=== PATIENT | female | born 1950 | race Caucasian/White ===

== ENCOUNTER 2016-09-13 17:41 | Inpatient (IN) | payer MEDICARE, OTHER ==
--- NOTE | 2016-09-13 17:47 | ED PDOC ---
Arrival/HPI - General Time Seen by Provider: 09/13/16 17:42 Historian: Patient - History of Present Illness Narrative History of Present Illness (Text): 09/13/16 17:46 65 year old female whose past medical history includes dementia, hypertension and diabetes,presents to the emergency department with left sided facial droop and left sided weakness. EMS reports onset of 16:00 today, however on arrival patient's family member states he noticed the patient was also weak yesterday. Patient currently reports pain in the left arm. Denies fevers. Time/Duration: 24 hours Symptom Course: Unchanged Modifying Factors (Text): None Associated Symptoms (Text): None Past Medical History - Provider Review Nursing Documentation Reviewed: Yes - Infectious Disease Hx of Infectious Diseases: None - Tetanus Immunization Tetanus Immunization: Unknown - Cardiac Hx Hypertension: Yes - Neurological Hx Dementia: Yes - Endocrine/Metabolic Hx Diabetes Mellitus Type 1: Yes - Musculoskeletal/Rheumatological Hx Falls: No - Psychiatric Hx Substance Use: No - Past Surgical History Past Surgical History: No Previous - Anesthesia Hx Anesthesia: No - Suicidal Assessment Feels Threatened In Home Enviroment: No Family/Social History - Physician Review Nursing Documentation Reviewed: Yes Family/Social History: Unknown Family HX Smoking Status: Never Smoked Hx Alcohol Use: No Hx Substance Use: No Hx Substance Use Treatment: No Allergies/Home Meds Allergies/Adverse Reactions: Allergies Bar of Soap Adverse Reaction (Uncoded 09/14/16 21:56) RASH Home Medications: Home Meds Medication Instructions Recorded Confirmed MetFORMIN [glucoPHAGE] 1,000 mg PO BID 07/06/13 09/13/16 Atenolol/Chlorthalidone 1 tab PO DAILY 09/13/16 09/13/16 [Atenolol-Chlorthalidone 50-25] Clopidogrel [Plavix] 75 mg PO DAILY 09/13/16 09/13/16 Losartan [Cozaar] 50 mg PO DAILY 09/13/16 09/13/16 Review of Systems - Physician Review All systems were reviewed & negative as marked: Yes - Review of Systems Constitutional: absent: Fevers Neurological: Focal Weakness, Facial Droop Physical Exam Vital Signs Reviewed: Yes Vital Signs Temp Pulse Resp BP Pulse Ox 09/13/16 22:10 99.9 F H 75 20 178/85 H 97 09/13/16 20:50 84 18 156/88 H 99 09/13/16 19:41 88 18 152/84 H 100 09/13/16 17:43 98.5 F 85 19 161/85 H 97 Temperature: Afebrile Blood Pressure: Normal Pulse: Regular Respiratory Rate: Normal Appearance: Positive for: Well-Appearing, Non-Toxic, Comfortable Pain Distress: None Mental Status: Positive for: other (Alert, following commands) - Systems Exam Head: Present: Atraumatic, Normocephalic Pupils: Present: PERRL Extroacular Muscles: Present: EOMI Conjunctiva: Present: Normal Mouth: Present: Moist Mucous Membranes Neck: Present: Normal Range of Motion Respiratory/Chest: Present: Clear to Auscultation, Good Air Exchange. No: Respiratory Distress, Accessory Muscle Use Cardiovascular: Present: Regular Rate and Rhythm, Normal S1, S2. No: Murmurs Abdomen: Present: Normal Bowel Sounds. No: Tenderness, Distention, Peritoneal Signs Back: Present: Normal Inspection Upper Extremity: Present: Normal Inspection. No: Cyanosis, Edema Lower Extremity: Present: Normal Inspection. No: Edema Neurological: Present: GCS=15, CN II-XII Intact, Speech Normal, Normal Sensory Function, Normal Cerebellar Funct, Other ((-)pronator drift +4/5 left sided upper extremity +5/5 lower extremity) Skin: Present: Warm, Dry, Normal Color. No: Rashes Psychiatric: Present: Alert, Oriented x 3, Normal Concentration Medical Decision Making ED Course and Treatment: Impression: 65 year old female whose past medical history includes dementia, hypertension and diabetes,presents to the emergency department with left sided facial droop and left sided weakness. Differential Diagnosis included but are not limited to: CVA vs TIA Plan: -- CT Head, EKG, CXR -- Labs -- Reassess and disposition Prior Visits: Notes and results from previous visits were reviewed. Patient last seen in the ED on 04/30/16 for altered mental status and admitted for altered mental status. Progress Notes: 09/13/16 22:[address] gloria. states not tpa candate as uncertain onset, improving symptoms. dr mas accepts. asa dosed. pt reports symtpoms improving in emergency room. - Lab Interpretations Microbiology Results: Microbiology Results 09/13/16 19:30 Blood Blood Culture - Preliminary NO GROWTH AFTER 24 HOURS Lab Results: 09/13/16 18:20 09/13/16 18:20 Lab Results 09/13/16 19:30: Blood Type Confirm B POSITIVE 09/13/16 18:27: Urine Color Yellow, Urine Appearance Sl cloudy, Urine pH 6.5, Ur Specific [place] 1.015, Urine Protein Negative, Urine Glucose (UA) 250 H, Urine Ketones Trace H, Urine Blood Trace-lysed H, Urine Nitrate Negative, Urine Bilirubin Negative, Urine Urobilinogen 0.2, Ur Leukocyte Esterase Small H, Urine RBC 1 - 3, Urine WBC 5 - 10, Ur Epithelial Cells 10 - 12, Urine Bacteria Mod 09/13/16 18:20: Blood Type B POSITIVE, Antibody Screen Negative, BBK History Checked No verified bt 09/13/16 18:20: Hemoglobin A1c 8.1 H 09/13/16 18:20: Sodium 135, Potassium 3.8, Chloride 98, Carbon Dioxide 24, Anion Gap 17, BUN 23 H, Creatinine 0.8, Est GFR ( Amer) > 60, Est GFR ( Non-Af Amer) > 60, Random Glucose 220 H, Calcium 10.4, Total Bilirubin 0.7, AST 22, ALT 25, Alkaline Phosphatase 62, Troponin I < 0.01, Total Protein 8.2, Albumin 4.5, Globulin 3.7, Albumin/Globulin Ratio 1.2, Triglycerides 121, Cholesterol 252 H, LDL Cholesterol Direct 160 H, HDL Cholesterol 64 H 09/13/16 18:20: PT 11.1, INR 1.03, APTT 31.7 H 09/13/16 18:20: WBC 14.9 H D, RBC 4.66, Hgb 12.6, Hct 37.1, MCV 79.6 L, MCH 27.0 , MCHC 34.0, RDW 14.2, Plt Count 236, MPV 10.7, Gran % 84.9 H, Lymph % (Auto) 10.1 L, Perkins % (Auto) 3.4, Eos % (Auto) 1.5, Baso % (Auto) 0.1, Gran # 12.63 H, Lymph # 1.5, Perkins # 0.5, Eos # 0.2, Baso # 0.02 - RAD Interpretation Radiology Orders: 09/13/16 17:42 HEAD W/O (CODE STROKE) [CT] Stat CHEST ONE VIEW [RAD] Stat - EKG Interpretation EKG Interpretation (Text): EKG shows NSR at 74 BPM with poor tracing in lateral leads. Interpreted by me. Interpreted by ED Physician: Yes Type: 12 lead EKG - Medication Orders Current Medication Orders: Acetaminophen (Tylenol 325mg Tab) 650 mg PO Q6H PRN PRN Reason: Fever >100.4 F Last Admin: 09/14/16 19:15 Dose: 650 mg Re-Assess: MAR Pain/Vitals Document 09/14/16 20:15 DS (Rec: 09/14/16 20:18 DS [id number]) Vitals Temperature (97.6 F-99.6 F) 98.4 F Temperature Source Oral Aspirin (Ecotrin) 81 mg PO DAILY [facility] Last Admin: 09/15/16 10:38 Dose: 81 mg Atenolol (Tenormin) 50 mg PO DAILY [facility] Last Admin: 09/15/16 10:38 Dose: 50 mg Atorvastatin Calcium (Lipitor) 40 mg PO HS [facility] Last Admin: 09/14/16 21:41 Dose: 40 mg Chlorthalidone (Hygroton) 25 mg PO DAILY [facility] Last Admin: 09/15/16 10:38 Dose: 25 mg Clopidogrel Bisulfate (Plavix) 75 mg PO DAILY [facility] Last Admin: 09/15/16 10:38 Dose: 75 mg Enoxaparin Sodium (Lovenox) 30 mg SC DAILY [facility] PRN Reason: Protocol Last Admin: 09/15/16 10:38 Dose: 30 mg Ceftriaxone Sodium (Rocephin 1 Gram Ivpb) 1 gm in 100 mls @ 100 mls/hr IVPB DAILY [facility] PRN Reason: Protocol Last Admin: 09/15/16 10:39 Dose: 100 mls/hr Sodium Chloride (Sodium Chloride 0.9%) 1,000 mls @ 100 mls/hr IV .Q10H [facility] Last Admin: 09/15/16 05:44 Dose: 100 mls/hr Insulin Detemir (Levemir) 10 unit SC HS [facility] Last Admin: 09/14/16 21:41 Dose: 10 unit Insulin Human Lispro (Humalog Low) 0 units SC ACHS [facility] PRN Reason: Protocol Last Admin: 09/15/16 08:37 Dose: 1 units Losartan Potassium (Cozaar) 50 mg PO DAILY [facility] Last Admin: 09/15/16 10:38 Dose: 50 mg Pantoprazole Sodium (Protonix Ec Tab) 40 mg PO ACB [facility] Last Admin: 09/15/16 08:37 Dose: 40 mg Polysaccharide Iron Complex (Ferrex-150) 150 mg PO DAILY [facility] Last Admin: 09/15/16 10:38 Dose: 150 mg Discontinued Medications Aspirin (Aspirin) 325 mg PO STAT STA Stop: 09/13/16 19:22 Last Admin: 09/13/16 19:57 Dose: 325 mg Diphenhydramine HCl (Benadryl) 25 mg IVP STAT STA Stop: 09/14/16 09:52 Last Admin: 09/14/16 10:01 Dose: 25 mg Hydralazine HCl (Apresoline) 10 mg IVP ONCE ONE Stop: 09/13/16 22:44 Last Admin: 09/13/16 22:59 Dose: 10 mg Ceftriaxone Sodium (Rocephin 1 Gram Ivpb) 1 gm in 100 mls @ 200 mls/hr IVPB STAT STA PRN Reason: Protocol Stop: 09/13/16 19:46 Last Admin: 09/13/16 19:55 Dose: 200 mls/hr Potassium Chloride (Potassium Chloride 20 Meq/100 Ml) 20 meq in 100 mls @ 50 mls/hr IVPB ONCE ONE Stop: 09/14/16 10:33 Last Admin: 09/14/16 15:18 Dose: 50 mls/hr Potassium Chloride (Potassium Chloride 20 Meq/100 Ml) 20 meq in 100 mls @ 50 mls/hr IVPB ONCE ONE Stop: 09/14/16 12:34 Last Admin: 09/14/16 17:18 Dose: 50 mls/hr Magnesium Sulfate 2 gm/ Sodium (Chloride) 104 mls @ 102 mls/hr IVPB ONCE ONE Stop: 09/14/16 13:39 Last Admin: 09/14/16 13:54 Dose: 102 mls/hr NIHSS Scale ([place]) Time Performed: 17:42 - How Severe is the Stoke Baseline Level of Consciousness: 0=Alert LOC to Questions: 0=Both comments correct LOC to commands: 0=Obeys both correctly Best Gaze: 0=Normal Visual: 0=No visual loss Facial: 2=Partial (lower face paralysis) Motor Arm - Left: 1=Drift noted before 10 sec Motor Arm - Right: 0=No drift Motor Leg - Left: 1=Drift before 5 sec Motor Leg - Right: 0=No drift Limb Ataxia: 0=Absent Sensory: 0=Normal Best Language: 0=No aphasia Dysarthia: 0=Normal articulation Extinction & Inattention (Neglect): 0=Normal, no object Score: 4 Risk Level: Minor Stroke Risk rTPA Inclusion/Exclusion - Refusal of Treatment Patient Refused Treatment: No - Inclusion Criteria for Altepase Patient is 18 years or Older: Yes The Clinical Diagnosis of Ischemic Stroke That is Causing a Potentially Disabling Neurological Deficit: Yes Time of Onset is Well Established to be Less Than 270 Minute Before Treatment Would Begin: No Risk/Benefit Discussed With Patient/Family Member Present: Yes - Scribe Statement The provider has reviewed the documentation as recorded by the Clementina Negrete Provider Scribe Attestation: All medical record entries made by the Clementina were at my direction and personally dictated by me. I have reviewed the chart and agree that the record accurately reflects my personal performance of the history, physical exam, medical decision making, and the department course for this patient. I have also personally directed, reviewed, and agree with the discharge instructions and disposition. Disposition/Present on Arrival - Present on Arrival Any Indicators Present on Arrival: No History of DVT/PE: No History of Uncontrolled Diabetes: No Urinary Catheter: No History Surgical Site Infection Following: None - Disposition Have Diagnosis and Disposition been Completed?: Yes Diagnosis: Weakness, UTI (urinary tract infection) Disposition: HOSPITALIZED Disposition Time: 07:00 Condition: FAIR
[2016-09-13 17:59] VITALS: BMI 23.6
[2016-09-13 18:27] LABS: ADD MANUAL DIFF? NO
[2016-09-13 18:31] LABS: BASO # 0.02 K/mm3 (0.0-2.0); BASO % 0.1 % (0.0-3.0); EOS # 0.2 (0.0-0.7); EOS % 1.5 % (1.5-5.0); GRAN # 12.63 (1.4-6.5); GRAN % 84.9 % (50.0-68.0); HEMATOCRIT 37.1 % (36.0-48.0); LYMPH # 1.5 (1.2-3.4); LYMPH % 10.1 % (22.0-35.0); MEAN CELL VOLUME 79.6 fL (80.0-105.0); MEAN PLATELET VOLUME 10.7 fl (7.0-11.0); MONO # 0.5 (0.1-0.6); MONO % 3.4 % (1.0-6.0); PLATELET COUNT 236 10^3/uL (120.0-450.0); RED CELL DISTRIBUTION WIDTH 14.2 % (11.5-14.5); WHITE BLOOD COUNT 14.9 10^3/ul (4.5-11.0)
[2016-09-13 18:45] LABS: ALB/GLOB RATIO 1.2 (1.1-1.8); ALKALINE PHOSPHATASE 62 U/L (38-133); ALT/SGPT 25 U/L (7-56); AST/SGOT 22 U/L (15-39); BILIRUBIN,TOTAL 0.7 mg/dL (0.2-1.3); BLOOD UREA NITROGEN 23 mg/dL (7-21); CALCIUM 10.4 mg/dL (8.4-10.5); CARBON DIOXIDE 24 mmol/L (21-33); CHLORIDE 98 mmol/L (98-107); CHOLESTEROL 252 mg/dL (130-200); GFR AFRICAN-AMERICAN > 60; GLUCOSE,RANDOM 220 mg/dL (70-110); POTASSIUM 3.8 mmol/L (3.6-5.0); SODIUM 135 mmol/L (132-148); TOTAL PROTEIN 8.2 g/dL (5.8-8.3)
[2016-09-13 18:53] LABS: INR 1.03 (0.93-1.08); PARTIAL THROMBOPLASTIN TIME 31.7 Seconds (23.7-30.8)
[2016-09-13 18:59] LABS: PH,URINE 6.5 (4.7-8.0); URINE BILIRUBIN NEGATIVE (NEGATIVE); URINE BLOOD TRACE-LYSED (NEGATIVE); URINE GLUCOSE (UA) 250 mg/dL (NEGATIVE); URINE KETONE TRACE mg/dL (NEGATIVE); URINE LEUKOCYTE ESTERASE SMALL Leu/uL (NEGATIVE); URINE PROTEIN NEGATIVE mg/dL (<30 mg/dL); URINE UROBILINOGEN 0.2 E.U./dL (<1 E.U./dL)
[2016-09-13 19:06] LABS: URINE APPEARANCE SL CLOUDY (CLEAR); URINE COLOR YELLOW (YELLOW)
[2016-09-13 19:16] LABS: URINE BACTERIA MOD (NEG)
[2016-09-13] MEDS ORDERED: cefTRIAXone 1 gm 1 GM/100 ML BAG IVPB STA (19:17)
[2016-09-13 19:22] LABS: TROPONIN I < 0.01 ng/mL
--- NOTE | 2016-09-13 22:28 | CP.PCM.HP ---
<Parisa Hennessy - Last Filed: 09/14/16 01:19> History of Present Illness - History of Present Illness History of Present Illness: PGY-1 h&p 65 yo female with PMH of HTN, DM and dementia presented to ED with left sided facial droop and left sided weakness. Per son, patient complained of weakness of her left arm and leg yesterday. Initially they assumed it was due to the patient sleeping on her left side. However this morning patient continued to reports weakness. In the morning patient was able to complete activities of daily living without much difficulty. However about an hour and half before going to ED patient began to have trouble walking and as tripping. Son said her noticed left sided facial drooping. Patient had a previous CVA in April, there were no neurological deficiencies from that event. Per son patient did not have fever, chill, abd pain, chest pain, sob, n/v. Patient has urinary incontinence and wears adult diapers, denies any dysuria. PMH: HTN, DM and dementia PSH: denies social hx: denies smoking, alcohol use, illicit drug use family hx: denies allergy: NKDA PMD: Dr. Cm Present on Admission - Present on Admission Any Indicators Present on Admission: No Review of Systems - Review of Systems Systems not reviewed;Unavailable: Dementia - Constitutional Constitutional: absent: Chills, Fever, Headache, Weight Loss - EENT Eyes: absent: Change in Vision Nose/Mouth/Throat: absent: Nasal Congestion, Nasal Discharge, Sore Throat - Cardiovascular Cardiovascular: absent: Chest Pain, Dyspnea - Respiratory Respiratory: absent: Cough, Dyspnea - Gastrointestinal Gastrointestinal: Diarrhea. absent: Abdominal Pain, Constipation, Nausea, Vomiting - Genitourinary Genitourinary: absent: Dysuria - Musculoskeletal Musculoskeletal: Muscle Weakness, Myalgias - Neurological Neurological: Focal Weakness. absent: Numbness, Headaches, Syncope - Hematologic/Lymphatic Hematologic: absent: Easy Bleeding, Easy Bruising Past Patient History - Infectious Disease Hx of Infectious Diseases: None - Tetanus Immunizations Tetanus Immunization: Unknown - Past Medical History & Family History Past Medical History?: Yes - Past Social History Smoking Status: Never Smoked Alcohol: None Drugs: Denies - CARDIAC Hx Hypertension: Yes - NEUROLOGICAL Hx Dementia: Yes - ENDOCRINE/METABOLIC Hx Diabetes Mellitus Type 1: Yes - MUSCULOSKELETAL/RHEUMATOLOGICAL Hx Falls: No - PSYCHIATRIC Hx Substance Use: No - SURGICAL HISTORY Hx Thyroidectomy: Yes - ANESTHESIA Hx Anesthesia: No Meds Allergies/Adverse Reactions: Allergies Allergy/AdvReac Type Severity Reaction Status Date / Time No Known Allergies Allergy Verified 09/13/16 17:44 Physical Exam - Constitutional Appears: Well, No Acute Distress - Head Exam Head Exam: ATRAUMATIC, NORMOCEPHALIC - Eye Exam Eye Exam: EOMI, Normal appearance, PERRL - ENT Exam ENT Exam: Mucous Membranes Moist - Respiratory Exam Respiratory Exam: Clear to Auscultation Bilateral, NORMAL BREATHING PATTERN. absent: Rales, Rhonchi, Wheezes, Respiratory Distress - Cardiovascular Exam Cardiovascular Exam: REGULAR RHYTHM, +S1, +S2. absent: Tachycardia, Diastolic murmur, Systolic Murmur - GI/Abdominal Exam GI & Abdominal Exam: Normal Bowel Sounds, Soft. absent: Distended, Firm, Guarding, Tenderness - Extremities Exam Extremities exam: Positive for: tenderness (left arm and leg ). Negative for: pedal edema - Neurological Exam Neurological exam: Alert - Expanded Neurological Exam Expanded Patient oriented to: person, place Speech: Fluid Speech Neuro motor strength exam: Left Upper Extremity: 4, Right Upper Extremity: 5, Left Lower Extremity: 4, Right Lower Extremity: 5 Coma Scale Eye Opening: SPONTANEOUS Coma Scale Motor Response: OBEYS COMMANDS Coma Scale Verbal: Oriented Coma Scale Total: 15 - Skin Skin Exam: Dry, Intact, Normal Color, Warm Results - Vital Signs Recent Vital Signs: Last Vital Signs Temp 98.5 F 09/13/16 17:43 Pulse 84 09/13/16 20:50 Resp 18 09/13/16 20:50 BP 156/88 H 09/13/16 20:50 Pulse Ox 99 09/13/16 20:50 - Labs Result Diagrams: 09/13/16 18:20 09/13/16 18:20 Labs: Laboratory Results - last 24 hr 09/13/16 22:04 POC Glucose (mg/dL) 161 H Assessment & Plan - Assessment and Plan (Free Text) Assessment: 65 yo female with PMH of HTN, DM and dementia presented to ED with left sided facial droop and left sided weakness. CT head showed no acute intracranial abnormalities. Plan: 1. left sided facial droop and left sided weakness - possible CVA - Neurologist consulted - not tpa candidate - asa - lipitor 40mg - neuro checks q4h - NPO pending swallow eval - IVF NS @100 2. UTI - UA positive, with leukocytosis - started rocephen - urine and blood cultures 3. HTN - cont home meds, atenolol, cozaar - cont to monitor 4. DM - cont levemir 10 units HS - hold metformin and glipizide - insulin ISS-low - fingersticks ACHS ppx GI- protonix DVT- lovenox <Kvng Calix - Last Filed: 09/14/16 01:44> Results - Vital Signs Recent Vital Signs: Last Vital Signs Temp 98.2 F 09/13/16 23:37 Pulse 73 09/14/16 01:10 Resp 20 09/13/16 23:37 BP 122/57 L 09/14/16 01:10 Pulse Ox 97 09/13/16 23:37 - Labs Result Diagrams: 09/13/16 18:20 09/13/16 18:20 Labs: Laboratory Results - last 24 hr 09/13/16 22:04 POC Glucose (mg/dL) 161 H Attending/Attestation - Attestation I have personally seen and examined this patient.: Yes I have fully participated in the care of the patient.: Yes I have reviewed all pertinent clinical information: Yes Notes (Text): 09/14/16 01:42 Patient was seen when she was in the ER in bed # 4. Agree with history, physical examination ,assessment and plan.
[2016-09-13] MEDS: Insulin Detemir 100 units/ml Vial (Levemir) SC SCH (22:42)
[2016-09-13] MEDS: Sodium Chloride 0.9% 1,000 ML IV SCH (22:45)
[2016-09-14 07:57] LABS: ADD MANUAL DIFF? NO
[2016-09-14 08:04] LABS: BASO # 0.01 K/mm3 (0.0-2.0); BASO % 0.1 % (0.0-3.0); EOS % 0.1 % (1.5-5.0); GRAN # 9.68 (1.4-6.5); GRAN % 77.8 % (50.0-68.0); HEMATOCRIT 34.9 % (36.0-48.0); LYMPH % 15.8 % (22.0-35.0); MEAN CELL VOLUME 78.6 fL (80.0-105.0); MEAN CORPUSCULAR HEMOGLOBIN 26.6 pg (25.0-35.0); MEAN CORPUSCULAR HGB CONC 33.8 g/dl (31.0-37.0); MEAN PLATELET VOLUME 10.6 fl (7.0-11.0); MONO # 0.8 (0.1-0.6); MONO % 6.2 % (1.0-6.0); PLATELET COUNT 222 10^3/uL (120.0-450.0); RED CELL DISTRIBUTION WIDTH 14.1 % (11.5-14.5); WHITE BLOOD COUNT 12.4 10^3/ul (4.5-11.0)
--- NOTE | 2016-09-14 08:18 | RAD ---
PROCEDURE: CHEST RADIOGRAPH, 1 VIEW HISTORY: code stroke COMPARISON: None available. FINDINGS: LUNGS: Clear. PLEURA: No pneumothorax or pleural fluid seen. CARDIOVASCULAR: Normal. OSSEOUS STRUCTURES: No significant abnormalities. VISUALIZED UPPER ABDOMEN: Normal. OTHER FINDINGS: None. IMPRESSION: No active disease.
[2016-09-14 08:23] LABS: ALB/GLOB RATIO 1.1 (1.1-1.8); ALKALINE PHOSPHATASE 51 U/L (38-133); ALT/SGPT 26 U/L (7-56); AST/SGOT 16 U/L (15-39); BILIRUBIN,TOTAL 1.2 mg/dL (0.2-1.3); BLOOD UREA NITROGEN 16 mg/dL (7-21); CALCIUM 9.6 mg/dL (8.4-10.5); CARBON DIOXIDE 26 mmol/L (21-33); CHLORIDE 100 mmol/L (98-107); GFR AFRICAN-AMERICAN > 60; GLUCOSE,RANDOM 172 mg/dL (70-110); POTASSIUM 3.2 mmol/L (3.6-5.0); SODIUM 135 mmol/L (132-148); TOTAL PROTEIN 7.3 g/dL (5.8-8.3)
[2016-09-14] MEDS: Sodium Chloride 0.9% 1,000 ML IV SCH ×2 (08:30→20:28)
[2016-09-14] MEDS: Insulin Lispro (humaLOG) LOW Coverage SC SCH ×4 (08:31→21:22)
--- NOTE | 2016-09-14 08:32 | CT ---
PROCEDURE: CT HEAD WITHOUT CONTRAST. HISTORY: Code Stroke COMPARISON: None available. TECHNIQUE: Axial computed tomography images were obtained through the head/brain without intravenous contrast. Radiation dose: Total exam DLP = 733 mGy-cm. This CT exam was performed using one or more of the following dose reduction techniques: Automated exposure control, adjustment of the mA and/or kV according to patient size, and/or use of iterative reconstruction technique. FINDINGS: HEMORRHAGE: No intracranial hemorrhage. BRAIN: No mass effect or edema. Chronic periventricular white matter ischemic disease. VENTRICLES: Unremarkable. No hydrocephalus. CALVARIUM: Unremarkable. PARANASAL SINUSES: Extensive sinus disease. MASTOID AIR CELLS: Unremarkable as visualized. No inflammatory changes. OTHER FINDINGS: None. IMPRESSION: No acute hemorrhage.
[2016-09-14] MEDS ORDERED: DiphenhydrAMINE 50 mg/ml Inj IVP STA (09:51)
[2016-09-14] MEDS ORDERED: CHLORTHALIDONE PO SCH (10:00)
[2016-09-14] MEDS ORDERED: [UNRECOGNIZED DRUG - OTHER] PO SCH (10:00)
[2016-09-14] MEDS ORDERED: ATENOLOL PO SCH (10:00)
[2016-09-14] MEDS ORDERED: Enoxaparin 40 mg Syringe SC SCH (10:00)
[2016-09-14 10:33] LABS: MAGNESIUM 1.2 mg/dL (1.7-2.2)
--- NOTE | 2016-09-14 11:53 | MRI ---
PROCEDURE: MRI BRAIN WITHOUT CONTRAST HISTORY: CVA COMPARISON: None. TECHNIQUE: Multiplanar, multisequence MR images of the brain were obtained without intravenous contrast enhancement. FINDINGS: HEMORRHAGE: None DWI: No evidence of an acute or early subacute infarction. BRAIN PARENCHYMA: No mass effect or edema. Extensive periventricular white matter signal abnormality, statistically most likely secondary to chronic microvascular ischemic disease. VENTRICLES: Unremarkable. No hydrocephalus. CRANIUM: Unremarkable. ORBITS: Grossly unremarkable. PARANASAL SINUSES/MASTOIDS: Extensive sinus disease. VASCULAR SYSTEM: Skull base flow voids intact. OTHER FINDINGS: None. IMPRESSION: Extensive periventricular white matter signal abnormality, statistically most likely secondary to chronic microvascular ischemic disease.
[2016-09-14] MEDS ORDERED: Magnesium Sulfate 2 GM in Sodium Chloride 0.9% 100 ML IVPB ONE (12:38)
--- NOTE | 2016-09-14 13:05 | CP.PCM.PN ---
Subjective - Date & Time of Evaluation Date of Evaluation: 09/14/16 Time of Evaluation: 13:04 - Subjective Subjective: pt needs angiocath insertion. Objective - Vital Signs/Intake and Output Vital Signs (last 24 hours): Temp Pulse Resp BP Pulse Ox 98.9 F 73 20 160/73 H 95 09/14/16 05:30 09/14/16 05:35 09/14/16 05:30 09/14/16 05:30 09/14/16 05:30 Intake and Output: 09/14/16 09/14/16 06:59 18:59 Intake Total 825 Balance 825 - Medications Medications: Current Medications Aspirin (Ecotrin) 81 mg PO DAILY [facility] Atenolol (Tenormin) 50 mg PO DAILY [facility] Atorvastatin Calcium (Lipitor) 40 mg PO HS COUNT [facility]CLUDES [facility] Chlorthalidone (Hygroton) 25 mg PO DAILY [facility] Clopidogrel Bisulfate (Plavix) 75 mg PO DAILY COUNT [facility]CLUDES THE [facility] Ceftriaxone Sodium (Rocephin 1 Gram Ivpb) 1 gm in 100 mls @ 100 mls/hr IVPB DAILY COUNT [facility]CLUD[facility] PRN Reason: Protocol Sodium Chloride (Sodium Chloride 0.9%) 1,000 mls @ 100 mls/hr IV .Q10H COUNT INCLUDES THE [facility] Last Admin: 09/14/16 08:30 Dose: 100 mls/hr Magnesium Sulfate 2 gm/ Sodium (Chloride) 104 mls @ 102 mls/hr IVPB ONCE ONE Stop: 09/14/16 13:39 Insulin Detemir (Levemir) 10 unit SC HS COUNT [facility]CLUD[facility] Last Admin: 09/13/16 22:42 Dose: 10 unit Insulin Human Lispro (Humalog Low) 0 units SC ACHS COUNT INCLUDES [facility] PRN Reason: Protocol Last Admin: 09/14/16 08:31 Dose: Not Given Losartan Potassium (Cozaar) 50 mg PO DAILY COUNT [facility]CLUD[facility] Pantoprazole Sodium (Protonix Ec Tab) 40 mg PO ACB [facility] Polysaccharide Iron Complex (Ferrex-150) 150 mg PO DAILY COUNT INCLUDES THE [facility] - Labs Labs: 09/14/16 07:54 09/14/16 07:54 PT 11.1 Seconds (9.9-11.8) 09/13/16 18:20 INR 1.03 (0.93-1.08) 09/13/16 18:20 APTT 31.7 Seconds (23.7-30.8) H 06/03/17 18:20 Assessment and Plan - Assessment and Plan (Free Text) Assessment: 22 guage angiocath inserted in rt ankle area.
[2016-09-14] MEDS: Pantoprazole 40 mg EC Tab PO SCH (13:18)
[2016-09-14] MEDS: Iron Complex Polysacch 150mg Cap PO SCH (13:19)
[2016-09-14] MEDS: cefTRIAXone 1 gm 1 GM/100 ML BAG IVPB SCH (13:20)
--- NOTE | 2016-09-14 16:16 | CON ---
DATE: 09/14/2016 CHIEF COMPLAINT: Generalized weakness in the left arm and left leg. 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 Initially, the patient woke up on her left side an d was reported to have continued weakness of the left side, so therefore came in the hospital for fur ther evaluation. She had a previous stroke in 04/2016 in the left anterior temporal lobe with no resi dual deficits. Currently, she is moving all extremities. She does have urinary incontinence and wea rs adult diapers. She has a mild urinary tract infection and some mild electrolyte derangements with a slightly increased white count. Her magnesium is also low. She has an elevated LDL of 116 and el evated cholesterol of 252. Her MRI of the brain was done, which showed no acute intracranial abnorma lities, just chronic ischemic changes. PAST MEDICAL HISTORY: Hypertension, diabetes, dementia, history of an old left anterior temporal lob e small cortical infarct in the past with no residual deficits. SOCIAL HISTORY: No illicit drug use, smoking, or ETOH abuse. FAMILY HISTORY: Noncontributory. ALLERGIES: No known drug allergies. REVIEW OF SYSTEMS: A 14-point review of systems is negative except for the HPI. PHYSICAL EXAMINATION: VITAL SIGNS: Temperature 98.4, pulse rate is 69, blood pressure 164/77, respiratory rate 20, oxygen saturation 95% on room air. GENERAL: The patient is sitting up in bed in no acute distress. HEENT: Atraumatic, normocephalic. PERRLA. Extraocular muscles intact. NECK: Supple, no JVD, no adenopathy noted. LUNGS: Clear to auscultation. No adventitious sounds. HEART: S1, S2, normal rate and rhythm. No murmurs, rubs, or gallops. ABDOMEN: Soft, nontender, nondistended. Bowel sounds are present. EXTREMITIES: No clubbing, no cyanosis. Peripheral pulses 2+ felt bilaterally. NEUROLOGIC: The patient is alert, oriented to person, place, month and year. Speech is fluent, with out any errors. Cranial nerves II-XII are intact. MOTOR: Moves all extremities equally. No pronator seen. SENSORY: Decreased light touch and pinprick up to the calves bilaterally. Decreased vibration of th e toes and knees. Toes are downgoing bilaterally. COORDINATION: [id number] intact. DTRs are 2+ throughout, 1 at the knees and 1 at the ankles. GAIT: Deferred for now. LABORATORY DATA: Sodium is 135, potassium 3.2, chloride 100, carbon dioxide of 26, BUN of 16, creati nine 0.7, random glucose 172, magnesium 1.2. ASSESSMENT AND PLAN: This is a 65-year-old woman with a history of hypertension, diabetes, mild cogn itive impairment with an old left anterior temporal lobe cortical infarct on 05/01/2016 with no residu al deficits, with a history of an old carotid Doppler in 04/2016 with 20% to 39% internal carotid bhavin ry stenosis who presented with some transient left facial droop and left-sided weakness. Currently, MRI of the brain showed no acute intracranial abnormalities, just chronic ischemic changes. There is a possibility it could have been a transient ischemic event superimposed on underlying urinary tract infection causing her to be generally weak and electrolyte derangements along with a slight bump in her blood pressures. At this time, recommend: 1. Aspirin 81 mg, Lipitor 40 mg p.o. daily for stroke prevention as well as Plavix 75 mg p.o. daily. 2. Keep her blood sugars between 140-180 and diabetic diet is recommended. 3. Keep her blood pressure between 130-140 mmHg. 4. PT evaluation. No further neurological workup is needed at this time. We will sign off. She is clinically stable f rom our standpoint. Continue treating her for underlying leukocytosis and urinary tract infection. Alfonso Riley MD cc: [phone] TT: 09/14/2016 16:15:01 Confirmation # [id number] Dictation # [id number]
--- NOTE | 2016-09-14 18:53 | CARD ---
APPROVED REPORT EKG Measurement Heart [id number] <Conclusion> Normal sinus rhythm Left ventricular hypertrophy with repolarization abnormality Inferior infarct, age undetermined Abnormal ECG
[2016-09-14] MEDS: Enoxaparin 30 mg Syringe SC SCH (20:28)
[2016-09-14] MEDS: Insulin Detemir 100 units/ml Vial (Levemir) SC SCH (21:41)
[2016-09-15] MEDS: Sodium Chloride 0.9% 1,000 ML IV SCH ×2 (05:44→19:02)
[2016-09-15 06:50] LABS: ADD MANUAL DIFF? NO
[2016-09-15 07:03] LABS: BASO # 0.03 K/mm3 (0.0-2.0); BASO % 0.3 % (0.0-3.0); EOS # 0.3 (0.0-0.7); EOS % 3.1 % (1.5-5.0); GRAN # 6.36 (1.4-6.5); GRAN % 68.6 % (50.0-68.0); HEMATOCRIT 34.8 % (36.0-48.0); LYMPH % 21.3 % (22.0-35.0); MEAN CELL VOLUME 79.6 fL (80.0-105.0); MEAN CORPUSCULAR HGB CONC 33.9 g/dl (31.0-37.0); MEAN PLATELET VOLUME 10.7 fl (7.0-11.0); MONO # 0.6 (0.1-0.6); MONO % 6.7 % (1.0-6.0); PLATELET COUNT 242 10^3/uL (120.0-450.0); RED CELL DISTRIBUTION WIDTH 14.4 % (11.5-14.5); WHITE BLOOD COUNT 9.3 10^3/ul (4.5-11.0)
[2016-09-15 07:07] LABS: ALKALINE PHOSPHATASE 51 U/L (38-133); ALT/SGPT 18 U/L (7-56); AST/SGOT 16 U/L (15-39); BILIRUBIN,TOTAL 1.3 mg/dL (0.2-1.3); BLOOD UREA NITROGEN 12 mg/dL (7-21); CALCIUM 9.3 mg/dL (8.4-10.5); CARBON DIOXIDE 22 mmol/L (21-33); CHLORIDE 105 mmol/L (98-107); GFR AFRICAN-AMERICAN > 60; GLUCOSE,RANDOM 153 mg/dL (70-110); MAGNESIUM 1.7 mg/dL (1.7-2.2); PHOSPHOROUS 2.7 mg/dL (2.5-4.5); POTASSIUM 3.9 mmol/L (3.6-5.0); SODIUM 135 mmol/L (132-148); TOTAL PROTEIN 7.4 g/dL (5.8-8.3); URIC ACID 5.9 mg/dL (2.5-6.2)
[2016-09-15] MEDS: Pantoprazole 40 mg EC Tab PO SCH (08:37)
[2016-09-15] MEDS: Insulin Lispro (humaLOG) LOW Coverage SC SCH ×4 (08:37→21:44)
--- NOTE | 2016-09-15 09:27 | MRI ---
PROCEDURE: Magnetic Resonance Angiography Brain HISTORY: CVA COMPARISON: Noncontrast head CT from 09/13/2016 TECHNIQUE: 3D time of flight MR angiography of the intracranial arteries was performed. Rotating maximum intensity projection images were generated. FINDINGS: INTERNAL CEREBRAL ARTERIES: Normal in caliber. The skull base, petrous, cavernous and supraclinoid segments are bilaterally widely patient. ANTERIOR CEREBRAL ARTERIES: Normal in caliber. A1 and A2 segments are widely patent. Smaller distal branches unremarkable, as visualized. MIDDLE CEREBRAL ARTERIES: Normal in caliber. M1 and M2 segments are widely patent. Perisylvian branches grossly symmetric. POSTERIOR CIRCULATION: Basilar Artery: Normal in caliber. Distal Vertebral Arteries: Normal in caliber. The left vertebral artery is dominant. Posterior Cerebral Arteries: Normal in caliber. Posterior Inferior Cerebellar Arteries: Normal in caliber. ANEURYSM/ VASCULAR MALFORMATIONS: None. OTHER FINDINGS: There is polypoid mucosal thickening in both maxillary sinuses and ethmoid air cells. There is mild mucosal thickening in the frontal sinuses and sphenoid sinus. IMPRESSION: No evidence of occlusion, definite significant stenosis or saccular aneurysm. Pansinusitis, worse in the maxillary and ethmoid sinuses. A preliminary report was provided by [employer] [facility].
[2016-09-15] MEDS: Iron Complex Polysacch 150mg Cap PO SCH (10:38)
[2016-09-15] MEDS: Enoxaparin 30 mg Syringe SC SCH (10:38)
[2016-09-15] MEDS: cefTRIAXone 1 gm 1 GM/100 ML BAG IVPB SCH (10:39)
--- NOTE | 2016-09-15 18:06 | CP.PCM.PN ---
<Franike Pedraza - Last Filed: 09/15/16 19:42> Subjective - Date & Time of Evaluation Date of Evaluation: 09/15/16 Time of Evaluation: 09:55 - Subjective Subjective: Internal Medicine Progress Note for Dr. Suarez Patient seen and examined at bedside. Today is hospital day 2. Patient denies any events overnight. Complains of sense of some residual weakness in LLE, but otherwise feels that her strength is back to normal. Denies new weakness, dizziness/lightheadedness, chest pain, shortness of breath, vision changes, or new lack of sensation. Reports some diminished sensation in the RLE, but reports that this in not new and is improved compared to level at presentation. Objective - Vital Signs/Intake and Output Vital Signs (last 24 hours): Temp Pulse Resp BP Pulse Ox 98.2 F 68 19 143/84 95 09/15/16 12:00 09/15/16 14:00 09/15/16 12:00 09/15/16 12:00 09/15/16 05:12 Intake and Output: 09/15/16 09/15/16 06:59 18:59 Intake Total 3100 600 Output Total 700 Balance 3100 -100 - Medications Medications: Current Medications Acetaminophen (Tylenol 325mg Tab) 650 mg PO Q6H PRN PRN Reason: Fever >100.4 F Last Admin: 09/14/16 19:15 Dose: 650 mg Aspirin (Ecotrin) 81 mg PO DAILY [facility] Last Admin: 09/15/16 10:38 Dose: 81 mg Atenolol (Tenormin) 50 mg PO DAILY [facility] Last Admin: 09/15/16 10:38 Dose: 50 mg Atorvastatin Calcium (Lipitor) 40 mg PO HS [facility] Last Admin: 09/14/16 21:41 Dose: 40 mg Chlorthalidone (Hygroton) 25 mg PO DAILY [facility] Last Admin: 09/15/16 10:38 Dose: 25 mg Clopidogrel Bisulfate (Plavix) 75 mg PO DAILY [facility] Last Admin: 09/15/16 10:38 Dose: 75 mg Enoxaparin Sodium (Lovenox) 30 mg SC DAILY [facility] PRN Reason: Protocol Last Admin: 09/15/16 10:38 Dose: 30 mg Ceftriaxone Sodium (Rocephin 1 Gram Ivpb) 1 gm in 100 mls @ 100 mls/hr IVPB DAILY [facility] PRN Reason: Protocol Last Admin: 09/15/16 10:39 Dose: 100 mls/hr Sodium Chloride (Sodium Chloride 0.9%) 1,000 mls @ 100 mls/hr IV .Q10H [facility] Last Admin: 09/15/16 05:44 Dose: 100 mls/hr Insulin Detemir (Levemir) 10 unit SC HS [facility] Last Admin: 09/14/16 21:41 Dose: 10 unit Insulin Human Lispro (Humalog Low) 0 units SC ACHS [facility] PRN Reason: Protocol Last Admin: 09/15/16 17:00 Dose: Not Given Losartan Potassium (Cozaar) 50 mg PO DAILY [facility] Last Admin: 09/15/16 10:38 Dose: 50 mg Pantoprazole Sodium (Protonix Ec Tab) 40 mg PO ACB [facility] Last Admin: 09/15/16 08:37 Dose: 40 mg Polysaccharide Iron Complex (Ferrex-150) 150 mg PO DAILY [facility] Last Admin: 09/15/16 10:38 Dose: 150 mg - Labs Labs: 09/15/16 06:30 09/15/16 05:10 PT 11.1 Seconds (9.9-11.8) 09/13/16 18:20 INR 1.03 (0.93-1.08) 09/13/16 18:20 APTT 31.7 Seconds (23.7-30.8) H 09/13/16 18:20 - Constitutional Appears: Non-toxic, No Acute Distress - Head Exam Head Exam: ATRAUMATIC, NORMAL INSPECTION, NORMOCEPHALIC - Eye Exam Eye Exam: EOMI, Normal appearance, PERRL. absent: Conjunctival injection, Scleral icterus Pupil Exam: NORMAL ACCOMODATION, PERRL. absent: Fixed, Irregular, Unequal - ENT Exam ENT Exam: Mucous Membranes Moist - Neck Exam Neck Exam: Full ROM - Respiratory Exam Respiratory Exam: Clear to Ausculation Bilateral, NORMAL BREATHING PATTERN. absent: Accessory Muscle Use, Chest Wall Tenderness, Decreased Breath Sounds, Rales, Rhonchi, Wheezes - Cardiovascular Exam Cardiovascular Exam: REGULAR RHYTHM, RRR, +S1, +S2. absent: Bradycardia, Tachycardia, Irregular Rhythm, +S4 - GI/Abdominal Exam GI & Abdominal Exam: Soft, Normal Bowel Sounds. absent: Distended, Firm, Rigid , Tenderness, Diminished Bowel Sounds, Hyperactive Bowel Sounds, Hypoactive Bowel Sounds - Extremities Exam Extremities Exam: Full ROM. absent: Calf Tenderness, Pedal Edema, Tenderness Additional comments: +2 radial and dorsalis pedis pulses bilaterally - Neurological Exam Neurological Exam: Alert, Awake, Oriented x3 - Psychiatric Exam Psychiatric exam: Normal Affect, Normal Mood - Skin Skin Exam: Dry, Intact, Normal Color, Warm Assessment and Plan - Assessment and Plan (Free Text) Assessment: This is a 65 yo F with PMH of HTN, DM, and Dementia who [place] [facility] [place] onset of Left arm weakness. She is suspected to have a TIA, and is pending eval by PT/OT for assessment of possible rehab needs. Plan: 1) Left sided weakness + facial droop: RESOLVED -likely TIA, Neuro doesn't believe this is CVA -Neuro (Dr. Riley) signed off, appreciate all help -Pending PT/OT eval and recs, may require placement for rehab, will f/u -Passed swallow study, tolerating recommended diet well -High fall risk -Continue ASA/Plavix/Statin 2) UTI -UA positive, with leukocytosis on admit; leukocytosis resolved today -continue rocephen, can transition to PO medication prior to discharge -Blood cultures negative x24 hours, Urine culture likely contaminated 3) HTN -cont home meds: atenolol, cozaar -cont to monitor; better controlled now, SBP 130's-140's x2 days 4) DM -continue ISS-Low and 10units HS Levemir -holding home antihyperglycemics in favor of insulin coverage as above -fingersticks ACHS 5) LLE > RLE -LE duplex ordered, f/u -already covered with Lovenox for DVT ppx, no additional AC needed unless DVT detected, at which point she will be converted to therapeutic dosing for Lovenox Dispo: Pending PT/OT eval and recs, pending LE duplex, will likely need [facility] for rehab before returning home FEN: Dysphagia/Modified consistency diet Access: Peripheral IVs Consults: Neuro (signed off), PT/OT, Swallow Eval Ppx: Lovenox for DVT, Protonix for GI Patient seen, reviewed, and discussed with attending, Dr. Suarez <Kartik Suarez - Last Filed: 09/15/16 22:33> Objective - Vital Signs/Intake and Output Vital Signs (last 24 hours): Temp Pulse Resp BP Pulse Ox 98.5 F 66 18 161/83 H 95 09/15/16 18:00 09/15/16 18:00 09/15/16 18:00 09/15/16 18:00 09/15/16 05:12 Intake and Output: 09/15/16 09/16/16 18:59 06:59 Intake Total 600 Output Total 700 Balance -100 - Medications Medications: Current Medications Acetaminophen (Tylenol 325mg Tab) 650 mg PO Q6H PRN PRN Reason: Fever >100.4 F Last Admin: 09/14/16 19:15 Dose: 650 mg Aspirin (Ecotrin) 81 mg PO DAILY [facility] Last Admin: 09/15/16 10:38 Dose: 81 mg Atenolol (Tenormin) 50 mg PO DAILY [facility] Last Admin: 09/15/16 10:38 Dose: 50 mg Atorvastatin Calcium (Lipitor) 40 mg PO HS [facility] Last Admin: 09/15/16 21:47 Dose: 40 mg Chlorthalidone (Hygroton) 25 mg PO DAILY [facility] Last Admin: 09/15/16 10:38 Dose: 25 mg Clopidogrel Bisulfate (Plavix) 75 mg PO DAILY [facility] Last Admin: 09/15/16 10:38 Dose: 75 mg Enoxaparin Sodium (Lovenox) 30 mg SC DAILY [facility] PRN Reason: Protocol Last Admin: 09/15/16 10:38 Dose: 30 mg Ceftriaxone Sodium (Rocephin 1 Gram Ivpb) 1 gm in 100 mls @ 100 mls/hr IVPB DAILY [facility] PRN Reason: Protocol Last Admin: 09/15/16 10:39 Dose: 100 mls/hr Sodium Chloride (Sodium Chloride 0.9%) 1,000 mls @ 100 mls/hr IV .Q10H [facility] Last Admin: 09/15/16 19:02 Dose: 100 mls/hr Insulin Detemir (Levemir) 10 unit SC HS [facility] Last Admin: 09/15/16 21:46 Dose: 10 unit Insulin Human Lispro (Humalog Low) 0 units SC ACHS [facility] PRN Reason: Protocol Last Admin: 09/15/16 21:44 Dose: Not Given Losartan Potassium (Cozaar) 50 mg PO DAILY [facility] Last Admin: 09/15/16 10:38 Dose: 50 mg Pantoprazole Sodium (Protonix Ec Tab) 40 mg PO ACB [facility] Last Admin: 09/15/16 08:37 Dose: 40 mg Polysaccharide Iron Complex (Ferrex-150) 150 mg PO DAILY [facility] Last Admin: 09/15/16 10:38 Dose: 150 mg - Labs Labs: 09/15/16 06:30 09/15/16 05:10 PT 11.1 Seconds (9.9-11.8) 09/13/16 18:20 INR 1.03 (0.93-1.08) 09/13/16 18:20 APTT 31.7 Seconds (23.7-30.8) H 09/13/16 18:20 Attending/Attestation - Attestation I have personally seen and examined this patient.: Yes I have fully participated in the care of the patient.: Yes I have reviewed all pertinent clinical information, including history, physical exam and plan: Yes Notes (Text): 09/15/16 22:28 65 year old female with past medical history of hypertension, diabetes and dementia who presented with complaint of left sided weakness. Symptoms have improved and were likely secondary to TIA. CT head and MRI brain were reviewed. Neurology evaluation was appreciated. Continue with aspirin and statin. PT evaluation today was also appreciated who recommended TCU/[facility]. Will discuss [facility] [place]. She is on antibiotics for possible UTI. Leukocytosis has resolved. Ucx likely contaminated. Continue with home medications for hypertension. Continue with levemir and insulin ss for diabetes. Kartik Suarez MD Hospitalist.
--- NOTE | 2016-09-15 18:38 | US ---
HISTORY: Leg pain and swelling. Evaluate for DVT PHYSICIAN(S): Dewayne Castellanos MD. TECHNIQUE: Duplex sonography and color-flow Doppler with graded compression were used to evaluate the deep venous systems of both lower extremities. FINDINGS: The visualized deep venous systems of both lower extremities are sonographically normal and compressible. Normal wave forms and augmentation are seen. There is no sonographic evidence for deep venous thrombosis in the visualized segments of both lower extremities. IMPRESSION: No sonographic evidence for deep venous thrombosis in the visualized segments of both lower extremities.
[2016-09-15] MEDS: Insulin Detemir 100 units/ml Vial (Levemir) SC SCH (21:46)
[2016-09-16] MEDS: Sodium Chloride 0.9% 1,000 ML IV SCH ×3 (01:17→16:58)
[2016-09-16 06:22] VITALS: O2SAT 99
[2016-09-16] MEDS: Insulin Lispro (humaLOG) LOW Coverage SC SCH ×4 (08:09→22:23)
[2016-09-16] MEDS: Pantoprazole 40 mg EC Tab PO SCH (08:09)
[2016-09-16 08:44] LABS: ADD MANUAL DIFF? NO
[2016-09-16 08:53] LABS: BASO # 0.03 K/mm3 (0.0-2.0); BASO % 0.4 % (0.0-3.0); EOS # 0.3 (0.0-0.7); EOS % 3.8 % (1.5-5.0); GRAN # 5.23 (1.4-6.5); GRAN % 70.4 % (50.0-68.0); HEMATOCRIT 36.8 % (36.0-48.0); LYMPH # 1.6 (1.2-3.4); MEAN CELL VOLUME 81.2 fL (80.0-105.0); MEAN CORPUSCULAR HEMOGLOBIN 26.7 pg (25.0-35.0); MEAN CORPUSCULAR HGB CONC 32.9 g/dl (31.0-37.0); MEAN PLATELET VOLUME 10.8 fl (7.0-11.0); MONO # 0.3 (0.1-0.6); MONO % 4.4 % (1.0-6.0); PLATELET COUNT 224 10^3/uL (120.0-450.0); RED CELL DISTRIBUTION WIDTH 13.9 % (11.5-14.5); WHITE BLOOD COUNT 7.4 10^3/ul (4.5-11.0)
[2016-09-16 08:56] LABS: BLOOD UREA NITROGEN 14 mg/dL (7-21); CALCIUM 9.7 mg/dL (8.4-10.5); CARBON DIOXIDE 24 mmol/L (21-33); CHLORIDE 104 mmol/L (98-107); GFR AFRICAN-AMERICAN > 60; GLUCOSE,RANDOM 217 mg/dL (70-110); MAGNESIUM 1.4 mg/dL (1.7-2.2); SODIUM 137 mmol/L (132-148)
[2016-09-16] MEDS: cefTRIAXone 1 gm 1 GM/100 ML BAG IVPB SCH (09:20)
[2016-09-16] MEDS: Iron Complex Polysacch 150mg Cap PO SCH (09:21)
[2016-09-16] MEDS: Enoxaparin 30 mg Syringe SC SCH (09:22)
[2016-09-16] MEDS ORDERED: Magnesium Sulfate 2 GM in Sodium Chloride 0.9% 100 ML IVPB ONE (12:36)
--- NOTE | 2016-09-16 13:36 | CP.PCM.PN ---
<Frankie Pedraza - Last Filed: 09/16/16 15:59> Subjective - Date & Time of Evaluation Date of Evaluation: 09/16/16 Time of Evaluation: 07:30 - Subjective Subjective: Internal Medicine Progress Note for Dr. Suarez Patient seen and examined at bedside. Today is hospital day 3. Patient denies any events overnight. No complaints today. Was hopeful she might be able to go home today, then initially insistent on going home today, but after discussion with her regarding PT's recs for rehab, the need to appropriately rehab, and the risk of rehospitalization without proper rehab, the patient became amenable to rehab. Denies chest pain, shortness of breath, focal weakness, changes in vision. Objective - Vital Signs/Intake and Output Vital Signs (last 24 hours): Temp Pulse Resp BP Pulse Ox 97.9 F 64 20 164/90 H 99 09/16/16 12:00 09/16/16 12:00 09/16/16 12:00 09/16/16 12:00 09/16/16 06:00 Intake and Output: 09/16/16 09/16/16 06:59 18:59 Intake Total 1320 Output Total 300 Balance 1020 - Medications Medications: Current Medications Acetaminophen (Tylenol 325mg Tab) 650 mg PO Q6H PRN PRN Reason: Fever >100.4 F Last Admin: 09/14/16 19:15 Dose: 650 mg Aspirin (Ecotrin) 81 mg PO DAILY [facility] Last Admin: 09/16/16 09:21 Dose: 81 mg Atenolol (Tenormin) 50 mg PO DAILY [facility] Last Admin: 09/16/16 09:21 Dose: 50 mg Atorvastatin Calcium (Lipitor) 40 mg PO HS [facility] Last Admin: 09/15/16 21:47 Dose: 40 mg Chlorthalidone (Hygroton) 25 mg PO DAILY [facility] Last Admin: 09/16/16 09:21 Dose: 25 mg Clopidogrel Bisulfate (Plavix) 75 mg PO DAILY [facility] Last Admin: 09/16/16 09:21 Dose: 75 mg Enoxaparin Sodium (Lovenox) 30 mg SC DAILY [facility] PRN Reason: Protocol Last Admin: 09/16/16 09:22 Dose: 30 mg Ceftriaxone Sodium (Rocephin 1 Gram Ivpb) 1 gm in 100 mls @ 100 mls/hr IVPB DAILY [facility] PRN Reason: Protocol Last Admin: 09/16/16 09:20 Dose: 100 mls/hr Sodium Chloride (Sodium Chloride 0.9%) 1,000 mls @ 100 mls/hr IV .Q10H [facility] Last Admin: 09/16/16 05:21 Dose: 100 mls/hr Magnesium Sulfate 2 gm/ Sodium (Chloride) 104 mls @ 102 mls/hr IVPB ONCE ONE Stop: 09/16/16 13:37 Insulin Detemir (Levemir) 10 unit SC HS [facility] Last Admin: 09/15/16 21:46 Dose: 10 unit Insulin Human Lispro (Humalog Low) 0 units SC ACHS [facility] PRN Reason: Protocol Last Admin: 09/16/16 12:21 Dose: 3 units Losartan Potassium (Cozaar) 50 mg PO DAILY [facility] Last Admin: 09/16/16 09:21 Dose: 50 mg Pantoprazole Sodium (Protonix Ec Tab) 40 mg PO ACB [facility] Last Admin: 09/16/16 08:09 Dose: 40 mg Polysaccharide Iron Complex (Ferrex-150) 150 mg PO DAILY [facility] Last Admin: 09/16/16 09:21 Dose: 150 mg - Labs Labs: 09/16/16 08:30 09/16/16 08:30 PT 11.1 Seconds (9.9-11.8) 09/13/16 18:20 INR 1.03 (0.93-1.08) 09/13/16 18:20 APTT 31.7 Seconds (23.7-30.8) H 09/13/16 18:20 - Additional Findings Additional findings: - Constitutional Non-toxic, No Acute Distress - Head Exam ATRAUMATIC, NORMAL INSPECTION, NORMOCEPHALIC - Eye Exam EOMI, Normal appearance, PERRL. absent: Conjunctival injection, Scleral icterus , Pupils irregular/unequal/fixed - ENT Exam Mucous Membranes Moist - Neck Exam Full ROM, No tenderness - Respiratory Exam Clear to Ausculation Bilateral, NORMAL BREATHING PATTERN. absent: Accessory Muscle Use, Chest Wall Tenderness, Decreased Breath Sounds, Rales, Rhonchi, Wheezes - Cardiovascular Exam REGULAR RHYTHM, RRR, +S1, +S2. absent: Bradycardia, Tachycardia, Irregular Rhythm, +S4 - GI/Abdominal Exam Soft, Normal Bowel Sounds. absent: Distended, Firm, Rigid, Tenderness, Diminished Bowel Sounds, Hyperactive Bowel Sounds, Hypoactive Bowel Sounds - Extremities Exam Full ROM, +2 radial and dorsalis pedis pulses bilaterally. absent: Calf Tenderness, Pedal Edema, Tenderness - Neurological Exam Alert, Awake, Oriented x3 - Psychiatric Exam Normal Affect, Normal Mood - Skin Dry, Intact, Normal Color, Warm Assessment and Plan - Assessment and Plan (Free Text) Assessment: This is a 65 yo F with PMH of HTN, DM, and Dementia who presented to [facility] for abrupt onset of Left arm weakness. She is suspected to have a TIA, and is pending eval by PT/OT for assessment of possible rehab needs. Plan: 1) Left sided weakness + facial droop: RESOLVED -likely TIA, Neuro doesn't believe this is CVA -Neuro (Dr. Riley) signed off, appreciate all help -Per PT: concerning for unstable gait, recs rehab, [facility] vs [facility]; [employer] following, pending facility acceptance -Passed swallow study, tolerating recommended diet well -High fall risk -Continue ASA/Plavix/Statin 2) UTI -UA positive, with leukocytosis on admit; leukocytosis resolved x2 days -continue rocephen, can transition to PO medication prior to discharge -Blood cultures negative x24 hours, Urine culture likely contaminated 3) HTN -cont home meds: atenolol, cozaar -cont to monitor; better controlled now, SBP 130's-140's x2 days 4) DM -continue ISS-Low and 10units HS Levemir -holding home antihyperglycemics in favor of insulin coverage as above -fingersticks ACHS 5) LLE > RLE -Duplex negative for DVT Dispo: Pending placement for rehab, [facility] vs TCU FEN: Dysphagia/Modified consistency diet Access: Peripheral IVs Consults: Neuro (signed off), PT/OT, Swallow Eval Ppx: Lovenox for DVT, Protonix for GI Patient seen, reviewed, and discussed with attending, Dr. Suarez <Kartik Suarez - Last Filed: 09/16/16 17:04> Objective - Vital Signs/Intake and Output Vital Signs (last 24 hours): Temp Pulse Resp BP Pulse Ox 97.9 F 64 20 164/90 H 99 09/16/16 12:00 09/16/16 12:00 09/16/16 12:00 09/16/16 12:00 09/16/16 06:00 Intake and Output: 09/16/16 09/16/16 06:59 18:59 Intake Total 1320 720 Output Total 300 800 Balance 1020 -80 - Medications Medications: Current Medications Acetaminophen (Tylenol 325mg Tab) 650 mg PO Q6H PRN PRN Reason: Fever >100.4 F Last Admin: 09/14/16 19:15 Dose: 650 mg Aspirin (Ecotrin) 81 mg PO DAILY [facility] Last Admin: 09/16/16 09:21 Dose: 81 mg Atenolol (Tenormin) 50 mg PO DAILY [facility] Last Admin: 09/16/16 09:21 Dose: 50 mg Atorvastatin Calcium (Lipitor) 40 mg PO HS [facility] Last Admin: 09/15/16 21:47 Dose: 40 mg Chlorthalidone (Hygroton) 25 mg PO DAILY [facility] Last Admin: 09/16/16 09:21 Dose: 25 mg Clopidogrel Bisulfate (Plavix) 75 mg PO DAILY [facility] Last Admin: 09/16/16 09:21 Dose: 75 mg Enoxaparin Sodium (Lovenox) 30 mg SC DAILY [facility] PRN Reason: Protocol Last Admin: 09/16/16 09:22 Dose: 30 mg Ceftriaxone Sodium (Rocephin 1 Gram Ivpb) 1 gm in 100 mls @ 100 mls/hr IVPB DAILY [facility] PRN Reason: Protocol Last Admin: 09/16/16 09:20 Dose: 100 mls/hr Sodium Chloride (Sodium Chloride 0.9%) 1,000 mls @ 100 mls/hr IV .Q10H [facility] Last Admin: 09/16/16 16:58 Dose: 100 mls/hr Insulin Detemir (Levemir) 10 unit SC HS [facility] Last Admin: 09/15/16 21:46 Dose: 10 unit Insulin Human Lispro (Humalog Low) 0 units SC ACHS [facility] PRN Reason: Protocol Last Admin: 09/16/16 16:52 Dose: 2 units Losartan Potassium (Cozaar) 50 mg PO DAILY [facility] Last Admin: 09/16/16 09:21 Dose: 50 mg Pantoprazole Sodium (Protonix Ec Tab) 40 mg PO ACB [facility] Last Admin: 09/16/16 08:09 Dose: 40 mg Polysaccharide Iron Complex (Ferrex-150) 150 mg PO DAILY [facility] Last Admin: 09/16/16 09:21 Dose: 150 mg - Labs Labs: 09/16/16 08:30 09/16/16 08:30 PT 11.1 Seconds (9.9-11.8) 09/13/16 18:20 INR 1.03 (0.93-1.08) 09/13/16 18:20 APTT 31.7 Seconds (23.7-30.8) H 09/13/16 18:20 Attending/Attestation - Attestation I have personally seen and examined this patient.: Yes I have fully participated in the care of the patient.: Yes I have reviewed all pertinent clinical information, including history, physical exam and plan: Yes Notes (Text): 09/16/16 17:01 65 year old female with past medical history of hypertension, diabetes and dementia who presented with complaint of left sided weakness. Symptoms have resolved. Likely secondary to TIA. CT head and MRI brain were reviewed. Neurology evaluation was appreciated. Continue with aspirin, plavix and statin. PT evaluation had recommended TCU or [facility]. Patient is accepted to [facility] but no bed available today. She is on antibiotics for possible UTI. Leukocytosis has resolved. Ucx likely contaminated. Continue with home medications for hypertension. Continue with levemir and insulin ss for diabetes. Magnesium was low today and repleted. Kartik Suarez MD Hospitalist.
[2016-09-16] MEDS: Insulin Detemir 100 units/ml Vial (Levemir) SC SCH (22:00)
[2016-09-17] MEDS: Sodium Chloride 0.9% 1,000 ML IV SCH (06:12)
[2016-09-17 07:06] LABS: ADD MANUAL DIFF? NO
[2016-09-17 07:19] LABS: BASO # 0.04 K/mm3 (0.0-2.0); BASO % 0.6 % (0.0-3.0); EOS # 0.5 (0.0-0.7); EOS % 7.6 % (1.5-5.0); GRAN # 4.55 (1.4-6.5); HEMATOCRIT 36.9 % (36.0-48.0); LYMPH # 1.6 (1.2-3.4); LYMPH % 22.7 % (22.0-35.0); MEAN CELL VOLUME 80.9 fL (80.0-105.0); MEAN CORPUSCULAR HEMOGLOBIN 26.3 pg (25.0-35.0); MEAN CORPUSCULAR HGB CONC 32.5 g/dl (31.0-37.0); MEAN PLATELET VOLUME 10.7 fl (7.0-11.0); MONO # 0.4 (0.1-0.6); MONO % 5.1 % (1.0-6.0); PLATELET COUNT 227 10^3/uL (120.0-450.0); RED CELL DISTRIBUTION WIDTH 13.9 % (11.5-14.5); WHITE BLOOD COUNT 7.1 10^3/ul (4.5-11.0)
[2016-09-17] MEDS: Pantoprazole 40 mg EC Tab PO SCH (08:49)
[2016-09-17] MEDS: Insulin Lispro (humaLOG) LOW Coverage SC SCH ×2 (08:50→11:42)
[2016-09-17 08:58] VITALS: BP 168/95; PULSE 68; RESP 20; TEMP 98.3
[2016-09-17 09:25] LABS: BLOOD UREA NITROGEN 14 mg/dL (7-21); CALCIUM 9.9 mg/dL (8.4-10.5); CARBON DIOXIDE 19 mmol/L (21-33); CHLORIDE 107 mmol/L (98-107); GFR AFRICAN-AMERICAN > 60; GLUCOSE,RANDOM 237 mg/dL (70-110); MAGNESIUM 1.6 mg/dL (1.7-2.2); PHOSPHOROUS 3.5 mg/dL (2.5-4.5); POTASSIUM 3.9 mmol/L (3.6-5.0); SODIUM 137 mmol/L (132-148)
[2016-09-17] MEDS: Iron Complex Polysacch 150mg Cap PO SCH (11:09)
[2016-09-17] MEDS: Enoxaparin 30 mg Syringe SC SCH (11:10)
[2016-09-17] MEDS: cefTRIAXone 1 gm 1 GM/100 ML BAG IVPB SCH (11:10)
[2016-09-17] MEDS ORDERED: Magnesium Oxide 400 mg Tab UD PO ONE (12:59)
--- NOTE | 2016-09-17 13:11 | CP.PCM.DIS ---
<Frankie Pedraza - Last Filed: 09/17/16 13:28> Provider - Provider Date of Admission: 09/13/16 20:08 Attending physician: Kartik Suarez MD Primary care physician: Malaika Cm MD Consults: Neuro: Dr. Conchita Riley Time Spent in preparation of Discharge (in minutes): 35 Diagnosis - Discharge Diagnosis (1) TIA (transient ischemic attack) Status: Suspected Priority: High (2) Weakness Status: Resolved Priority: Medium (3) Diabetes Status: Chronic Priority: Medium (4) UTI (urinary tract infection) Status: Resolved Priority: Low (5) HTN (hypertension) Status: Chronic Priority: Low Hospital Course - Lab Results Lab Results: Micro Results 09/13/16 20:30 Blood-Venous Blood Culture - Preliminary NO GROWTH AFTER 3 DAYS Most Recent Lab Values WBC 7.1 10^3/ul (4.5-11.0) 09/17/16 05:00 RBC 4.56 10^6/uL (3.5-6.1) 09/17/16 05:00 Hgb 12.0 gm/dL (12.0-16.0) 09/17/16 05:00 Hct 36.9 % (36.0-48.0) 09/17/16 05:00 MCV 80.9 fL (80.0-105.0) 09/17/16 05:00 MCH 26.3 pg (25.0-35.0) 09/17/16 05:00 MCHC 32.5 g/dl (31.0-37.0) 09/17/16 05:00 RDW 13.9 % (11.5-14.5) 09/17/16 05:00 Plt Count 227 10^3/uL (120.0-450.0) 09/17/16 05:00 MPV 10.7 fl (7.0-11.0) 09/17/16 05:00 Gran % 64.0 % (50.0-68.0) 09/17/16 05:00 Lymph % (Auto) 22.7 % (22.0-35.0) 09/17/16 05:00 Martin % (Auto) 5.1 % (1.0-6.0) 09/17/16 05:00 Eos % (Auto) 7.6 % (1.5-5.0) H 09/17/16 05:00 Baso % (Auto) 0.6 % (0.0-3.0) 09/17/16 05:00 Gran # 4.55 (1.4-6.5) 09/17/16 05:00 Lymph # 1.6 (1.2-3.4) 09/17/16 05:00 Martin # 0.4 (0.1-0.6) 09/17/16 05:00 Eos # 0.5 (0.0-0.7) 09/17/16 05:00 Baso # 0.04 K/mm3 (0.0-2.0) 09/17/16 05:00 PT 11.1 Seconds (9.9-11.8) 09/13/16 18:20 INR 1.03 (0.93-1.08) 09/13/16 18:20 APTT 31.7 Seconds (23.7-30.8) H 09/13/16 18:20 Sodium 137 mmol/L (132-148) 09/17/16 05:00 Potassium 3.9 mmol/L (3.6-5.0) 09/17/16 05:00 Chloride 107 mmol/L (98-107) 09/17/16 05:00 Carbon Dioxide 19 mmol/L (21-33) L 09/17/16 05:00 Anion Gap 15 (10-20) 09/17/16 05:00 BUN 14 mg/dL (7-21) 09/17/16 05:00 Creatinine 0.6 mg/dL (0.5-1.4) 09/17/16 05:00 Est GFR ( Amer) > 60 09/17/16 05:00 Est GFR (Non-Af Amer) > 60 09/17/16 05:00 POC Glucose (mg/dL) 203 mg/dL (65-110) H 09/16/16 21:40 Random Glucose 237 mg/dL (70-110) H 09/17/16 05:00 Hemoglobin A1c 8.1 % (4.2-6.5) H 09/13/16 18:20 Uric Acid 5.9 mg/dL (2.5-6.2) 09/15/16 05:10 Calcium 9.9 mg/dL (8.4-10.5) 09/17/16 05:00 Phosphorus 3.5 mg/dL (2.5-4.5) 09/17/16 05:00 Magnesium 1.6 mg/dL (1.7-2.2) L 09/17/16 05:00 Total Bilirubin 1.3 mg/dL (0.2-1.3) 09/15/16 05:10 AST 16 U/L (15-39) 09/15/16 05:10 ALT 18 U/L (7-56) 09/15/16 05:10 Alkaline Phosphatase 51 U/L (38-133) 09/15/16 05:10 Troponin I < 0.01 ng/mL 09/13/16 18:20 Total Protein 7.4 g/dL (5.8-8.3) 09/15/16 05:10 Albumin 3.8 g/dL (3.0-4.8) 09/15/16 05:10 Globulin 3.7 gm/dL 09/15/16 05:10 Albumin/Globulin Ratio 1.0 (1.1-1.8) L 09/15/16 05:10 Triglycerides 121 mg/dL (35-160) 09/13/16 18:20 Cholesterol 252 mg/dL (130-200) H 09/13/16 18:20 LDL Cholesterol Direct 160 mg/dL (0-129) H 09/13/16 18:20 HDL Cholesterol 64 mg/dL (29-60) H 09/13/16 18:20 Urine Color Yellow (YELLOW) 09/13/16 18:27 Urine Appearance Sl cloudy (CLEAR) 09/13/16 18:27 Urine pH 6.5 (4.7-8.0) 09/13/16 18:27 Ur Specific [place] 1.015 (1.005-1.035) 09/13/16 18:27 Urine Protein Negative mg/dL (<30 mg/dL) 09/13/16 18:27 Urine Glucose (UA) 250 mg/dL (NEGATIVE) H 09/13/16 18:27 Urine Ketones Trace mg/dL (NEGATIVE) H 09/13/16 18:27 Urine Blood Trace-lysed (NEGATIVE) H 09/13/16 18:27 Urine Nitrate Negative (NEGATIVE) 09/13/16 18:27 Urine Bilirubin Negative (NEGATIVE) 09/13/16 18:27 Urine Urobilinogen 0.2 E.U./dL (<1 E.U./dL) 09/13/16 18:27 Ur Leukocyte Esterase Small Gisell/uL (NEGATIVE) H 09/13/16 18:27 Urine RBC 1 - 3 /hpf (0-2) 09/13/16 18:27 Urine WBC 5 - 10 /hpf (0-6) 09/13/16 18:27 Ur Epithelial Cells 10 - 12 /hpf (0-5) 09/13/16 18:27 Urine Bacteria Mod (NEG) 09/13/16 18:27 Blood Type B POSITIVE 09/13/16 18:20 Blood Type Confirm B POSITIVE 09/13/16 19:30 Antibody Screen Negative 09/13/16 18:20 BBK History Checked No verified bt 09/13/16 18:20 - Hospital Course Hospital Course: This is a 65 yo Somali F with PMH of HTN, DM, and dementia presented to ED with left sided facial droop and left sided weakness concerning for stroke. While here, she was seen by Neurology, who were not convinced of stroke and instead believed this to be a TIA. Patient was deemed to not be a candidate for tPA. While here, her symptoms have mainly resolved, but in walking with PT , she was found to have some gait instability, so PT recommended rehab at a [facility]CU vs [facility]. Per discussions with patient's son and case management, she was accepted to [facility], to be transferred today. She was also found to have a UA suspicious for UTI, so she was treated with IV Rocephin x5 days, at which point her leukocytosis resolved. She will be discharged on 2 days of Vantin PO BID to complete a 7 day course. These instructions were relayed to the patient , who expressed understanding and agreement. She had no questions when prompted by the team. She was then discharged to [facility]. - Date & Time of H&P Date of H&P: 09/14/16 Time of H&P: 00:25 Discharge Exam - Head Exam Head Exam: ATRAUMATIC, NORMAL INSPECTION, NORMOCEPHALIC - Additional Findings Additional findings: - Constitutional Non-toxic, No Acute Distress - Head Exam ATRAUMATIC, NORMAL INSPECTION, NORMOCEPHALIC - Eye Exam EOMI, Normal appearance. absent: Conjunctival injection, Scleral icterus, Pupils irregular/unequal - ENT Exam Mucous Membranes Moist - Neck Exam Full ROM, No tenderness - Respiratory Exam Clear to Ausculation Bilateral, NORMAL BREATHING PATTERN. absent: Accessory Muscle Use, Chest Wall Tenderness, Decreased Breath Sounds, Rales, Rhonchi, Wheezes - Cardiovascular Exam REGULAR RHYTHM, RRR, +S1, +S2. absent: Bradycardia, Tachycardia, Irregular Rhythm, +S4 - GI/Abdominal Exam Soft, Normal Bowel Sounds. absent: Distended, Firm, Rigid, Tenderness, Diminished Bowel Sounds, Hyperactive Bowel Sounds, Hypoactive Bowel Sounds - Extremities Exam Full ROM, +2 radial and dorsalis pedis pulses bilaterally. absent: Calf Tenderness, Pedal Edema, Tenderness - Neurological Exam Alert, Awake, Moving all extremities spontaneously, Following commands appropriately - Psychiatric Exam Normal Affect, Normal Mood, Need repeated re-orientation regarding go to rehab vs going home - Skin Dry, Intact, Normal Color, Warm Discharge Plan - Discharge Medications Prescriptions: Cefpodoxime [Vantin] 100 mg PO BID #4 tab - Follow Up Plan Condition: FAIR Disposition: OTHER INSTITUTION Instructions: Transient Ischemic Attack (DC), Urinary Tract Infection in Women (DC), Diabetes Mellitus Type 2 in Adults (DC) Referrals: Malaika Cm MD [Primary Care Provider] - <Kartik Suarez - Last Filed: 09/17/16 13:52> Provider - Provider Date of Admission: 09/13/16 20:08 Attending physician: Kartik Suarez MD Primary care physician: Malaika Cm MD Hospital Course - Lab Results Lab Results: Micro Results 09/13/16 20:30 Blood-Venous Blood Culture - Preliminary NO GROWTH AFTER 3 DAYS Most Recent Lab Values WBC 7.1 10^3/ul (4.5-11.0) 09/17/16 05:00 RBC 4.56 10^6/uL (3.5-6.1) 09/17/16 05:00 Hgb 12.0 gm/dL (12.0-16.0) 09/17/16 05:00 Hct 36.9 % (36.0-48.0) 09/17/16 05:00 MCV 80.9 fL (80.0-105.0) 09/17/16 05:00 MCH 26.3 pg (25.0-35.0) 09/17/16 05:00 MCHC 32.5 g/dl (31.0-37.0) 09/17/16 05:00 RDW 13.9 % (11.5-14.5) 09/17/16 05:00 Plt Count 227 10^3/uL (120.0-450.0) 09/17/16 05:00 MPV 10.7 fl (7.0-11.0) 09/17/16 05:00 Gran % 64.0 % (50.0-68.0) 09/17/16 05:00 Lymph % (Auto) 22.7 % (22.0-35.0) 09/17/16 05:00 Martin % (Auto) 5.1 % (1.0-6.0) 09/17/16 05:00 Eos % (Auto) 7.6 % (1.5-5.0) H 09/17/16 05:00 Baso % (Auto) 0.6 % (0.0-3.0) 09/17/16 05:00 Gran # 4.55 (1.4-6.5) 09/17/16 05:00 Lymph # 1.6 (1.2-3.4) 09/17/16 05:00 Martin # 0.4 (0.1-0.6) 09/17/16 05:00 Eos # 0.5 (0.0-0.7) 09/17/16 05:00 Baso # 0.04 K/mm3 (0.0-2.0) 09/17/16 05:00 PT 11.1 Seconds (9.9-11.8) 09/13/16 18:20 INR 1.03 (0.93-1.08) 09/13/16 18:20 APTT 31.7 Seconds (23.7-30.8) H 09/13/16 18:20 Sodium 137 mmol/L (132-148) 09/17/16 05:00 Potassium 3.9 mmol/L (3.6-5.0) 09/17/16 05:00 Chloride 107 mmol/L (98-107) 09/17/16 05:00 Carbon Dioxide 19 mmol/L (21-33) L 09/17/16 05:00 Anion Gap 15 (10-20) 09/17/16 05:00 BUN 14 mg/dL (7-21) 09/17/16 05:00 Creatinine 0.6 mg/dL (0.5-1.4) 09/17/16 05:00 Est GFR ( Amer) > 60 09/17/16 05:00 Est GFR (Non-Af Amer) > 60 09/17/16 05:00 POC Glucose (mg/dL) 203 mg/dL (65-110) H 09/16/16 21:40 Random Glucose 237 mg/dL (70-110) H 09/17/16 05:00 Hemoglobin A1c 8.1 % (4.2-6.5) H 09/13/16 18:20 Uric Acid 5.9 mg/dL (2.5-6.2) 09/15/16 05:10 Calcium 9.9 mg/dL (8.4-10.5) 09/17/16 05:00 Phosphorus 3.5 mg/dL (2.5-4.5) 09/17/16 05:00 Magnesium 1.6 mg/dL (1.7-2.2) L 09/17/16 05:00 Total Bilirubin 1.3 mg/dL (0.2-1.3) 09/15/16 05:10 AST 16 U/L (15-39) 09/15/16 05:10 ALT 18 U/L (7-56) 09/15/16 05:10 Alkaline Phosphatase 51 U/L (38-133) 09/15/16 05:10 Troponin I < 0.01 ng/mL 09/13/16 18:20 Total Protein 7.4 g/dL (5.8-8.3) 09/15/16 05:10 Albumin 3.8 g/dL (3.0-4.8) 09/15/16 05:10 Globulin 3.7 gm/dL 09/15/16 05:10 Albumin/Globulin Ratio 1.0 (1.1-1.8) L 09/15/16 05:10 Triglycerides 121 mg/dL (35-160) 09/13/16 18:20 Cholesterol 252 mg/dL (130-200) H 09/13/16 18:20 LDL Cholesterol Direct 160 mg/dL (0-129) H 09/13/16 18:20 HDL Cholesterol 64 mg/dL (29-60) H 09/13/16 18:20 Urine Color Yellow (YELLOW) 09/13/16 18:27 Urine Appearance Sl cloudy (CLEAR) 09/13/16 18:27 Urine pH 6.5 (4.7-8.0) 09/13/16 18:27 Ur Specific [place] 1.015 (1.005-1.035) 09/13/16 18:27 Urine Protein Negative mg/dL (<30 mg/dL) 09/13/16 18:27 Urine Glucose (UA) 250 mg/dL (NEGATIVE) H 09/13/16 18:27 Urine Ketones Trace mg/dL (NEGATIVE) H 09/13/16 18:27 Urine Blood Trace-lysed (NEGATIVE) H 09/13/16 18:27 Urine Nitrate Negative (NEGATIVE) 09/13/16 18:27 Urine Bilirubin Negative (NEGATIVE) 09/13/16 18:27 Urine Urobilinogen 0.2 E.U./dL (<1 E.U./dL) 09/13/16 18:27 Ur Leukocyte Esterase Small Gisell/uL (NEGATIVE) H 09/13/16 18:27 Urine RBC 1 - 3 /hpf (0-2) 09/13/16 18:27 Urine WBC 5 - 10 /hpf (0-6) 09/13/16 18:27 Ur Epithelial Cells 10 - 12 /hpf (0-5) 09/13/16 18:27 Urine Bacteria Mod (NEG) 09/13/16 18:27 Blood Type B POSITIVE 09/13/16 18:20 Blood Type Confirm B POSITIVE 09/13/16 19:30 Antibody Screen Negative 09/13/16 18:20 BBK History Checked No verified bt 09/13/16 18:20 Attending/Attestation - Attestation I have personally seen and examined this patient.: Yes I have fully participated in the care of the patient.: Yes I have reviewed all pertinent clinical information, including history, physical exam and plan: Yes Notes (Text): 09/17/16 13:50 65 year old female with past medical history of hypertension, diabetes and dementia who presented with complaint of left sided weakness which were likely secondary to TIA. Symptoms have resolved. She is on aspirin, plavix and statin as per neurology recommendations. She was seen by PT who recommended [facility] or TCU for gait instability. She is accepted to [facility]. Continue with po vantin for UTI. Continue with home medications for hypertension. Continue with levemir and insulin ss for diabetes. Magnesium was repleted prior to discharge. Kartik Suarez MD Hospitalist.
== END 2016-09-17 16:24 | DRG 69 ==
LOC: ED 17:41 → ERH 20:08 → 2RNO 22:12 → 3RNO 09-16 22:56
PROVIDERS: ADMIT Internal Medicine; ATTEND Internal Medicine
DX: G45.9 Transient cerebral ischemic attack, unspecified (principal); N39.0 Urinary tract infection, site not specified; F03.90 Unspecified dementia, unspecified severity, without behavioral disturbance, psychotic disturbance, mood disturbance, and anxiety; I10 Essential (primary) hypertension; E11.9 Type 2 diabetes mellitus without complications; R29.704 NIHSS score 4; Z79.84 Long term (current) use of oral hypoglycemic drugs; Z86.73 Personal history of transient ischemic attack (TIA), and cerebral infarction without residual deficits

== ENCOUNTER 2017-06-30 11:21 | Emergency (ER) | payer MEDICARE, OTHER ==
[2017-06-30 11:21] VITALS: BMI 22.8
[2017-06-30 11:33] VITALS: TEMP 97.7
[2017-06-30] MEDS ORDERED: Oxycodone/Acetaminophen 5/325 mg Tab PO STA (11:43)
--- NOTE | 2017-06-30 11:47 | ED PDOC ---
Arrival/HPI - General Chief Complaint: Finger,Hand,&Wrist Time Seen by Provider: 06/30/17 11:43 Historian: Patient - History of Present Illness Narrative History of Present Illness (Text): 06/30/17 11:44 A 66 year old female brought into the emergency department by EMS accompanied by son complaining of left wrist pain after injury 3 days ago. Patient reports she accidentally slammed her wrist with the bathroom door. Patient denies any other injuries, fever, chills, nausea, vomiting, abdominal pain, chest pain, shortness of breath, cough or any other complaints. Time/Duration: Other (3 days ago ) Symptom Course: Unchanged Quality: Aching Context: Home Past Medical History - Provider Review Nursing Documentation Reviewed: Yes - Infectious Disease Hx of Infectious Diseases: None - Tetanus Immunization Tetanus Immunization: Unknown - Cardiac Hx Hypertension: Yes - Pulmonary Hx Chronic Obstructive Pulmonary Disease (COPD): No Hx Pneumonia: No - Neurological HX Cerebrovascular Accident: Yes Hx Dementia: Yes - Renal Hx Renal Failure: No - Endocrine/Metabolic Hx Diabetes Mellitus Type 2: Yes - Hematological/Oncological Hx Cancer: No - Musculoskeletal/Rheumatological Hx Falls: No - Gastrointestinal Hx Gastroesophageal Reflux: No - Psychiatric Hx Psychophysiologic Disorder: No Hx Substance Use: No - Past Surgical History Past Surgical History: No Previous - Surgical History Hx Thyroidectomy: Yes - Anesthesia Hx Anesthesia: Yes Hx Anesthesia Reactions: No Hx Malignant Hyperthermia: No - Suicidal Assessment Feels Threatened In Home Enviroment: No Family/Social History - Physician Review Nursing Documentation Reviewed: Yes Family/Social History: No Known Family HX Smoking Status: Never Smoked Hx Alcohol Use: No Hx Substance Use: No Hx Substance Use Treatment: No Allergies/Home Meds Allergies/Adverse Reactions: Allergies Bar of Soap Adverse Reaction (Uncoded 09/17/16 17:34) RASH Home Medications: Home Meds Medication Instructions Recorded Confirmed Atenolol/Chlorthalidone 1 tab PO DAILY 09/13/16 06/30/17 [Atenolol-Chlorthalidone 50-25] Review of Systems - Physician Review All systems were reviewed & negative as marked: Yes - Review of Systems Constitutional: absent: Fevers, Night Sweats Respiratory: absent: SOB, Cough Cardiovascular: absent: Chest Pain Gastrointestinal: absent: Abdominal Pain, Nausea, Vomiting Musculoskeletal: Other (left wrist pain) Physical Exam Vital Signs Reviewed: Yes Vital Signs Temp Pulse Resp BP Pulse Ox 06/30/17 11:32 97.7 F 79 16 142/78 100 Temperature: Afebrile Blood Pressure: Normal Pulse: Regular Respiratory Rate: Normal Appearance: Positive for: Well-Appearing, Non-Toxic, Comfortable Pain Distress: None Mental Status: Positive for: Alert and Oriented X 3 - Systems Exam Head: Present: Atraumatic, Normocephalic Pupils: Present: PERRL Extroacular Muscles: Present: EOMI Conjunctiva: Present: Normal Mouth: Present: Moist Mucous Membranes Upper Extremity: Present: Normal ROM (in fingers and elbow), NORMAL PULSES ( good distal pulses), Tenderness (to ulnar side of left wrist), Swelling, Neurovascularly Intact, Other (ecchymosis to ulnar side of left wrist). No: Cyanosis, Edema, Temperature Abnormalties Lower Extremity: Present: Normal Inspection. No: Edema Neurological: Present: GCS=15, CN II-XII Intact, Speech Normal Skin: Present: Warm, Dry, Normal Color. No: Rashes Psychiatric: Present: Alert, Oriented x 3, Normal Insight, Normal Concentration Medical Decision Making ED Course and Treatment: 06/30/17 11:44 Impression: A 66 year old female with left wrist pain Differential Diagnosis included but are not limited to: Rule out fracture Plan: -- Left forearm xray -- Left wrist xray -- Percocet -- Reassess and disposition Progress Notes: 06/30/17 12:42 Xray shows ulnar fracture. Patient placed in sugar tong splint. Splint checked by me. Patient instructed to follow-up with Dr. Mckinney. Neurovascularly intact. 06/30/17 12:48 Report Date : 06/30/2017 12:54:28 PROCEDURE: Radiographs of the Left Forearm Dictator : Valerio Seay MD IMPRESSION: There is an obliquely oriented minimally displaced fracture of the distal ulna 06/30/17 14:08 - Lab Interpretations I have reviewed the lab results: Yes - RAD Interpretation Radiology Orders: 06/30/17 11:43 FOREARM LEFT [RAD] Stat WRIST, LEFT 3 VIEWS [RAD] Stat - Medication Orders Current Medication Orders: Discontinued Medications Oxycodone/Acetaminophen (Percocet 5/325 Mg Tab) 1 tab PO STAT STA Stop: 06/30/17 11:44 Last Admin: 06/30/17 11:58 Dose: 1 tab MAR Pain Assessment Document 06/30/17 11:58 EQ (Rec: 06/30/17 11:58 EQ [id number]) Pain Reassessment Is this a pain reassessment? No Sleep Is patient sleeping during reassessment? No Presence of Pain Presence of Pain Yes - Scribe Statement The provider has reviewed the documentation as recorded by the Scribe Ashley Prather Provider Scribe Attestation: All medical record entries made by the Scribe were at my direction and personally dictated by me. I have reviewed the chart and agree that the record accurately reflects my personal performance of the history, physical exam, medical decision making, and the department course for this patient. I have also personally directed, reviewed, and agree with the discharge instructions and disposition. Disposition/Present on Arrival - Present on Arrival Any Indicators Present on Arrival: No History of DVT/PE: No History of Uncontrolled Diabetes: No Urinary Catheter: No History of Decub. Ulcer: No History Surgical Site Infection Following: None - Disposition Have Diagnosis and Disposition been Completed?: Yes Diagnosis: Ulnar fracture Disposition: HOME/ ROUTINE Disposition Time: 12:43 Patient Plan: Discharge Patient Problems: Current Active Problems Problem Status Onset Ulnar fracture Acute Condition: GOOD Discharge Instructions (ExitCare): Forearm Fracture (DC) Additional Instructions: Follow-up with Dr. Mckinney within 2 days. Return to ED if condition worsens. Motrin for pain. Follow-up with PMD within 2 days Referrals: Shima Borjas, [Non-Staff] - Follow up with primary Joshua Mckinney MD [Staff Provider] - Follow up with primary Forms: [employer] (Burmese)
--- NOTE | 2017-06-30 12:55 | RAD ---
PROCEDURE: Radiographs of the Left Forearm HISTORY: L ulnar pain after trauma COMPARISON: None available. TECHNIQUE: Frontal and lateral views obtained. FINDINGS: BONES: There is an obliquely oriented minimally displaced fracture of the distal ulna JOINT SPACES: Unremarkable. OTHER FINDINGS: None. IMPRESSION: There is an obliquely oriented minimally displaced fracture of the distal ulna
--- NOTE | 2017-06-30 13:05 | RAD ---
PROCEDURE: Left Wrist Radiographs. HISTORY: L wrist pain after trauma COMPARISON: None. FINDINGS: BONES: There is an obliquely oriented minimally displaced fracture of the distal ulna JOINTS: Normal. No dislocation. SOFT TISSUES: Normal. OTHER FINDINGS: None. IMPRESSION: There is an obliquely oriented minimally displaced fracture of the distal ulna
[2017-06-30 14:16] VITALS: BP 162/79; PULSE 73; RESP 18; O2SAT 98
== END 2017-06-30 14:23 | disposition home or self-care (01) ==
LOC: ED 11:21
DX: S52.602A Unspecified fracture of lower end of left ulna, initial encounter for closed fracture (principal); W22.8XXA Striking against or struck by other objects, initial encounter; Y92.009 Unspecified place in unspecified non-institutional (private) residence as the place of occurrence of the external cause

== ENCOUNTER 2017-07-15 17:08 | Inpatient (IN) | payer MEDICARE, OTHER ==
--- NOTE | 2017-07-15 17:21 | EDPD ---
HPI Stroke - General Time Seen by Provider: 07/15/17 17:18 Historian: Family (Son) - History of Present Illness Narrative History of Present Illness (Free Text): 07/15/17 17:19 A 66 year old female, whose past medical history includes diabetes, hypertension , hypothyroidism and prior TIAs on Plavix, brought into the emergency department by EMS accompanied by son for altered mental status. Patient was last seen normal at 15:15. Son reports at 16:15 he noted patient to be acting more confused, unable to speak, with a left sided facial droop and left arm weakness. Patient arrived to the emergency room at 17:15, son reports patients symptoms have resolved however she continues to act confused. Son is unsure why patient continues to speak in Jesus and not Kinyarwanda. HPI and ADELIA limited. PMD: Dr. Cm Date:: 07/15/17 Time: 16:15 Onset:: Hours Timing: Resolved rTPA Inclusion/Exclusion - Refusal of Treatment Patient Refused Treatment: No - Inclusion Criteria for Altepase Patient is 18 years or Older: Yes The Clinical Diagnosis of Ischemic Stroke That is Causing a Potentially Disabling Neurological Deficit: No Time of Onset is Well Established to be Less Than 270 Minute Before Treatment Would Begin: Yes Risk/Benefit Discussed With Patient/Family Member Present: Yes - Exclusion Criteria for Altepase Suspicion of Subarachnoid Hemorrhage on Pretreatment Evaluation Even if CT Head Negative For Hemorrhage: Yes - Warning to TPA With Conditions Following Conditions Weighed Against Anticipated Benefit: Yes Condition: Seizure at Onset of Stroke Additional Condition (For 3-4.5 Hour Window): Any anticoagulant use prior to admission (Even if INR less than 1.7) Past Medical History - Provider Review Nursing Documentation Reviewed: Yes - Infectious Disease Hx of Infectious Diseases: None - Tetanus Immunization Tetanus Immunization: Unknown - Cardiac Hx Hypertension: Yes - Pulmonary Hx Chronic Obstructive Pulmonary Disease (COPD): No Hx Pneumonia: No - Neurological HX Cerebrovascular Accident: Yes Hx Dementia: Yes - Renal Hx Renal Failure: No - Endocrine/Metabolic Hx Diabetes Mellitus Type 2: Yes - Hematological/Oncological Hx Cancer: No - Musculoskeletal/Rheumatological Hx Falls: No - Gastrointestinal Hx Gastroesophageal Reflux: No - Psychiatric Hx Psychophysiologic Disorder: No Hx Substance Use: No - Past Surgical History Past Surgical History: No Previous - Surgical History Hx Thyroidectomy: Yes - Anesthesia Hx Anesthesia: Yes Hx Anesthesia Reactions: No Hx Malignant Hyperthermia: No - Suicidal Assessment Feels Threatened In Home Enviroment: No Family/Social History - Family/Social History Family History: Non-Contributory Narrative Family History (Text): 07/16/17 20:00 None Tobacco: Never Smoked Alcohol: None - Review Nursing documentation reviewed.: Yes Allergies/Home Meds Allergies/Adverse Reactions: Allergies Bar of Soap Adverse Reaction (Uncoded 07/15/17 17:35) RASH Home Medications: Home Meds Medication Instructions Recorded Confirmed Atenolol/Chlorthalidone 1 tab PO DAILY 09/13/16 07/15/17 [Atenolol-Chlorthalidone 50-25] Atorvastatin [Lipitor] PO DAILY 07/15/17 Ergocalciferol (Vitamin D2) 50,000 unit PO QD7 07/15/17 [Vitamin D2] Insulin Glargine,Hum.rec.anlog 20 unit SQ HS 07/15/17 07/15/17 [Lantus] Review of Systems - Review of Systems Systems not reviewed;Unavailable: Altered Mental Status ED Stroke Physical Exam Appearance: Positive for: Well-Appearing, Non-Toxic, Comfortable Pain Distress: None Mental Status: Positive for: Confused (slight confusion), other (Alert) - Systems Exam Head: Present: Atraumatic, Normocephalic Pupils: Present: PERRL Extroacular Muscles: Present: EOMI Conjunctiva: Present: Normal Mouth: Present: Moist Mucous Membranes Neck: Present: Normal Range of Motion Respiratory/Chest: Present: Clear to Auscultation, Good Air Exchange. No: Respiratory Distress, Accessory Muscle Use Cardiovascular: Present: Regular Rate and Rhythm, Normal S1, S2. No: Murmurs Abdomen: Present: Normal Bowel Sounds. No: Tenderness, Distention, Peritoneal Signs Upper Extremity: Present: Normal Inspection. No: Cyanosis, Edema Lower Extremity: Present: Normal Inspection. No: Edema Neurologic: Present: GCS=15, CN II-XII Intact, Speech Normal (Speaking in Jesus) , Motor Func Grossly Intact, Normal Sensory Function, Normal Cerebellar Funct. No: Facial Droop Skin: Present: Warm, Dry, Normal Color. No: Rashes Lymphatic: Present: Cervical Adenopathy Psychiatric: Present: Alert, Other (slight confusion) Medical Decision Making ED Course and Treatment: 07/15/17 17:19 Impression: A 66 year old male brought in for altered mental status. Son notes confusion, aphasia and left sided facial droop, which have resolved. Plan: -- CT head -- CTA head/neck -- Chest xray -- EKG -- Labs -- IV fluids -- Reassess and disposition Progress Notes: 07/15/17 17:19 Case discussed with neurologist Dr. Stevens, states patient is not a tPA candidate. Requests CT head and CTA of head and neck. Patient had CT head done, however she began to vomit while in radiology and was brought back to the emergency room before getting the CTA. Will administer Zofran. 07/15/17 17:40 Spoke with radiologist, reports bilateral acute subdural hematomas, 1.4 cm to the left and 7.0 mm to the right with no midline shift. Findings are new compared to prior CT on 09/2016. Report Date : 07/15/2017 17:45:31 PROCEDURE: CT HEAD WITHOUT CONTRAST. Dictator : Kathe Rubin MD IMPRESSION: 1. Bilateral convexity acute subdural hematomas, larger on the left where it measures 1.4 cm in maximum width. No midline shift or herniation. 2. Extensive periventricular white matter disease statistically most compatible with chronic microangiopathic changes however demyelination is also a differential consideration. Critical findings were discussed with Dr. Willam Tena on 07/15/2017 at 5:40 p.m. 07/15/17 17:58 On re-evaluation, no neurological deficits. Patient is now speaking in Kinyarwanda using complete sentences. 07/15/17 18:16 EKG shows NSR at 77 BPM with LAD, left ventricular hypertrophy with repolarization abnormality. Interpreted by me. Report Date : 07/15/2017 18:21:32 Procedure: Chest xray Dictator : Kathe Rubin MD IMPRESSION: No active pulmonary disease. 07/15/17 18:[address] Flanagan, states no surgical intervention required at this time and to observe patient in the ICU. Case discussed with Dr. Hernandez, who will admit patient to his service. Case discussed with Dr. Coates in the emergency room, who will evaluate patient at bedside. Patient will get CTA of head and neck on her way to the ICU. 07/15/17 18:[address] Stevens, states patients symptoms could have been caused by a seizure episode. Requests Depakote, EEG and MRI. Depakote ordered here in the emergency room. Request to obtain EEG and MRI was passed along to the marketing liaison. - Lab Interpretations I have reviewed the lab results: Yes - RAD Interpretation Radiology Orders: 07/15/17 17:15 HEAD W/O (CODE STROKE) [CT] Stat 07/15/17 17:18 CTA HEAD/NECK CODE STROKE [CT] Stat - Scribe Statement The provider has reviewed the documentation as recorded by the Scribkaren Prathre Provider Scribe Attestation: All medical record entries made by the Scribe were at my direction and personally dictated by me. I have reviewed the chart and agree that the record accurately reflects my personal performance of the history, physical exam, medical decision making, and the department course for this patient. I have also personally directed, reviewed, and agree with the discharge instructions and disposition. NIHSS Scale ([place]) Time Performed: 17:15 - How Severe is the Stoke Baseline Level of Consciousness: 0=Alert LOC to Questions: 0=Both comments correct LOC to commands: 0=Obeys both correctly Best Gaze: 0=Normal Visual: 0=No visual loss Facial: 0=Normal Motor Arm - Left: 0=No drift Motor Arm - Right: 0=No drift Motor Leg - Left: 0=No drift Motor Leg - Right: 0=No drift Limb Ataxia: 0=Absent Sensory: 0=Normal Best Language: 0=No aphasia Dysarthia: 0=Normal articulation Extinction & Inattention (Neglect): 0=Normal, no object Score: 0 Risk Level: No Stroke Risk Disposition/Present on Arrival - Present on Arrival Any Indicators Present on Arrival: No History of DVT/PE: No History of Uncontrolled Diabetes: No Urinary Catheter: No History Surgical Site Infection Following: None - Disposition Have Diagnosis and Disposition been Completed?: Yes Diagnosis: Subdural hematoma, Altered mental status Disposition: HOSPITALIZED Disposition Time: 21:00 Patient Plan: Admission, ICU Patient Problems: Current Active Problems Problem Status Onset Altered mental status Acute Subdural hematoma Acute Condition: FAIR
[2017-07-15] MEDS ORDERED: Sodium Chloride 0.9% 1,000 ML IV SCH (17:30)
--- NOTE | 2017-07-15 17:46 | CT ---
PROCEDURE: CT HEAD WITHOUT CONTRAST. HISTORY: code stroke COMPARISON: 09/13/2016 TECHNIQUE: Axial computed tomography images were obtained through the head/brain without intravenous contrast. Radiation dose: Total exam DLP = 868.74 mGy-cm. This CT exam was performed using one or more of the following dose reduction techniques: Automated exposure control, adjustment of the mA and/or kV according to patient size, and/or use of iterative reconstruction technique. FINDINGS: HEMORRHAGE: There are bilateral convexity acute subdural hematomas, larger on the left. The maximum width on the left is 1.4 cm and on the right 7 mm. There is mild local mass effect on the left. No evidence of midline shift or herniation. BRAIN: Again seen are extensive confluent periventricular hypodensities. There is no territorial infarction. VENTRICLES: There is mild age-related global parenchymal volume loss and proportionate enlargement of the ventricles and cortical sulci. CALVARIUM: The skull base and calvarium are normal. PARANASAL SINUSES: There are retention cysts/ polyps in the maxillary sinuses and moderate mucosal disease in the ethmoid air cells. There also nasal polyps. MASTOID AIR CELLS: Predominantly clear. OTHER FINDINGS: None. IMPRESSION: 1. Bilateral convexity acute subdural hematomas, larger on the left where it measures 1.4 cm in maximum width. No midline shift or herniation. 2. Extensive periventricular white matter disease statistically most compatible with chronic microangiopathic changes however demyelination is also a differential consideration. Critical findings were discussed with Dr. Willam Tena on 07/15/2017 at 5:40 p.m.
[2017-07-15] MEDS ORDERED: Sodium Chloride 0.9% 500 ML IV STA (18:02)
[2017-07-15 18:16] LABS: BASO # 0.02 K/mm3 (0.0-2.0); BASO % 0.1 % (0.0-3.0); EOS # 0.2 (0.0-0.7); EOS % 1.5 % (1.5-5.0); GRAN # 10.3 (1.4-6.5); GRAN % 76.4 % (50.0-68.0); HEMOGLOBIN 12.9 g/dL (12.0-16.0); LYMPH # 2.7 (1.2-3.4); LYMPH % 19.8 % (22.0-35.0); MEAN CORPUSCULAR HEMOGLOBIN 26.6 pg (25.0-35.0); MEAN CORPUSCULAR HGB CONC 33.7 g/dl (31.0-37.0); MEAN PLATELET VOLUME 10.4 fl (7.0-11.0); MONO # 0.3 (0.1-0.6); MONO % 2.2 % (1.0-6.0); RBC 4.85 10^6/uL (3.5-6.1); RED CELL DISTRIBUTION WIDTH 14.7 % (11.5-14.5); WHITE BLOOD COUNT 13.5 10^3/ul (4.5-11.0)
[2017-07-15 18:20] LABS: ALB/GLOB RATIO 1.4 (1.1-1.8); ALBUMIN 4.7 g/dL (3.0-4.8); ALT/SGPT 25 U/L (7-56); AST/SGOT 24 U/L (14-36); BLOOD UREA NITROGEN 25 mg/dL (7-21); CALCIUM 11.2 mg/dL (8.4-10.5); GFR AFRICAN-AMERICAN > 60; GFR NON-AFRICAN AMERICAN > 60; HDL CHOLESTEROL 57 mg/dL (29-60)
[2017-07-15 18:22] LABS: INR 1.03 (0.93-1.08); PARTIAL THROMBOPLASTIN TIME 30.9 Seconds (25.1-36.5); PROTHROMBIN TIME 11.8 SECONDS (9.4-12.5)
--- NOTE | 2017-07-15 18:23 | RAD ---
HISTORY: Code Stroke COMPARISON: 09/13/2016. FINDINGS: LUNGS: No active pulmonary disease. PLEURA: No significant pleural effusion identified, no pneumothorax apparent. CARDIOVASCULAR: Normal. OSSEOUS STRUCTURES: No significant abnormalities. VISUALIZED UPPER ABDOMEN: Normal. OTHER FINDINGS: None. IMPRESSION: No active pulmonary disease.
[2017-07-15 18:31] LABS: LDL CHOLESTEROL 135 mg/dL (0-129)
[2017-07-15 18:34] LABS: TROPONIN I < 0.01 ng/mL
--- NOTE | 2017-07-15 18:38 | CP.PCM.CON ---
<Jj Huber - Last Filed: 07/15/17 18:59> History of Present Illness - History of Present Illness History of Present Illness: 66 year old female, whose past medical history includes DM on insulin, hypertension, hypothyroidism, prior TIAs on Plavix, and dementia presents with altered mental status. Patient was last seen normal at 15:15. Son reports at 16: 15 he noted patient to be acting more confused, unable to speak, with a left sided facial drop, left arm weakness, and left leg numbness. Currently the patients symptoms have resolved. CT head shows Bilateral convexity acute subdural hematomas, larger on the left where it measures 1.4 cm in maximum width. No midline shift or herniation. Patient denies any chest pain, shortness of breath, abdominal pain, or any other complaints at this time. PMH: DM on insulin, hypertension, hypothyroidism, prior TIAs on Plavix, and dementia PSH: none FH: none SH: denies tobacco, ETOH, drug use Meds: as per MAR Allergies: NKDA Review of Systems - Constitutional Constitutional: absent: Chills, Headache - EENT Eyes: absent: Change in Vision Ears: absent: Decreased Hearing - Cardiovascular Cardiovascular: absent: Chest Pain, Chest Pain with Activity, Dyspnea - Gastrointestinal Gastrointestinal: absent: Abdominal Pain, Constipation, Diarrhea, Vomiting - Musculoskeletal Musculoskeletal: absent: Atrophy, Numbness, Tingling - Neurological Neurological: absent: Dizziness, Numbness, Headaches, Syncope, Vertigo, Weakness Past Patient History - Infectious Disease Hx of Infectious Diseases: None - Tetanus Immunizations Tetanus Immunization: Unknown - Past Medical History & Family History Past Medical History?: Yes - Past Social History Alcohol: None - CARDIAC Hx Hypertension: Yes - PULMONARY Hx Chronic Obstructive Pulmonary Disease (COPD): No Hx Pneumonia: No - NEUROLOGICAL HX Cerebrovascular Accident: Yes Hx Dementia: Yes - HEENT Hx HEENT Problems: No - RENAL Hx Renal Failure: No - ENDOCRINE/METABOLIC Hx Diabetes Mellitus Type 2: Yes - HEMATOLOGICAL/ONCOLOGICAL Hx Cancer: No - INTEGUMENTARY Hx Dermatological Problems: No - MUSCULOSKELETAL/RHEUMATOLOGICAL Hx Falls: No - GASTROINTESTINAL Hx Gastroesophageal Reflux: No - GENITOURINARY/GYNECOLOGICAL Hx Genitourinary Disorders: No - PSYCHIATRIC Hx Psychophysiologic Disorder: No Hx Substance Use: No - SURGICAL HISTORY Hx Thyroidectomy: Yes - ANESTHESIA Hx Anesthesia: Yes Hx Anesthesia Reactions: No Hx Malignant Hyperthermia: No Meds Allergies/Adverse Reactions: Allergies Allergy/AdvReac Type Severity Reaction Status Date / Time Bar of Soap AdvReac RASH Uncoded 07/15/17 17:35 - Medications Medications: Current Medications Sodium Chloride (Sodium Chloride 0.9%) 1,000 mls @ 100 mls/hr IV .Q10H GUERITA Valproate Sodium 1,000 mg/ (Sodium Chloride) 110 mls @ 100 mls/hr IVPB Q8 GUERITA Physical Exam - Constitutional Appears: Non-toxic, Toxic, No Acute Distress - Head Exam Head Exam: ATRAUMATIC, NORMAL INSPECTION, NORMOCEPHALIC - Eye Exam Eye Exam: EOMI, Normal appearance, PERRL - ENT Exam ENT Exam: Mucous Membranes Moist, Normal Exam - Neck Exam Neck exam: Negative for: Lymphadenopathy - Respiratory Exam Respiratory Exam: Clear to Auscultation Bilateral, NORMAL BREATHING PATTERN. absent: Rhonchi, Wheezes - Cardiovascular Exam Cardiovascular Exam: REGULAR RHYTHM, +S1, +S2 - GI/Abdominal Exam GI & Abdominal Exam: Soft. absent: Tenderness - Extremities Exam Extremities exam: Positive for: pedal pulses present. Negative for: pedal edema - Neurological Exam Additional comments: confused, baseline dementia Results - Vital Signs Recent Vital Signs: Last Vital Signs Temp 98.4 F 07/15/17 18:10 Pulse 74 07/15/17 18:10 Resp 18 07/15/17 18:10 BP 158/75 H 07/15/17 18:10 Pulse Ox 98 07/15/17 18:10 - Labs Result Diagrams: 07/15/17 18:08 07/15/17 18:08 Labs: Laboratory Results - last 24 hr 07/15/17 07/15/17 07/15/17 18:08 18:08 18:08 WBC 13.5 H D RBC 4.85 Hgb 12.9 Hct 38.3 MCV 79.0 L MCH 26.6 MCHC 33.7 RDW 14.7 H Plt Count 275 MPV 10.4 Gran % 76.4 H Lymph % (Auto) 19.8 L [place] % (Auto) 2.2 Eos % (Auto) 1.5 Baso % (Auto) 0.1 Gran # 10.30 H Lymph # (Auto) 2.7 [place] # (Auto) 0.3 Eos # (Auto) 0.2 Baso # (Auto) 0.02 PT 11.8 INR 1.03 APTT 30.9 Sodium 139 Potassium 3.9 Chloride 97 L Carbon Dioxide 23 Anion Gap 23 H BUN 25 H Creatinine 0.9 Est GFR ( Amer) > 60 Est GFR (Non-Af Amer) > 60 Random Glucose 257 H Calcium 11.2 H Total Bilirubin 0.6 AST 24 ALT 25 Alkaline Phosphatase 83 Troponin I < 0.01 Total Protein 8.2 Albumin 4.7 Globulin 3.5 Albumin/Globulin Ratio 1.4 Triglycerides 283 H Cholesterol 249 H LDL Cholesterol Direct 135 H HDL Cholesterol 57 Assessment & Plan - Assessment and Plan (Free Text) Assessment: 66 year old female, whose past medical history includes DM on insulin, hypertension, hypothyroidism, prior TIAs on Plavix, and dementia presents with altered mental status. CT head shows Bilateral convexity acute subdural hematomas, larger on the left where it measures 1.4 cm in maximum width. No midline shift or herniation. Plan: Subdural Hematoma AMS Dementia HTN DM Recommend: MRI EEG HOB 30 Neurochecks Q1 Seizure precautions EKG Neurology consulted Neurosurgery consulted Echo with bubble study GI ppx DVT ppx Monitored in the ICU <Ramin Melchor - Last Filed: 07/15/17 19:05> Meds - Medications Medications: Current Medications Sodium Chloride (Sodium Chloride 0.9%) 1,000 mls @ 100 mls/hr IV .Q10H GUERITA Last Admin: 07/15/17 17:45 Dose: 100 mls/hr Valproate Sodium 1,000 mg/ (Sodium Chloride) 110 mls @ 100 mls/hr IVPB Q8 GUERITA Results - Vital Signs Recent Vital Signs: Last Vital Signs Temp 98.4 F 07/15/17 18:10 Pulse 74 07/15/17 18:10 Resp 18 07/15/17 18:10 BP 158/75 H 07/15/17 18:10 Pulse Ox 98 07/15/17 18:10 - Labs Result Diagrams: 07/15/17 18:08 07/15/17 18:08 Assessment & Plan - Assessment and Plan (Free Text) Plan: Patient seen and examined with resident, agree with note with following additions/exceptions: Pt is 6 year old female, w/past medical history includes DM on insulin, hypertension, hypothyroidism, prior TIAs on Plavix, and dementia presents with altered mental status. CT head shows Bilateral convexity acute subdural hematomas, larger on the left where it measures 1.4 cm in maximum width. Currently afebrile, HD stable, comfortable in NAD, non conversive, moving all 4 ext, minimally following commands, awake, alert, protecting airway. SDH HTN DM Hypothyroid Recommend: - supp o2 as needed - hammond culture, BCx, UCx, procal - BP control - Hold Plavix - consider 1u platelets - Neurosurgery, neurology consult - EEG - AED as per neuro - MRI brain - ECHO - DVT ppx, SCDs - Admit to MICU
--- NOTE | 2017-07-15 18:52 | CP.PCM.HP ---
<Maria G Nance - Last Filed: 07/15/17 20:51> History of Present Illness - History of Present Illness History of Present Illness: PGY-[address] Roth Ms Sahni, 66 F, bilingual in [place] and Citizen Of [place], with PMH HTN, DM, CVA and TIAs on plavix, dementia, diabetes, hypertention was brought into the ED by EMS accompanied by son c/o AMS. History is obtained by son, Bryanna. Pt was last seen normal at 15:15. At 16:15, son noticed patient looked pale, acting confused , unable to speak, "phasing out", not following commands, with R sided facial droop, L leg "falling asleep". At 17:15, son reported that facial droop and skin color had improves. Her mentation improves, but pt remained confused, less responsive, speaking [place] and not Citizen [place]. Code stroke was called. CT head and CTA of head and neck was ordered. Pt began to vomit in radiology. got zofran. At baseline, pt is AAO x [address] She is able to make needs known. No recent medicine changes or skipping medicines. Meds given by heel seat flap stapler and son. CT-Head: Acute subdural hematoms, bilateral concave, 1.4cm to L, 7 mm to R, no midline shift or herniation. 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 EKG showed NSR at 77 BPM with LAD, LVH with repolarization abnormality. CXR neg. Dr. Flanagan endorsed to ED doctor that no surgical intervention is needed. Pt recently visited ED 2 weeks ago for L distal ulna fracture, obliquely oriented minimally displaced. Pt had accidentally slammed her wrist at the bathroom door. ROS: (+) Headache. Denies sensitive to light Denies recent illness, fever, chills, chest pain, SOB, N/V/D/C, abdominal pain, dysuria, hematuria, hematochezia, melena. PMD: Dr. Cm PMH: CVA (L anterior temporal lobe, Apr 2016), No residual weakness; just eating slow and walk slow Prior TIAs on plavix Dementia (3 years), not on meds due to side effect on mentation HTN Diabetes Hypothyroidism urinary incontinence PSH: Thyroidectomy due to thyroid nodule FH: denies SH: Never tobacco. 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) for breakfast, cleaning, and meds Allergies: NKDA Meds: Plavix, atenolol, losartan, metformin, atorvastatin, insulin lantus 20u HS , vit D qweek Present on Admission - Present on Admission Any Indicators Present on Admission: No Past Patient History - Infectious Disease Hx of Infectious Diseases: None - Tetanus Immunizations Tetanus Immunization: Unknown - Past Medical History & Family History Past Medical History?: Yes - Past Social History Alcohol: None - CARDIAC Hx Hypertension: Yes - PULMONARY Hx Chronic Obstructive Pulmonary Disease (COPD): No Hx Pneumonia: No - NEUROLOGICAL HX Cerebrovascular Accident: Yes Hx Dementia: Yes - HEENT Hx HEENT Problems: No - RENAL Hx Renal Failure: No - ENDOCRINE/METABOLIC Hx Diabetes Mellitus Type 2: Yes - HEMATOLOGICAL/ONCOLOGICAL Hx Cancer: No - INTEGUMENTARY Hx Dermatological Problems: No - MUSCULOSKELETAL/RHEUMATOLOGICAL Hx Falls: No - GASTROINTESTINAL Hx Gastroesophageal Reflux: No - GENITOURINARY/GYNECOLOGICAL Hx Genitourinary Disorders: No - PSYCHIATRIC Hx Psychophysiologic Disorder: No Hx Substance Use: No - SURGICAL HISTORY Hx Thyroidectomy: Yes - ANESTHESIA Hx Anesthesia: Yes Hx Anesthesia Reactions: No Hx Malignant Hyperthermia: No Meds Allergies/Adverse Reactions: Allergies Allergy/AdvReac Type Severity Reaction Status Date / Time Bar of Soap AdvReac RASH Uncoded 07/15/17 17:35 Physical Exam - Constitutional Appears: No Acute Distress - Head Exam Head Exam: ATRAUMATIC, NORMAL INSPECTION, NORMOCEPHALIC - Eye Exam Eye Exam: EOMI, Normal appearance, PERRL (sluggishly). absent: Scleral icterus Pupil Exam: NORMAL ACCOMODATION - ENT Exam ENT Exam: Mucous Membranes Moist - Neck Exam Additional comments: supple - Respiratory Exam Respiratory Exam: Clear to Auscultation Bilateral, NORMAL BREATHING PATTERN. absent: Rales, Rhonchi, Wheezes - Cardiovascular Exam Cardiovascular Exam: REGULAR RHYTHM, +S1, +S2. absent: Systolic Murmur - GI/Abdominal Exam GI & Abdominal Exam: Normal Bowel Sounds, Soft. absent: Distended, Firm, Guarding, Tenderness - Extremities Exam Extremities exam: Positive for: normal capillary refill, pedal pulses present. Negative for: calf tenderness, pedal edema Additional comments: L arm in cast, capillary refill < 2 sec - Neurological Exam Neurological exam: Alert Additional comments: Awake, alert, reactive to environment Non-verbal, gesture by nodding or looking EOMI Pupil reactive to light slowly No facial droop noticed. 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 L hand limited by cast Able to lift both leg up in air briefly - Psychiatric Exam Psychiatric exam: Flat Affect - Skin Skin Exam: Dry, Warm Results - Vital Signs Recent Vital Signs: Last Vital Signs Temp 98.4 F 07/15/17 18:10 Pulse 74 07/15/17 18:10 Resp 18 07/15/17 18:10 BP 158/75 H 07/15/17 18:10 Pulse Ox 98 07/15/17 18:10 - Labs Result Diagrams: 07/15/17 18:08 07/15/17 18:08 Labs: Laboratory Results - last 24 hr 07/15/17 07/15/17 07/15/17 18:08 18:08 18:08 WBC 13.5 H D RBC 4.85 Hgb 12.9 Hct 38.3 MCV 79.0 L MCH 26.6 MCHC 33.7 RDW 14.7 H Plt Count 275 MPV 10.4 Gran % 76.4 H Lymph % (Auto) 19.8 L [place] % (Auto) 2.2 Eos % (Auto) 1.5 Baso % (Auto) 0.1 Gran # 10.30 H Lymph # (Auto) 2.7 [place] # (Auto) 0.3 Eos # (Auto) 0.2 Baso # (Auto) 0.02 PT 11.8 INR 1.03 APTT 30.9 Sodium 139 Potassium 3.9 Chloride 97 L Carbon Dioxide 23 Anion Gap 23 H BUN 25 H Creatinine 0.9 Est GFR ( Amer) > 60 Est GFR (Non-Af Amer) > 60 Random Glucose 257 H Calcium 11.2 H Total Bilirubin 0.6 AST 24 ALT 25 Alkaline Phosphatase 83 Troponin I < 0.01 Total Protein 8.2 Albumin 4.7 Globulin 3.5 Albumin/Globulin Ratio 1.4 Triglycerides 283 H Cholesterol 249 H LDL Cholesterol Direct 135 H HDL Cholesterol 57 BBK History Checked 07/15/17 18:08 WBC RBC Hgb Hct MCV MCH MCHC RDW Plt Count MPV Gran % Lymph % (Auto) [place] % (Auto) Eos % (Auto) Baso % (Auto) Gran # Lymph # (Auto) [place] # (Auto) Eos # (Auto) Baso # (Auto) PT INR APTT Sodium Potassium Chloride Carbon Dioxide Anion Gap BUN Creatinine Est GFR ( Amer) Est GFR (Non-Af Amer) Random Glucose Calcium Total Bilirubin AST ALT Alkaline Phosphatase Troponin I Total Protein Albumin Globulin Albumin/Globulin Ratio Triglycerides Cholesterol LDL Cholesterol Direct HDL Cholesterol BBK History Checked Patient has bt Assessment & Plan - Assessment and Plan (Free Text) Plan: Ms Sahni, 66 F, bilingual in [place] and Citizen [place], with PMH HTN, DM, CVA and TIAs on plavix, dementia (baseline AAOx2), diabetes, hypertention was admitted to ICU for subdural hematoma. Altered mental status, headache, and vomiting possible due to mass effect on the brain. Neuro - CT-Head: Acute subdural hematoms, bilateral concave, 1.4cm to L, 7 mm to R, no midline shift or herniation. 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 - Pending CTA of head and neck - Dr. Flanagan endorsed to ED doctor that no surgical intervention is needed. - AM MRI and EEG - Will follow up with Dr. Flanagan in AM - Valproate 1g IV q8 - Avoid sedative - seizure precautions - neuro check q1 - maintain normal body temperature Pulm - Aspiration precautions, HOB 45 degrees - O2 prn to maintain SaO2 > 95% Card - EKG showed NSR at 77 BPM with LAD, LVH with repolarization abnormality. CXR neg. - Goal SBP 120 - 140 - For SBP > 165, Hydralazine 10mg IV - For SBP > 190, Hydralazine 20mg IV GI - NPO - 1/2 NS @ 75 - Zofran PRN - Protonix IV - Speech and swallow eval Renal - monitor i/o, vogt - watch for contrast nephropathy Endo - TSH, Free T4 - A1C - Levemir 10 HS for now due to NPO - ISSS-low ID - WBC 13.5, likely reactive, observe off antibiotics - CXR neg - Pending U/A Heme - INR 1.03 Musculoskeletal - obliquely oriented minimally displaced fracture of the distal ulna - Pt will follow up with Dr. Mckinney, orthopedic doctor, next week. Pvx: Protonix, SCD s/r/d/w Dr. Roth <IraKirt Q - Last Filed: 07/16/17 07:04> Results - Vital Signs Recent Vital Signs: Last Vital Signs Temp 97 F L 07/15/17 21:24 Pulse 87 07/16/17 05:00 Resp 15 07/16/17 05:00 BP 135/81 07/16/17 05:00 Pulse Ox 100 07/16/17 05:00 - Labs Result Diagrams: 07/15/17 18:08 07/15/17 18:08 Labs: Laboratory Results - last 24 hr 07/15/17 07/16/17 21:54 01:00 POC Glucose (mg/dL) 218 H Urine Color Straw Urine Appearance Clear Urine pH 7.5 Ur Specific [place] 1.010 Urine Protein Negative Urine Glucose (UA) >=1000 Urine Ketones 15 H Urine Blood Trace-intact H Urine Nitrate Negative Urine Bilirubin Negative Urine Urobilinogen 0.2 Ur Leukocyte Esterase Negative Urine RBC 0 - 2 Urine WBC 0 - 2 Ur Epithelial Cells 0 - 2 Attending/Attestation - Attestation I have personally seen and examined this patient.: Yes I have fully participated in the care of the patient.: Yes I have reviewed all pertinent clinical information: Yes Notes (Text): 07/16/17 07:01 I agree with the above mentioned note and exam by the resident with the addition /exception of the followin66 y/o [place] female with a PMHx as listed above presented to the ED via BLS due to alteration in her mental status. Patient was found to have bilateral SDH without midline shift. As per her son, her mentation mainly returned to normal apart from the fact that she was not communicating with him and responding to all of his questions (baseline dementia). Patient was admitted to the ICU for closer neurologic monitoring; Neurology on board, working patient up with an EEG and MRI to evaluate for possible seizures as well; Neurosurgery recommended no intervention to the ED when contacted. labs and images reviewed case discussed with Dr. Tena in the ED total time of care: 35 minutes
--- NOTE | 2017-07-15 20:46 | CARD ---
APPROVED REPORT EKG Measurement Heart [id number] <Conclusion> Sinus rhythm with frequent premature ventricular complexes Left axis deviation Left ventricular hypertrophy with repolarization abnormality Possible Lateral infarct, age undetermined Abnormal ECG
--- NOTE | 2017-07-15 21:51 | CP.PCM.PN ---
Subjective - Date & Time of Evaluation Date of Evaluation: 07/15/17 Time of Evaluation: 21:50 - Subjective Subjective: # 20 angiocath was inserted in right upper arm for Head CTA. Dx:Poor venous access. Objective - Vital Signs/Intake and Output Vital Signs (last 24 hours): Temp Pulse Resp BP Pulse Ox 98.4 F 78 18 157/82 H 99 07/15/17 18:10 07/15/17 19:46 07/15/17 19:46 07/15/17 19:46 07/15/17 19:46 - Medications Medications: Current Medications Hydralazine HCl (Apresoline) 10 mg IVP Q6 PRN PRN Reason: Systolic Blood Pressure Hydralazine HCl (Apresoline) 20 mg IVP Q6 PRN PRN Reason: Systolic Blood Pressure Valproate Sodium 1,000 mg/ (Sodium Chloride) 110 mls @ 100 mls/hr IVPB Q8 GUERITA Sodium Chloride (Sodium Chloride 0.45%) 1,000 mls @ 75 mls/hr IV .[id number] GUERITA Insulin Detemir (Levemir) 10 unit SC HS GUERITA Insulin Human Lispro (Humalog Low) 0 units SC ACHS GUERITA PRN Reason: Protocol Ondansetron HCl (Zofran Inj) 4 mg IVP Q6 PRN PRN Reason: Nausea/Vomiting Pantoprazole Sodium (Protonix Inj) 40 mg IVP DAILY GUERITA - Labs Labs: PT 11.8 SECONDS (9.4-12.5) 07/15/17 18:08 INR 1.03 (0.93-1.08) 07/15/17 18:08 APTT 30.9 Seconds (25.1-36.5) 07/15/17 18:08
--- NOTE | 2017-07-15 22:00 | CP.PCM.CON ---
History of Present Illness - History of Present Illness History of Present Illness: 66 yr old woman who came in as code stroke with brief spell of aphasia and leg weakness that was found to have bilateral subdural hematomas, left greater than right. I started her on depakote as I felt that she may be having a seizure. She is not a TPA candidate. Full consult to follow. PLan: 1. avoid any aspirin or lovenox. 2. Repeat CT scan am Past Patient History - Infectious Disease Hx of Infectious Diseases: None - Tetanus Immunizations Tetanus Immunization: Unknown - Past Medical History & Family History Past Medical History?: Yes - Past Social History Alcohol: None - CARDIAC Hx Hypertension: Yes - PULMONARY Hx Chronic Obstructive Pulmonary Disease (COPD): No Hx Pneumonia: No - NEUROLOGICAL HX Cerebrovascular Accident: Yes Hx Dementia: Yes - HEENT Hx HEENT Problems: No - RENAL Hx Renal Failure: No - ENDOCRINE/METABOLIC Hx Diabetes Mellitus Type 2: Yes - HEMATOLOGICAL/ONCOLOGICAL Hx Cancer: No - INTEGUMENTARY Hx Dermatological Problems: No - MUSCULOSKELETAL/RHEUMATOLOGICAL Hx Falls: No - GASTROINTESTINAL Hx Gastroesophageal Reflux: No - GENITOURINARY/GYNECOLOGICAL Hx Genitourinary Disorders: No - PSYCHIATRIC Hx Psychophysiologic Disorder: No Hx Substance Use: No - SURGICAL HISTORY Hx Thyroidectomy: Yes - ANESTHESIA Hx Anesthesia: Yes Hx Anesthesia Reactions: No Hx Malignant Hyperthermia: No Meds Allergies/Adverse Reactions: Allergies Allergy/AdvReac Type Severity Reaction Status Date / Time Bar of Soap AdvReac RASH Uncoded 07/15/17 17:35 - Medications Medications: Current Medications Hydralazine HCl (Apresoline) 10 mg IVP Q6 PRN PRN Reason: Systolic Blood Pressure Hydralazine HCl (Apresoline) 20 mg IVP Q6 PRN PRN Reason: Systolic Blood Pressure Valproate Sodium 1,000 mg/ (Sodium Chloride) 110 mls @ 100 mls/hr IVPB Q8 GUERITA Sodium Chloride (Sodium Chloride 0.45%) 1,000 mls @ 75 mls/hr IV .[id number] GUERITA Insulin Detemir (Levemir) 10 unit SC HS GUERITA Insulin Human Lispro (Humalog Low) 0 units SC ACHS GUERITA PRN Reason: Protocol Ondansetron HCl (Zofran Inj) 4 mg IVP Q6 PRN PRN Reason: Nausea/Vomiting Pantoprazole Sodium (Protonix Inj) 40 mg IVP DAILY [facility] Results - Vital Signs Recent Vital Signs: Last Vital Signs Temp 98.4 F 07/15/17 18:10 Pulse 78 07/15/17 19:46 Resp 18 07/15/17 19:46 BP 157/82 H 07/15/17 19:46 Pulse Ox 99 07/15/17 19:46 - Labs Result Diagrams: 07/15/17 18:08 07/15/17 18:08 Labs: Laboratory Results - last 24 hr 07/15/17 21:54 POC Glucose (mg/dL) 218 H
[2017-07-15] MEDS: Valproate 1,000 MG in Sodium Chloride 0.9% 100 ML IVPB SCH (22:01)
[2017-07-15] MEDS: Insulin Detemir 100 units/ml Vial (Levemir) SC SCH (22:01)
[2017-07-15] MEDS: Insulin Lispro (humaLOG) LOW Coverage SC SCH (22:02)
[2017-07-15] MEDS: Sodium Chloride 0.45% 1,000 ML IV SCH (22:09)
--- NOTE | 2017-07-15 22:26 | CT ---
EXAM: CT Angiography Head With Intravenous Contrast CLINICAL HISTORY: The patient age is 66 years old and is female; Signs and symptoms; Other: Code stroke Facility exam id and description: Ct ctaheadstk cta head/neck code stroke TECHNIQUE: Axial computed tomographic angiography images of the head with intravenous contrast using CT angiography protocol. All CT scans at this facility use one or more dose reduction techniques, viz.: automated exposure control; ma/kV adjustment per patient size (including targeted exams where dose is matched to indication; i.e. head); or iterative reconstruction technique. MIP reconstructed images were created and reviewed. Coronal and sagittal reformatted images were created and reviewed. CONTRAST: 146 mL of omnipaque 350 administered intravenously. COMPARISON: CT - HEAD W/O (CODE STROKE) 2017-07-15 17:26 FINDINGS: Right internal carotid artery: There is mild atherosclerosis of the right internal carotid artery, without hemodynamically significant stenosis. No aneurysm. Right anterior cerebral artery: Stenoses are visualized of the A2 segments of the bilateral anterior cerebral arteries. No aneurysm. Right middle cerebral artery: No occlusion or significant stenosis. No aneurysm. Right posterior cerebral artery: Stenoses are identified of the bilateral posterior cerebral arteries. No aneurysm. Right vertebral artery: No occlusion or significant stenosis. Left internal carotid artery: No acute findings. Intracranial segment is patent with no significant stenosis. No aneurysm. Left anterior cerebral artery: See above. Left middle cerebral artery: No occlusion or significant stenosis. No aneurysm. Left posterior cerebral artery: See above. Left vertebral artery: No occlusion or significant stenosis. Basilar artery: No significant stenosis. No occlusion. No aneurysm. Brain: Bilateral subdural hematomas are again visualized. This measures approximately 1.1 cm in thickness on the left side. Sinuses: There is opacification of scattered ethmoid air cells. Mucosal thickening with mucous retention cysts or polyps are visualized within the bilateral maxillary sinus. A small mucous retention cyst or polyp is identified in the right sphenoid sinus. Other findings: There is increased tortuosity of the vertebrobasilar system. IMPRESSION: 1. Stenoses are visualized of the A2 segments of the bilateral anterior cerebral arteries. 2. Stenoses are identified of the bilateral posterior cerebral arteries. 3. Bilateral subdural hematomas are again visualized. This measures approximately 1.1 cm in thickness on the left side. Refer to the head CT report from the same day for further discussion of intracranial findings. Follow-up noncontrast CT is recommended 12-24 hours following the initial scan. 4. Paranasal sinus disease is noted above. 5. Incidental/non-acute findings are described above. EXAM: CT Angiography Neck With Intravenous Contrast EXAM DATE/TIME: 07/15/2017 5:18 PM CLINICAL HISTORY: The patient age is 66 years old and is female; Signs and symptoms; Other: Code stroke Facility exam id and description: Ct ctaheadstk cta head/neck code stroke TECHNIQUE: Axial computed tomographic angiography images of the neck with intravenous contrast using CT angiography protocol. All CT scans at this facility use one or more dose reduction techniques, viz.: automated exposure control; ma/kV adjustment per patient size (including targeted exams where dose is matched to indication; i.e. head); or iterative reconstruction technique. MIP reconstructed images were created and reviewed. Coronal and sagittal reformatted images were created and reviewed. CONTRAST: 146 mL of omnipaque 350 administered intravenously. COMPARISON: CT - HEAD W/O (CODE STROKE) 2017-07-15 17:26 FINDINGS: VASCULATURE: Right common carotid artery: No significant stenosis. No dissection or occlusion. Right internal carotid artery: There is medial deviation of the right internal carotid artery, without significant stenosis or occlusion. Right external carotid artery: No occlusion. Right vertebral artery: No occlusion or significant stenosis. Left common carotid artery: There is increased tortuosity of the left common carotid artery, without significant stenosis or occlusion. Left internal carotid artery: There is stenosis of the proximal left internal carotid artery. The degree of stenosis is approximately 40%. There is increased tortuosity of the left internal carotid artery. No dissection or occlusion. Left external carotid artery: No occlusion. Left vertebral artery: No occlusion or significant stenosis. Other vasculature: Evaluation of the right subclavian artery is limited. Mild atherosclerotic changes are identified of the aortic arch. NECK: Bones/joints: Spondylosis is visualized at multiple cervical levels. There straightening of the lordotic curvature of the cervical spine. Thyroid: Within the right thyroid lobe, there is a nodule of heterogeneous density measuring 1.1 x 1.0 cm. The left lobe of the thyroid gland is absent. CAROTID STENOSIS REFERENCE USING NASCET CRITERIA: % ICA stenosis = (1 - narrowest ICA diameter/diameter of distal cervical ICA) x 100. Mild - <50% stenosis. Moderate - 50-69% stenosis. Severe - 70-94% stenosis. Near occlusion - 95-99% stenosis. Occluded - 100% stenosis. IMPRESSION: 1. There is stenosis of the proximal left internal carotid artery. The degree of stenosis is approximately 40%. 2. There is medial deviation of the right internal carotid artery, without significant stenosis or occlusion. 3. Within the right thyroid lobe, there is a nodule of heterogeneous density measuring 1.1 x 1.0 cm. Follow-up ultrasonography is recommended. 4. Incidental/non-acute findings are described above.
[2017-07-15 23:06] VITALS: BMI 22.4
[2017-07-16 02:01] LABS: PH,URINE 7.5 (4.7-8.0); URINE BILIRUBIN NEGATIVE (NEGATIVE); URINE BLOOD TRACE-INTACT (NEGATIVE); URINE GLUCOSE (UA) >=1000 mg/dL (NEGATIVE); URINE LEUKOCYTE ESTERASE NEGATIVE Leu/uL (NEGATIVE); URINE PROTEIN NEGATIVE mg/dL (<30 mg/dL); URINE UROBILINOGEN 0.2 E.U./dL (<1 E.U./dL)
[2017-07-16 02:07] LABS: URINE APPEARANCE CLEAR (CLEAR); URINE COLOR STRAW (YELLOW)
[2017-07-16 02:16] LABS: URINE EPITHELIAL CELLS 0 - 2 /hpf (0-5); URINE RBC 0 - 2 /hpf (0-2); URINE WBC 0 - 2 /hpf (0-6)
[2017-07-16 06:29] LABS: BASO # 0.01 K/mm3 (0.0-2.0); BASO % 0.1 % (0.0-3.0); GRAN # 15.8 (1.4-6.5); GRAN % 89.3 % (50.0-68.0); LYMPH # 1.6 (1.2-3.4); LYMPH % 9.2 % (22.0-35.0); MEAN CELL VOLUME 77.7 fl (80.0-105.0); MEAN CORPUSCULAR HEMOGLOBIN 25.5 pg (25.0-35.0); MEAN CORPUSCULAR HGB CONC 32.9 g/dl (31.0-37.0); MEAN PLATELET VOLUME 10.2 fl (7.0-11.0); MONO # 0.2 (0.1-0.6); MONO % 1.4 % (1.0-6.0); RBC 4.7 10^6/uL (3.5-6.1); RED CELL DISTRIBUTION WIDTH 14.8 % (11.5-14.5); WHITE BLOOD COUNT 17.7 10^3/ul (4.5-11.0)
[2017-07-16 07:06] LABS: FREE T4 2.52 ng/dL (0.78-2.19)
[2017-07-16 07:07] LABS: ALB/GLOB RATIO 1.4 (1.1-1.8); ALBUMIN 4.5 g/dL (3.0-4.8); ALT/SGPT 16 U/L (7-56); AST/SGOT 21 U/L (14-36); BLOOD UREA NITROGEN 16 mg/dL (7-21); CALCIUM 10.8 mg/dL (8.4-10.5); GFR AFRICAN-AMERICAN > 60; GFR NON-AFRICAN AMERICAN > 60
--- NOTE | 2017-07-16 07:30 | CP.PCM.PN ---
<Joceline Gauthier - Last Filed: 07/16/17 13:25> Subjective - Date & Time of Evaluation Date of Evaluation: 07/16/17 Time of Evaluation: 07:29 - Subjective Subjective: Joceline Gauthier DO PGY-1: Hospitalist Service Patient seen and examined at bedside. Patient is non-verbal, withdraws to pain, exhibits rights sided mayra-neglect Nurse reports patient vomited four times overnight. ICU resident spoke with son who states patient was verbal prior to admission. Objective - Vital Signs/Intake and Output Vital Signs (last 24 hours): Temp Pulse Resp BP Pulse Ox 97 F L 87 15 135/81 100 07/15/17 21:24 07/16/17 05:00 07/16/17 05:00 07/16/17 05:00 07/16/17 05:00 Intake and Output: 07/16/17 07/16/17 06:59 18:59 Intake Total 1250 Output Total 1300 Balance -50 - Medications Medications: Current Medications Hydralazine HCl (Apresoline) 10 mg IVP Q6 PRN PRN Reason: Systolic Blood Pressure Last Admin: 07/15/17 22:08 Dose: 10 mg Hydralazine HCl (Apresoline) 20 mg IVP Q6 PRN PRN Reason: Systolic Blood Pressure Valproate Sodium 1,000 mg/ (Sodium Chloride) 110 mls @ 100 mls/hr IVPB Q8 [facility] Last Admin: 07/15/17 22:01 Dose: 100 mls/hr Sodium Chloride (Sodium Chloride 0.45%) 1,000 mls @ 75 mls/hr IV .[id number] [facility] Last Admin: 07/15/17 22:09 Dose: 75 mls/hr Insulin Detemir (Levemir) 10 unit SC HS [facility] Last Admin: 07/15/17 22:01 Dose: 10 unit Insulin Human Lispro (Humalog Low) 0 units SC ACHS [facility] PRN Reason: Protocol Last Admin: 07/15/17 22:02 Dose: Not Given Ondansetron HCl (Zofran Inj) 4 mg IVP Q6 PRN PRN Reason: Nausea/Vomiting Last Admin: 07/16/17 00:26 Dose: 4 mg Pantoprazole Sodium (Protonix Inj) 40 mg IVP DAILY [facility] - Labs Labs: 07/16/17 06:00 07/16/17 06:00 PT 11.8 SECONDS (9.4-12.5) 07/15/17 18:08 INR 1.03 (0.93-1.08) 07/15/17 18:08 APTT 30.9 Seconds (25.1-36.5) 07/15/17 18:08 - Constitutional Appears: Confused - Head Exam Head Exam: ATRAUMATIC, NORMOCEPHALIC - Eye Exam Additional comments: patient cannot or will not moves eyes to the left side - Respiratory Exam Respiratory Exam: Clear to Ausculation Bilateral, NORMAL BREATHING PATTERN. absent: Accessory Muscle Use - Cardiovascular Exam Cardiovascular Exam: +S1, +S2 - GI/Abdominal Exam GI & Abdominal Exam: Soft, Normal Bowel Sounds - Extremities Exam Extremities Exam: Normal Inspection Additional comments: left upper extremity is wrapped - Neurological Exam Neurological Exam: Awake. absent: Oriented x3 Additional comments: does not follow commands, withdraws to pain, but does localize to it at certain times - Psychiatric Exam Psychiatric exam: Flat Affect - Skin Skin Exam: Dry, Intact, Normal Color, Warm Assessment and Plan - Assessment and Plan (Free Text) Assessment: 66 year old female with a past medical significant for left anterior temporal lobe infarct, likely vascular dementia, DM, hypertension, and urinary incontinence who is admitted for loss of speech and was found to have bilateral subdural hematomas. Neurology was consulted and put the patient on seizure prophylaxis medications and ordered EEG and MRI of brain with and without contrast. Neurosurgery was consulted. Plan: 1) Lack of speech secondary to stroke, seizure, or subdural hematoma - initial CT-Head: Acute subdural hematoms, bilateral concave, 1.4cm to L, 7 mm to R, no midline shift or herniation. 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 - repeat CT from AM:Decreased size of left convexity subdural hematoma. -possible drainage per neurosurg today - MRI and EEG - Valproate - Avoid sedative - seizure precautions - neuro check q1 - maintain normal body temperature - Physical therapy, OT, speech and swallow evaluations Pulm - Aspiration precautions, HOB 45 degrees - O2 prn to maintain SaO2 > 95% Cardio - Goal SBP 120 - 140 - For SBP > 165, Hydralazine 10mg IV - For SBP > 190, Hydralazine 20mg IV GI - NPO - 1/2 NS @ 75 - Zofran PRN - Protonix IV - Speech and swallow eval Renal - monitor i/o, vogt - watch for contrast nephropathy Endo - ISSS-low -maintain euglycemia ID - leukocytosis, likely reactive - CXR neg - UA negative Heme - INR 1.20 -will give FFP Musculoskeletal - obliquely oriented minimally displaced fracture of the distal ulna - Pt will follow up with Dr. Mckinney, orthopedic doctor, next week. Case seen and discuissed with attending physician, Dr. Downing <Avinash Downing - Last Filed: 07/19/17 13:47> Objective - Vital Signs/Intake and Output Vital Signs (last 24 hours): Temp Pulse Resp BP Pulse Ox 98.4 F 77 11 L 169/88 H 99 07/19/17 06:30 07/19/17 12:44 07/19/17 06:30 07/19/17 12:44 07/19/17 06:30 Intake and Output: 07/19/17 07/19/17 06:59 18:59 Intake Total 1624 Output Total 1050 Balance 574 - Medications Medications: Current Medications Atenolol (Tenormin) 50 mg PO DAILY [facility] Last Admin: 07/19/17 09:33 Dose: 50 mg Atorvastatin Calcium (Lipitor) 10 mg PO HS [facility] Chlorthalidone (Hygroton) 25 mg PO DAILY [facility] Last Admin: 07/19/17 09:31 Dose: 25 mg Hydralazine HCl (Apresoline) 10 mg IVP Q6 PRN PRN Reason: Systolic Blood Pressure Last Admin: 07/19/17 12:44 Dose: 10 mg Hydralazine HCl (Apresoline) 20 mg IVP Q6 PRN PRN Reason: Systolic Blood Pressure Cefepime HCl (Maxipime 1gm) 1 gm in 100 mls @ 100 mls/hr IVPB Q8 [facility] PRN Reason: Protocol Last Admin: 07/19/17 05:12 Dose: 100 mls/hr Dextrose/Sodium Chloride (Dextrose 5%/0.9% Ns 1000 Ml) 1,000 mls @ 40 mls/hr IV .Q24H [facility] Last Admin: 07/19/17 09:33 Dose: 40 mls/hr Levetiracetam 1,000 mg/ Sodium (Chloride) 110 mls @ 460 mls/hr IV Q12 [facility] Last Admin: 07/19/17 12:37 Dose: 460 mls/hr Valproate Sodium 250 mg/ (Sodium Chloride) 102.5 mls @ 100 mls/hr IVPB Q12 [facility] Insulin Human Lispro (Humalog Low) 0 units SC Q6H [facility] PRN Reason: Protocol Last Admin: 07/19/17 12:35 Dose: 3 units Losartan Potassium (Cozaar) 50 mg PO DAILY [facility] Last Admin: 07/19/17 09:32 Dose: 50 mg Ondansetron HCl (Zofran Inj) 4 mg IVP Q6 PRN PRN Reason: Nausea/Vomiting Last Admin: 07/16/17 00:26 Dose: 4 mg Pantoprazole Sodium (Protonix Inj) 40 mg IVP DAILY [facility] Last Admin: 07/19/17 09:31 Dose: 40 mg Potassium Phos/Sodium Phos (Neutra-Phos) 1 pkt PO TID [facility] Stop: 07/22/17 10:01 Last Admin: 07/19/17 13:33 Dose: 1 pkt - Labs Labs: 07/19/17 06:20 07/19/17 06:20 PT 13.5 SECONDS (9.4-12.5) H 07/17/17 09:00 INR 1.17 (0.93-1.08) H 07/17/17 09:00 APTT 30.9 Seconds (25.1-36.5) 07/15/17 18:08 Attending/Attestation - Attestation I have personally seen and examined this patient.: Yes I have fully participated in the care of the patient.: Yes I have reviewed all pertinent clinical information, including history, physical exam and plan: Yes Notes (Text): 07/19/17 13:45 Medical record note made by the resident after discussion with my direction and input after the patient was personally seen and examined by me. I have reviewed the chart and agree that the record accurately reflects by personal performance of the history, physical exam, data review, and medical decision-making, in the course for the patient. I have also personally directed the plan of care. 66 year old female with PMH of CVA?, dementia, DM, hypertension, and urinary incontinence is admitted with change of mental status, She is found to have bilateral subdural hematomas..Patient is non communicative.There is focal weakness in both upper and lower extremities.There is no midline shift.She is on Valporic acid for seizure prophylaxis.We will follow up MRI of Brain and EEG. 07/19/17 13:47
[2017-07-16] MEDS: Insulin Lispro (humaLOG) LOW Coverage SC SCH ×4 (08:39→21:46)
[2017-07-16] MEDS: Valproate 1,000 MG in Sodium Chloride 0.9% 100 ML IVPB SCH (08:55)
--- NOTE | 2017-07-16 09:25 | CP.CCUPN ---
<Jj Huber - Last Filed: 07/16/17 10:59> CCU Subjective - Physician Review Subjective (Free Text): Patient seen and evaluated bedside. Patient not responding to verbal commands. No acute issues overnight. Patient continues to have right sided hemineglect. 07/16/17 09:25 CCU Objective - Vital Signs / Intake & Output Intake and Output (Last 8hrs): Intake & Output 07/15/17 07/16/17 07/16/17 22:59 06:59 14:59 Intake Total 1250 Output Total 1300 Balance -50 Weight 126 lb 4.8 oz Intake: IV 1250 Right Upper arm 1250 Oral 0 Output: Urine 1100 Urine, Voided 1100 Stool 0 Emesis 200 - Physical Exam Head: Positive for: Atraumatic, Normocephalic Pupils: Positive for: PERRL Conjunctiva: Positive for: Normal Mouth: Positive for: Moist Mucous Membranes Respiratory/Chest: Positive for: Clear to Auscultation, Good Air Exchange. Negative for: Respiratory Distress, Accessory Muscle Use Cardiovascular: Positive for: Regular Rate and Rhythm, Normal S1, S2. Negative for: Murmurs Abdomen: Positive for: Normal Bowel Sounds. Negative for: Tenderness, Distention, Peritoneal Signs Upper Extremity: Positive for: Normal Inspection. Negative for: Cyanosis, Edema Lower Extremity: Positive for: Normal Inspection. Negative for: Edema Neurological: Negative for: GCS=15 Skin: Positive for: Warm, Dry, Normal Color. Negative for: Rashes Lymphatic: Positive for: Cervical Adenopathy Psychiatric: Positive for: Other (slight confusion, awake). Negative for: Oriented x 3 - Medications Active Medications: Active Medications Generic Name Dose Route Start Last Admin Trade Name Freq PRN Reason Stop Dose Admin Hydralazine HCl 10 mg 07/15/17 20:31 07/15/17 22:08 Apresoline IVP 10 mg Q6 PRN Administration Systolic Blood Pressure Hydralazine HCl 20 mg 07/15/17 20:33 Apresoline IVP Q6 PRN Systolic Blood Pressure Valproate Sodium 1,000 mg/ 110 mls @ 100 mls/hr 07/15/17 22:00 07/16/17 08:55 Sodium Chloride IVPB 100 mls/hr Q8 GUERITA Administration Sodium Chloride 1,000 mls @ 75 mls/hr 07/15/17 20:45 07/15/17 22:09 Sodium Chloride 0.45% IV 75 mls/hr .[id number] GUERITA Administration Insulin Detemir 10 unit 07/15/17 22:00 07/15/17 22:01 Levemir SC 10 unit HS GUERITA Administration Insulin Human Lispro 0 units 07/15/17 22:00 07/16/17 08:39 Humalog Low SC 2 units ACHS GUERITA Administration Protocol Ondansetron HCl 4 mg 07/15/17 20:35 07/16/17 00:26 Zofran Inj IVP 4 mg Q6 PRN Administration Nausea/Vomiting Pantoprazole Sodium 40 mg 07/16/17 10:00 Protonix Inj IVP DAILY GUERITA - Patient Studies Lab Studies: Lab Studies 07/16/17 07/16/17 07/16/17 Range/Units 08:04 06:00 06:00 WBC 17.7 H D (4.5-11.0) 10^3/ul RBC 4.70 (3.5-6.1) 10^6/uL Hgb 12.0 (12.0-16.0) g/dL Hct 36.5 (36.0-48.0) % MCV 77.7 L (80.0-105.0) fl MCH 25.5 (25.0-35.0) pg MCHC 32.9 (31.0-37.0) g/dl RDW 14.8 H (11.5-14.5) % Plt Count 281 (120.0-450.0) 10^3/uL MPV 10.2 (7.0-11.0) fl Gran % 89.3 H (50.0-68.0) % Lymph % (Auto) 9.2 L (22.0-35.0) % [place] % (Auto) 1.4 (1.0-6.0) % Eos % (Auto) 0.0 L (1.5-5.0) % Baso % (Auto) 0.1 (0.0-3.0) % Gran # 15.80 H (1.4-6.5) Lymph # (Auto) 1.6 (1.2-3.4) [place] # (Auto) 0.2 (0.1-0.6) Eos # (Auto) 0.0 (0.0-0.7) Baso # (Auto) 0.01 (0.0-2.0) K/mm3 Sodium 136 (132-148) mmol/L Potassium 4.2 (3.6-5.0) mmol/L Chloride 92 L (98-107) mmol/L Carbon Dioxide 23 (21-33) mmol/L Anion Gap 25 H (10-20) BUN 16 (7-21) mg/dL Creatinine 0.8 (0.7-1.2) mg/dl Est GFR ( Amer) > 60 Est GFR (Non-Af Amer) > 60 POC Glucose (mg/dL) 233 H (65-110) mg/dL Random Glucose 255 H (70-110) mg/dL Calcium 10.8 H (8.4-10.5) mg/dL Total Bilirubin 0.9 (0.2-1.3) mg/dL AST 21 (14-36) U/L ALT 16 (7-56) U/L Alkaline Phosphatase 77 (38-126) U/L Total Creatine Kinase 39 (35-230) U/L Total Protein 7.8 (5.8-8.3) g/dL Albumin 4.5 (3.0-4.8) g/dL Globulin 3.3 gm/dL Albumin/Globulin Ratio 1.4 (1.1-1.8) Free T4 (0.78-2.19) ng/dL TSH 3rd Generation (0.46-4.68) mIU/mL Urine Color (YELLOW) Urine Appearance (CLEAR) Urine pH (4.7-8.0) Ur Specific [place] (1.005-1.035) Urine Protein (<30 mg/dL) mg/dL Urine Glucose (UA) (NEGATIVE) mg/dL Urine Ketones (NEGATIVE) mg/dL Urine Blood (NEGATIVE) Urine Nitrate (NEGATIVE) Urine Bilirubin (NEGATIVE) Urine Urobilinogen (<1 E.U./dL) E.U./dL Ur Leukocyte Esterase (NEGATIVE) Gisell/uL Urine RBC (0-2) /hpf Urine WBC (0-6) /hpf Ur Epithelial Cells (0-5) /hpf 07/16/17 07/16/17 07/15/17 Range/Units 06:00 01:00 21:54 WBC (4.5-11.0) 10^3/ul RBC (3.5-6.1) 10^6/uL Hgb (12.0-16.0) g/dL Hct (36.0-48.0) % MCV (80.0-105.0) fl MCH (25.0-35.0) pg MCHC (31.0-37.0) g/dl RDW (11.5-14.5) % Plt Count (120.0-450.0) 10^3/uL MPV (7.0-11.0) fl Gran % (50.0-68.0) % Lymph % (Auto) (22.0-35.0) % [place] % (Auto) (1.0-6.0) % Eos % (Auto) (1.5-5.0) % Baso % (Auto) (0.0-3.0) % Gran # (1.4-6.5) Lymph # (Auto) (1.2-3.4) [place] # (Auto) (0.1-0.6) Eos # (Auto) (0.0-0.7) Baso # (Auto) (0.0-2.0) K/mm3 Sodium (132-148) mmol/L Potassium (3.6-5.0) mmol/L Chloride (98-107) mmol/L Carbon Dioxide (21-33) mmol/L Anion Gap (10-20) BUN (7-21) mg/dL Creatinine (0.7-1.2) mg/dl Est GFR ( Amer) Est GFR (Non-Af Amer) POC Glucose (mg/dL) 218 H (65-110) mg/dL Random Glucose (70-110) mg/dL Calcium (8.4-10.5) mg/dL Total Bilirubin (0.2-1.3) mg/dL AST (14-36) U/L ALT (7-56) U/L Alkaline Phosphatase (38-126) U/L Total Creatine Kinase (35-230) U/L Total Protein (5.8-8.3) g/dL Albumin (3.0-4.8) g/dL Globulin gm/dL Albumin/Globulin Ratio (1.1-1.8) Free T4 2.52 H (0.78-2.19) ng/dL TSH 3rd Generation 0.13 L (0.46-4.68) mIU/mL Urine Color Straw (YELLOW) Urine Appearance Clear (CLEAR) Urine pH 7.5 (4.7-8.0) Ur Specific [place] 1.010 (1.005-1.035) Urine Protein Negative (<30 mg/dL) mg/dL Urine Glucose (UA) >=1000 (NEGATIVE) mg/dL Urine Ketones 15 H (NEGATIVE) mg/dL Urine Blood Trace-intact H (NEGATIVE) Urine Nitrate Negative (NEGATIVE) Urine Bilirubin Negative (NEGATIVE) Urine Urobilinogen 0.2 (<1 E.U./dL) E.U./dL Ur Leukocyte Esterase Negative (NEGATIVE) Gisell/uL Urine RBC 0 - 2 (0-2) /hpf Urine WBC 0 - 2 (0-6) /hpf Ur Epithelial Cells 0 - 2 (0-5) /hpf Laboratory Results - last 24 hr 07/15/17 07/16/17 07/16/17 21:54 01:00 06:00 WBC RBC Hgb Hct MCV MCH MCHC RDW Plt Count MPV Gran % Lymph % (Auto) [place] % (Auto) Eos % (Auto) Baso % (Auto) Gran # Lymph # (Auto) [place] # (Auto) Eos # (Auto) Baso # (Auto) Sodium Potassium Chloride Carbon Dioxide Anion Gap BUN Creatinine Est GFR ( Amer) Est GFR (Non-Af Amer) POC Glucose (mg/dL) 218 H Random Glucose Calcium Total Bilirubin AST ALT Alkaline Phosphatase Total Creatine Kinase Total Protein Albumin Globulin Albumin/Globulin Ratio Free T4 2.52 H TSH 3rd Generation 0.13 L Urine Color Straw Urine Appearance Clear Urine pH 7.5 Ur Specific [place] 1.010 Urine Protein Negative Urine Glucose (UA) >=1000 Urine Ketones 15 H Urine Blood Trace-intact H Urine Nitrate Negative Urine Bilirubin Negative Urine Urobilinogen 0.2 Ur Leukocyte Esterase Negative Urine RBC 0 - 2 Urine WBC 0 - 2 Ur Epithelial Cells 0 - 2 07/16/17 07/16/17 07/16/17 06:00 06:00 08:04 WBC 17.7 H D RBC 4.70 Hgb 12.0 Hct 36.5 MCV 77.7 L MCH 25.5 MCHC 32.9 RDW 14.8 H Plt Count 281 MPV 10.2 Gran % 89.3 H Lymph % (Auto) 9.2 L [place] % (Auto) 1.4 Eos % (Auto) 0.0 L Baso % (Auto) 0.1 Gran # 15.80 H Lymph # (Auto) 1.6 [place] # (Auto) 0.2 Eos # (Auto) 0.0 Baso # (Auto) 0.01 Sodium 136 Potassium 4.2 Chloride 92 L Carbon Dioxide 23 Anion Gap 25 H BUN 16 Creatinine 0.8 Est GFR ( Amer) > 60 Est GFR (Non-Af Amer) > 60 POC Glucose (mg/dL) 233 H Random Glucose 255 H Calcium 10.8 H Total Bilirubin 0.9 AST 21 ALT 16 Alkaline Phosphatase 77 Total Creatine Kinase 39 Total Protein 7.8 Albumin 4.5 Globulin 3.3 Albumin/Globulin Ratio 1.4 Free T4 TSH 3rd Generation Urine Color Urine Appearance Urine pH Ur Specific [place] Urine Protein Urine Glucose (UA) Urine Ketones Urine Blood Urine Nitrate Urine Bilirubin Urine Urobilinogen Ur Leukocyte Esterase Urine RBC Urine WBC Ur Epithelial Cells Fingerstick Blood Sugar Results: 233 Review of Systems - Review of Systems Review of Systems: unable to obtain Assessment/Plan - Assessment and Plan (Free Text) Assessment: 66 F, bilingual in [place] and Citizen Of [place], with PMH HTN, DM, CVA and TIAs on plavix, dementia, diabetes, hypertention was admitted to ICU for subdural hematoma. Altered mental status, headache, and vomiting. Ct Head was repeated this morning which showed decrease in left side convexity. Patient will go to OR for possible drainage today. Plan: Neuro - initial CT-Head: Acute subdural hematoms, bilateral concave, 1.4cm to L, 7 mm to R, no midline shift or herniation. 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 - repeat CT from AM:Decreased size of left convexity subdural hematoma. -possible drainage per neurosurg today - MRI and EEG - Valproate - Avoid sedative - seizure precautions - neuro check q1 - maintain normal body temperature Pulm - Aspiration precautions, HOB 45 degrees - O2 prn to maintain SaO2 > 95% Cardio - Goal SBP 120 - 140 - For SBP > 165, Hydralazine 10mg IV - For SBP > 190, Hydralazine 20mg IV GI - NPO - 1/2 NS @ 75 - Zofran PRN - Protonix IV - Speech and swallow eval Renal - monitor i/o, vogt - watch for contrast nephropathy Endo - ISSS-low -maintain euglycemia ID - leukocytosis, likely reactive - CXR neg - UA negative Heme - INR 1.20 -will give FFP Musculoskeletal - obliquely oriented minimally displaced fracture of the distal ulna - Pt will follow up with Dr. Mckinney, orthopedic doctor, next week. Pvx: Protonix, SCD <Pravin Braun B - Last Filed: 07/16/17 15:38> CCU Objective - Vital Signs / Intake & Output Vital Signs (Last 4 hours): Vital Signs Pulse Resp BP Pulse Ox 07/16/17 13:30 102 H 17 94 L 07/16/17 13:27 100 H 14 153/86 H 97 07/16/17 13:23 106 H 07/16/17 12:37 149/52 L 07/16/17 12:36 96 H 28 H 07/16/17 12:33 95 H 18 150/66 07/16/17 12:30 97 H 16 07/16/17 12:16 94 H 29 H 144/72 07/16/17 12:00 99 H 17 131/73 07/16/17 11:49 84 15 158/83 H 07/16/17 11:30 88 15 Intake and Output (Last 8hrs): Intake & Output 07/16/17 07/16/17 07/16/17 06:59 14:59 22:59 Intake Total 1250 Output Total 1300 Balance -50 Intake: IV 1250 Right Upper arm 1250 Oral 0 Output: Urine 1100 Urine, Voided 1100 Stool 0 Emesis 200 - Medications Active Medications: Active Medications Generic Name Dose Route Start Last Admin Trade Name Freq PRN Reason Stop Dose Admin Hydralazine HCl 10 mg 07/15/17 20:31 07/15/17 22:08 Apresoline IVP 10 mg Q6 PRN Administration Systolic Blood Pressure Hydralazine HCl 20 mg 07/15/17 20:33 Apresoline IVP Q6 PRN Systolic Blood Pressure Sodium Chloride 1,000 mls @ 75 mls/hr 07/15/17 20:45 07/15/17 22:09 Sodium Chloride 0.45% IV 75 mls/hr .[id number] GUERITA Administration Valproate Sodium 500 mg/ 105 mls @ 100 mls/hr 07/16/17 22:00 Sodium Chloride IVPB Q12 GUERITA Acetaminophen 1,000 mg in 100 mls @ 400 mls/hr 07/16/17 15:12 Ofirmev IVPB 07/18/17 15:13 Q6H PRN Temperature > 100.4 Sodium Chloride 1,000 mls @ 999 mls/hr 07/16/17 15:16 Sodium Chloride 0.9% IV 07/16/17 16:16 .[id number] STA Potassium Chloride 20 meq in 100 mls @ 50 mls/hr 07/16/17 15:30 Potassium Chloride 20 Meq/100 Ml IVPB 07/16/17 19:29 Q2H GUERITA Cefepime HCl 1 gm in 100 mls @ 100 mls/hr 07/16/17 15:30 Maxipime 1gm IVPB Q8 GUERITA Protocol Vancomycin HCl 1 gm in 250 mls @ 167 mls/hr 07/16/17 15:30 Vancomycin 1gm IVPB Q12H GUERITA Protocol Insulin Detemir 10 unit 07/15/17 22:00 07/15/17 22:01 Levemir SC 10 unit HS GUERITA Administration Insulin Human Lispro 0 units 07/15/17 22:00 07/16/17 08:39 Humalog Low SC 2 units ACHS GUERITA Administration Protocol Ondansetron HCl 4 mg 07/15/17 20:35 07/16/17 00:26 Zofran Inj IVP 4 mg Q6 PRN Administration Nausea/Vomiting Pantoprazole Sodium 40 mg 07/16/17 10:00 07/16/17 09:31 Protonix Inj IVP 40 mg DAILY GUERITA Administration - Patient Studies Lab Studies: Lab Studies 07/16/17 07/16/17 07/16/17 Range/Units 11:59 11:31 09:45 WBC (4.5-11.0) 10^3/ul RBC (3.5-6.1) 10^6/uL Hgb (12.0-16.0) g/dL Hct (36.0-48.0) % MCV (80.0-105.0) fl MCH (25.0-35.0) pg MCHC (31.0-37.0) g/dl RDW (11.5-14.5) % Plt Count (120.0-450.0) 10^3/uL MPV (7.0-11.0) fl Gran % (50.0-68.0) % Lymph % (Auto) (22.0-35.0) % [place] % (Auto) (1.0-6.0) % Eos % (Auto) (1.5-5.0) % Baso % (Auto) (0.0-3.0) % Gran # (1.4-6.5) Lymph # (Auto) (1.2-3.4) [place] # (Auto) (0.1-0.6) Eos # (Auto) (0.0-0.7) Baso # (Auto) (0.0-2.0) K/mm3 PT 13.9 H (9.4-12.5) SECONDS INR 1.20 H (0.93-1.08) pCO2 29 L (35-45) mm/Hg pO2 76.0 L (80-100) mm/Hg HCO3 24.2 (21-28) mmol/L ABG pH 7.53 H (7.35-7.45) ABG Total CO2 25.1 (22-28) mmol.L ABG O2 Saturation 98.1 H (95-98) % ABG Base Excess 2.4 (-2.0-3.0) mmol/L ABG Potassium 3.0 L (3.6-5.2) mmol/L Glucose 160 H (65-105) mg/dl Lactate 3.2 H (0.7-2.1) mmol/L FiO2 21.0 % Sodium 134.0 (132-148) mmol/L Potassium (3.6-5.0) mmol/L Chloride 98.0 (98-107) mmol/L Carbon Dioxide (21-33) mmol/L Anion Gap (10-20) BUN (7-21) mg/dL Creatinine (0.7-1.2) mg/dl Est GFR ( Amer) Est GFR (Non-Af Amer) POC Glucose (mg/dL) 139 H (65-110) mg/dL Random Glucose (70-110) mg/dL Calcium (8.4-10.5) mg/dL Total Bilirubin (0.2-1.3) mg/dL AST (14-36) U/L ALT (7-56) U/L Alkaline Phosphatase (38-126) U/L Total Creatine Kinase (35-230) U/L Total Protein (5.8-8.3) g/dL Albumin (3.0-4.8) g/dL Globulin gm/dL Albumin/Globulin Ratio (1.1-1.8) Free T4 (0.78-2.19) ng/dL Total T3 (0.97-1.69) ng/mL TSH 3rd Generation (0.46-4.68) mIU/mL Arterial Blood Potassium 3.0 L (3.6-5.2) mmol/L Urine Color (YELLOW) Urine Appearance (CLEAR) Urine pH (4.7-8.0) Ur Specific [place] (1.005-1.035) Urine Protein (<30 mg/dL) mg/dL Urine Glucose (UA) (NEGATIVE) mg/dL Urine Ketones (NEGATIVE) mg/dL Urine Blood (NEGATIVE) Urine Nitrate (NEGATIVE) Urine Bilirubin (NEGATIVE) Urine Urobilinogen (<1 E.U./dL) E.U./dL Ur Leukocyte Esterase (NEGATIVE) Gisell/uL Urine RBC (0-2) /hpf Urine WBC (0-6) /hpf Ur Epithelial Cells (0-5) /hpf 07/16/17 07/16/17 07/16/17 Range/Units 08:04 06:00 06:00 WBC 17.7 H D (4.5-11.0) 10^3/ul RBC 4.70 (3.5-6.1) 10^6/uL Hgb 12.0 (12.0-16.0) g/dL Hct 36.5 (36.0-48.0) % MCV 77.7 L (80.0-105.0) fl MCH 25.5 (25.0-35.0) pg MCHC 32.9 (31.0-37.0) g/dl RDW 14.8 H (11.5-14.5) % Plt Count 281 (120.0-450.0) 10^3/uL MPV 10.2 (7.0-11.0) fl Gran % 89.3 H (50.0-68.0) % Lymph % (Auto) 9.2 L (22.0-35.0) % [place] % (Auto) 1.4 (1.0-6.0) % Eos % (Auto) 0.0 L (1.5-5.0) % Baso % (Auto) 0.1 (0.0-3.0) % Gran # 15.80 H (1.4-6.5) Lymph # (Auto) 1.6 (1.2-3.4) [place] # (Auto) 0.2 (0.1-0.6) Eos # (Auto) 0.0 (0.0-0.7) Baso # (Auto) 0.01 (0.0-2.0) K/mm3 PT (9.4-12.5) SECONDS INR (0.93-1.08) pCO2 (35-45) mm/Hg pO2 (80-100) mm/Hg HCO3 (21-28) mmol/L ABG pH (7.35-7.45) ABG Total CO2 (22-28) mmol.L ABG O2 Saturation (95-98) % ABG Base Excess (-2.0-3.0) mmol/L ABG Potassium (3.6-5.2) mmol/L Glucose (65-105) mg/dl Lactate (0.7-2.1) mmol/L FiO2 % Sodium 136 (132-148) mmol/L Potassium 4.2 (3.6-5.0) mmol/L Chloride 92 L (98-107) mmol/L Carbon Dioxide 23 (21-33) mmol/L Anion Gap 25 H (10-20) BUN 16 (7-21) mg/dL Creatinine 0.8 (0.7-1.2) mg/dl Est GFR ( Amer) > 60 Est GFR (Non-Af Amer) > 60 POC Glucose (mg/dL) 233 H (65-110) mg/dL Random Glucose 255 H (70-110) mg/dL Calcium 10.8 H (8.4-10.5) mg/dL Total Bilirubin 0.9 (0.2-1.3) mg/dL AST 21 (14-36) U/L ALT 16 (7-56) U/L Alkaline Phosphatase 77 (38-126) U/L Total Creatine Kinase 39 (35-230) U/L Total Protein 7.8 (5.8-8.3) g/dL Albumin 4.5 (3.0-4.8) g/dL Globulin 3.3 gm/dL Albumin/Globulin Ratio 1.4 (1.1-1.8) Free T4 (0.78-2.19) ng/dL Total T3 (0.97-1.69) ng/mL TSH 3rd Generation (0.46-4.68) mIU/mL Arterial Blood Potassium (3.6-5.2) mmol/L Urine Color (YELLOW) Urine Appearance (CLEAR) Urine pH (4.7-8.0) Ur Specific [place] (1.005-1.035) Urine Protein (<30 mg/dL) mg/dL Urine Glucose (UA) (NEGATIVE) mg/dL Urine Ketones (NEGATIVE) mg/dL Urine Blood (NEGATIVE) Urine Nitrate (NEGATIVE) Urine Bilirubin (NEGATIVE) Urine Urobilinogen (<1 E.U./dL) E.U./dL Ur Leukocyte Esterase (NEGATIVE) [place]/uL Urine RBC (0-2) /hpf Urine WBC (0-6) /hpf Ur Epithelial Cells (0-5) /hpf 07/16/17 07/16/17 07/16/17 Range/Units 06:00 05:00 01:00 WBC (4.5-11.0) 10^3/ul RBC (3.5-6.1) 10^6/uL Hgb (12.0-16.0) g/dL Hct (36.0-48.0) % MCV (80.0-105.0) fl MCH (25.0-35.0) pg MCHC (31.0-37.0) g/dl RDW (11.5-14.5) % Plt Count (120.0-450.0) 10^3/uL MPV (7.0-11.0) fl Gran % (50.0-68.0) % Lymph % (Auto) (22.0-35.0) % [place] % (Auto) (1.0-6.0) % Eos % (Auto) (1.5-5.0) % Baso % (Auto) (0.0-3.0) % Gran # (1.4-6.5) Lymph # (Auto) (1.2-3.4) [place] # (Auto) (0.1-0.6) Eos # (Auto) (0.0-0.7) Baso # (Auto) (0.0-2.0) K/mm3 PT (9.4-12.5) SECONDS INR (0.93-1.08) pCO2 (35-45) mm/Hg pO2 (80-100) mm/Hg HCO3 (21-28) mmol/L ABG pH (7.35-7.45) ABG Total CO2 (22-28) mmol.L ABG O2 Saturation (95-98) % ABG Base Excess (-2.0-3.0) mmol/L ABG Potassium (3.6-5.2) mmol/L Glucose (65-105) mg/dl Lactate (0.7-2.1) mmol/L FiO2 % Sodium (132-148) mmol/L Potassium (3.6-5.0) mmol/L Chloride (98-107) mmol/L Carbon Dioxide (21-33) mmol/L Anion Gap (10-20) BUN (7-21) mg/dL Creatinine (0.7-1.2) mg/dl Est GFR ( Amer) Est GFR (Non-Af Amer) POC Glucose (mg/dL) (65-110) mg/dL Random Glucose (70-110) mg/dL Calcium (8.4-10.5) mg/dL Total Bilirubin (0.2-1.3) mg/dL AST (14-36) U/L ALT (7-56) U/L Alkaline Phosphatase (38-126) U/L Total Creatine Kinase (35-230) U/L Total Protein (5.8-8.3) g/dL Albumin (3.0-4.8) g/dL Globulin gm/dL Albumin/Globulin Ratio (1.1-1.8) Free T4 2.52 H (0.78-2.19) ng/dL Total T3 1.04 (0.97-1.69) ng/mL TSH 3rd Generation 0.13 L (0.46-4.68) mIU/mL Arterial Blood Potassium (3.6-5.2) mmol/L Urine Color Straw (YELLOW) Urine Appearance Clear (CLEAR) Urine pH 7.5 (4.7-8.0) Ur Specific [place] 1.010 (1.005-1.035) Urine Protein Negative (<30 mg/dL) mg/dL Urine Glucose (UA) >=1000 (NEGATIVE) mg/dL Urine Ketones 15 H (NEGATIVE) mg/dL Urine Blood Trace-intact H (NEGATIVE) Urine Nitrate Negative (NEGATIVE) Urine Bilirubin Negative (NEGATIVE) Urine Urobilinogen 0.2 (<1 E.U./dL) E.U./dL Ur Leukocyte Esterase Negative (NEGATIVE) Gisell/uL Urine RBC 0 - 2 (0-2) /hpf Urine WBC 0 - 2 (0-6) /hpf Ur Epithelial Cells 0 - 2 (0-5) /hpf 07/15/17 Range/Units 21:54 WBC (4.5-11.0) 10^3/ul RBC (3.5-6.1) 10^6/uL Hgb (12.0-16.0) g/dL Hct (36.0-48.0) % MCV (80.0-105.0) fl MCH (25.0-35.0) pg MCHC (31.0-37.0) g/dl RDW (11.5-14.5) % Plt Count (120.0-450.0) 10^3/uL MPV (7.0-11.0) fl Gran % (50.0-68.0) % Lymph % (Auto) (22.0-35.0) % [place] % (Auto) (1.0-6.0) % Eos % (Auto) (1.5-5.0) % Baso % (Auto) (0.0-3.0) % Gran # (1.4-6.5) Lymph # (Auto) (1.2-3.4) [place] # (Auto) (0.1-0.6) Eos # (Auto) (0.0-0.7) Baso # (Auto) (0.0-2.0) K/mm3 PT (9.4-12.5) SECONDS INR (0.93-1.08) pCO2 (35-45) mm/Hg pO2 (80-100) mm/Hg HCO3 (21-28) mmol/L ABG pH (7.35-7.45) ABG Total CO2 (22-28) mmol.L ABG O2 Saturation (95-98) % ABG Base Excess (-2.0-3.0) mmol/L ABG Potassium (3.6-5.2) mmol/L Glucose (65-105) mg/dl Lactate (0.7-2.1) mmol/L FiO2 % Sodium (132-148) mmol/L Potassium (3.6-5.0) mmol/L Chloride (98-107) mmol/L Carbon Dioxide (21-33) mmol/L Anion Gap (10-20) BUN (7-21) mg/dL Creatinine (0.7-1.2) mg/dl Est GFR ( Amer) Est GFR (Non-Af Amer) POC Glucose (mg/dL) 218 H (65-110) mg/dL Random Glucose (70-110) mg/dL Calcium (8.4-10.5) mg/dL Total Bilirubin (0.2-1.3) mg/dL AST (14-36) U/L ALT (7-56) U/L Alkaline Phosphatase (38-126) U/L Total Creatine Kinase (35-230) U/L Total Protein (5.8-8.3) g/dL Albumin (3.0-4.8) g/dL Globulin gm/dL Albumin/Globulin Ratio (1.1-1.8) Free T4 (0.78-2.19) ng/dL Total T3 (0.97-1.69) ng/mL TSH 3rd Generation (0.46-4.68) mIU/mL Arterial Blood Potassium (3.6-5.2) mmol/L Urine Color (YELLOW) Urine Appearance (CLEAR) Urine pH (4.7-8.0) Ur Specific [place] (1.005-1.035) Urine Protein (<30 mg/dL) mg/dL Urine Glucose (UA) (NEGATIVE) mg/dL Urine Ketones (NEGATIVE) mg/dL Urine Blood (NEGATIVE) Urine Nitrate (NEGATIVE) Urine Bilirubin (NEGATIVE) Urine Urobilinogen (<1 E.U./dL) E.U./dL Ur Leukocyte Esterase (NEGATIVE) [place]/uL Urine RBC (0-2) /hpf Urine WBC (0-6) /hpf Ur Epithelial Cells (0-5) /hpf Laboratory Results - last 24 hr 07/15/17 07/16/17 07/16/17 21:54 01:00 05:00 WBC RBC Hgb Hct MCV MCH MCHC RDW Plt Count MPV Gran % Lymph % (Auto) [place] % (Auto) Eos % (Auto) Baso % (Auto) Gran # Lymph # (Auto) [place] # (Auto) Eos # (Auto) Baso # (Auto) PT INR pCO2 pO2 HCO3 ABG pH ABG Total CO2 ABG O2 Saturation ABG Base Excess ABG Potassium Glucose Lactate FiO2 Sodium Potassium Chloride Carbon Dioxide Anion Gap BUN Creatinine Est GFR ( Amer) Est GFR (Non-Af Amer) POC Glucose (mg/dL) 218 H Random Glucose Calcium Total Bilirubin AST ALT Alkaline Phosphatase Total Creatine Kinase Total Protein Albumin Globulin Albumin/Globulin Ratio Free T4 Total T3 1.04 TSH 3rd Generation Arterial Blood Potassium Urine Color Straw Urine Appearance Clear Urine pH 7.5 Ur Specific [place] 1.010 Urine Protein Negative Urine Glucose (UA) >=1000 Urine Ketones 15 H Urine Blood Trace-intact H Urine Nitrate Negative Urine Bilirubin Negative Urine Urobilinogen 0.2 Ur Leukocyte Esterase Negative Urine RBC 0 - 2 Urine WBC 0 - 2 Ur Epithelial Cells 0 - 2 07/16/17 07/16/17 07/16/17 06:00 06:00 06:00 WBC 17.7 H D RBC 4.70 Hgb 12.0 Hct 36.5 MCV 77.7 L MCH 25.5 MCHC 32.9 RDW 14.8 H Plt Count 281 MPV 10.2 Gran % 89.3 H Lymph % (Auto) 9.2 L [place] % (Auto) 1.4 Eos % (Auto) 0.0 L Baso % (Auto) 0.1 Gran # 15.80 H Lymph # (Auto) 1.6 [place] # (Auto) 0.2 Eos # (Auto) 0.0 Baso # (Auto) 0.01 PT INR pCO2 pO2 HCO3 ABG pH ABG Total CO2 ABG O2 Saturation ABG Base Excess ABG Potassium Glucose Lactate FiO2 Sodium 136 Potassium 4.2 Chloride 92 L Carbon Dioxide 23 Anion Gap 25 H BUN 16 Creatinine 0.8 Est GFR ( Amer) > 60 Est GFR (Non-Af Amer) > 60 POC Glucose (mg/dL) Random Glucose 255 H Calcium 10.8 H Total Bilirubin 0.9 AST 21 ALT 16 Alkaline Phosphatase 77 Total Creatine Kinase 39 Total Protein 7.8 Albumin 4.5 Globulin 3.3 Albumin/Globulin Ratio 1.4 Free T4 2.52 H Total T3 TSH 3rd Generation 0.13 L Arterial Blood Potassium Urine Color Urine Appearance Urine pH Ur Specific [place] Urine Protein Urine Glucose (UA) Urine Ketones Urine Blood Urine Nitrate Urine Bilirubin Urine Urobilinogen Ur Leukocyte Esterase Urine RBC Urine WBC Ur Epithelial Cells 07/16/17 07/16/17 07/16/17 08:04 09:45 11:31 WBC RBC Hgb Hct MCV MCH MCHC RDW Plt Count MPV Gran % Lymph % (Auto) [place] % (Auto) Eos % (Auto) Baso % (Auto) Gran # Lymph # (Auto) [place] # (Auto) Eos # (Auto) Baso # (Auto) PT 13.9 H INR 1.20 H pCO2 pO2 HCO3 ABG pH ABG Total CO2 ABG O2 Saturation ABG Base Excess ABG Potassium Glucose Lactate FiO2 Sodium Potassium Chloride Carbon Dioxide Anion Gap BUN Creatinine Est GFR ( Amer) Est GFR (Non-Af Amer) POC Glucose (mg/dL) 233 H 139 H Random Glucose Calcium Total Bilirubin AST ALT Alkaline Phosphatase Total Creatine Kinase Total Protein Albumin Globulin Albumin/Globulin Ratio Free T4 Total T3 TSH 3rd Generation Arterial Blood Potassium Urine Color Urine Appearance Urine pH Ur Specific [place] Urine Protein Urine Glucose (UA) Urine Ketones Urine Blood Urine Nitrate Urine Bilirubin Urine Urobilinogen Ur Leukocyte Esterase Urine RBC Urine WBC Ur Epithelial Cells 07/16/17 11:59 WBC RBC Hgb Hct MCV MCH MCHC RDW Plt Count MPV Gran % Lymph % (Auto) [place] % (Auto) Eos % (Auto) Baso % (Auto) Gran # Lymph # (Auto) [place] # (Auto) Eos # (Auto) Baso # (Auto) PT INR pCO2 29 L pO2 76.0 L HCO3 24.2 ABG pH 7.53 H ABG Total CO2 25.1 ABG O2 Saturation 98.1 H ABG Base Excess 2.4 ABG Potassium 3.0 L Glucose 160 H Lactate 3.2 H FiO2 21.0 Sodium 134.0 Potassium Chloride 98.0 Carbon Dioxide Anion Gap BUN Creatinine Est GFR ( Amer) Est GFR (Non-Af Amer) POC Glucose (mg/dL) Random Glucose Calcium Total Bilirubin AST ALT Alkaline Phosphatase Total Creatine Kinase Total Protein Albumin Globulin Albumin/Globulin Ratio Free T4 Total T3 TSH 3rd Generation Arterial Blood Potassium 3.0 L Urine Color Urine Appearance Urine pH Ur Specific [place] Urine Protein Urine Glucose (UA) Urine Ketones Urine Blood Urine Nitrate Urine Bilirubin Urine Urobilinogen Ur Leukocyte Esterase Urine RBC Urine WBC Ur Epithelial Cells Attending/Attestation - Attestation I have personally seen and examined this patient.: Yes I have fully participated in the care of the patient.: Yes I have reviewed all pertinent clinical information: Yes Notes (Text): 07/16/17 15:24 66 yo female who presented with subacute/acute mental status deterioration ( patient has baseline dementia), and who was diagnosed with b/l SDH on top of significant microvascular changes. NSX was contacted immediately, but didnt require nsx intervention yesterday as per Dr. Last. Today, her mental status fluctuates a bit, however later she became more alert, awake and following commands. Coupled that with the fact that her SDH appeared to be smaller on repeated CTH, led to consensus between neurology and neurosurgery service not to proceed with nsx intervention at present time. We will continue with re-hydration (patient appeared to be somewhat dehydrated--hypochloremia, component of contraction alkalosis (on top of respiratory alkalosis), elevated lactate)-->1L NS bolus was given, 2 FFP were given as well earlier. no clear cut source of infection, abdo exam is benign, cxr clear, ua-->no LE, no UN, but wbc rising-->can not rule out infection-->started empiric antibiotics, while waiting for blood and urine cultures. Will get procalcitonin level as well. Echo was ordered, K supplemented (patient has some PVCs as well). Will maintain euvolemia, euglycemia and normothermia, 02sat>90%. Will repeat BMP later, once K is supplemented ccm time 40 min
--- NOTE | 2017-07-16 09:25 | CT ---
PROCEDURE: CT HEAD WITHOUT CONTRAST. HISTORY: follow up cva COMPARISON: None available. TECHNIQUE: Axial computed tomography images were obtained through the head/brain without intravenous contrast. Radiation dose: Total exam DLP = mGy-cm. This CT exam was performed using one or more of the following dose reduction techniques: Automated exposure control, adjustment of the mA and/or kV according to patient size, and/or use of iterative reconstruction technique. FINDINGS: HEMORRHAGE: There is a slight decrease in the thickness of the subdural hematoma seen over the left frontal convexity. Previously the maximum thickness was 11 mm and is now 6 mm. This is consistent with contraction of the clot. There is no intraparenchymal hemorrhage. The subdural is best imaged on the coronal images specifically image 56. BRAIN: No mass effect or edema. Severe chronic microvascular changes are seen. VENTRICLES: Unremarkable. No hydrocephalus. CALVARIUM: Unremarkable. PARANASAL SINUSES: Unremarkable as visualized. No significant inflammatory changes. MASTOID AIR CELLS: Unremarkable as visualized. No inflammatory changes. OTHER FINDINGS: The findings were discussed with Dr. Braun at 9:15 a.m. IMPRESSION: Decreased size of left convexity subdural hematoma.
[2017-07-16 09:59] LABS: INR 1.2 (0.93-1.08); PROTHROMBIN TIME 13.9 SECONDS (9.4-12.5)
--- NOTE | 2017-07-16 11:28 | CP.PCM.PN ---
Subjective - Date & Time of Evaluation Date of Evaluation: 07/16/17 Time of Evaluation: 11:21 - Subjective Subjective: Ms. Sahni was seen and examined at the bedside in ICU. She is responsive to tactile stimuli with facial grimacing and moaning, but non-verbal. Her pupils are reactive but sluggish. She remains with right side hemiplegia and her left upper extremity with soft cast/splint. Repeat CT scan of the head today showed slight decrease in the thickness of the subdural hematoma seen over the left frontal convexity. Previously the maximum thickness was 11 mm and now is 6 mm. This is consistent with contraction of the clot.There is no intraparenchymal hemorrhage. There was no untoward events overnight. Objective - Vital Signs/Intake and Output Vital Signs (last 24 hours): Temp Pulse Resp BP Pulse Ox 99 F 87 15 135/81 100 07/16/17 08:00 07/16/17 05:00 07/16/17 05:00 07/16/17 05:00 07/16/17 05:00 Intake and Output: 07/16/17 07/16/17 06:59 18:59 Intake Total 1250 Output Total 1300 Balance -50 - Medications Medications: Current Medications Hydralazine HCl (Apresoline) 10 mg IVP Q6 PRN PRN Reason: Systolic Blood Pressure Last Admin: 07/15/17 22:08 Dose: 10 mg Hydralazine HCl (Apresoline) 20 mg IVP Q6 PRN PRN Reason: Systolic Blood Pressure Valproate Sodium 1,000 mg/ (Sodium Chloride) 110 mls @ 100 mls/hr IVPB Q8 [facility] Last Admin: 07/16/17 08:55 Dose: 100 mls/hr Sodium Chloride (Sodium Chloride 0.45%) 1,000 mls @ 75 mls/hr IV .[id number] [facility] Last Admin: 07/15/17 22:09 Dose: 75 mls/hr Insulin Detemir (Levemir) 10 unit SC HS [facility] Last Admin: 07/15/17 22:01 Dose: 10 unit Insulin Human Lispro (Humalog Low) 0 units SC ACHS [facility] PRN Reason: Protocol Last Admin: 07/16/17 08:39 Dose: 2 units Ondansetron HCl (Zofran Inj) 4 mg IVP Q6 PRN PRN Reason: Nausea/Vomiting Last Admin: 07/16/17 00:26 Dose: 4 mg Pantoprazole Sodium (Protonix Inj) 40 mg IVP DAILY [facility] Last Admin: 07/16/17 09:31 Dose: 40 mg - Labs Labs: 07/16/17 06:00 07/16/17 06:00 PT 13.9 SECONDS (9.4-12.5) H 07/16/17 09:45 INR 1.20 (0.93-1.08) H 07/16/17 09:45 APTT 30.9 Seconds (25.1-36.5) 07/15/17 18:08 - Constitutional Appears: No Acute Distress - Head Exam Head Exam: NORMAL INSPECTION - Eye Exam Additional comments: bilateral 4 mm but sluggish. Assessment and Plan (1) Subdural hematoma Assessment & Plan: Case discussed with DR. Stevens, continue all current medical regimen. Recommend normotensive, normothermic,and glycemic control. REcommend valproic acid level and pending EEG results. Status: Acute
[2017-07-16 12:03] LABS: ARTERIAL BLOOD GAS HCO3 24.2 mmol/L (21-28); ARTERIAL BLOOD GAS O2 SAT 98.1 % (95-98); ARTERIAL BLOOD GAS PCO2 29 mm/Hg (35-45); ARTERIAL BLOOD GAS PH 7.53 (7.35-7.45); ARTERIAL BLOOD GAS TCO2 25.1 mmol.L (22-28)
--- NOTE | 2017-07-16 13:28 | MRI ---
PROCEDURE: MRI BRAIN WITHOUT CONTRAST HISTORY: rule out stroke COMPARISON: 09/14/2016 TECHNIQUE: Multiplanar, multisequence MR images of the brain were obtained without intravenous contrast enhancement. FINDINGS: HEMORRHAGE: Bilateral subdural hematomas are seen left greater than right. These were demonstrated on earlier CTs. The left-sided subdural measures 8 mm in maximal thickness. The right side measures 3 mm. DWI: No evidence of an acute or early subacute infarction. BRAIN PARENCHYMA: No mass effect or edema. Severe chronic microvascular changes are seen in the periventricular white matter. VENTRICLES: Unremarkable. No hydrocephalus. CRANIUM: Unremarkable. ORBITS: Grossly unremarkable. PARANASAL SINUSES/MASTOIDS: Clear VASCULAR SYSTEM: Skull base flow voids intact. OTHER FINDINGS: None. IMPRESSION: No evidence of acute infarct. Severe chronic microvascular disease. Bilateral subdural hematomas left greater than right
--- NOTE | 2017-07-16 14:35 | CP.PCM.PN ---
Subjective - Date & Time of Evaluation Date of Evaluation: 07/16/17 Time of Evaluation: 14:27 - Subjective Subjective: follow up repeat CT shows that R sdh essentially gone, and left now decreased to 6mm on max dthickness Pt was lethargic but abusable, Pt then had MRI which did not disclose any new pathology After return from MRI pt appeared to have improved MS with being more awake and more alert (as per Dr Rivas) Has discussion with both him and patient son about surgery, need and timing. At this point, as SDH is smaller and pt more awake will observe and repeat CT in AM. If there is worsening of condition will move timetable up Son is aware of surgical risks at this time, including bleeding, non- improvement, worsening amoung others, as well as risk of worsening in condition if observing and waiting. Again we are in agreement (myslef, son, Dr Rivas, and Dr Stevens(as per Dr iRvas))that we observe at least until tomorrow providing no clinical change for worse Objective - Vital Signs/Intake and Output Vital Signs (last 24 hours): Temp Pulse Resp BP Pulse Ox 99 F 102 H 17 153/86 H 94 L 07/16/17 08:00 07/16/17 13:30 07/16/17 13:30 07/16/17 13:27 07/16/17 13:30 Intake and Output: 07/16/17 07/16/17 06:59 18:59 Intake Total 1250 Output Total 1300 Balance -50 - Medications Medications: Current Medications Hydralazine HCl (Apresoline) 10 mg IVP Q6 PRN PRN Reason: Systolic Blood Pressure Last Admin: 07/15/17 22:08 Dose: 10 mg Hydralazine HCl (Apresoline) 20 mg IVP Q6 PRN PRN Reason: Systolic Blood Pressure Sodium Chloride (Sodium Chloride 0.45%) 1,000 mls @ 75 mls/hr IV .[id number] [facility] Last Admin: 07/15/17 22:09 Dose: 75 mls/hr Valproate Sodium 500 mg/ (Sodium Chloride) 105 mls @ 100 mls/hr IVPB Q12 [facility] Insulin Detemir (Levemir) 10 unit SC HS [facility] Last Admin: 07/15/17 22:01 Dose: 10 unit Insulin Human Lispro (Humalog Low) 0 units SC ACHS [facility] PRN Reason: Protocol Last Admin: 07/16/17 08:39 Dose: 2 units Ondansetron HCl (Zofran Inj) 4 mg IVP Q6 PRN PRN Reason: Nausea/Vomiting Last Admin: 07/16/17 00:26 Dose: 4 mg Pantoprazole Sodium (Protonix Inj) 40 mg IVP DAILY [facility] Last Admin: 07/16/17 09:31 Dose: 40 mg - Labs Labs: 07/16/17 06:00 07/16/17 06:00 PT 13.9 SECONDS (9.4-12.5) H 07/16/17 09:45 INR 1.20 (0.93-1.08) H 07/16/17 09:45 APTT 30.9 Seconds (25.1-36.5) 07/15/17 18:08
[2017-07-16] MEDS ORDERED: Sodium Chloride 0.9% 1,000 ML IV STA (15:16)
[2017-07-16] MEDS: Sodium Chloride 0.45% 1,000 ML IV SCH (15:23)
[2017-07-16] MEDS: Cefepime 1gm in NS 100ml 1 GM/100 ML BAG IVPB SCH ×2 (15:54→21:00)
[2017-07-16 16:02] LABS: VENOUS BLOOD GAS BASE EXCESS 4.1 mmol/L (0.0-2.0); VENOUS BLOOD GAS PO2 32 mm/Hg (30-55); VENOUS BLOOD PH 7.49 (7.32-7.43)
[2017-07-16] MEDS: Vancomycin 1gm in NS 250ml 1 GM/250 ML BAG IVPB SCH (17:32)
--- NOTE | 2017-07-16 19:13 | CON ---
DATE: 07/16/2017<> HISTORY OF PRESENT ILLNESS: This a 66-year-old female who came into the hospital yesterday after having acute change in mental status. She has a history of CVA, left temporal, TIAs, hypertension, diabetes. She is on Plavix, has history of dementia. She was seen to have an acute change. She was noticed to be normal and followed approximately an hour later by noticed to have acting confused, unable to speak, not following commands, right sided fascial weakness, left leg "falling asleep" an hour later this appeared to improve. She remains confused, less responsive and did not speak any Ukrainian at this point. She had a CT of the head done which showed subacute subdural hematoma, left side 1.4 cm and right side 7 mm, there is no midline shift. There is extensive periventricular white matter disease. She is on Plavix. There is a history two weeks ago with distal ulnar fracture, for which she is in the splint. Currently, she is bright awake. She does not follow commands and I could not get her to talk. It appears that she has left-sided gaze preference. Her pupils are equal. Her strength overall is good and equal except it is hard to really ascertain strength in the left arm as she has this very large heavy splint on it keeping her elbow flexed. She responds to pin in all limbs. Her tongue appears midline. Her face does have a left fascial palsy. At this point, some of her symptoms are not really lining up with what you would expect from a chronic subdural hematoma, symptoms do not start that acutely. There is a left gaze preference; however, there is no right-sided weakness. At this point, we are going to get a repeat CAT scan, I am going to speak to the son. I am going to try to get a bleeding time. The problem is that Plavix takes approximately 5 to 7 days to clear from the system and it is questionable at this point whether or not it is worth the risk to operate and remove the left sided subdural in phase of possible bleeding problem from the Plavix. We will reassess the situation after I see the repeat CAT scan and speak to the son. Jeff Last MD
[2017-07-16] MEDS: Valproate 500 MG in Sodium Chloride 0.9% 100 ML IVPB SCH (21:00)
[2017-07-16] MEDS: Insulin Detemir 100 units/ml Vial (Levemir) SC SCH (21:50)
[2017-07-16 22:28] LABS: VENOUS BLOOD GAS PO2 30 mm/Hg (30-55)
[2017-07-16 22:40] LABS: ALB/GLOB RATIO 1.2 (1.1-1.8); ALBUMIN 4.2 g/dL (3.0-4.8); ALT/SGPT 18 U/L (7-56); AST/SGOT 26 U/L (14-36); BLOOD UREA NITROGEN 12 mg/dL (7-21); CALCIUM 9.5 mg/dL (8.4-10.5); GFR AFRICAN-AMERICAN > 60; GFR NON-AFRICAN AMERICAN > 60
[2017-07-16] MEDS ORDERED: Magnesium Sulfate 2 GM in Sodium Chloride 0.9% 100 ML IVPB ONE (23:04)
[2017-07-17] MEDS: Vancomycin 1gm in NS 250ml 1 GM/250 ML BAG IVPB SCH ×2 (02:58→15:45)
[2017-07-17] MEDS: Cefepime 1gm in NS 100ml 1 GM/100 ML BAG IVPB SCH ×3 (05:07→22:18)
[2017-07-17 06:42] LABS: BASO # 0.02 K/mm3 (0.0-2.0); BASO % 0.1 % (0.0-3.0); EOS % 0.1 % (1.5-5.0); GRAN # 14.18 (1.4-6.5); LYMPH # 2.6 (1.2-3.4); LYMPH % 14.9 % (22.0-35.0); MEAN CELL VOLUME 76.4 fl (80.0-105.0); MEAN CORPUSCULAR HEMOGLOBIN 25.8 pg (25.0-35.0); MEAN CORPUSCULAR HGB CONC 33.7 g/dl (31.0-37.0); MEAN PLATELET VOLUME 10.1 fl (7.0-11.0); MONO # 0.9 (0.1-0.6); MONO % 4.9 % (1.0-6.0); RBC 4.66 10^6/uL (3.5-6.1); RED CELL DISTRIBUTION WIDTH 14.8 % (11.5-14.5); WHITE BLOOD COUNT 17.7 10^3/ul (4.5-11.0)
--- NOTE | 2017-07-17 06:52 | CP.PCM.PN ---
<Joceline Gauthier - Last Filed: 07/17/17 14:46> Subjective - Date & Time of Evaluation Date of Evaluation: 07/17/17 Time of Evaluation: 06:52 - Subjective Subjective: Joceline Gauthier DO, PGY-1: Hospitalist Service Patient seen and examined at bedside. Patient is lethargic, not responding to verbal stimuli, but withdraws to pain. Last evening it appears patient had a fever and a septic work-up was started by the ICU team. Objective - Vital Signs/Intake and Output Vital Signs (last 24 hours): Temp Pulse Resp BP Pulse Ox 99 F 107 H 16 140/79 98 07/16/17 08:00 07/17/17 06:21 07/17/17 06:21 07/17/17 06:21 07/17/17 06:21 Intake and Output: 07/16/17 07/17/17 18:59 06:59 Intake Total 2150 Output Total 700 Balance 1450 - Medications Medications: Current Medications Hydralazine HCl (Apresoline) 10 mg IVP Q6 PRN PRN Reason: Systolic Blood Pressure Last Admin: 07/16/17 17:26 Dose: 10 mg Hydralazine HCl (Apresoline) 20 mg IVP Q6 PRN PRN Reason: Systolic Blood Pressure Sodium Chloride (Sodium Chloride 0.45%) 1,000 mls @ 75 mls/hr IV .[id number] [facility] Last Admin: 07/16/17 15:23 Dose: 75 mls/hr Valproate Sodium 500 mg/ (Sodium Chloride) 105 mls @ 100 mls/hr IVPB Q12 [facility] Last Admin: 07/16/17 21:00 Dose: 100 mls/hr Acetaminophen (Ofirmev) 1,000 mg in 100 mls @ 400 mls/hr IVPB Q6H PRN PRN Reason: Temperature > 100.4 Stop: 07/18/17 15:13 Last Admin: 07/17/17 03:42 Dose: 400 mls/hr Cefepime HCl (Maxipime 1gm) 1 gm in 100 mls @ 100 mls/hr IVPB Q8 [facility] PRN Reason: Protocol Last Admin: 07/17/17 05:07 Dose: 100 mls/hr Vancomycin HCl (Vancomycin 1gm) 1 gm in 250 mls @ 167 mls/hr IVPB Q12H [facility] PRN Reason: Protocol Last Admin: 07/17/17 02:58 Dose: 167 mls/hr Insulin Detemir (Levemir) 10 unit SC HS [facility] Last Admin: 07/16/17 21:50 Dose: 10 unit Insulin Human Lispro (Humalog Low) 0 units SC ACHS [facility] PRN Reason: Protocol Last Admin: 07/16/17 21:46 Dose: Not Given Ondansetron HCl (Zofran Inj) 4 mg IVP Q6 PRN PRN Reason: Nausea/Vomiting Last Admin: 07/16/17 00:26 Dose: 4 mg Pantoprazole Sodium (Protonix Inj) 40 mg IVP DAILY [facility] Last Admin: 07/16/17 09:31 Dose: 40 mg - Labs Labs: 07/17/17 06:15 07/16/17 22:21 PT 13.9 SECONDS (9.4-12.5) H 07/16/17 09:45 INR 1.20 (0.93-1.08) H 07/16/17 09:45 APTT 30.9 Seconds (25.1-36.5) 07/15/17 18:08 - Constitutional Appears: Other (unarousable) - Head Exam Head Exam: ATRAUMATIC, NORMOCEPHALIC - Eye Exam Additional comments: pupils sluggist to constrict, globes do not follow - Respiratory Exam Respiratory Exam: NORMAL BREATHING PATTERN. absent: Accessory Muscle Use - Cardiovascular Exam Cardiovascular Exam: Tachycardia - GI/Abdominal Exam GI & Abdominal Exam: Soft - Neurological Exam Neurological Exam: absent: Alert, Awake Additional comments: patient withdraws to painful stimuli, does not open eye to painful stimuli, non- verbal Assessment and Plan - Assessment and Plan (Free Text) Assessment: 66 year old female with a past medical significant for left anterior temporal lobe infarct, likely vascular dementia, DM, hypertension, and urinary incontinence who is admitted for loss of speech and was found to have bilateral subdural hematomas. Neurology was consulted and put the patient on seizure prophylaxis medications and ordered EEG and MRI of brain with and without contrast showed no interval change Neurosurgery was consulted and recommended intervention that the family declined. Palliative care consulted. Son states he will discuss DNR/DNI code status over the weekend with family. ICU team conducted septic work-up due to fever and leukocytosis, which was largely negative, and started patient on 3% NS at 75 ml/hr, Vancomycin, Zosyn, IV Tylenol, and then transferred patient to telemetry given she is hemodynamically stable and saturation well on room air. Plan: Neuro - initial CT-Head: Acute subdural hematoms, bilateral concave, 1.4cm to L, 7 mm to R, no midline shift or herniation. 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 - repeat CT and MRI head shows no changes. - Valproic acid level 102 - Avoid sedative - seizure precautions - neuro check q1 Pulm - Aspiration precautions, HOB 45 degrees - O2 prn to maintain SaO2 > 95% Cardio - Goal SBP 120 - 140 - For SBP > 165, Hydralazine 10mg IV - For SBP > 190, Hydralazine 20mg IV - Echocardoiogram performed, pending read GI - NG tube and start feeds - 3% Nacl @30 - Zofran PRN - Protonix IV - Speech and swallow eval Renal - monitor i/o, vogt - watch for contrast nephropathy Endo - ISSS-low - maintain euglycemia ID - leukocytosis, likely reactive - CXR neg - UA negative - procalcitonin likely negative - Vancomycin and Cefipime started empirically -ID following -cooling blankets, IV tylenol for fever control Heme - - INR Musculoskeletal - obliquely oriented minimally displaced fracture of the distal ulna - Pt will follow up with Dr. Mckinney, orthopedic doctor, next week. Pvx: Protonix, SCD Dispo: [place] - <Avinash Downing - Last Filed: 07/19/17 13:50> Objective - Vital Signs/Intake and Output Vital Signs (last 24 hours): Temp Pulse Resp BP Pulse Ox 98.4 F 77 11 L 169/88 H 99 07/19/17 06:30 07/19/17 12:44 07/19/17 06:30 07/19/17 12:44 07/19/17 06:30 Intake and Output: 07/19/17 07/19/17 06:59 18:59 Intake Total 1624 Output Total 1050 Balance 574 - Medications Medications: Current Medications Atenolol (Tenormin) 50 mg PO DAILY [facility] Last Admin: 07/19/17 09:33 Dose: 50 mg Atorvastatin Calcium (Lipitor) 10 mg PO HS [facility] Chlorthalidone (Hygroton) 25 mg PO DAILY [facility] Last Admin: 07/19/17 09:31 Dose: 25 mg Hydralazine HCl (Apresoline) 10 mg IVP Q6 PRN PRN Reason: Systolic Blood Pressure Last Admin: 07/19/17 12:44 Dose: 10 mg Hydralazine HCl (Apresoline) 20 mg IVP Q6 PRN PRN Reason: Systolic Blood Pressure Cefepime HCl (Maxipime 1gm) 1 gm in 100 mls @ 100 mls/hr IVPB Q8 [facility] PRN Reason: Protocol Last Admin: 07/19/17 05:12 Dose: 100 mls/hr Dextrose/Sodium Chloride (Dextrose 5%/0.9% Ns 1000 Ml) 1,000 mls @ 40 mls/hr IV .Q24H [facility] Last Admin: 07/19/17 09:33 Dose: 40 mls/hr Levetiracetam 1,000 mg/ Sodium (Chloride) 110 mls @ 460 mls/hr IV Q12 [facility] Last Admin: 07/19/17 12:37 Dose: 460 mls/hr Valproate Sodium 250 mg/ (Sodium Chloride) 102.5 mls @ 100 mls/hr IVPB Q12 [facility] Insulin Human Lispro (Humalog Low) 0 units SC Q6H [facility] PRN Reason: Protocol Last Admin: 07/19/17 12:35 Dose: 3 units Losartan Potassium (Cozaar) 50 mg PO DAILY [facility] Last Admin: 07/19/17 09:32 Dose: 50 mg Ondansetron HCl (Zofran Inj) 4 mg IVP Q6 PRN PRN Reason: Nausea/Vomiting Last Admin: 07/16/17 00:26 Dose: 4 mg Pantoprazole Sodium (Protonix Inj) 40 mg IVP DAILY [facility] Last Admin: 07/19/17 09:31 Dose: 40 mg Potassium Phos/Sodium Phos (Neutra-Phos) 1 pkt PO TID [facility] Stop: 07/22/17 10:01 Last Admin: 07/19/17 13:33 Dose: 1 pkt - Labs Labs: 07/19/17 06:20 07/19/17 06:20 PT 13.5 SECONDS (9.4-12.5) H 07/17/17 09:00 INR 1.17 (0.93-1.08) H 07/17/17 09:00 APTT 30.9 Seconds (25.1-36.5) 07/15/17 18:08 Attending/Attestation - Attestation I have personally seen and examined this patient.: Yes I have fully participated in the care of the patient.: Yes I have reviewed all pertinent clinical information, including history, physical exam and plan: Yes Notes (Text): 07/19/17 13:47 Medical record note made by the resident after discussion with my direction and input after the patient was personally seen and examined by me. I have reviewed the chart and agree that the record accurately reflects by personal performance of the history, physical exam, data review, and medical decision-making, in the course for the patient. I have also personally directed the plan of care. 66 year old female with PMH of CVA, dementia, DM, hypertension, and urinary incontinence is admitted with change of mental status, She is found to have bilateral subdural hematomas..Patient is non communicative.There is focal weakness in both upper and lower extremities.Repeat CT head is showing decrease in the size of hematoma.There is no midline shift.She is on Valporic acid for seizure prophylaxis.MRI of Brain is negative for any infarct,.Mental status is not improved.The etiology could be due to medication , /underlying infection.She is on broad spectrum antibiotics as per ID.We will follow up cultures and Procalcitonin level.
[2017-07-17 07:15] LABS: ALB/GLOB RATIO 1.2 (1.1-1.8); ALBUMIN 4.5 g/dL (3.0-4.8); ALT/SGPT 24 U/L (7-56); AST/SGOT 28 U/L (14-36); BLOOD UREA NITROGEN 12 mg/dL (7-21); CALCIUM 9.5 mg/dL (8.4-10.5); GFR AFRICAN-AMERICAN > 60; GFR NON-AFRICAN AMERICAN > 60
[2017-07-17] MEDS ORDERED: Sodium Chloride 3% 500 ML IV SCH ×2 (07:30→16:19)
--- NOTE | 2017-07-17 07:47 | CP.CCUPN ---
<Jj Huber - Last Filed: 07/17/17 11:01> CCU Subjective - Physician Review Subjective (Free Text): Patient seen and evaluated bedside. No acute issues overnight. Patient still not verbally responsive. Opens eyes, random movements. 07/17/17 07:44 CCU Objective - Vital Signs / Intake & Output Vital Signs (Last 4 hours): Vital Signs Temp Pulse Resp BP Pulse Ox 07/17/17 06:21 107 H 16 140/79 98 07/17/17 06:00 110 H 19 07/17/17 05:30 109 H 18 07/17/17 05:00 105 H 17 163/89 H 97 07/17/17 04:30 94 H 11 L 99 07/17/17 04:00 98.8 F 91 H 11 L 166/89 H 96 Intake and Output (Last 8hrs): Intake & Output 07/16/17 07/17/17 07/17/17 22:59 06:59 14:59 Intake Total 2150 Output Total 700 Balance 1450 Intake: IV 2150 Right Upper arm 2150 Output: Urine 700 Urine, Voided 700 - Physical Exam Head: Positive for: Atraumatic, Normocephalic Pupils: Positive for: PERRL Conjunctiva: Positive for: Normal Mouth: Positive for: Moist Mucous Membranes Respiratory/Chest: Positive for: Clear to Auscultation, Good Air Exchange. Negative for: Respiratory Distress, Accessory Muscle Use Cardiovascular: Positive for: Regular Rate and Rhythm, Normal S1, S2. Negative for: Murmurs Abdomen: Positive for: Normal Bowel Sounds. Negative for: Tenderness, Distention, Peritoneal Signs Upper Extremity: Positive for: Normal Inspection. Negative for: Cyanosis, Edema Lower Extremity: Positive for: Normal Inspection. Negative for: Edema Neurological: Negative for: GCS=15 Skin: Positive for: Warm, Dry, Normal Color. Negative for: Rashes Lymphatic: Positive for: Cervical Adenopathy Psychiatric: Positive for: Alert, Other (slight confusion). Negative for: Oriented x 3 - Medications Active Medications: Active Medications Generic Name Dose Route Start Last Admin Trade Name Freq PRN Reason Stop Dose Admin Hydralazine HCl 10 mg 07/15/17 20:31 07/16/17 17:26 Apresoline IVP 10 mg Q6 PRN Administration Systolic Blood Pressure Hydralazine HCl 20 mg 07/15/17 20:33 Apresoline IVP Q6 PRN Systolic Blood Pressure Sodium Chloride 1,000 mls @ 75 mls/hr 07/15/17 20:45 07/16/17 15:23 Sodium Chloride 0.45% IV 75 mls/hr .[id number] GUERITA Administration Valproate Sodium 500 mg/ 105 mls @ 100 mls/hr 07/16/17 22:00 07/16/17 21:00 Sodium Chloride IVPB 100 mls/hr Q12 GUERITA Administration Acetaminophen 1,000 mg in 100 mls @ 400 mls/hr 07/16/17 15:12 07/17/17 03:42 Ofirmev IVPB 07/18/17 15:13 400 mls/hr Q6H PRN Administration Temperature > 100.4 Cefepime HCl 1 gm in 100 mls @ 100 mls/hr 07/16/17 15:30 07/17/17 05:07 Maxipime 1gm IVPB 100 mls/hr Q8 GUERITA Administration Protocol Vancomycin HCl 1 gm in 250 mls @ 167 mls/hr 07/16/17 15:30 07/17/17 02:58 Vancomycin 1gm IVPB 167 mls/hr Q12H GUERITA Administration Protocol Sodium Chloride 500 mls @ 30 mls/hr 07/17/17 07:30 07/17/17 07:37 Hypertonic Saline 3% IV 30 mls/hr .[id number] GUERITA Administration Insulin Detemir 10 unit 07/15/17 22:00 07/16/17 21:50 Levemir SC 10 unit HS GUERITA Administration Insulin Human Lispro 0 units 07/15/17 22:00 07/16/17 21:46 Humalog Low SC Not Given ACHS GUERITA Protocol Ondansetron HCl 4 mg 07/15/17 20:35 07/16/17 00:26 Zofran Inj IVP 4 mg Q6 PRN Administration Nausea/Vomiting Pantoprazole Sodium 40 mg 07/16/17 10:00 07/16/17 09:31 Protonix Inj IVP 40 mg DAILY GUERITA Administration - Patient Studies Lab Studies: Microbiology Studies 07/15/17 22:44 Blood Culture - Preliminary Blood NO GROWTH AFTER 24 HOURS 07/15/17 22:44 Blood Culture - Preliminary Blood NO GROWTH AFTER 24 HOURS Lab Studies 07/17/17 07/17/17 07/16/17 Range/Units 06:15 06:15 22:21 WBC 17.7 H (4.5-11.0) 10^3/ul RBC 4.66 (3.5-6.1) 10^6/uL Hgb 12.0 (12.0-16.0) g/dL Hct 35.6 L (36.0-48.0) % MCV 76.4 L (80.0-105.0) fl MCH 25.8 (25.0-35.0) pg MCHC 33.7 (31.0-37.0) g/dl RDW 14.8 H (11.5-14.5) % Plt Count 262 (120.0-450.0) 10^3/uL MPV 10.1 (7.0-11.0) fl Gran % 80.0 H (50.0-68.0) % Lymph % (Auto) 14.9 L (22.0-35.0) % Gall[place] % (Auto) 4.9 (1.0-6.0) % Eos % (Auto) 0.1 L (1.5-5.0) % Baso % (Auto) 0.1 (0.0-3.0) % Gran # 14.18 H (1.4-6.5) Lymph # (Auto) 2.6 (1.2-3.4) [place] # (Auto) 0.9 H (0.1-0.6) Eos # (Auto) 0.0 (0.0-0.7) Baso # (Auto) 0.02 (0.0-2.0) K/mm3 PT (9.4-12.5) SECONDS INR (0.93-1.08) Plt P2Y12 React Units (194-418) PRU pCO2 (35-45) mm/Hg pO2 (80-100) mm/Hg HCO3 (21-28) mmol/L ABG pH (7.35-7.45) ABG Total CO2 (22-28) mmol.L ABG O2 Saturation (95-98) % ABG Base Excess (-2.0-3.0) mmol/L ABG Potassium (3.6-5.2) mmol/L VBG pH (7.32-7.43) VBG pCO2 (40-60) VBG HCO3 (21-28) mmol/l VBG Total CO2 (22-28) mmol.L VBG O2 Sat (Calc) (40-65) % VBG Base Excess (0.0-2.0) mmol/L VBG Potassium (3.6-5.2) mmol/L Sodium 132 130 L (132-148) mmol/L Chloride 88 L 92 L (98-107) mmol/L Glucose (65-105) mg/dl Lactate (0.7-2.1) mmol/L FiO2 % Potassium 3.9 4.1 (3.6-5.0) mmol/L Carbon Dioxide 24 25 (21-33) mmol/L Anion Gap 23 H 17 (10-20) BUN 12 12 (7-21) mg/dL Creatinine 0.6 L 0.6 L (0.7-1.2) mg/dl Est GFR ( Amer) > 60 > 60 Est GFR (Non-Af Amer) > 60 > 60 POC Glucose (mg/dL) (65-110) mg/dL Random Glucose 198 H 184 H (70-110) mg/dL Calcium 9.5 9.5 (8.4-10.5) mg/dL Phosphorus 3.1 (2.5-4.5) mg/dL Magnesium 1.7 1.1 L (1.7-2.2) mg/dL Total Bilirubin 1.6 H 1.5 H (0.2-1.3) mg/dL AST 28 26 (14-36) U/L ALT 24 18 (7-56) U/L Alkaline Phosphatase 75 68 (38-126) U/L Total Protein 8.2 7.7 (5.8-8.3) g/dL Albumin 4.5 4.2 (3.0-4.8) g/dL Globulin 3.8 3.6 gm/dL Albumin/Globulin Ratio 1.2 1.2 (1.1-1.8) Total T3 (0.97-1.69) ng/mL Arterial Blood Potassium (3.6-5.2) mmol/L Venous Blood Potassium (3.6-5.2) mmol/L 07/16/17 07/16/17 07/16/17 Range/Units 22:21 21:44 15:58 WBC (4.5-11.0) 10^3/ul RBC (3.5-6.1) 10^6/uL Hgb (12.0-16.0) g/dL Hct (36.0-48.0) % MCV (80.0-105.0) fl MCH (25.0-35.0) pg MCHC (31.0-37.0) g/dl RDW (11.5-14.5) % Plt Count (120.0-450.0) 10^3/uL MPV (7.0-11.0) fl Gran % (50.0-68.0) % Lymph % (Auto) (22.0-35.0) % Gall[place] % (Auto) (1.0-6.0) % Eos % (Auto) (1.5-5.0) % Baso % (Auto) (0.0-3.0) % Gran # (1.4-6.5) Lymph # (Auto) (1.2-3.4) [place] # (Auto) (0.1-0.6) Eos # (Auto) (0.0-0.7) Baso # (Auto) (0.0-2.0) K/mm3 PT (9.4-12.5) SECONDS INR (0.93-1.08) Plt P2Y12 React Units (194-418) PRU pCO2 (35-45) mm/Hg pO2 30 (80-100) mm/Hg HCO3 (21-28) mmol/L ABG pH (7.35-7.45) ABG Total CO2 (22-28) mmol.L ABG O2 Saturation (95-98) % ABG Base Excess (-2.0-3.0) mmol/L ABG Potassium (3.6-5.2) mmol/L VBG pH 7.40 (7.32-7.43) VBG pCO2 44.0 (40-60) VBG HCO3 27.3 (21-28) mmol/l VBG Total CO2 28.7 H (22-28) mmol.L VBG O2 Sat (Calc) 60.2 (40-65) % VBG Base Excess 2.0 (0.0-2.0) mmol/L VBG Potassium 3.8 (3.6-5.2) mmol/L Sodium 130.0 L (132-148) mmol/L Chloride 94.0 L (98-107) mmol/L Glucose 184 H (65-105) mg/dl Lactate 3.1 H (0.7-2.1) mmol/L FiO2 21.0 % Potassium (3.6-5.0) mmol/L Carbon Dioxide (21-33) mmol/L Anion Gap (10-20) BUN (7-21) mg/dL Creatinine (0.7-1.2) mg/dl Est GFR ( Amer) Est GFR (Non-Af Amer) POC Glucose (mg/dL) 181 H 176 H (65-110) mg/dL Random Glucose (70-110) mg/dL Calcium (8.4-10.5) mg/dL Phosphorus (2.5-4.5) mg/dL Magnesium (1.7-2.2) mg/dL Total Bilirubin (0.2-1.3) mg/dL AST (14-36) U/L ALT (7-56) U/L Alkaline Phosphatase (38-126) U/L Total Protein (5.8-8.3) g/dL Albumin (3.0-4.8) g/dL Globulin gm/dL Albumin/Globulin Ratio (1.1-1.8) Total T3 (0.97-1.69) ng/mL Arterial Blood Potassium (3.6-5.2) mmol/L Venous Blood Potassium 3.8 (3.6-5.2) mmol/L 07/16/17 07/16/17 07/16/17 Range/Units 15:45 15:45 11:59 WBC (4.5-11.0) 10^3/ul RBC (3.5-6.1) 10^6/uL Hgb (12.0-16.0) g/dL Hct (36.0-48.0) % MCV (80.0-105.0) fl MCH (25.0-35.0) pg MCHC (31.0-37.0) g/dl RDW (11.5-14.5) % Plt Count (120.0-450.0) 10^3/uL MPV (7.0-11.0) fl Gran % (50.0-68.0) % Lymph % (Auto) (22.0-35.0) % [place] % (Auto) (1.0-6.0) % Eos % (Auto) (1.5-5.0) % Baso % (Auto) (0.0-3.0) % Gran # (1.4-6.5) Lymph # (Auto) (1.2-3.4) [place] # (Auto) (0.1-0.6) Eos # (Auto) (0.0-0.7) Baso # (Auto) (0.0-2.0) K/mm3 PT (9.4-12.5) SECONDS INR (0.93-1.08) Plt P2Y12 React Units 290 (194-418) PRU pCO2 29 L (35-45) mm/Hg pO2 32 76.0 L (80-100) mm/Hg HCO3 24.2 (21-28) mmol/L ABG pH 7.53 H (7.35-7.45) ABG Total CO2 25.1 (22-28) mmol.L ABG O2 Saturation 98.1 H (95-98) % ABG Base Excess 2.4 (-2.0-3.0) mmol/L ABG Potassium 3.0 L (3.6-5.2) mmol/L VBG pH 7.49 H (7.32-7.43) VBG pCO2 36.0 L (40-60) VBG HCO3 27.4 (21-28) mmol/l VBG Total CO2 28.5 H (22-28) mmol.L VBG O2 Sat (Calc) 73.7 H (40-65) % VBG Base Excess 4.1 H (0.0-2.0) mmol/L VBG Potassium 2.7 L (3.6-5.2) mmol/L Sodium 134.0 134.0 (132-148) mmol/L Chloride 94.0 L 98.0 (98-107) mmol/L Glucose 192 H 160 H (65-105) mg/dl Lactate 1.7 3.2 H (0.7-2.1) mmol/L FiO2 21.0 21.0 % Potassium (3.6-5.0) mmol/L Carbon Dioxide (21-33) mmol/L Anion Gap (10-20) BUN (7-21) mg/dL Creatinine (0.7-1.2) mg/dl Est GFR ( Amer) Est GFR (Non-Af Amer) POC Glucose (mg/dL) (65-110) mg/dL Random Glucose (70-110) mg/dL Calcium (8.4-10.5) mg/dL Phosphorus (2.5-4.5) mg/dL Magnesium (1.7-2.2) mg/dL Total Bilirubin (0.2-1.3) mg/dL AST (14-36) U/L ALT (7-56) U/L Alkaline Phosphatase (38-126) U/L Total Protein (5.8-8.3) g/dL Albumin (3.0-4.8) g/dL Globulin gm/dL Albumin/Globulin Ratio (1.1-1.8) Total T3 (0.97-1.69) ng/mL Arterial Blood Potassium 3.0 L (3.6-5.2) mmol/L Venous Blood Potassium 2.7 L (3.6-5.2) mmol/L 07/16/17 07/16/17 07/16/17 Range/Units 11:31 09:45 08:04 WBC (4.5-11.0) 10^3/ul RBC (3.5-6.1) 10^6/uL Hgb (12.0-16.0) g/dL Hct (36.0-48.0) % MCV (80.0-105.0) fl MCH (25.0-35.0) pg MCHC (31.0-37.0) g/dl RDW (11.5-14.5) % Plt Count (120.0-450.0) 10^3/uL MPV (7.0-11.0) fl Gran % (50.0-68.0) % Lymph % (Auto) (22.0-35.0) % [place] % (Auto) (1.0-6.0) % Eos % (Auto) (1.5-5.0) % Baso % (Auto) (0.0-3.0) % Gran # (1.4-6.5) Lymph # (Auto) (1.2-3.4) [place] # (Auto) (0.1-0.6) Eos # (Auto) (0.0-0.7) Baso # (Auto) (0.0-2.0) K/mm3 PT 13.9 H (9.4-12.5) SECONDS INR 1.20 H (0.93-1.08) Plt P2Y12 React Units (194-418) PRU pCO2 (35-45) mm/Hg pO2 (80-100) mm/Hg HCO3 (21-28) mmol/L ABG pH (7.35-7.45) ABG Total CO2 (22-28) mmol.L ABG O2 Saturation (95-98) % ABG Base Excess (-2.0-3.0) mmol/L ABG Potassium (3.6-5.2) mmol/L VBG pH (7.32-7.43) VBG pCO2 (40-60) VBG HCO3 (21-28) mmol/l VBG Total CO2 (22-28) mmol.L VBG O2 Sat (Calc) (40-65) % VBG Base Excess (0.0-2.0) mmol/L VBG Potassium (3.6-5.2) mmol/L Sodium (132-148) mmol/L Chloride (98-107) mmol/L Glucose (65-105) mg/dl Lactate (0.7-2.1) mmol/L FiO2 % Potassium (3.6-5.0) mmol/L Carbon Dioxide (21-33) mmol/L Anion Gap (10-20) BUN (7-21) mg/dL Creatinine (0.7-1.2) mg/dl Est GFR ( Amer) Est GFR (Non-Af Amer) POC Glucose (mg/dL) 139 H 233 H (65-110) mg/dL Random Glucose (70-110) mg/dL Calcium (8.4-10.5) mg/dL Phosphorus (2.5-4.5) mg/dL Magnesium (1.7-2.2) mg/dL Total Bilirubin (0.2-1.3) mg/dL AST (14-36) U/L ALT (7-56) U/L Alkaline Phosphatase (38-126) U/L Total Protein (5.8-8.3) g/dL Albumin (3.0-4.8) g/dL Globulin gm/dL Albumin/Globulin Ratio (1.1-1.8) Total T3 (0.97-1.69) ng/mL Arterial Blood Potassium (3.6-5.2) mmol/L Venous Blood Potassium (3.6-5.2) mmol/L 07/16/17 Range/Units 05:00 WBC (4.5-11.0) 10^3/ul RBC (3.5-6.1) 10^6/uL Hgb (12.0-16.0) g/dL Hct (36.0-48.0) % MCV (80.0-105.0) fl MCH (25.0-35.0) pg MCHC (31.0-37.0) g/dl RDW (11.5-14.5) % Plt Count (120.0-450.0) 10^3/uL MPV (7.0-11.0) fl Gran % (50.0-68.0) % Lymph % (Auto) (22.0-35.0) % [place] % (Auto) (1.0-6.0) % Eos % (Auto) (1.5-5.0) % Baso % (Auto) (0.0-3.0) % Gran # (1.4-6.5) Lymph # (Auto) (1.2-3.4) [place] # (Auto) (0.1-0.6) Eos # (Auto) (0.0-0.7) Baso # (Auto) (0.0-2.0) K/mm3 PT (9.4-12.5) SECONDS INR (0.93-1.08) Plt P2Y12 React Units (194-418) PRU pCO2 (35-45) mm/Hg pO2 (80-100) mm/Hg HCO3 (21-28) mmol/L ABG pH (7.35-7.45) ABG Total CO2 (22-28) mmol.L ABG O2 Saturation (95-98) % ABG Base Excess (-2.0-3.0) mmol/L ABG Potassium (3.6-5.2) mmol/L VBG pH (7.32-7.43) VBG pCO2 (40-60) VBG HCO3 (21-28) mmol/l VBG Total CO2 (22-28) mmol.L VBG O2 Sat (Calc) (40-65) % VBG Base Excess (0.0-2.0) mmol/L VBG Potassium (3.6-5.2) mmol/L Sodium (132-148) mmol/L Chloride (98-107) mmol/L Glucose (65-105) mg/dl Lactate (0.7-2.1) mmol/L FiO2 % Potassium (3.6-5.0) mmol/L Carbon Dioxide (21-33) mmol/L Anion Gap (10-20) BUN (7-21) mg/dL Creatinine (0.7-1.2) mg/dl Est GFR ( Amer) Est GFR (Non-Af Amer) POC Glucose (mg/dL) (65-110) mg/dL Random Glucose (70-110) mg/dL Calcium (8.4-10.5) mg/dL Phosphorus (2.5-4.5) mg/dL Magnesium (1.7-2.2) mg/dL Total Bilirubin (0.2-1.3) mg/dL AST (14-36) U/L ALT (7-56) U/L Alkaline Phosphatase (38-126) U/L Total Protein (5.8-8.3) g/dL Albumin (3.0-4.8) g/dL Globulin gm/dL Albumin/Globulin Ratio (1.1-1.8) Total T3 1.04 (0.97-1.69) ng/mL Arterial Blood Potassium (3.6-5.2) mmol/L Venous Blood Potassium (3.6-5.2) mmol/L Laboratory Results - last 24 hr 07/16/17 07/16/17 07/16/17 05:00 08:04 09:45 WBC RBC Hgb Hct MCV MCH MCHC RDW Plt Count MPV Gran % Lymph % (Auto) Gall[place] % (Auto) Eos % (Auto) Baso % (Auto) Gran # Lymph # (Auto) [place] # (Auto) Eos # (Auto) Baso # (Auto) PT 13.9 H INR 1.20 H Plt P2Y12 React Units pCO2 pO2 HCO3 ABG pH ABG Total CO2 ABG O2 Saturation ABG Base Excess ABG Potassium VBG pH VBG pCO2 VBG HCO3 VBG Total CO2 VBG O2 Sat (Calc) VBG Base Excess VBG Potassium Sodium Chloride Glucose Lactate FiO2 Potassium Carbon Dioxide Anion Gap BUN Creatinine Est GFR ( Amer) Est GFR (Non-Af Amer) POC Glucose (mg/dL) 233 H Random Glucose Calcium Phosphorus Magnesium Total Bilirubin AST ALT Alkaline Phosphatase Total Protein Albumin Globulin Albumin/Globulin Ratio Total T3 1.04 Arterial Blood Potassium Venous Blood Potassium 07/16/17 07/16/17 07/16/17 11:31 11:59 15:45 WBC RBC Hgb Hct MCV MCH MCHC RDW Plt Count MPV Gran % Lymph % (Auto) [place] % (Auto) Eos % (Auto) Baso % (Auto) Gran # Lymph # (Auto) [place] # (Auto) Eos # (Auto) Baso # (Auto) PT INR Plt P2Y12 React Units 290 pCO2 29 L pO2 76.0 L HCO3 24.2 ABG pH 7.53 H ABG Total CO2 25.1 ABG O2 Saturation 98.1 H ABG Base Excess 2.4 ABG Potassium 3.0 L VBG pH VBG pCO2 VBG HCO3 VBG Total CO2 VBG O2 Sat (Calc) VBG Base Excess VBG Potassium Sodium 134.0 Chloride 98.0 Glucose 160 H Lactate 3.2 H FiO2 21.0 Potassium Carbon Dioxide Anion Gap BUN Creatinine Est GFR ( Amer) Est GFR (Non-Af Amer) POC Glucose (mg/dL) 139 H Random Glucose Calcium Phosphorus Magnesium Total Bilirubin AST ALT Alkaline Phosphatase Total Protein Albumin Globulin Albumin/Globulin Ratio Total T3 Arterial Blood Potassium 3.0 L Venous Blood Potassium 07/16/17 07/16/17 07/16/17 15:45 15:58 21:44 WBC RBC Hgb Hct MCV MCH MCHC RDW Plt Count MPV Gran % Lymph % (Auto) [place] % (Auto) Eos % (Auto) Baso % (Auto) Gran # Lymph # (Auto) [place] # (Auto) Eos # (Auto) Baso # (Auto) PT INR Plt P2Y12 React Units pCO2 pO2 32 HCO3 ABG pH ABG Total CO2 ABG O2 Saturation ABG Base Excess ABG Potassium VBG pH 7.49 H VBG pCO2 36.0 L VBG HCO3 27.4 VBG Total CO2 28.5 H VBG O2 Sat (Calc) 73.7 H VBG Base Excess 4.1 H VBG Potassium 2.7 L Sodium 134.0 Chloride 94.0 L Glucose 192 H Lactate 1.7 FiO2 21.0 Potassium Carbon Dioxide Anion Gap BUN Creatinine Est GFR ( Amer) Est GFR (Non-Af Amer) POC Glucose (mg/dL) 176 H 181 H Random Glucose Calcium Phosphorus Magnesium Total Bilirubin AST ALT Alkaline Phosphatase Total Protein Albumin Globulin Albumin/Globulin Ratio Total T3 Arterial Blood Potassium Venous Blood Potassium 2.7 L 07/16/17 07/16/17 07/17/17 22:21 22:21 06:15 WBC 17.7 H RBC 4.66 Hgb 12.0 Hct 35.6 L MCV 76.4 L MCH 25.8 MCHC 33.7 RDW 14.8 H Plt Count 262 MPV 10.1 Gran % 80.0 H Lymph % (Auto) 14.9 L [place] % (Auto) 4.9 Eos % (Auto) 0.1 L Baso % (Auto) 0.1 Gran # 14.18 H Lymph # (Auto) 2.6 [place] # (Auto) 0.9 H Eos # (Auto) 0.0 Baso # (Auto) 0.02 PT INR Plt P2Y12 React Units pCO2 pO2 30 HCO3 ABG pH ABG Total CO2 ABG O2 Saturation ABG Base Excess ABG Potassium VBG pH 7.40 VBG pCO2 44.0 VBG HCO3 27.3 VBG Total CO2 28.7 H VBG O2 Sat (Calc) 60.2 VBG Base Excess 2.0 VBG Potassium 3.8 Sodium 130.0 L 130 L Chloride 94.0 L 92 L Glucose 184 H Lactate 3.1 H FiO2 21.0 Potassium 4.1 Carbon Dioxide 25 Anion Gap 17 BUN 12 Creatinine 0.6 L Est GFR ( Amer) > 60 Est GFR (Non-Af Amer) > 60 POC Glucose (mg/dL) Random Glucose 184 H Calcium 9.5 Phosphorus 3.1 Magnesium 1.1 L Total Bilirubin 1.5 H AST 26 ALT 18 Alkaline Phosphatase 68 Total Protein 7.7 Albumin 4.2 Globulin 3.6 Albumin/Globulin Ratio 1.2 Total T3 Arterial Blood Potassium Venous Blood Potassium 3.8 07/17/17 06:15 WBC RBC Hgb Hct MCV MCH MCHC RDW Plt Count MPV Gran % Lymph % (Auto) [place] % (Auto) Eos % (Auto) Baso % (Auto) Gran # Lymph # (Auto) [place] # (Auto) Eos # (Auto) Baso # (Auto) PT INR Plt P2Y12 React Units pCO2 pO2 HCO3 ABG pH ABG Total CO2 ABG O2 Saturation ABG Base Excess ABG Potassium VBG pH VBG pCO2 VBG HCO3 VBG Total CO2 VBG O2 Sat (Calc) VBG Base Excess VBG Potassium Sodium 132 Chloride 88 L Glucose Lactate FiO2 Potassium 3.9 Carbon Dioxide 24 Anion Gap 23 H BUN 12 Creatinine 0.6 L Est GFR ( Amer) > 60 Est GFR (Non-Af Amer) > 60 POC Glucose (mg/dL) Random Glucose 198 H Calcium 9.5 Phosphorus Magnesium 1.7 Total Bilirubin 1.6 H AST 28 ALT 24 Alkaline Phosphatase 75 Total Protein 8.2 Albumin 4.5 Globulin 3.8 Albumin/Globulin Ratio 1.2 Total T3 Arterial Blood Potassium Venous Blood Potassium Fingerstick Blood Sugar Results: 181 Review of Systems - Review of Systems Review of Systems: unable to obtain Assessment/Plan - Assessment and Plan (Free Text) Assessment: 66 F, bilingual in Italian and Latvian, with PMH HTN, DM, CVA and TIAs on plavix, dementia, diabetes, hypertention was admitted to ICU for subdural hematoma. Patient will have repeat Head CT today. Plan: Neuro - initial CT-Head: Acute subdural hematoms, bilateral concave, 1.4cm to L, 7 mm to R, no midline shift or herniation. 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 - repeat CT - Valproate - Avoid sedative - seizure precautions - neuro check q1 Pulm - Aspiration precautions, HOB 45 degrees - O2 prn to maintain SaO2 > 95% Cardio - Goal SBP 120 - 140 - For SBP > 165, Hydralazine 10mg IV - For SBP > 190, Hydralazine 20mg IV GI - NG tube and start feeds - 3% Nacl @30 - Zofran PRN - Protonix IV - Speech and swallow eval Renal - monitor i/o, vogt - watch for contrast nephropathy Endo - ISSS-low - maintain euglycemia ID - leukocytosis - CXR neg - UA negative -abx -ID following -cooling blankets, IV tylenol for fever control Heme - INR Musculoskeletal - obliquely oriented minimally displaced fracture of the distal ulna - Pt will follow up with Dr. Mckinney, orthopedic doctor, next week. Pvx: Protonix, SCD Dispo: [facility] <Pravin Braun - Last Filed: 07/17/17 13:55> CCU Objective - Vital Signs / Intake & Output Intake and Output (Last 8hrs): Intake & Output 07/16/17 07/17/17 07/17/17 22:59 06:59 14:59 Intake Total 2150 Output Total 700 Balance 1450 Intake: IV 2150 Right Upper arm 2150 Output: Urine 700 Urine, Voided 700 - Medications Active Medications: Active Medications Generic Name Dose Route Start Last Admin Trade Name Freq PRN Reason Stop Dose Admin Hydralazine HCl 10 mg 07/15/17 20:31 07/16/17 17:26 Apresoline IVP 10 mg Q6 PRN Administration Systolic Blood Pressure Hydralazine HCl 20 mg 07/15/17 20:33 Apresoline IVP Q6 PRN Systolic Blood Pressure Sodium Chloride 1,000 mls @ 75 mls/hr 07/15/17 20:45 07/16/17 15:23 Sodium Chloride 0.45% IV 75 mls/hr .[id number] GUERITA Administration Valproate Sodium 500 mg/ 105 mls @ 100 mls/hr 07/16/17 22:00 07/16/17 21:00 Sodium Chloride IVPB 100 mls/hr Q12 GUERITA Administration Acetaminophen 1,000 mg in 100 mls @ 400 mls/hr 07/16/17 15:12 07/17/17 03:42 Ofirmev IVPB 07/18/17 15:13 400 mls/hr Q6H PRN Administration Temperature > 100.4 Cefepime HCl 1 gm in 100 mls @ 100 mls/hr 07/16/17 15:30 07/17/17 05:07 Maxipime 1gm IVPB 100 mls/hr Q8 GUERITA Administration Protocol Vancomycin HCl 1 gm in 250 mls @ 167 mls/hr 07/16/17 15:30 07/17/17 02:58 Vancomycin 1gm IVPB 167 mls/hr Q12H GUERITA Administration Protocol Sodium Chloride 500 mls @ 30 mls/hr 07/17/17 07:30 07/17/17 07:37 Hypertonic Saline 3% IV 30 mls/hr .[id number] GUERITA Administration Insulin Human Lispro 0 units 07/17/17 09:45 Humalog Low SC Q6H [facility] Protocol Ondansetron HCl 4 mg 07/15/17 20:35 07/16/17 00:26 Zofran Inj IVP 4 mg Q6 PRN Administration Nausea/Vomiting Pantoprazole Sodium 40 mg 07/16/17 10:00 07/16/17 09:31 Protonix Inj IVP 40 mg DAILY GUERITA Administration - Patient Studies Lab Studies: Microbiology Studies 07/15/17 22:00 MRSA Culture (Admit) - Final Naris MRSA NOT DETECTED 07/16/17 01:00 Urine Culture - Final Urine No Growth (<1,000 CFU/ML) 07/15/17 22:44 Blood Culture - Preliminary Blood NO GROWTH AFTER 24 HOURS 07/15/17 22:44 Blood Culture - Preliminary Blood NO GROWTH AFTER 24 HOURS Lab Studies 07/17/17 07/17/17 07/17/17 Range/Units 12:55 10:15 10:15 WBC (4.5-11.0) 10^3/ul RBC (3.5-6.1) 10^6/uL Hgb (12.0-16.0) g/dL Hct (36.0-48.0) % MCV (80.0-105.0) fl MCH (25.0-35.0) pg MCHC (31.0-37.0) g/dl RDW (11.5-14.5) % Plt Count (120.0-450.0) 10^3/uL MPV (7.0-11.0) fl Gran % (50.0-68.0) % Lymph % (Auto) (22.0-35.0) % Gallia % (Auto) (1.0-6.0) % Eos % (Auto) (1.5-5.0) % Baso % (Auto) (0.0-3.0) % Gran # (1.4-6.5) Lymph # (Auto) (1.2-3.4) Gallia # (Auto) (0.1-0.6) Eos # (Auto) (0.0-0.7) Baso # (Auto) (0.0-2.0) K/mm3 PT (9.4-12.5) SECONDS INR (0.93-1.08) Plt P2Y12 React Units (194-418) PRU pCO2 (35-45) mm/Hg pO2 35 (30-55) mm/Hg HCO3 (21-28) mmol/L ABG pH (7.35-7.45) ABG Total CO2 (22-28) mmol.L ABG O2 Saturation (95-98) % ABG Base Excess (-2.0-3.0) mmol/L ABG Potassium (3.6-5.2) mmol/L VBG pH 7.41 (7.32-7.43) VBG pCO2 43.0 (40-60) VBG HCO3 27.3 (21-28) mmol/l VBG Total CO2 28.6 H (22-28) mmol.L VBG O2 Sat (Calc) 71.2 H (40-65) % VBG Base Excess 2.2 H (0.0-2.0) mmol/L VBG Potassium 3.5 L (3.6-5.2) mmol/L Sodium 129.0 L (132-148) mmol/L Chloride 92.0 L (98-107) mmol/L Glucose 203 H (65-105) mg/dl Lactate 3.0 H (0.7-2.1) mmol/L FiO2 21.0 % Potassium (3.6-5.0) mmol/L Carbon Dioxide (21-33) mmol/L Anion Gap (10-20) BUN (7-21) mg/dL Creatinine (0.7-1.2) mg/dl Est GFR ( Amer) Est GFR (Non-Af Amer) POC Glucose (mg/dL) 152 H (65-110) mg/dL Random Glucose (70-110) mg/dL Calcium (8.4-10.5) mg/dL Phosphorus (2.5-4.5) mg/dL Magnesium (1.7-2.2) mg/dL Total Bilirubin (0.2-1.3) mg/dL AST (14-36) U/L ALT (7-56) U/L Alkaline Phosphatase (38-126) U/L Ammonia < 9 L (9-33) umol/L Troponin I ng/mL Total Protein (5.8-8.3) g/dL Albumin (3.0-4.8) g/dL Globulin gm/dL Albumin/Globulin Ratio (1.1-1.8) Total T3 (0.97-1.69) ng/mL Arterial Blood Potassium (3.6-5.2) mmol/L Venous Blood Potassium 3.5 L (3.6-5.2) mmol/L Valproic Acid (50.0-100.0) ug/mL 07/17/17 07/17/17 07/17/17 Range/Units 09:00 08:30 06:30 WBC (4.5-11.0) 10^3/ul RBC (3.5-6.1) 10^6/uL Hgb (12.0-16.0) g/dL Hct (36.0-48.0) % MCV (80.0-105.0) fl MCH (25.0-35.0) pg MCHC (31.0-37.0) g/dl RDW (11.5-14.5) % Plt Count (120.0-450.0) 10^3/uL MPV (7.0-11.0) fl Gran % (50.0-68.0) % Lymph % (Auto) (22.0-35.0) % Gallia % (Auto) (1.0-6.0) % Eos % (Auto) (1.5-5.0) % Baso % (Auto) (0.0-3.0) % Gran # (1.4-6.5) Lymph # (Auto) (1.2-3.4) Gall[place] # (Auto) (0.1-0.6) Eos # (Auto) (0.0-0.7) Baso # (Auto) (0.0-2.0) K/mm3 PT 13.5 H (9.4-12.5) SECONDS INR 1.17 H (0.93-1.08) Plt P2Y12 React Units (194-418) PRU pCO2 30 L (35-45) mm/Hg pO2 90.0 (30-55) mm/Hg HCO3 24.5 (21-28) mmol/L ABG pH 7.52 H (7.35-7.45) ABG Total CO2 25.4 (22-28) mmol.L ABG O2 Saturation 99.1 H (95-98) % ABG Base Excess 2.4 (-2.0-3.0) mmol/L ABG Potassium 2.7 L (3.6-5.2) mmol/L VBG pH (7.32-7.43) VBG pCO2 (40-60) VBG HCO3 (21-28) mmol/l VBG Total CO2 (22-28) mmol.L VBG O2 Sat (Calc) (40-65) % VBG Base Excess (0.0-2.0) mmol/L VBG Potassium (3.6-5.2) mmol/L Sodium 129.0 L (132-148) mmol/L Chloride 93.0 L (98-107) mmol/L Glucose 222 H (65-105) mg/dl Lactate 1.5 (0.7-2.1) mmol/L FiO2 21.0 % Potassium (3.6-5.0) mmol/L Carbon Dioxide (21-33) mmol/L Anion Gap (10-20) BUN (7-21) mg/dL Creatinine (0.7-1.2) mg/dl Est GFR ( Amer) Est GFR (Non-Af Amer) POC Glucose (mg/dL) (65-110) mg/dL Random Glucose (70-110) mg/dL Calcium (8.4-10.5) mg/dL Phosphorus (2.5-4.5) mg/dL Magnesium (1.7-2.2) mg/dL Total Bilirubin (0.2-1.3) mg/dL AST (14-36) U/L ALT (7-56) U/L Alkaline Phosphatase (38-126) U/L Ammonia (9-33) umol/L Troponin I < 0.01 ng/mL Total Protein (5.8-8.3) g/dL Albumin (3.0-4.8) g/dL Globulin gm/dL Albumin/Globulin Ratio (1.1-1.8) Total T3 (0.97-1.69) ng/mL Arterial Blood Potassium 2.7 L (3.6-5.2) mmol/L Venous Blood Potassium (3.6-5.2) mmol/L Valproic Acid (50.0-100.0) ug/mL 07/17/17 07/17/17 07/17/17 Range/Units 06:15 06:15 06:15 WBC 17.7 H (4.5-11.0) 10^3/ul RBC 4.66 (3.5-6.1) 10^6/uL Hgb 12.0 (12.0-16.0) g/dL Hct 35.6 L (36.0-48.0) % MCV 76.4 L (80.0-105.0) fl MCH 25.8 (25.0-35.0) pg MCHC 33.7 (31.0-37.0) g/dl RDW 14.8 H (11.5-14.5) % Plt Count 262 (120.0-450.0) 10^3/uL MPV 10.1 (7.0-11.0) fl Gran % 80.0 H (50.0-68.0) % Lymph % (Auto) 14.9 L (22.0-35.0) % Gall[place] % (Auto) 4.9 (1.0-6.0) % Eos % (Auto) 0.1 L (1.5-5.0) % Baso % (Auto) 0.1 (0.0-3.0) % Gran # 14.18 H (1.4-6.5) Lymph # (Auto) 2.6 (1.2-3.4) [place] # (Auto) 0.9 H (0.1-0.6) Eos # (Auto) 0.0 (0.0-0.7) Baso # (Auto) 0.02 (0.0-2.0) K/mm3 PT (9.4-12.5) SECONDS INR (0.93-1.08) Plt P2Y12 React Units (194-418) PRU pCO2 (35-45) mm/Hg pO2 (30-55) mm/Hg HCO3 (21-28) mmol/L ABG pH (7.35-7.45) ABG Total CO2 (22-28) mmol.L ABG O2 Saturation (95-98) % ABG Base Excess (-2.0-3.0) mmol/L ABG Potassium (3.6-5.2) mmol/L VBG pH (7.32-7.43) VBG pCO2 (40-60) VBG HCO3 (21-28) mmol/l VBG Total CO2 (22-28) mmol.L VBG O2 Sat (Calc) (40-65) % VBG Base Excess (0.0-2.0) mmol/L VBG Potassium (3.6-5.2) mmol/L Sodium 132 (132-148) mmol/L Chloride 88 L (98-107) mmol/L Glucose (65-105) mg/dl Lactate (0.7-2.1) mmol/L FiO2 % Potassium 3.9 (3.6-5.0) mmol/L Carbon Dioxide 24 (21-33) mmol/L Anion Gap 23 H (10-20) BUN 12 (7-21) mg/dL Creatinine 0.6 L (0.7-1.2) mg/dl Est GFR ( Amer) > 60 Est GFR (Non-Af Amer) > 60 POC Glucose (mg/dL) (65-110) mg/dL Random Glucose 198 H (70-110) mg/dL Calcium 9.5 (8.4-10.5) mg/dL Phosphorus (2.5-4.5) mg/dL Magnesium 1.7 (1.7-2.2) mg/dL Total Bilirubin 1.6 H (0.2-1.3) mg/dL AST 28 (14-36) U/L ALT 24 (7-56) U/L Alkaline Phosphatase 75 (38-126) U/L Ammonia (9-33) umol/L Troponin I ng/mL Total Protein 8.2 (5.8-8.3) g/dL Albumin 4.5 (3.0-4.8) g/dL Globulin 3.8 gm/dL Albumin/Globulin Ratio 1.2 (1.1-1.8) Total T3 (0.97-1.69) ng/mL Arterial Blood Potassium (3.6-5.2) mmol/L Venous Blood Potassium (3.6-5.2) mmol/L Valproic Acid 102 H* (50.0-100.0) ug/mL 07/16/17 07/16/17 07/16/17 Range/Units 22:21 22:21 21:44 WBC (4.5-11.0) 10^3/ul RBC (3.5-6.1) 10^6/uL Hgb (12.0-16.0) g/dL Hct (36.0-48.0) % MCV (80.0-105.0) fl MCH (25.0-35.0) pg MCHC (31.0-37.0) g/dl RDW (11.5-14.5) % Plt Count (120.0-450.0) 10^3/uL MPV (7.0-11.0) fl Gran % (50.0-68.0) % Lymph % (Auto) (22.0-35.0) % Gall[place] % (Auto) (1.0-6.0) % Eos % (Auto) (1.5-5.0) % Baso % (Auto) (0.0-3.0) % Gran # (1.4-6.5) Lymph # (Auto) (1.2-3.4) [place] # (Auto) (0.1-0.6) Eos # (Auto) (0.0-0.7) Baso # (Auto) (0.0-2.0) K/mm3 PT (9.4-12.5) SECONDS INR (0.93-1.08) Plt P2Y12 React Units (194-418) PRU pCO2 (35-45) mm/Hg pO2 30 (30-55) mm/Hg HCO3 (21-28) mmol/L ABG pH (7.35-7.45) ABG Total CO2 (22-28) mmol.L ABG O2 Saturation (95-98) % ABG Base Excess (-2.0-3.0) mmol/L ABG Potassium (3.6-5.2) mmol/L VBG pH 7.40 (7.32-7.43) VBG pCO2 44.0 (40-60) VBG HCO3 27.3 (21-28) mmol/l VBG Total CO2 28.7 H (22-28) mmol.L VBG O2 Sat (Calc) 60.2 (40-65) % VBG Base Excess 2.0 (0.0-2.0) mmol/L VBG Potassium 3.8 (3.6-5.2) mmol/L Sodium 130 L 130.0 L (132-148) mmol/L Chloride 92 L 94.0 L (98-107) mmol/L Glucose 184 H (65-105) mg/dl Lactate 3.1 H (0.7-2.1) mmol/L FiO2 21.0 % Potassium 4.1 (3.6-5.0) mmol/L Carbon Dioxide 25 (21-33) mmol/L Anion Gap 17 (10-20) BUN 12 (7-21) mg/dL Creatinine 0.6 L (0.7-1.2) mg/dl Est GFR ( Amer) > 60 Est GFR (Non-Af Amer) > 60 POC Glucose (mg/dL) 181 H (65-110) mg/dL Random Glucose 184 H (70-110) mg/dL Calcium 9.5 (8.4-10.5) mg/dL Phosphorus 3.1 (2.5-4.5) mg/dL Magnesium 1.1 L (1.7-2.2) mg/dL Total Bilirubin 1.5 H (0.2-1.3) mg/dL AST 26 (14-36) U/L ALT 18 (7-56) U/L Alkaline Phosphatase 68 (38-126) U/L Ammonia (9-33) umol/L Troponin I ng/mL Total Protein 7.7 (5.8-8.3) g/dL Albumin 4.2 (3.0-4.8) g/dL Globulin 3.6 gm/dL Albumin/Globulin Ratio 1.2 (1.1-1.8) Total T3 (0.97-1.69) ng/mL Arterial Blood Potassium (3.6-5.2) mmol/L Venous Blood Potassium 3.8 (3.6-5.2) mmol/L Valproic Acid (50.0-100.0) ug/mL 07/16/17 07/16/17 07/16/17 Range/Units 15:58 15:45 15:45 WBC (4.5-11.0) 10^3/ul RBC (3.5-6.1) 10^6/uL Hgb (12.0-16.0) g/dL Hct (36.0-48.0) % MCV (80.0-105.0) fl MCH (25.0-35.0) pg MCHC (31.0-37.0) g/dl RDW (11.5-14.5) % Plt Count (120.0-450.0) 10^3/uL MPV (7.0-11.0) fl Gran % (50.0-68.0) % Lymph % (Auto) (22.0-35.0) % Gall[place] % (Auto) (1.0-6.0) % Eos % (Auto) (1.5-5.0) % Baso % (Auto) (0.0-3.0) % Gran # (1.4-6.5) Lymph # (Auto) (1.2-3.4) Gall[place] # (Auto) (0.1-0.6) Eos # (Auto) (0.0-0.7) Baso # (Auto) (0.0-2.0) K/mm3 PT (9.4-12.5) SECONDS INR (0.93-1.08) Plt P2Y12 React Units 290 (194-418) PRU pCO2 (35-45) mm/Hg pO2 32 (30-55) mm/Hg HCO3 (21-28) mmol/L ABG pH (7.35-7.45) ABG Total CO2 (22-28) mmol.L ABG O2 Saturation (95-98) % ABG Base Excess (-2.0-3.0) mmol/L ABG Potassium (3.6-5.2) mmol/L VBG pH 7.49 H (7.32-7.43) VBG pCO2 36.0 L (40-60) VBG HCO3 27.4 (21-28) mmol/l VBG Total CO2 28.5 H (22-28) mmol.L VBG O2 Sat (Calc) 73.7 H (40-65) % VBG Base Excess 4.1 H (0.0-2.0) mmol/L VBG Potassium 2.7 L (3.6-5.2) mmol/L Sodium 134.0 (132-148) mmol/L Chloride 94.0 L (98-107) mmol/L Glucose 192 H (65-105) mg/dl Lactate 1.7 (0.7-2.1) mmol/L FiO2 21.0 % Potassium (3.6-5.0) mmol/L Carbon Dioxide (21-33) mmol/L Anion Gap (10-20) BUN (7-21) mg/dL Creatinine (0.7-1.2) mg/dl Est GFR ( Amer) Est GFR (Non-Af Amer) POC Glucose (mg/dL) 176 H (65-110) mg/dL Random Glucose (70-110) mg/dL Calcium (8.4-10.5) mg/dL Phosphorus (2.5-4.5) mg/dL Magnesium (1.7-2.2) mg/dL Total Bilirubin (0.2-1.3) mg/dL AST (14-36) U/L ALT (7-56) U/L Alkaline Phosphatase (38-126) U/L Ammonia (9-33) umol/L Troponin I ng/mL Total Protein (5.8-8.3) g/dL Albumin (3.0-4.8) g/dL Globulin gm/dL Albumin/Globulin Ratio (1.1-1.8) Total T3 (0.97-1.69) ng/mL Arterial Blood Potassium (3.6-5.2) mmol/L Venous Blood Potassium 2.7 L (3.6-5.2) mmol/L Valproic Acid (50.0-100.0) ug/mL 07/16/17 07/16/17 Range/Units 11:31 05:00 WBC (4.5-11.0) 10^3/ul RBC (3.5-6.1) 10^6/uL Hgb (12.0-16.0) g/dL Hct (36.0-48.0) % MCV (80.0-105.0) fl MCH (25.0-35.0) pg MCHC (31.0-37.0) g/dl RDW (11.5-14.5) % Plt Count (120.0-450.0) 10^3/uL MPV (7.0-11.0) fl Gran % (50.0-68.0) % Lymph % (Auto) (22.0-35.0) % [place] % (Auto) (1.0-6.0) % Eos % (Auto) (1.5-5.0) % Baso % (Auto) (0.0-3.0) % Gran # (1.4-6.5) Lymph # (Auto) (1.2-3.4) [place] # (Auto) (0.1-0.6) Eos # (Auto) (0.0-0.7) Baso # (Auto) (0.0-2.0) K/mm3 PT (9.4-12.5) SECONDS INR (0.93-1.08) Plt P2Y12 React Units (194-418) PRU pCO2 (35-45) mm/Hg pO2 (30-55) mm/Hg HCO3 (21-28) mmol/L ABG pH (7.35-7.45) ABG Total CO2 (22-28) mmol.L ABG O2 Saturation (95-98) % ABG Base Excess (-2.0-3.0) mmol/L ABG Potassium (3.6-5.2) mmol/L VBG pH (7.32-7.43) VBG pCO2 (40-60) VBG HCO3 (21-28) mmol/l VBG Total CO2 (22-28) mmol.L VBG O2 Sat (Calc) (40-65) % VBG Base Excess (0.0-2.0) mmol/L VBG Potassium (3.6-5.2) mmol/L Sodium (132-148) mmol/L Chloride (98-107) mmol/L Glucose (65-105) mg/dl Lactate (0.7-2.1) mmol/L FiO2 % Potassium (3.6-5.0) mmol/L Carbon Dioxide (21-33) mmol/L Anion Gap (10-20) BUN (7-21) mg/dL Creatinine (0.7-1.2) mg/dl Est GFR ( Amer) Est GFR (Non-Af Amer) POC Glucose (mg/dL) 139 H (65-110) mg/dL Random Glucose (70-110) mg/dL Calcium (8.4-10.5) mg/dL Phosphorus (2.5-4.5) mg/dL Magnesium (1.7-2.2) mg/dL Total Bilirubin (0.2-1.3) mg/dL AST (14-36) U/L ALT (7-56) U/L Alkaline Phosphatase (38-126) U/L Ammonia (9-33) umol/L Troponin I ng/mL Total Protein (5.8-8.3) g/dL Albumin (3.0-4.8) g/dL Globulin gm/dL Albumin/Globulin Ratio (1.1-1.8) Total T3 1.04 (0.97-1.69) ng/mL Arterial Blood Potassium (3.6-5.2) mmol/L Venous Blood Potassium (3.6-5.2) mmol/L Valproic Acid (50.0-100.0) ug/mL Laboratory Results - last 24 hr 07/16/17 07/16/17 07/16/17 05:00 11:31 15:45 WBC RBC Hgb Hct MCV MCH MCHC RDW Plt Count MPV Gran % Lymph % (Auto) [place] % (Auto) Eos % (Auto) Baso % (Auto) Gran # Lymph # (Auto) [place] # (Auto) Eos # (Auto) Baso # (Auto) PT INR Plt P2Y12 React Units 290 pCO2 pO2 HCO3 ABG pH ABG Total CO2 ABG O2 Saturation ABG Base Excess ABG Potassium VBG pH VBG pCO2 VBG HCO3 VBG Total CO2 VBG O2 Sat (Calc) VBG Base Excess VBG Potassium Sodium Chloride Glucose Lactate FiO2 Potassium Carbon Dioxide Anion Gap BUN Creatinine Est GFR ( Amer) Est GFR (Non-Af Amer) POC Glucose (mg/dL) 139 H Random Glucose Calcium Phosphorus Magnesium Total Bilirubin AST ALT Alkaline Phosphatase Ammonia Troponin I Total Protein Albumin Globulin Albumin/Globulin Ratio Total T3 1.04 Arterial Blood Potassium Venous Blood Potassium Valproic Acid 07/16/17 07/16/17 07/16/17 15:45 15:58 21:44 WBC RBC Hgb Hct MCV MCH MCHC RDW Plt Count MPV Gran % Lymph % (Auto) [place] % (Auto) Eos % (Auto) Baso % (Auto) Gran # Lymph # (Auto) [place] # (Auto) Eos # (Auto) Baso # (Auto) PT INR Plt P2Y12 React Units pCO2 pO2 32 HCO3 ABG pH ABG Total CO2 ABG O2 Saturation ABG Base Excess ABG Potassium VBG pH 7.49 H VBG pCO2 36.0 L VBG HCO3 27.4 VBG Total CO2 28.5 H VBG O2 Sat (Calc) 73.7 H VBG Base Excess 4.1 H VBG Potassium 2.7 L Sodium 134.0 Chloride 94.0 L Glucose 192 H Lactate 1.7 FiO2 21.0 Potassium Carbon Dioxide Anion Gap BUN Creatinine Est GFR ( Amer) Est GFR (Non-Af Amer) POC Glucose (mg/dL) 176 H 181 H Random Glucose Calcium Phosphorus Magnesium Total Bilirubin AST ALT Alkaline Phosphatase Ammonia Troponin I Total Protein Albumin Globulin Albumin/Globulin Ratio Total T3 Arterial Blood Potassium Venous Blood Potassium 2.7 L Valproic Acid 07/16/17 07/16/17 07/17/17 22:21 22:21 06:15 WBC 17.7 H RBC 4.66 Hgb 12.0 Hct 35.6 L MCV 76.4 L MCH 25.8 MCHC 33.7 RDW 14.8 H Plt Count 262 MPV 10.1 Gran % 80.0 H Lymph % (Auto) 14.9 L [place] % (Auto) 4.9 Eos % (Auto) 0.1 L Baso % (Auto) 0.1 Gran # 14.18 H Lymph # (Auto) 2.6 [place] # (Auto) 0.9 H Eos # (Auto) 0.0 Baso # (Auto) 0.02 PT INR Plt P2Y12 React Units pCO2 pO2 30 HCO3 ABG pH ABG Total CO2 ABG O2 Saturation ABG Base Excess ABG Potassium VBG pH 7.40 VBG pCO2 44.0 VBG HCO3 27.3 VBG Total CO2 28.7 H VBG O2 Sat (Calc) 60.2 VBG Base Excess 2.0 VBG Potassium 3.8 Sodium 130.0 L 130 L Chloride 94.0 L 92 L Glucose 184 H Lactate 3.1 H FiO2 21.0 Potassium 4.1 Carbon Dioxide 25 Anion Gap 17 BUN 12 Creatinine 0.6 L Est GFR ( Amer) > 60 Est GFR (Non-Af Amer) > 60 POC Glucose (mg/dL) Random Glucose 184 H Calcium 9.5 Phosphorus 3.1 Magnesium 1.1 L Total Bilirubin 1.5 H AST 26 ALT 18 Alkaline Phosphatase 68 Ammonia Troponin I Total Protein 7.7 Albumin 4.2 Globulin 3.6 Albumin/Globulin Ratio 1.2 Total T3 Arterial Blood Potassium Venous Blood Potassium 3.8 Valproic Acid 07/17/17 07/17/17 07/17/17 06:15 06:15 06:30 WBC RBC Hgb Hct MCV MCH MCHC RDW Plt Count MPV Gran % Lymph % (Auto) [place] % (Auto) Eos % (Auto) Baso % (Auto) Gran # Lymph # (Auto) [place] # (Auto) Eos # (Auto) Baso # (Auto) PT INR Plt P2Y12 React Units pCO2 pO2 HCO3 ABG pH ABG Total CO2 ABG O2 Saturation ABG Base Excess ABG Potassium VBG pH VBG pCO2 VBG HCO3 VBG Total CO2 VBG O2 Sat (Calc) VBG Base Excess VBG Potassium Sodium 132 Chloride 88 L Glucose Lactate FiO2 Potassium 3.9 Carbon Dioxide 24 Anion Gap 23 H BUN 12 Creatinine 0.6 L Est GFR ( Amer) > 60 Est GFR (Non-Af Amer) > 60 POC Glucose (mg/dL) Random Glucose 198 H Calcium 9.5 Phosphorus Magnesium 1.7 Total Bilirubin 1.6 H AST 28 ALT 24 Alkaline Phosphatase 75 Ammonia Troponin I < 0.01 Total Protein 8.2 Albumin 4.5 Globulin 3.8 Albumin/Globulin Ratio 1.2 Total T3 Arterial Blood Potassium Venous Blood Potassium Valproic Acid 102 H* 07/17/17 07/17/17 07/17/17 08:30 09:00 10:15 WBC RBC Hgb Hct MCV MCH MCHC RDW Plt Count MPV Gran % Lymph % (Auto) [place] % (Auto) Eos % (Auto) Baso % (Auto) Gran # Lymph # (Auto) [place] # (Auto) Eos # (Auto) Baso # (Auto) PT 13.5 H INR 1.17 H Plt P2Y12 React Units pCO2 30 L pO2 90.0 35 HCO3 24.5 ABG pH 7.52 H ABG Total CO2 25.4 ABG O2 Saturation 99.1 H ABG Base Excess 2.4 ABG Potassium 2.7 L VBG pH 7.41 VBG pCO2 43.0 VBG HCO3 27.3 VBG Total CO2 28.6 H VBG O2 Sat (Calc) 71.2 H VBG Base Excess 2.2 H VBG Potassium 3.5 L Sodium 129.0 L 129.0 L Chloride 93.0 L 92.0 L Glucose 222 H 203 H Lactate 1.5 3.0 H FiO2 21.0 21.0 Potassium Carbon Dioxide Anion Gap BUN Creatinine Est GFR ( Amer) Est GFR (Non-Af Amer) POC Glucose (mg/dL) Random Glucose Calcium Phosphorus Magnesium Total Bilirubin AST ALT Alkaline Phosphatase Ammonia Troponin I Total Protein Albumin Globulin Albumin/Globulin Ratio Total T3 Arterial Blood Potassium 2.7 L Venous Blood Potassium 3.5 L Valproic Acid 07/17/17 07/17/17 10:15 12:55 WBC RBC Hgb Hct MCV MCH MCHC RDW Plt Count MPV Gran % Lymph % (Auto) [place] % (Auto) Eos % (Auto) Baso % (Auto) Gran # Lymph # (Auto) [place] # (Auto) Eos # (Auto) Baso # (Auto) PT INR Plt P2Y12 React Units pCO2 pO2 HCO3 ABG pH ABG Total CO2 ABG O2 Saturation ABG Base Excess ABG Potassium VBG pH VBG pCO2 VBG HCO3 VBG Total CO2 VBG O2 Sat (Calc) VBG Base Excess VBG Potassium Sodium Chloride Glucose Lactate FiO2 Potassium Carbon Dioxide Anion Gap BUN Creatinine Est GFR ( Amer) Est GFR (Non-Af Amer) POC Glucose (mg/dL) 152 H Random Glucose Calcium Phosphorus Magnesium Total Bilirubin AST ALT Alkaline Phosphatase Ammonia < 9 L Troponin I Total Protein Albumin Globulin Albumin/Globulin Ratio Total T3 Arterial Blood Potassium Venous Blood Potassium Valproic Acid Attending/Attestation - Attestation I have personally seen and examined this patient.: Yes I have fully participated in the care of the patient.: Yes I have reviewed all pertinent clinical information: Yes Notes (Text): 07/17/17 13:43 66 yo female with stable b/l SDH and fluctuating mental status. Possibility of competing etiology for AMS was aggressively looked into, including aggressive treatment of fever (cooling blankets, IV tylenol, ice packs), empiric treatment of potential infection in light of leukocytosis and fever, even though no clear source present (abx, septic workup, CTAP (neg), ID consult), ruling out hyperammonemia, acute coronary ischemia and c02 retention, supplementing electrolites and fluids and avoiding hypoxemia and hypoglycemia. Thus, neurosurgical intervention (SDH evacuation) was offered to patient's son in my presence by Dr. Last. He verbalized understanding of procedure aspects and of risks related to foregoing procedure at present time and had opportunity to ask questions, which were answered. He however declined consent to proceed with neurosurgical intervention. Presently patient is hemodynamically relatively stable and able to protect her airways. VS relatively stable and patient is comfortable. Discussed all above with Dr. Stevens and primary hospitalist -->ok to downgrade to tele. ccm time 40 min
[2017-07-17] MEDS ORDERED: Phytonadione 10 MG in Sodium Chloride 0.9% 50 ML IV ONE (07:58)
[2017-07-17 08:41] LABS: ARTERIAL BLOOD GAS HCO3 24.5 mmol/L (21-28); ARTERIAL BLOOD GAS O2 SAT 99.1 % (95-98); ARTERIAL BLOOD GAS PCO2 30 mm/Hg (35-45); ARTERIAL BLOOD GAS PH 7.52 (7.35-7.45); ARTERIAL BLOOD GAS TCO2 25.4 mmol.L (22-28)
[2017-07-17 09:18] LABS: INR 1.17 (0.93-1.08); PROTHROMBIN TIME 13.5 SECONDS (9.4-12.5)
--- NOTE | 2017-07-17 09:19 | CT ---
PROCEDURE: CT HEAD WITHOUT CONTRAST. HISTORY: follow up sdh COMPARISON: CT 07/16/2017 TECHNIQUE: Axial computed tomography images were obtained through the head/brain without intravenous contrast. Radiation dose: Total exam DLP = mGy-cm. This CT exam was performed using one or more of the following dose reduction techniques: Automated exposure control, adjustment of the mA and/or kV according to patient size, and/or use of iterative reconstruction technique. FINDINGS: HEMORRHAGE: The subdural hematomas are stable in appearance. The larger left-sided subdural has a maximum thickness of 6 mm as seen on coronal imaging. BRAIN: No mass effect or edema. Severe chronic microvascular changes are seen in the periventricular white matter VENTRICLES: Unremarkable. No hydrocephalus. CALVARIUM: Unremarkable. PARANASAL SINUSES: Unremarkable as visualized. No significant inflammatory changes. MASTOID AIR CELLS: Unremarkable as visualized. No inflammatory changes. OTHER FINDINGS: None. IMPRESSION: Stable appearance of subdural hematomas. No acute intraparenchymal findings.
--- NOTE | 2017-07-17 09:19 | CT ---
PROCEDURE: CT Abdomen and Pelvis without intravenous contrast HISTORY: sepsis of unclear origin COMPARISON: 07/07/2013 CT TECHNIQUE: Without contrast. Contrast Dose: Radiation dose: Total exam DLP = Total exam DLP = 768 mGy-cm. This CT exam was performed using one or more of the following dose reduction techniques: Automated exposure control, adjustment of the mA and/or kV according to patient size, and/or use of iterative reconstruction technique. FINDINGS: LOWER THORAX: Unremarkable. LIVER: Unremarkable. No gross lesion or ductal dilatation. GALLBLADDER AND BILE DUCTS: Unremarkable. PANCREAS: Unremarkable. No gross lesion or ductal dilatation. SPLEEN: Unremarkable. ADRENALS: Unremarkable. No mass. KIDNEYS AND URETERS: Unremarkable. No hydronephrosis. No solid mass. VASCULATURE: Unremarkable. No aortic aneurysm. BOWEL: Unremarkable. No obstruction. No gross mural thickening. APPENDIX: Unremarkable. Normal appendix. PERITONEUM: Unremarkable. No free fluid. No free air. LYMPH NODES: Unremarkable. No enlarged lymph nodes. BLADDER: Unremarkable. REPRODUCTIVE: Unremarkable. BONES: No acute fracture. OTHER FINDINGS: None. IMPRESSION: No acute findings
[2017-07-17] MEDS ORDERED: Phytonadione 10 mg/ml Inj (Adult) ONE (09:30)
[2017-07-17] MEDS ORDERED: Absorbable Gelatin Sponge Size 100 ONE (09:41)
[2017-07-17] MEDS ORDERED: Thrombin Topical 20,000 Intl Units Spray Kit TOP ONE (09:41)
[2017-07-17] MEDS ORDERED: Liquid Adhesive TOP ONE (09:41)
[2017-07-17] MEDS ORDERED: Lidocaine 1% w Epi 1:100,000 Inj ONE (09:41)
[2017-07-17] MEDS ORDERED: Bacitracin Ointment 30 GM TUBE ONE (09:41)
[2017-07-17] MEDS: Insulin Lispro (humaLOG) LOW Coverage SC SCH ×2 (09:50→22:00)
--- NOTE | 2017-07-17 10:16 | CP.PCM.CON ---
History of Present Illness - History of Present Illness History of Present Illness: 66 year old female with PMH of HTN, DM, history of CVA, dementia, hypothyroidism , history of urinary incontinence was initially brought in to [facility] [place] because of incoherence, weakness. She was then found to have subdural hematomas and patient has been in the ICU for closer observation to see if the patient will need surgery. She continues to have lethargy currently. Her labs show persistent leukocytosis but no note of fever. There is also no note of vomiting , no diarrhea, so far no convulsions. CXR and CT scan of the abdomen have so far not revealed sources of infection. Infectious diseases consult is requested to further evaluate and manage. Review of Systems - Review of Systems Systems not reviewed;Unavailable: Altered Mental Status Past Patient History - Infectious Disease Hx of Infectious Diseases: None - Tetanus Immunizations Tetanus Immunization: Unknown - Past Medical History & Family History Past Medical History?: Yes - Past Social History Alcohol: None - CARDIAC Hx Hypertension: Yes - PULMONARY Hx Chronic Obstructive Pulmonary Disease (COPD): No Hx Pneumonia: No - NEUROLOGICAL HX Cerebrovascular Accident: Yes Hx Dementia: Yes - HEENT Hx HEENT Problems: No - RENAL Hx Renal Failure: No - ENDOCRINE/METABOLIC Hx Diabetes Mellitus Type 2: Yes - HEMATOLOGICAL/ONCOLOGICAL Hx Cancer: No - INTEGUMENTARY Hx Dermatological Problems: No - MUSCULOSKELETAL/RHEUMATOLOGICAL Hx Falls: No - GASTROINTESTINAL Hx Gastroesophageal Reflux: No - GENITOURINARY/GYNECOLOGICAL Hx Genitourinary Disorders: No - PSYCHIATRIC Hx Psychophysiologic Disorder: No Hx Substance Use: No - SURGICAL HISTORY Hx Thyroidectomy: Yes - ANESTHESIA Hx Anesthesia: Yes Hx Anesthesia Reactions: No Hx Malignant Hyperthermia: No Meds Allergies/Adverse Reactions: Allergies Allergy/AdvReac Type Severity Reaction Status Date / Time Bar of Soap AdvReac RASH Uncoded 07/15/17 17:35 - Medications Medications: Current Medications Hydralazine HCl (Apresoline) 10 mg IVP Q6 PRN PRN Reason: Systolic Blood Pressure Last Admin: 07/16/17 17:26 Dose: 10 mg Hydralazine HCl (Apresoline) 20 mg IVP Q6 PRN PRN Reason: Systolic Blood Pressure Sodium Chloride (Sodium Chloride 0.45%) 1,000 mls @ 75 mls/hr IV .[id number] [facility] Last Admin: 07/16/17 15:23 Dose: 75 mls/hr Valproate Sodium 500 mg/ (Sodium Chloride) 105 mls @ 100 mls/hr IVPB Q12 [facility] Last Admin: 07/16/17 21:00 Dose: 100 mls/hr Acetaminophen (Ofirmev) 1,000 mg in 100 mls @ 400 mls/hr IVPB Q6H PRN PRN Reason: Temperature > 100.4 Stop: 07/18/17 15:13 Last Admin: 07/17/17 03:42 Dose: 400 mls/hr Cefepime HCl (Maxipime 1gm) 1 gm in 100 mls @ 100 mls/hr IVPB Q8 [facility] PRN Reason: Protocol Last Admin: 07/17/17 05:07 Dose: 100 mls/hr Vancomycin HCl (Vancomycin 1gm) 1 gm in 250 mls @ 167 mls/hr IVPB Q12H [facility] PRN Reason: Protocol Last Admin: 07/17/17 02:58 Dose: 167 mls/hr Sodium Chloride (Hypertonic Saline 3%) 500 mls @ 30 mls/hr IV .[id number] [facility] Last Admin: 07/17/17 07:37 Dose: 30 mls/hr Insulin Human Lispro (Humalog Low) 0 units SC ACHS [facility] PRN Reason: Protocol Last Admin: 07/16/17 21:46 Dose: Not Given Ondansetron HCl (Zofran Inj) 4 mg IVP Q6 PRN PRN Reason: Nausea/Vomiting Last Admin: 07/16/17 00:26 Dose: 4 mg Pantoprazole Sodium (Protonix Inj) 40 mg IVP DAILY [facility] Last Admin: 07/16/17 09:31 Dose: 40 mg Physical Exam - Constitutional Appears: Chronically Ill, Other (lethargic) - Neck Exam Neck exam: Negative for: Lymphadenopathy, Meningismus - Respiratory Exam Respiratory Exam: Decreased Breath Sounds. absent: Rales - Cardiovascular Exam Cardiovascular Exam: +S1, +S2 - GI/Abdominal Exam GI & Abdominal Exam: Soft. absent: Tenderness Results - Vital Signs Recent Vital Signs: Last Vital Signs Temp 98.8 F 07/17/17 04:00 Pulse 107 H 07/17/17 06:21 Resp 16 07/17/17 06:21 BP 140/79 07/17/17 06:21 Pulse Ox 98 07/17/17 06:21 - Labs Result Diagrams: 07/17/17 06:15 07/17/17 06:15 Labs: Laboratory Results - last 24 hr 07/16/17 07/16/17 07/16/17 05:00 09:45 11:31 WBC RBC Hgb Hct MCV MCH MCHC RDW Plt Count MPV Gran % Lymph % (Auto) [place] % (Auto) Eos % (Auto) Baso % (Auto) Gran # Lymph # (Auto) [place] # (Auto) Eos # (Auto) Baso # (Auto) PT 13.9 H INR 1.20 H Plt P2Y12 React Units pCO2 pO2 HCO3 ABG pH ABG Total CO2 ABG O2 Saturation ABG Base Excess ABG Potassium VBG pH VBG pCO2 VBG HCO3 VBG Total CO2 VBG O2 Sat (Calc) VBG Base Excess VBG Potassium Sodium Chloride Glucose Lactate FiO2 Potassium Carbon Dioxide Anion Gap BUN Creatinine Est GFR ( Amer) Est GFR (Non-Af Amer) POC Glucose (mg/dL) 139 H Random Glucose Calcium Phosphorus Magnesium Total Bilirubin AST ALT Alkaline Phosphatase Total Protein Albumin Globulin Albumin/Globulin Ratio Total T3 1.04 Arterial Blood Potassium Venous Blood Potassium Valproic Acid 07/16/17 07/16/17 07/16/17 11:59 15:45 15:45 WBC RBC Hgb Hct MCV MCH MCHC RDW Plt Count MPV Gran % Lymph % (Auto) [place] % (Auto) Eos % (Auto) Baso % (Auto) Gran # Lymph # (Auto) [place] # (Auto) Eos # (Auto) Baso # (Auto) PT INR Plt P2Y12 React Units 290 pCO2 29 L pO2 76.0 L 32 HCO3 24.2 ABG pH 7.53 H ABG Total CO2 25.1 ABG O2 Saturation 98.1 H ABG Base Excess 2.4 ABG Potassium 3.0 L VBG pH 7.49 H VBG pCO2 36.0 L VBG HCO3 27.4 VBG Total CO2 28.5 H VBG O2 Sat (Calc) 73.7 H VBG Base Excess 4.1 H VBG Potassium 2.7 L Sodium 134.0 134.0 Chloride 98.0 94.0 L Glucose 160 H 192 H Lactate 3.2 H 1.7 FiO2 21.0 21.0 Potassium Carbon Dioxide Anion Gap BUN Creatinine Est GFR ( Amer) Est GFR (Non-Af Amer) POC Glucose (mg/dL) Random Glucose Calcium Phosphorus Magnesium Total Bilirubin AST ALT Alkaline Phosphatase Total Protein Albumin Globulin Albumin/Globulin Ratio Total T3 Arterial Blood Potassium 3.0 L Venous Blood Potassium 2.7 L Valproic Acid 07/16/17 07/16/17 07/16/17 15:58 21:44 22:21 WBC RBC Hgb Hct MCV MCH MCHC RDW Plt Count MPV Gran % Lymph % (Auto) [place] % (Auto) Eos % (Auto) Baso % (Auto) Gran # Lymph # (Auto) [place] # (Auto) Eos # (Auto) Baso # (Auto) PT INR Plt P2Y12 React Units pCO2 pO2 30 HCO3 ABG pH ABG Total CO2 ABG O2 Saturation ABG Base Excess ABG Potassium VBG pH 7.40 VBG pCO2 44.0 VBG HCO3 27.3 VBG Total CO2 28.7 H VBG O2 Sat (Calc) 60.2 VBG Base Excess 2.0 VBG Potassium 3.8 Sodium 130.0 L Chloride 94.0 L Glucose 184 H Lactate 3.1 H FiO2 21.0 Potassium Carbon Dioxide Anion Gap BUN Creatinine Est GFR ( Amer) Est GFR (Non-Af Amer) POC Glucose (mg/dL) 176 H 181 H Random Glucose Calcium Phosphorus Magnesium Total Bilirubin AST ALT Alkaline Phosphatase Total Protein Albumin Globulin Albumin/Globulin Ratio Total T3 Arterial Blood Potassium Venous Blood Potassium 3.8 Valproic Acid 07/16/17 07/17/17 07/17/17 22:21 06:15 06:15 WBC 17.7 H RBC 4.66 Hgb 12.0 Hct 35.6 L MCV 76.4 L MCH 25.8 MCHC 33.7 RDW 14.8 H Plt Count 262 MPV 10.1 Gran % 80.0 H Lymph % (Auto) 14.9 L [place] % (Auto) 4.9 Eos % (Auto) 0.1 L Baso % (Auto) 0.1 Gran # 14.18 H Lymph # (Auto) 2.6 [place] # (Auto) 0.9 H Eos # (Auto) 0.0 Baso # (Auto) 0.02 PT INR Plt P2Y12 React Units pCO2 pO2 HCO3 ABG pH ABG Total CO2 ABG O2 Saturation ABG Base Excess ABG Potassium VBG pH VBG pCO2 VBG HCO3 VBG Total CO2 VBG O2 Sat (Calc) VBG Base Excess VBG Potassium Sodium 130 L 132 Chloride 92 L 88 L Glucose Lactate FiO2 Potassium 4.1 3.9 Carbon Dioxide 25 24 Anion Gap 17 23 H BUN 12 12 Creatinine 0.6 L 0.6 L Est GFR ( Amer) > 60 > 60 Est GFR (Non-Af Amer) > 60 > 60 POC Glucose (mg/dL) Random Glucose 184 H 198 H Calcium 9.5 9.5 Phosphorus 3.1 Magnesium 1.1 L 1.7 Total Bilirubin 1.5 H 1.6 H AST 26 28 ALT 18 24 Alkaline Phosphatase 68 75 Total Protein 7.7 8.2 Albumin 4.2 4.5 Globulin 3.6 3.8 Albumin/Globulin Ratio 1.2 1.2 Total T3 Arterial Blood Potassium Venous Blood Potassium Valproic Acid 07/17/17 06:15 WBC RBC Hgb Hct MCV MCH MCHC RDW Plt Count MPV Gran % Lymph % (Auto) [place] % (Auto) Eos % (Auto) Baso % (Auto) Gran # Lymph # (Auto) [place] # (Auto) Eos # (Auto) Baso # (Auto) PT INR Plt P2Y12 React Units pCO2 pO2 HCO3 ABG pH ABG Total CO2 ABG O2 Saturation ABG Base Excess ABG Potassium VBG pH VBG pCO2 VBG HCO3 VBG Total CO2 VBG O2 Sat (Calc) VBG Base Excess VBG Potassium Sodium Chloride Glucose Lactate FiO2 Potassium Carbon Dioxide Anion Gap BUN Creatinine Est GFR ( Amer) Est GFR (Non-Af Amer) POC Glucose (mg/dL) Random Glucose Calcium Phosphorus Magnesium Total Bilirubin AST ALT Alkaline Phosphatase Total Protein Albumin Globulin Albumin/Globulin Ratio Total T3 Arterial Blood Potassium Venous Blood Potassium Valproic Acid 102 H* Assessment & Plan - Assessment and Plan (Free Text) Plan: Assessment systemic inflammatory response syndrome, probably from subdural hematomas, R/O sepsis but so far no source has been identified HTN DM history of CVA dementia hypothyroidism history of urinary incontinence Plan Patient has been started by the ICU team on Vancomycin and Cefepime and we are repeating blood cx and checking PCT; reviewed CXR which does not show infiltrates; reviewed CT A/P which shows no acute findings will monitor clinically Neurosurg. monitoring patient to see if she may need surgery
[2017-07-17 10:24] LABS: VENOUS BLOOD GAS BASE EXCESS 2.2 mmol/L (0.0-2.0); VENOUS BLOOD GAS PO2 35 mm/Hg (30-55); VENOUS BLOOD PH 7.41 (7.32-7.43)
--- NOTE | 2017-07-17 11:12 | CP.PCM.PN ---
Subjective - Date & Time of Evaluation Date of Evaluation: 07/17/17 Time of Evaluation: 11:09 - Subjective Subjective: Ms. Sahni was seen and examined at the bedside in ICU. She opens her eyes spontaneously but remains non-verbal. She is able to comprehend commands with attempts to follow. There is a very minimal movement in all extremities, moans instead of opening her mouth. Her pupils remains brisk to response to light accommodation. Currently, she is receiving hypertonic solution. She has an episode of febrile with t-max-101. Tylenol was given. CT scan of the head showed stable appearance of subdural hematomas. There is no acute intraparenchymal findings. Objective - Vital Signs/Intake and Output Vital Signs (last 24 hours): Temp Pulse Resp BP Pulse Ox 98.8 F 107 H 16 140/79 98 07/17/17 04:00 07/17/17 06:21 07/17/17 06:21 07/17/17 06:21 07/17/17 06:21 Intake and Output: 07/17/17 07/17/17 06:59 18:59 Intake Total 2150 Output Total 700 Balance 1450 - Medications Medications: Current Medications Hydralazine HCl (Apresoline) 10 mg IVP Q6 PRN PRN Reason: Systolic Blood Pressure Last Admin: 07/16/17 17:26 Dose: 10 mg Hydralazine HCl (Apresoline) 20 mg IVP Q6 PRN PRN Reason: Systolic Blood Pressure Sodium Chloride (Sodium Chloride 0.45%) 1,000 mls @ 75 mls/hr IV .[id number] [facility] Last Admin: 07/16/17 15:23 Dose: 75 mls/hr Valproate Sodium 500 mg/ (Sodium Chloride) 105 mls @ 100 mls/hr IVPB Q12 [facility] Last Admin: 07/16/17 21:00 Dose: 100 mls/hr Acetaminophen (Ofirmev) 1,000 mg in 100 mls @ 400 mls/hr IVPB Q6H PRN PRN Reason: Temperature > 100.4 Stop: 07/18/17 15:13 Last Admin: 07/17/17 03:42 Dose: 400 mls/hr Cefepime HCl (Maxipime 1gm) 1 gm in 100 mls @ 100 mls/hr IVPB Q8 [facility] PRN Reason: Protocol Last Admin: 07/17/17 05:07 Dose: 100 mls/hr Vancomycin HCl (Vancomycin 1gm) 1 gm in 250 mls @ 167 mls/hr IVPB Q12H [facility] PRN Reason: Protocol Last Admin: 07/17/17 02:58 Dose: 167 mls/hr Sodium Chloride (Hypertonic Saline 3%) 500 mls @ 30 mls/hr IV .[id number] [facility] Last Admin: 07/17/17 07:37 Dose: 30 mls/hr Potassium Chloride (Potassium Chloride 10 Meq/100 Ml) 10 meq in 100 mls @ 50 mls/hr IVPB ONCE ONE Stop: 07/17/17 11:21 Insulin Human Lispro (Humalog Low) 0 units SC Q6H [facility] PRN Reason: Protocol Ondansetron HCl (Zofran Inj) 4 mg IVP Q6 PRN PRN Reason: Nausea/Vomiting Last Admin: 07/16/17 00:26 Dose: 4 mg Pantoprazole Sodium (Protonix Inj) 40 mg IVP DAILY [facility] Last Admin: 07/16/17 09:31 Dose: 40 mg - Labs Labs: 07/17/17 06:15 07/17/17 06:15 PT 13.5 SECONDS (9.4-12.5) H 07/17/17 09:00 INR 1.17 (0.93-1.08) H 07/17/17 09:00 APTT 30.9 Seconds (25.1-36.5) 07/15/17 18:08 - Constitutional Appears: No Acute Distress - Head Exam Head Exam: NORMAL INSPECTION - Neurological Exam Neurological Exam: Awake Neuro motor strength exam: Left Upper Extremity: 2/1, Right Upper Extremity: 2/1 , Left Lower Extremity: 2/1, Right Lower Extremity: 2/1 Additional comments: Neurological improved from previous examination. She is able to spontaneously open her eyes, attempts to follow commands. Assessment and Plan (1) Subdural hematoma Assessment & Plan: Case discussed with Dr. Stevens, continue all current medical regimen. Recommend daily Ct scan of the head to monitor subdural hematoma, daily serum osmolality due to her therapy of hypertonic solution. Recommend normotensive, normothermic , and glycemic control. If the patient is unable to tolerate Po intake, recommend NGT placement for feeding and medication administration. Status: Acute
--- NOTE | 2017-07-17 11:14 | CP.PCM.PN ---
Subjective - Date & Time of Evaluation Date of Evaluation: 07/17/17 Time of Evaluation: 11:09 - Subjective Subjective: Pt about sameclinically when stimulated will remain awake not following commands or talking moving all spont with good st CT today unchanged Discussed case with pt's son in presence of Dr Evelyn Vang of her exam and her CT findings It is both Dr Rivas'sand my opinion that we should do a craniotomy at this time It should be noted that it was determined that the Plavix is no longer in her system The sonwas emphatic that they did not want surgery I explained him again that waiting would not be benifical if her sx were caused byt the SDH and if she declined in her conditionfurther and the CT does not change then it would be unlikey that craniotomy would be helpful at that time He indicated that he understood Unless reconsulted I will sign off for now, pleaesw reconsult as needed Objective - Vital Signs/Intake and Output Vital Signs (last 24 hours): Temp Pulse Resp BP Pulse Ox 98.8 F 107 H 16 140/79 98 07/17/17 04:00 07/17/17 06:21 07/17/17 06:21 07/17/17 06:21 07/17/17 06:21 Intake and Output: 07/17/17 07/17/17 06:59 18:59 Intake Total 2150 Output Total 700 Balance 1450 - Medications Medications: Current Medications Hydralazine HCl (Apresoline) 10 mg IVP Q6 PRN PRN Reason: Systolic Blood Pressure Last Admin: 07/16/17 17:26 Dose: 10 mg Hydralazine HCl (Apresoline) 20 mg IVP Q6 PRN PRN Reason: Systolic Blood Pressure Sodium Chloride (Sodium Chloride 0.45%) 1,000 mls @ 75 mls/hr IV .[id number] [facility] Last Admin: 07/16/17 15:23 Dose: 75 mls/hr Valproate Sodium 500 mg/ (Sodium Chloride) 105 mls @ 100 mls/hr IVPB Q12 [facility] Last Admin: 07/16/17 21:00 Dose: 100 mls/hr Acetaminophen (Ofirmev) 1,000 mg in 100 mls @ 400 mls/hr IVPB Q6H PRN PRN Reason: Temperature > 100.4 Stop: 07/18/17 15:13 Last Admin: 07/17/17 03:42 Dose: 400 mls/hr Cefepime HCl (Maxipime 1gm) 1 gm in 100 mls @ 100 mls/hr IVPB Q8 [facility] PRN Reason: Protocol Last Admin: 07/17/17 05:07 Dose: 100 mls/hr Vancomycin HCl (Vancomycin 1gm) 1 gm in 250 mls @ 167 mls/hr IVPB Q12H [facility] PRN Reason: Protocol Last Admin: 07/17/17 02:58 Dose: 167 mls/hr Sodium Chloride (Hypertonic Saline 3%) 500 mls @ 30 mls/hr IV .[id number] [facility] Last Admin: 07/17/17 07:37 Dose: 30 mls/hr Potassium Chloride (Potassium Chloride 10 Meq/100 Ml) 10 meq in 100 mls @ 50 mls/hr IVPB ONCE ONE Stop: 07/17/17 11:21 Insulin Human Lispro (Humalog Low) 0 units SC Q6H [facility] PRN Reason: Protocol Ondansetron HCl (Zofran Inj) 4 mg IVP Q6 PRN PRN Reason: Nausea/Vomiting Last Admin: 07/16/17 00:26 Dose: 4 mg Pantoprazole Sodium (Protonix Inj) 40 mg IVP DAILY [facility] Last Admin: 07/16/17 09:31 Dose: 40 mg - Labs Labs: 07/17/17 06:15 07/17/17 06:15 PT 13.5 SECONDS (9.4-12.5) H 07/17/17 09:00 INR 1.17 (0.93-1.08) H 07/17/17 09:00 APTT 30.9 Seconds (25.1-36.5) 07/15/17 18:08
--- NOTE | 2017-07-17 12:03 | CP.PCM.CON ---
History of Present Illness - History of Present Illness History of Present Illness: Palliative consult requested by Dr Conchita Fox Reason: Goals of care and advance care planning 66 year old female with history of advanced dementia, CVA, TIA's and DM who presented with acute onset of altered mental status and lethargy. She was unable to speak or follow command. She also had a right side facial weakness. There was no fever, chills, nausea or vomiting reported. Labs: leukocytosis, hyponatremia,hyperglycemia, urine and hammond cultures negative. CT of head showed bilateral subdural hematoma's L> R, no midline shift. Chest x ray negative . PMHx: DM, HTN, CVA, TIA's, advanced dementia, hypothyroidism, left distal ulna fracture, incontinence Social History: Non smoker, no alcohol or drug use. , lives with her son. Family History: Non contributory Advance Care Planning: The patient does not have an Advanced Directive. Review of Systems: As per HPI, patient has aphasia, altered mental status unable to obtain complete review Past Patient History - Infectious Disease Hx of Infectious Diseases: None - Tetanus Immunizations Tetanus Immunization: Unknown - Past Medical History & Family History Past Medical History?: Yes - Past Social History Alcohol: None - CARDIAC Hx Hypertension: Yes - PULMONARY Hx Chronic Obstructive Pulmonary Disease (COPD): No Hx Pneumonia: No - NEUROLOGICAL HX Cerebrovascular Accident: Yes Hx Dementia: Yes - HEENT Hx HEENT Problems: No - RENAL Hx Renal Failure: No - ENDOCRINE/METABOLIC Hx Diabetes Mellitus Type 2: Yes - HEMATOLOGICAL/ONCOLOGICAL Hx Cancer: No - INTEGUMENTARY Hx Dermatological Problems: No - MUSCULOSKELETAL/RHEUMATOLOGICAL Hx Falls: No - GASTROINTESTINAL Hx Gastroesophageal Reflux: No - GENITOURINARY/GYNECOLOGICAL Hx Genitourinary Disorders: No - PSYCHIATRIC Hx Psychophysiologic Disorder: No Hx Substance Use: No - SURGICAL HISTORY Hx Thyroidectomy: Yes - ANESTHESIA Hx Anesthesia: Yes Hx Anesthesia Reactions: No Hx Malignant Hyperthermia: No Meds Allergies/Adverse Reactions: Allergies Allergy/AdvReac Type Severity Reaction Status Date / Time Bar of Soap AdvReac RASH Uncoded 07/15/17 17:35 - Medications Medications: Current Medications Hydralazine HCl (Apresoline) 10 mg IVP Q6 PRN PRN Reason: Systolic Blood Pressure Last Admin: 07/16/17 17:26 Dose: 10 mg Hydralazine HCl (Apresoline) 20 mg IVP Q6 PRN PRN Reason: Systolic Blood Pressure Sodium Chloride (Sodium Chloride 0.45%) 1,000 mls @ 75 mls/hr IV .[id number] [facility] Last Admin: 07/16/17 15:23 Dose: 75 mls/hr Valproate Sodium 500 mg/ (Sodium Chloride) 105 mls @ 100 mls/hr IVPB Q12 [facility] Last Admin: 07/16/17 21:00 Dose: 100 mls/hr Acetaminophen (Ofirmev) 1,000 mg in 100 mls @ 400 mls/hr IVPB Q6H PRN PRN Reason: Temperature > 100.4 Stop: 07/18/17 15:13 Last Admin: 07/17/17 03:42 Dose: 400 mls/hr Cefepime HCl (Maxipime 1gm) 1 gm in 100 mls @ 100 mls/hr IVPB Q8 [facility] PRN Reason: Protocol Last Admin: 07/17/17 05:07 Dose: 100 mls/hr Vancomycin HCl (Vancomycin 1gm) 1 gm in 250 mls @ 167 mls/hr IVPB Q12H [facility] PRN Reason: Protocol Last Admin: 07/17/17 02:58 Dose: 167 mls/hr Sodium Chloride (Hypertonic Saline 3%) 500 mls @ 30 mls/hr IV .[id number] [facility] Last Admin: 07/17/17 07:37 Dose: 30 mls/hr Insulin Human Lispro (Humalog Low) 0 units SC Q6H [facility] PRN Reason: Protocol Ondansetron HCl (Zofran Inj) 4 mg IVP Q6 PRN PRN Reason: Nausea/Vomiting Last Admin: 07/16/17 00:26 Dose: 4 mg Pantoprazole Sodium (Protonix Inj) 40 mg IVP DAILY [facility] Last Admin: 07/16/17 09:31 Dose: 40 mg Physical Exam - Constitutional Appears: Chronically Ill - Eye Exam Eye Exam: Normal appearance, PERRL - ENT Exam ENT Exam: Mucous Membranes Moist - Neck Exam Neck exam: Positive for: Normal Inspection - Respiratory Exam Respiratory Exam: Decreased Breath Sounds, NORMAL BREATHING PATTERN - Cardiovascular Exam Cardiovascular Exam: REGULAR RHYTHM, +S1, +S2 - GI/Abdominal Exam GI & Abdominal Exam: Normal Bowel Sounds, Soft - Extremities Exam Extremities exam: Positive for: pedal pulses present Additional comments: left arm dressing intact - Back Exam Back exam: NORMAL INSPECTION - Neurological Exam Neurological exam: Altered - Skin Skin Exam: Dry, Warm Results - Vital Signs Recent Vital Signs: Last Vital Signs Temp 98.8 F 07/17/17 04:00 Pulse 107 H 07/17/17 06:21 Resp 16 07/17/17 06:21 BP 140/79 07/17/17 06:21 Pulse Ox 98 07/17/17 06:21 - Labs Result Diagrams: 07/17/17 06:15 07/17/17 06:15 Labs: Laboratory Results - last 24 hr 07/16/17 07/16/17 07/16/17 05:00 11:31 11:59 WBC RBC Hgb Hct MCV MCH MCHC RDW Plt Count MPV Gran % Lymph % (Auto) [place] % (Auto) Eos % (Auto) Baso % (Auto) Gran # Lymph # (Auto) [place] # (Auto) Eos # (Auto) Baso # (Auto) PT INR Plt P2Y12 React Units pCO2 29 L pO2 76.0 L HCO3 24.2 ABG pH 7.53 H ABG Total CO2 25.1 ABG O2 Saturation 98.1 H ABG Base Excess 2.4 ABG Potassium 3.0 L VBG pH VBG pCO2 VBG HCO3 VBG Total CO2 VBG O2 Sat (Calc) VBG Base Excess VBG Potassium Sodium 134.0 Chloride 98.0 Glucose 160 H Lactate 3.2 H FiO2 21.0 Potassium Carbon Dioxide Anion Gap BUN Creatinine Est GFR ( Amer) Est GFR (Non-Af Amer) POC Glucose (mg/dL) 139 H Random Glucose Calcium Phosphorus Magnesium Total Bilirubin AST ALT Alkaline Phosphatase Ammonia Troponin I Total Protein Albumin Globulin Albumin/Globulin Ratio Total T3 1.04 Arterial Blood Potassium 3.0 L Venous Blood Potassium Valproic Acid 07/16/17 07/16/17 07/16/17 15:45 15:45 15:58 WBC RBC Hgb Hct MCV MCH MCHC RDW Plt Count MPV Gran % Lymph % (Auto) [place] % (Auto) Eos % (Auto) Baso % (Auto) Gran # Lymph # (Auto) [place] # (Auto) Eos # (Auto) Baso # (Auto) PT INR Plt P2Y12 React Units 290 pCO2 pO2 32 HCO3 ABG pH ABG Total CO2 ABG O2 Saturation ABG Base Excess ABG Potassium VBG pH 7.49 H VBG pCO2 36.0 L VBG HCO3 27.4 VBG Total CO2 28.5 H VBG O2 Sat (Calc) 73.7 H VBG Base Excess 4.1 H VBG Potassium 2.7 L Sodium 134.0 Chloride 94.0 L Glucose 192 H Lactate 1.7 FiO2 21.0 Potassium Carbon Dioxide Anion Gap BUN Creatinine Est GFR ( Amer) Est GFR (Non-Af Amer) POC Glucose (mg/dL) 176 H Random Glucose Calcium Phosphorus Magnesium Total Bilirubin AST ALT Alkaline Phosphatase Ammonia Troponin I Total Protein Albumin Globulin Albumin/Globulin Ratio Total T3 Arterial Blood Potassium Venous Blood Potassium 2.7 L Valproic Acid 07/16/17 07/16/17 07/16/17 21:44 22:21 22:21 WBC RBC Hgb Hct MCV MCH MCHC RDW Plt Count MPV Gran % Lymph % (Auto) [place] % (Auto) Eos % (Auto) Baso % (Auto) Gran # Lymph # (Auto) [place] # (Auto) Eos # (Auto) Baso # (Auto) PT INR Plt P2Y12 React Units pCO2 pO2 30 HCO3 ABG pH ABG Total CO2 ABG O2 Saturation ABG Base Excess ABG Potassium VBG pH 7.40 VBG pCO2 44.0 VBG HCO3 27.3 VBG Total CO2 28.7 H VBG O2 Sat (Calc) 60.2 VBG Base Excess 2.0 VBG Potassium 3.8 Sodium 130.0 L 130 L Chloride 94.0 L 92 L Glucose 184 H Lactate 3.1 H FiO2 21.0 Potassium 4.1 Carbon Dioxide 25 Anion Gap 17 BUN 12 Creatinine 0.6 L Est GFR ( Amer) > 60 Est GFR (Non-Af Amer) > 60 POC Glucose (mg/dL) 181 H Random Glucose 184 H Calcium 9.5 Phosphorus 3.1 Magnesium 1.1 L Total Bilirubin 1.5 H AST 26 ALT 18 Alkaline Phosphatase 68 Ammonia Troponin I Total Protein 7.7 Albumin 4.2 Globulin 3.6 Albumin/Globulin Ratio 1.2 Total T3 Arterial Blood Potassium Venous Blood Potassium 3.8 Valproic Acid 07/17/17 07/17/17 07/17/17 06:15 06:15 06:15 WBC 17.7 H RBC 4.66 Hgb 12.0 Hct 35.6 L MCV 76.4 L MCH 25.8 MCHC 33.7 RDW 14.8 H Plt Count 262 MPV 10.1 Gran % 80.0 H Lymph % (Auto) 14.9 L [place] % (Auto) 4.9 Eos % (Auto) 0.1 L Baso % (Auto) 0.1 Gran # 14.18 H Lymph # (Auto) 2.6 [place] # (Auto) 0.9 H Eos # (Auto) 0.0 Baso # (Auto) 0.02 PT INR Plt P2Y12 React Units pCO2 pO2 HCO3 ABG pH ABG Total CO2 ABG O2 Saturation ABG Base Excess ABG Potassium VBG pH VBG pCO2 VBG HCO3 VBG Total CO2 VBG O2 Sat (Calc) VBG Base Excess VBG Potassium Sodium 132 Chloride 88 L Glucose Lactate FiO2 Potassium 3.9 Carbon Dioxide 24 Anion Gap 23 H BUN 12 Creatinine 0.6 L Est GFR ( Amer) > 60 Est GFR (Non-Af Amer) > 60 POC Glucose (mg/dL) Random Glucose 198 H Calcium 9.5 Phosphorus Magnesium 1.7 Total Bilirubin 1.6 H AST 28 ALT 24 Alkaline Phosphatase 75 Ammonia Troponin I Total Protein 8.2 Albumin 4.5 Globulin 3.8 Albumin/Globulin Ratio 1.2 Total T3 Arterial Blood Potassium Venous Blood Potassium Valproic Acid 102 H* 07/17/17 07/17/17 07/17/17 06:30 08:30 09:00 WBC RBC Hgb Hct MCV MCH MCHC RDW Plt Count MPV Gran % Lymph % (Auto) [place] % (Auto) Eos % (Auto) Baso % (Auto) Gran # Lymph # (Auto) [place] # (Auto) Eos # (Auto) Baso # (Auto) PT 13.5 H INR 1.17 H Plt P2Y12 React Units pCO2 30 L pO2 90.0 HCO3 24.5 ABG pH 7.52 H ABG Total CO2 25.4 ABG O2 Saturation 99.1 H ABG Base Excess 2.4 ABG Potassium 2.7 L VBG pH VBG pCO2 VBG HCO3 VBG Total CO2 VBG O2 Sat (Calc) VBG Base Excess VBG Potassium Sodium 129.0 L Chloride 93.0 L Glucose 222 H Lactate 1.5 FiO2 21.0 Potassium Carbon Dioxide Anion Gap BUN Creatinine Est GFR ( Amer) Est GFR (Non-Af Amer) POC Glucose (mg/dL) Random Glucose Calcium Phosphorus Magnesium Total Bilirubin AST ALT Alkaline Phosphatase Ammonia Troponin I < 0.01 Total Protein Albumin Globulin Albumin/Globulin Ratio Total T3 Arterial Blood Potassium 2.7 L Venous Blood Potassium Valproic Acid 07/17/17 07/17/17 10:15 10:15 WBC RBC Hgb Hct MCV MCH MCHC RDW Plt Count MPV Gran % Lymph % (Auto) [place] % (Auto) Eos % (Auto) Baso % (Auto) Gran # Lymph # (Auto) [place] # (Auto) Eos # (Auto) Baso # (Auto) PT INR Plt P2Y12 React Units pCO2 pO2 35 HCO3 ABG pH ABG Total CO2 ABG O2 Saturation ABG Base Excess ABG Potassium VBG pH 7.41 VBG pCO2 43.0 VBG HCO3 27.3 VBG Total CO2 28.6 H VBG O2 Sat (Calc) 71.2 H VBG Base Excess 2.2 H VBG Potassium 3.5 L Sodium 129.0 L Chloride 92.0 L Glucose 203 H Lactate 3.0 H FiO2 21.0 Potassium Carbon Dioxide Anion Gap BUN Creatinine Est GFR ( Amer) Est GFR (Non-Af Amer) POC Glucose (mg/dL) Random Glucose Calcium Phosphorus Magnesium Total Bilirubin AST ALT Alkaline Phosphatase Ammonia < 9 L Troponin I Total Protein Albumin Globulin Albumin/Globulin Ratio Total T3 Arterial Blood Potassium Venous Blood Potassium 3.5 L Valproic Acid Assessment & Plan - Assessment and Plan (Free Text) Assessment: 66 year old female with history of HTN, DM dementia, CVA who was admitted with acute bilateral subdural hematoma's and leukocytosis. Patient has been evaluated by neurosurgery> craniotomy/evacuation recommended.Family does not want surgery. Patient was able to ambulate and feed self prior to admission. She needed assist with most other ADL's. She was incontinent. She is non verbal and unable to follow command at this time. Patients son Nayan at bedside. Krista HASSAN and I had an extensive discussion with him regarding goals of care and advance care planning. Son understands mother's medical situation. Son does not want craniotomy. Son understands that his mother 's condition not likely to return to baseline functional status. Son states he does not want permanent feeding tube. Son also states that he does not want intubation/cpr. Encouraged to make his mother DNR/DNI. Son waiting for his two brothers to arrive before making this decision. Son looking for placement in NH facility. Explained that alf fdc care requires that mother has nutritional source. If patient unable to eat and PEG is not wanted, than hospice should be considered. Hospice care explained in detail, questions answered. Patients sons plan on meeting tomorrow to discuss goals of care and plan for discharge. Psychosocial support given Time spent in goals of care and advance care planning discussion, 30 minutes Plan: Neurology; Continue Valporaote, maintain seizure precautions, avoid sedation. ID/Leukocytosis: Cultures/ chest x ray negative. Monitor clinically. Continue Vancomycin and Cefepime as per ID. Speech and swallow evaluation Goals of care and advance care planning.
--- NOTE | 2017-07-17 12:48 | PN ---
DATE: SUBJECTIVE: The patient is seen and examined at bedside. She appears to be somewhat more somnolent than yesterday. 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 The patient did not receive any sedatives overnight. Her last sedative was given prior to MRI yesterday. Of note, the patient has normal renal function. OBJECTIVE VITAL SIGNS: Heart rate 110, blood pressure 140/79, respiratory rate 16, oxygen saturation 98%. ENT: Head and neck atraumatic. LUNGS: Clear to auscultation bilaterally. HEART: Regular rhythm and rate. S1, S2 normal. ABDOMEN: There is slightly distended but soft, nontender. (Abdominal and pelvic CT scan without p.o. and IV contrast was just done). MUSCULOSKELETAL: Trace bilateral pedal and ankle edema. SKIN: Moist. PSYCHIATRIC: The patient is somnolent. LABORATORY DATA: WBC 17.7 (same as yesterday), the patient is on cefepime and vancomycin and ID consult was called, the patient was afebrile overnight), hemoglobin 12, platelet count 262. Sodium 132 (30 mL of 3% sodium chloride). I will start it to maintain sodium level within 135 to 145 range), chloride 88, BUN 12, creatinine 0.6, glucose 198, AST 28, ALT 24, total bilirubin 1.6. ABG is pending today. MEDICATIONS: Sodium chloride 3% at 30 mL/hour rate, Tylenol IV p.r.n., hydralazine p.r.n., Levemir 10 units at bedtime, insulin lispro low protocol, cefepime, Zofran, Protonix, vitamin K, Depakote, vancomycin. CT scan of the head and CT scan of the abdomen and pelvis were just done. ASSESSMENT AND PLAN: This is a 66-year-old lady who presented with [id number] change in mental status, to which subdural hematoma likely contributed fully or at least partially; however, it is hard to say as the patient has history of dementia and substantial microvascular changes on brain MRI. Her mental status fluctuates and neurosurgical followup as well as Neurology service followup is pending. CT scan of the head appears to be showing stable bilateral subdural hematoma, left more than right. Meanwhile, we are addressing the other potentially contributing factors, such as , dehydration (the patient received 1 liter of normal saline yesterday and two FFPs), hyponatremia (the patient is on hypertonic saline), ABG with lactic acid to rule out CO2 retention, ammonia level will be checked as well, rule out sepsis (the patient is on empiric antibiotics. Septic workup as well as procalcitonin were ordered and ID service was contacted for consult). Echocardiogram and troponin are pending. Meanwhile, we will also repeat coagulation profile to make sure that if the patient goes for surgery, it is within acceptable range, vitamin K was given and 2 FFP were given yesterday (as it wasnt clear when/if patient would go for a surgery). PRU was also checked and was within normal limits, thus suggesting that the coagulation is not much affected by plavix. The patient is also on Depakote to prevent seizures as per Neurology Service directly. Of note, as the patient has leukocytosis and had episode of fever yesterday without any clear-cut source of infection, abdominal CT scan was also ordered and done. Results will be followed. The patient will be with on frequent Accu-Chek as her mental status prevent her from oral nutrition and thus, would want to avoid hypoglycemia. I stopped long-acting insulin and continue with sliding scale. We will continue to maintain euvolemia, euglycemia, normothermia and oxygen saturation more than 90%. Addendum: no c02 retention, no hypoxemia, no hypoglycemia, NH3 WNL, CTAP: no acute findings, troponin is neg; Echo is pending, K supplemented, 3% NaCl started to maintain Na within 135-145 range. Neurosurgical intervention (SDH drainage) was offered by Shala, but patient's son refused. He verbalized understanding of the risks and benefits of the procedure as well as risks associated with delaying the procedure, however declined consent for the procedure. Discussed all above with neuro and primary hospitalist-->ok to downgrade to tele ccm time 40 min Pravin Braun MD [facility]
[2017-07-17] MEDS: Valproate 500 MG in Sodium Chloride 0.9% 100 ML IVPB SCH ×2 (15:30→22:07)
[2017-07-17 15:55] LABS: VENOUS BLOOD GAS PO2 49 mm/Hg (30-55); VENOUS BLOOD PH 7.46 (7.32-7.43)
[2017-07-17 16:13] LABS: BLOOD UREA NITROGEN 13 mg/dL (7-21); GFR AFRICAN-AMERICAN > 60; GFR NON-AFRICAN AMERICAN > 60
--- NOTE | 2017-07-17 17:19 | CARD ---
APPROVED REPORT EXAM: Two-dimensional and M-mode echocardiogram with Doppler and color Doppler. INDICATION Congestive Heart Failure 2D DIMENSIONS Left Atrium (2D)3.3 (1.6-4.0cm)IVSd1.1 (0.7-1.1cm) LVDd4.1 (3.9-5.9cm)PWd1.2 (0.7-1.1cm) LVDs3.1 (2.5-4.0cm)FS (%) 24.8 % LVEF (%)49.7 (>50%) M-Mode DIMENSIONS Aortic Root2.80 (2.2-3.7cm)Aortic Cusp Exc.1.50 (1.5-2.0cm) Aortic Valve AoV Peak Lnbxryvi040.0cm/Mynor Peak GR.4mmHg Mitral Valve MV E Dobnkovr47.4cm/sMV A Tiltctav26.2cm/sE/A ratio0.8 TDI E/Lateral E'0.0E/Medial E'0.0 Tricuspid Valve TR Peak [id number]/sRAP [id number] Peak Gr.12mmHg [id number] LEFT VENTRICLE The left ventricle is normal size. There is normal left ventricular wall thickness. The left ventricular function is normal. The left ventricular ejection fraction is within the normal range. There is normal LV segmental wall motion. Transmitral Doppler flow pattern is Grade I-abnormal relaxation pattern. RIGHT VENTRICLE The right ventricle is normal size. There is normal right ventricular wall thickness. The right ventricular systolic function is normal. ATRIA The left atrium size is normal. The right atrium size is normal. AORTIC VALVE The aortic valve is normal in structure. No aortic regurgitation is present. There is no aortic valvular stenosis. MITRAL VALVE The mitral valve is mildly thickened. There is no mitral valve regurgitation noted. There is no mitral valve stenosis. TRICUSPID VALVE There is mild tricuspid regurgitation. GREAT VESSELS The aortic root is normal in size. PERICARDIAL EFFUSION There is a trace circumferential pericardial effusion. <Conclusion> The left ventricle is normal size. There is normal left ventricular wall thickness. The left ventricular function is normal. The left ventricular ejection fraction is within the normal range. There is normal LV segmental wall motion. Transmitral Doppler flow pattern is Grade I-abnormal relaxation pattern. There is a trace circumferential pericardial effusion.
[2017-07-17 23:08] LABS: BLOOD UREA NITROGEN 14 mg/dL (7-21); CALCIUM 8.7 mg/dL (8.4-10.5); GFR AFRICAN-AMERICAN > 60; GFR NON-AFRICAN AMERICAN > 60
[2017-07-18] MEDS ORDERED: Sodium Chloride 3% 500 ML IV SCH (00:17)
[2017-07-18] MEDS: Insulin Lispro (humaLOG) LOW Coverage SC SCH ×5 (03:45→22:20)
[2017-07-18] MEDS: Vancomycin 1gm in NS 250ml 1 GM/250 ML BAG IVPB SCH ×2 (04:59→16:12)
[2017-07-18 05:52] LABS: BASO # 0.02 K/mm3 (0.0-2.0); BASO % 0.2 % (0.0-3.0); EOS % 0.1 % (1.5-5.0); GRAN # 9.2 (1.4-6.5); GRAN % 81.1 % (50.0-68.0); HEMOGLOBIN 10.2 g/dL (12.0-16.0); LYMPH # 1.5 (1.2-3.4); LYMPH % 13.5 % (22.0-35.0); MEAN CELL VOLUME 76.8 fl (80.0-105.0); MEAN CORPUSCULAR HEMOGLOBIN 25.7 pg (25.0-35.0); MEAN CORPUSCULAR HGB CONC 33.4 g/dl (31.0-37.0); MEAN PLATELET VOLUME 9.9 fl (7.0-11.0); MONO # 0.6 (0.1-0.6); MONO % 5.1 % (1.0-6.0); RBC 3.97 10^6/uL (3.5-6.1); RED CELL DISTRIBUTION WIDTH 14.9 % (11.5-14.5); WHITE BLOOD COUNT 11.3 10^3/ul (4.5-11.0)
[2017-07-18 06:09] LABS: ALB/GLOB RATIO 1.1 (1.1-1.8); ALBUMIN 3.2 g/dL (3.0-4.8); ALT/SGPT 21 U/L (7-56); AST/SGOT 27 U/L (14-36); BLOOD UREA NITROGEN 14 mg/dL (7-21); CALCIUM 8.9 mg/dL (8.4-10.5); GFR AFRICAN-AMERICAN > 60; GFR NON-AFRICAN AMERICAN > 60
[2017-07-18] MEDS: Cefepime 1gm in NS 100ml 1 GM/100 ML BAG IVPB SCH ×3 (07:15→21:14)
[2017-07-18] MEDS: Metoprolol 1 mg/ml Inj IVP SCH ×3 (08:31→20:34)
[2017-07-18] MEDS: Dextrose 5%/0.9% NS 1,000 ML IV SCH (08:31)
--- NOTE | 2017-07-18 11:14 | CP.PCM.PN ---
Subjective - Date & Time of Evaluation Date of Evaluation: 07/18/17 Time of Evaluation: 09:50 - Subjective Subjective: Awake and arousable but still not responding to commands, now with fevers, no respiratory distress at rest, no diarrhea, no vomiting. Objective - Vital Signs/Intake and Output Vital Signs (last 24 hours): Temp Pulse Resp BP Pulse Ox 99.7 F H 89 13 166/75 H 97 07/17/17 20:00 07/17/17 23:22 07/17/17 20:00 07/17/17 23:22 07/17/17 20:00 - Medications Medications: Current Medications Hydralazine HCl (Apresoline) 10 mg IVP Q6 PRN PRN Reason: Systolic Blood Pressure Last Admin: 07/17/17 23:22 Dose: 10 mg Hydralazine HCl (Apresoline) 20 mg IVP Q6 PRN PRN Reason: Systolic Blood Pressure Valproate Sodium 500 mg/ (Sodium Chloride) 105 mls @ 100 mls/hr IVPB Q12 [facility] Last Admin: 07/17/17 22:07 Dose: 100 mls/hr Acetaminophen (Ofirmev) 1,000 mg in 100 mls @ 400 mls/hr IVPB Q6H PRN PRN Reason: Temperature > 100.4 Stop: 07/18/17 15:13 Last Admin: 07/17/17 16:06 Dose: 400 mls/hr Cefepime HCl (Maxipime 1gm) 1 gm in 100 mls @ 100 mls/hr IVPB Q8 [facility] PRN Reason: Protocol Last Admin: 07/17/17 22:18 Dose: 100 mls/hr Vancomycin HCl (Vancomycin 1gm) 1 gm in 250 mls @ 167 mls/hr IVPB Q12H [facility] PRN Reason: Protocol Last Admin: 07/18/17 04:59 Dose: 167 mls/hr Sodium Chloride (Hypertonic Saline 3%) 500 mls @ 30 mls/hr IV .[id number] [facility] Last Admin: 07/18/17 01:04 Dose: 30 mls/hr Potassium Chloride (Potassium Chloride 10 Meq/100 Ml) 10 meq in 100 mls @ 50 mls/hr IVPB Q2H [facility] Stop: 07/18/17 10:29 Insulin Human Lispro (Humalog Low) 0 units SC Q6H [facility] PRN Reason: Protocol Last Admin: 07/18/17 03:45 Dose: Not Given Ondansetron HCl (Zofran Inj) 4 mg IVP Q6 PRN PRN Reason: Nausea/Vomiting Last Admin: 07/16/17 00:26 Dose: 4 mg Pantoprazole Sodium (Protonix Inj) 40 mg IVP DAILY [facility] Last Admin: 07/17/17 15:35 Dose: 40 mg - Labs Labs: 07/18/17 05:30 07/18/17 05:30 PT 13.5 SECONDS (9.4-12.5) H 07/17/17 09:00 INR 1.17 (0.93-1.08) H 07/17/17 09:00 APTT 30.9 Seconds (25.1-36.5) 07/15/17 18:08 - Constitutional Appears: Chronically Ill - ENT Exam ENT Exam: Mucous Membranes Moist - Neck Exam Neck Exam: absent: Meningismus - Respiratory Exam Respiratory Exam: Decreased Breath Sounds - Cardiovascular Exam Cardiovascular Exam: +S1, +S2 - GI/Abdominal Exam GI & Abdominal Exam: Soft. absent: Tenderness Assessment and Plan - Assessment and Plan (Free Text) Plan: Assessment systemic inflammatory response syndrome, probably from subdural hematomas, R/O sepsis but so far no source has been identified HTN DM history of CVA dementia hypothyroidism history of urinary incontinence Plan continue Vancomycin and Cefepime (day 3); repeat blood cx from yesterday are negative and PCT is only 0.21; reviewed CXR which does not show infiltrates; reviewed CT A/P which shows no acute findings; we are repeating blood cx again since patient has fevers will continue monitor clinically as per Neurosurg., family is refusing surgery overall prognosis is poor
[2017-07-18] MEDS: Valproate 250 MG in Sodium Chloride 0.9% 100 ML IVPB SCH ×2 (11:35→21:14)
--- NOTE | 2017-07-18 12:08 | CP.PCM.PN ---
<Joceline Gauthier - Last Filed: 07/18/17 19:44> Subjective - Date & Time of Evaluation Date of Evaluation: 07/18/17 Time of Evaluation: 07:20 - Subjective Subjective: Patient seen and examined at bedside. Patient remains clinically unchanged. Nurse reports no events overnight. Objective - Vital Signs/Intake and Output Vital Signs (last 24 hours): Temp Pulse Resp BP Pulse Ox 99.7 F H 124 H 13 143/70 97 07/17/17 20:00 07/18/17 08:31 07/17/17 20:00 07/18/17 08:31 07/17/17 20:00 Intake and Output: 07/18/17 07/18/17 06:59 18:59 Intake Total 1100 Output Total 600 Balance 500 - Medications Medications: Current Medications Hydralazine HCl (Apresoline) 10 mg IVP Q6 PRN PRN Reason: Systolic Blood Pressure Last Admin: 07/18/17 07:18 Dose: 10 mg Hydralazine HCl (Apresoline) 20 mg IVP Q6 PRN PRN Reason: Systolic Blood Pressure Acetaminophen (Ofirmev) 1,000 mg in 100 mls @ 400 mls/hr IVPB Q6H PRN PRN Reason: Temperature > 100.4 Stop: 07/18/17 15:13 Last Admin: 07/17/17 16:06 Dose: 400 mls/hr Cefepime HCl (Maxipime 1gm) 1 gm in 100 mls @ 100 mls/hr IVPB Q8 [facility] PRN Reason: Protocol Last Admin: 07/18/17 07:15 Dose: 100 mls/hr Vancomycin HCl (Vancomycin 1gm) 1 gm in 250 mls @ 167 mls/hr IVPB Q12H [facility] PRN Reason: Protocol Last Admin: 07/18/17 04:59 Dose: 167 mls/hr Dextrose/Sodium Chloride (Dextrose 5%/0.9% Ns 1000 Ml) 1,000 mls @ 40 mls/hr IV .Q24H [facility] Last Admin: 07/18/17 08:31 Dose: 40 mls/hr Valproate Sodium 250 mg/ (Sodium Chloride) 102.5 mls @ 100 mls/hr IVPB Q12 [facility] Last Admin: 07/18/17 11:35 Dose: 100 mls/hr Insulin Human Lispro (Humalog Low) 0 units SC Q6H [facility] PRN Reason: Protocol Last Admin: 07/18/17 09:11 Dose: Not Given Metoprolol Tartrate (Lopressor) 5 mg IVP Q6H [facility] Last Admin: 07/18/17 08:31 Dose: 5 mg Ondansetron HCl (Zofran Inj) 4 mg IVP Q6 PRN PRN Reason: Nausea/Vomiting Last Admin: 07/16/17 00:26 Dose: 4 mg Pantoprazole Sodium (Protonix Inj) 40 mg IVP DAILY [facility] Last Admin: 07/18/17 10:32 Dose: 40 mg - Labs Labs: 07/18/17 05:30 07/18/17 05:30 PT 13.5 SECONDS (9.4-12.5) H 07/17/17 09:00 INR 1.17 (0.93-1.08) H 07/17/17 09:00 APTT 30.9 Seconds (25.1-36.5) 07/15/17 18:08 - Head Exam Head Exam: ATRAUMATIC, NORMOCEPHALIC - Eye Exam Eye Exam: EOMI, Normal appearance - ENT Exam ENT Exam: Mucous Membranes Moist - Neck Exam Neck Exam: Normal Inspection - Respiratory Exam Respiratory Exam: Clear to Ausculation Bilateral, NORMAL BREATHING PATTERN. absent: Accessory Muscle Use - Cardiovascular Exam Cardiovascular Exam: Tachycardia, +S1, +S2 - GI/Abdominal Exam GI & Abdominal Exam: Soft, Normal Bowel Sounds - Extremities Exam Extremities Exam: Normal Inspection. absent: Calf Tenderness - Neurological Exam Additional comments: patient non-verbal, unresponsive, withdraws to painful stimuli - Psychiatric Exam Psychiatric exam: Flat Affect - Skin Skin Exam: Dry, Intact, Normal Color, Warm Assessment and Plan - Assessment and Plan (Free Text) Assessment: 66 year old female with a past medical significant for left anterior temporal lobe infarct, likely vascular dementia, DM, hypertension, and urinary incontinence who is admitted for loss of speech and was found to have bilateral subdural hematomas. Neurology was consulted and put the patient on seizure prophylaxis medications and ordered EEG and MRI of brain with and without contrast showed no interval change Neurosurgery was consulted and recommended intervention that the family declined initially but now have agreed to a neurosurgically intervention. Dr. Kumar plans on procedure on Thursday. Palliative care consulted. Son states he will discuss DNR/DNI code status over the weekend with family. ICU team conducted septic work-up due to fever and leukocytosis, which was largely negative, and started patient on 3% NS at 75 ml/ hr, Vancomycin, Zosyn, IV Tylenol, and then transferred patient to telemetry given she is hemodynamically stable and saturation well on room air. Patient is now back in the ICU as of 07/18/17 and remains febrile with no source of infection. Patient switched to NS D5, valproic acid dose reduced, b-beta jonelle restarted in light of tachycardia and hypertension. REVENUE RESEARCH ANALYST recommends trial of p.o. diet or puree with honey thick liquids, spooned given patient demonstrates moderate oropharyngeal dysphagia. Plan: Neuro - serial CT scans of the head . - Valproic acid level 102 - Avoid sedative - seizure precautions - neuro check q1 - Valproic acid level reduced to 1/2 initial dose, will monitor response Pulm - Aspiration precautions, HOB 45 degrees - O2 prn to maintain SaO2 > 95% Cardio - Goal SBP 120 - 140 - For SBP > 165, Hydralazine 10mg IV - For SBP > 190, Hydralazine 20mg IV - Echocardoiogram performed, pending read GI - NG tube and start feeds - Bedside swallowing evaluation provided by the REVENUE RESEARCH ANALYST. Pt. demonstrates moderate oropharyngeal dysphagia. Risk factors for aspiration include Hx of advanced dementia, and current periods of lethargy. REVENUE RESEARCH ANALYST recommends trial p.o. diet of puree with honey thick liquids, spooned. Strict aspiration precautions. Pt. should be alert enough to passively participate with meals, and accept p.o. trials. Oral care after meals. Staff to monitor for s/s of aspiration. Pt. is not able to participate in a speech and language evaluation at this time - Zofran PRN - Protonix IV Renal - monitor i/o, vogt - watch for contrast nephropathy Endo - ISSS-low - maintain euglycemia ID - leukocytosis, likely reactive - CXR neg - UA negative - procalcitonin likely negative - Vancomycin and Cefipime started empirically - ID following -cooling blankets, IV tylenol for fever control Heme - - INR Musculoskeletal - obliquely oriented minimally displaced fracture of the distal ulna - Pt will follow up with Dr. Mckinney, orthopedic doctor, next week. Pvx: Protonix, SCD Dispo: ICU <Irfan,Mohammad - Last Filed: 07/19/17 13:54> Objective - Vital Signs/Intake and Output Vital Signs (last 24 hours): Temp Pulse Resp BP Pulse Ox 98.4 F 77 11 L 169/88 H 99 07/19/17 06:30 07/19/17 12:44 07/19/17 06:30 07/19/17 12:44 07/19/17 06:30 Intake and Output: 07/19/17 07/19/17 06:59 18:59 Intake Total 1624 Output Total 1050 Balance 574 - Medications Medications: Current Medications Atenolol (Tenormin) 50 mg PO DAILY [facility] Last Admin: 07/19/17 09:33 Dose: 50 mg Atorvastatin Calcium (Lipitor) 10 mg PO [facility] Chlorthalidone (Hygroton) 25 mg PO DAILY [facility] Last Admin: 07/19/17 09:31 Dose: 25 mg Hydralazine HCl (Apresoline) 10 mg IVP Q6 PRN PRN Reason: Systolic Blood Pressure Last Admin: 07/19/17 12:44 Dose: 10 mg Hydralazine HCl (Apresoline) 20 mg IVP Q6 PRN PRN Reason: Systolic Blood Pressure Cefepime HCl (Maxipime 1gm) 1 gm in 100 mls @ 100 mls/hr IVPB Q8 [facility] PRN Reason: Protocol Last Admin: 07/19/17 05:12 Dose: 100 mls/hr Dextrose/Sodium Chloride (Dextrose 5%/0.9% Ns 1000 Ml) 1,000 mls @ 40 mls/hr IV .Q24H [facility] Last Admin: 07/19/17 09:33 Dose: 40 mls/hr Levetiracetam 1,000 mg/ Sodium (Chloride) 110 mls @ 460 mls/hr IV Q12 [facility] Last Admin: 07/19/17 12:37 Dose: 460 mls/hr Valproate Sodium 250 mg/ (Sodium Chloride) 102.5 mls @ 100 mls/hr IVPB Q12 [facility] Insulin Human Lispro (Humalog Low) 0 units SC Q6H [facility] PRN Reason: Protocol Last Admin: 07/19/17 12:35 Dose: 3 units Losartan Potassium (Cozaar) 50 mg PO DAILY [facility] Last Admin: 07/19/17 09:32 Dose: 50 mg Ondansetron HCl (Zofran Inj) 4 mg IVP Q6 PRN PRN Reason: Nausea/Vomiting Last Admin: 07/16/17 00:26 Dose: 4 mg Pantoprazole Sodium (Protonix Inj) 40 mg IVP DAILY [facility] Last Admin: 07/19/17 09:31 Dose: 40 mg Potassium Phos/Sodium Phos (Neutra-Phos) 1 pkt PO TID [facility] Stop: 07/22/17 10:01 Last Admin: 07/19/17 13:33 Dose: 1 pkt - Labs Labs: 07/19/17 06:20 07/19/17 06:20 PT 13.5 SECONDS (9.4-12.5) H 07/17/17 09:00 INR 1.17 (0.93-1.08) H 07/17/17 09:00 APTT 30.9 Seconds (25.1-36.5) 07/15/17 18:08 Attending/Attestation - Attestation I have personally seen and examined this patient.: Yes I have fully participated in the care of the patient.: Yes I have reviewed all pertinent clinical information, including history, physical exam and plan: Yes Notes (Text): 07/19/17 13:51 Medical record note made by the resident after discussion with my direction and input after the patient was personally seen and examined by me. I have reviewed the chart and agree that the record accurately reflects by personal performance of the history, physical exam, data review, and medical decision-making, in the course for the patient. I have also personally directed the plan of care. 66 year old female with PMH of CVA, dementia, DM, hypertension, and urinary incontinence is admitted with change of mental status, She is found to have bilateral subdural hematomas..Patient is non communicative.There is focal weakness in both upper and lower extremities.Repeat CT head is showing decrease in the size of hematoma.There is no midline shift.She is on Valporic acid for seizure prophylaxis.MRI of Brain is negative for any infarct,.Mental status is not improved.The etiology could be due to medication.Blood cultures are negative.Procalcitonin level is normal.We will discuss with ID regarding discontinuation of antibiotics. We will also decrease the dose of Valporic acid. Family was refusing surgery earlier , now agreeable for surgery,, Case bwas discussed with Neuro surgery and with family.Patient is scheduled for surgery on Thursday. Management plan was discussed in detail with patient family. Education was provided.
--- NOTE | 2017-07-18 12:49 | CT ---
PROCEDURE: CT HEAD WITHOUT CONTRAST. HISTORY: follow up [facility] COMPARISON: None available. TECHNIQUE: Axial computed tomography images were obtained through the head/brain without intravenous contrast. Radiation dose: Total exam DLP = 811 mGy-cm. This CT exam was performed using one or more of the following dose reduction techniques: Automated exposure control, adjustment of the mA and/or kV according to patient size, and/or use of iterative reconstruction technique. FINDINGS: HEMORRHAGE: The subdural hematomas are stable in appearance. Maximum thickness on the left is 6 mm. The right-side is much smaller. BRAIN: No mass effect or edema. Chronic microvascular changes are seen. There are no acute intraparenchymal findings. VENTRICLES: Unremarkable. No hydrocephalus. CALVARIUM: Unremarkable. PARANASAL SINUSES: Unremarkable as visualized. No significant inflammatory changes. MASTOID AIR CELLS: Unremarkable as visualized. No inflammatory changes. OTHER FINDINGS: None. IMPRESSION: Stable appearance of subdural hematomas
--- NOTE | 2017-07-18 13:32 | PN ---
DATE: 07/18/2017 CHAIR FRAME BUILDER NOTE LOCATION: [facility]. SUBJECTIVE: The patient is resting in bed with family at bedside. She does respond to the spoken word, seems to be awake, but mute. The patient is noted to have bilateral subdural hematomas and as of now, the family still refuses neurosurgery, but they are thinking about it. PHYSICAL EXAMINATION: VITAL SIGNS: Physical exam note that her temperature is 99.7, her pulse is 118, respirations are 13 and BP is 143/70. SKIN: Warm and dry. HEENT: Head atraumatic to the eye. Eyes: No change. Ear, nose and throat seemed to be within normal limits. NECK: Supple. No JVD. No thyroid enlargement. No lymph nodes. HEART: Has regular rate and rhythm. Normal S1, S2, but tachycardic. LUNGS: Reveal good breath sounds bilaterally. ABDOMEN: Soft. Decreased bowel sounds. GENITALIA AND RECTAL: Deferred. MUSCULOSKELETAL: No joint deformities. EXTREMITIES: Reveal trace lower extremity edema. NEUROLOGICAL: She is awake, but mute, but does move her extremities. LABORATOYR DATA: Laboratories reveal a white count of 11.3, hemoglobin of 10.2, hematocrit 30.5 with platelets of 212,000. Her sodium is 138, potassium 3.2, chloride 104, CO2 of 22 with a BUN of 14, creatinine is 0.6 and a glucose of 176. IMPRESSION: This patient has bilateral subdural hematomas. Rule out cerebrovascular accident. The patient at this time has hypokalemia and is noted to have encephalopathy and is mute. The patient has a history of dementia, cerebrovascular accident, diabetes, hypertension. PLAN: As far as our plan, we will continue to support the patient hemodynamically. Continue to talk with the patient and the patient's family about possible neurosurgery. She is on hydralazine for blood pressure and IV fluids. The patient is getting cefepime as well as vancomycin and Protonix. She is on valproate and on Lopressor as well as her insulin. We will continue to treat aggressively along with the other consultants and the primary care doctor. Kirt Powers MD [facility] # [id number]
--- NOTE | 2017-07-18 14:06 | CP.PCM.PN ---
Subjective - Date & Time of Evaluation Date of Evaluation: 07/18/17 Time of Evaluation: 14:02 - Subjective Subjective: called again that family has changed thir mind about surgery Pt remains wawke lithargic attentive semipurposfull but not verbal Spoke to PMD and Dr Stevens I believe there is about 40% chance of impreovment to some degree with surgery with about 5-7% surgical risk, and potential for her regressing Family informs me that they now wish surgery, however she ate this afternoon This is not an emergency requiring late night surgery or operating on a full stomach Unfortunatly there are plans in the OR for the water to be shut down tomorrow If family wishes will proceed on Thursday Objective - Vital Signs/Intake and Output Vital Signs (last 24 hours): Temp Pulse Resp BP Pulse Ox 99.7 F H 124 H 13 143/70 97 07/17/17 20:00 07/18/17 08:31 07/17/17 20:00 07/18/17 08:31 07/17/17 20:00 Intake and Output: 07/18/17 07/18/17 06:59 18:59 Intake Total 1100 Output Total 600 Balance 500 - Medications Medications: Current Medications Hydralazine HCl (Apresoline) 10 mg IVP Q6 PRN PRN Reason: Systolic Blood Pressure Last Admin: 07/18/17 07:18 Dose: 10 mg Hydralazine HCl (Apresoline) 20 mg IVP Q6 PRN PRN Reason: Systolic Blood Pressure Acetaminophen (Ofirmev) 1,000 mg in 100 mls @ 400 mls/hr IVPB Q6H PRN PRN Reason: Temperature > 100.4 Stop: 07/18/17 15:13 Last Admin: 07/17/17 16:06 Dose: 400 mls/hr Cefepime HCl (Maxipime 1gm) 1 gm in 100 mls @ 100 mls/hr IVPB Q8 [facility] PRN Reason: Protocol Last Admin: 07/18/17 07:15 Dose: 100 mls/hr Vancomycin HCl (Vancomycin 1gm) 1 gm in 250 mls @ 167 mls/hr IVPB Q12H [facility] PRN Reason: Protocol Last Admin: 07/18/17 04:59 Dose: 167 mls/hr Dextrose/Sodium Chloride (Dextrose 5%/0.9% Ns 1000 Ml) 1,000 mls @ 40 mls/hr IV .Q24H [facility] Last Admin: 07/18/17 08:31 Dose: 40 mls/hr Valproate Sodium 250 mg/ (Sodium Chloride) 102.5 mls @ 100 mls/hr IVPB Q12 [facility] Last Admin: 07/18/17 11:35 Dose: 100 mls/hr Insulin Human Lispro (Humalog Low) 0 units SC Q6H [facility] PRN Reason: Protocol Last Admin: 07/18/17 09:11 Dose: Not Given Metoprolol Tartrate (Lopressor) 5 mg IVP Q6H [facility] Last Admin: 07/18/17 08:31 Dose: 5 mg Ondansetron HCl (Zofran Inj) 4 mg IVP Q6 PRN PRN Reason: Nausea/Vomiting Last Admin: 07/16/17 00:26 Dose: 4 mg Pantoprazole Sodium (Protonix Inj) 40 mg IVP DAILY [facility] Last Admin: 07/18/17 10:32 Dose: 40 mg - Labs Labs: 07/18/17 05:30 07/18/17 05:30 PT 13.5 SECONDS (9.4-12.5) H 07/17/17 09:00 INR 1.17 (0.93-1.08) H 07/17/17 09:00 APTT 30.9 Seconds (25.1-36.5) 07/15/17 18:08
[2017-07-18] MEDS ORDERED: Potassium Phosphate 3 mmol/ml Inj IV SCH (19:45)
[2017-07-18 23:25] LABS: BLOOD UREA NITROGEN 13 mg/dL (7-21); CALCIUM 8.7 mg/dL (8.4-10.5); GFR AFRICAN-AMERICAN > 60; GFR NON-AFRICAN AMERICAN > 60
[2017-07-19] MEDS ORDERED: Potassium Phosphate 30 MMOLE in Sodium Chloride 0.9% 250 ML IVPB ONE (00:17)
[2017-07-19] MEDS: Metoprolol 1 mg/ml Inj IVP SCH ×2 (02:45→07:58)
[2017-07-19] MEDS: Vancomycin 1gm in NS 250ml 1 GM/250 ML BAG IVPB SCH (03:47)
[2017-07-19] MEDS: Insulin Lispro (humaLOG) LOW Coverage SC SCH ×3 (04:42→18:20)
[2017-07-19] MEDS: Cefepime 1gm in NS 100ml 1 GM/100 ML BAG IVPB SCH ×3 (05:12→21:40)
--- NOTE | 2017-07-19 06:48 | CP.PCM.PN ---
Subjective - Date & Time of Evaluation Date of Evaluation: 07/19/17 Time of Evaluation: 06:46 - Subjective Subjective: Ms. Sahni was seen and examined at the bedside in ICU. She is more alert, awake, able to answer few questions appropriately. She speaks mainly German, set staff fitter was utilized. She is able to follow simple commands such as opening her mouth, squeezing her right hand and minimal finger movement of her left hand. She is able to raise her bilateral lower extremities few inches from the bed. According to staff, she is able to help them during her ADL. CT scan of the head 07/18/17 showed stable suddural hematoma. There was no untoward events overnight. Objective - Vital Signs/Intake and Output Vital Signs (last 24 hours): Temp Pulse Resp BP Pulse Ox 98.4 F 78 11 L 164/77 H 99 07/19/17 06:30 07/19/17 06:30 07/19/17 06:30 07/19/17 06:00 07/19/17 06:30 - Medications Medications: Current Medications Hydralazine HCl (Apresoline) 10 mg IVP Q6 PRN PRN Reason: Systolic Blood Pressure Last Admin: 07/18/17 07:18 Dose: 10 mg Hydralazine HCl (Apresoline) 20 mg IVP Q6 PRN PRN Reason: Systolic Blood Pressure Cefepime HCl (Maxipime 1gm) 1 gm in 100 mls @ 100 mls/hr IVPB Q8 [facility] PRN Reason: Protocol Last Admin: 07/19/17 05:12 Dose: 100 mls/hr Vancomycin HCl (Vancomycin 1gm) 1 gm in 250 mls @ 167 mls/hr IVPB Q12H [facility] PRN Reason: Protocol Last Admin: 07/19/17 03:47 Dose: 167 mls/hr Dextrose/Sodium Chloride (Dextrose 5%/0.9% Ns 1000 Ml) 1,000 mls @ 40 mls/hr IV .Q24H [facility] Last Admin: 07/18/17 08:31 Dose: 40 mls/hr Valproate Sodium 250 mg/ (Sodium Chloride) 102.5 mls @ 100 mls/hr IVPB Q12 [facility] Last Admin: 07/18/17 21:14 Dose: 100 mls/hr Insulin Human Lispro (Humalog Low) 0 units SC Q6H [facility] PRN Reason: Protocol Last Admin: 07/19/17 04:42 Dose: Not Given Metoprolol Tartrate (Lopressor) 5 mg IVP Q6H [facility] Last Admin: 07/19/17 02:45 Dose: 5 mg Ondansetron HCl (Zofran Inj) 4 mg IVP Q6 PRN PRN Reason: Nausea/Vomiting Last Admin: 07/16/17 00:26 Dose: 4 mg Pantoprazole Sodium (Protonix Inj) 40 mg IVP DAILY [facility] Last Admin: 07/18/17 10:32 Dose: 40 mg - Labs Labs: 07/18/17 05:30 07/18/17 23:05 PT 13.5 SECONDS (9.4-12.5) H 07/17/17 09:00 INR 1.17 (0.93-1.08) H 07/17/17 09:00 APTT 30.9 Seconds (25.1-36.5) 07/15/17 18:08 - Constitutional Appears: No Acute Distress - Head Exam Head Exam: NORMAL INSPECTION - Neurological Exam Neurological Exam: Alert, Awake Neuro motor strength exam: Left Upper Extremity: 2/1, Right Upper Extremity: 2/1 , Left Lower Extremity: 2/1, Right Lower Extremity: 2/1 Additional comments: Neurological improved from previous examination. Assessment and Plan (1) Subdural hematoma Assessment & Plan: Case discussed with Dr. Stevens, continue all current medical regimen. Recommend valproic level. Status: Acute
[2017-07-19 07:30] LABS: BASO # 0.03 K/mm3 (0.0-2.0); BASO % 0.4 % (0.0-3.0); EOS % 0.4 % (1.5-5.0); GRAN # 5.18 (1.4-6.5); GRAN % 74.7 % (50.0-68.0); HEMOGLOBIN 8.4 g/dL (12.0-16.0); LYMPH # 1.3 (1.2-3.4); LYMPH % 18.3 % (22.0-35.0); MEAN CELL VOLUME 78.2 fl (80.0-105.0); MEAN CORPUSCULAR HEMOGLOBIN 25.8 pg (25.0-35.0); MEAN CORPUSCULAR HGB CONC 33.1 g/dl (31.0-37.0); MEAN PLATELET VOLUME 10.2 fl (7.0-11.0); MONO # 0.4 (0.1-0.6); MONO % 6.2 % (1.0-6.0); RBC 3.25 10^6/uL (3.5-6.1); RED CELL DISTRIBUTION WIDTH 15.4 % (11.5-14.5); WHITE BLOOD COUNT 6.9 10^3/ul (4.5-11.0)
[2017-07-19] MEDS ORDERED: Potassium Chloride 20 mEq ER Tab PO STA (08:40)
[2017-07-19] MEDS: Valproate 250 MG in Sodium Chloride 0.9% 100 ML IVPB SCH ×2 (09:31→21:40)
[2017-07-19] MEDS: Potassium & Sodium Phosphate PO SCH ×3 (09:31→18:22)
[2017-07-19] MEDS: Dextrose 5%/0.9% NS 1,000 ML IV SCH (09:33)
--- NOTE | 2017-07-19 09:42 | PN ---
DATE: FIXTURE FABRICATOR REPAIRER NOTE SUBJECTIVE: The patient is resting in bed, awake and alert, responsive to spoken word. No complaints of pain and is scheduled for Neurosurgery in the morning. OBJECTIVE VITAL SIGNS: Stable at this time. Note that her temperature is 98.4, pulse is 87, respirations are 11 and BP is 164/85, O2 saturation is 99% on room air. HEENT: Head is atraumatic, normocephalic. Eyes reactive to light. Ears, nose and throat seem to be within normal limits. NECK: Supple. No JVD. No thyroid enlargement or lymph nodes. HEART: Has regular rate and rhythm. Normal S1, S2. LUNGS: Reveal good breath sounds bilaterally. ABDOMEN: Soft. Decreased bowel sounds. GENITALIA: Deferred. RECTAL: Deferred. MUSCULOSKELETAL: No joint deformities. EXTREMITIES: Reveal no significant lower extremity edema. NEUROLOGIC: The patient is awake and alert and moving all extremities. DATA: As far as her laboratories, her white count is 6.9, hemoglobin is 8.4, hematocrit 25.4 with 181,000 platelets. The patient's sodium is 138, potassium 3, chloride 107, CO2 of 25 with a BUN of 13, creatinine 0.7 and a glucose of 208. IMPRESSION: This patient has bilateral subdural hematomas and hypokalemia and is noted to have some encephalopathy and being mute. The patient has a history of dementia, cerebrovascular accident, diabetes as well as hypertension. PLAN: As far as our plan, we will continue to monitor hemodynamically, correct the patient's potassium and note that the patient's family had agreed for Neurosurgery. Neurosurgery is planned for tomorrow. We will control her blood pressure with hydralazine and then, continue with cefepime, vancomycin, Protonix, valproate and Lopressor. The patient is on insulin as well. We will continue to treat aggressively along with the other consultants. Note that we will follow her hemoglobin as well, noted that she does have an anemia and etiology is unclear. We will continue to treat aggressively along with the other consultants and the primary care doctor. Kirt Powers MD cc:
[2017-07-19] MEDS ORDERED: levETIRAcetam 1,000 MG in Sodium Chloride 0.9% 100 ML IV SCH (10:30)
--- NOTE | 2017-07-19 11:15 | CP.PCM.PN ---
Subjective - Date & Time of Evaluation Date of Evaluation: 07/18/17 Time of Evaluation: 10:00 - Subjective Subjective: Patient is encephalopathic but opens eyes to voice, tracks and follows one step commands sporadically. THere have been no seizures reported. Appreciate consultation. Family has decided to proceed with surgery on Thursday. on exam: PERRL. moves left upper limb more than right to pain. left sided neglect. +corneals, +gag, +2 dtr ul and ll bl. toes downgoing. no clonus. Objective - Vital Signs/Intake and Output Vital Signs (last 24 hours): Temp Pulse Resp BP Pulse Ox 99.0 F 97 H 13 162/63 H 97 07/18/17 08:00 07/18/17 15:00 07/17/17 20:00 07/18/17 15:00 07/17/17 20:00 Intake and Output: 07/18/17 07/18/17 06:59 18:59 Intake Total 1100 Output Total 600 Balance 500 - Medications Medications: Current Medications Hydralazine HCl (Apresoline) 10 mg IVP Q6 PRN PRN Reason: Systolic Blood Pressure Last Admin: 07/18/17 07:18 Dose: 10 mg Hydralazine HCl (Apresoline) 20 mg IVP Q6 PRN PRN Reason: Systolic Blood Pressure Cefepime HCl (Maxipime 1gm) 1 gm in 100 mls @ 100 mls/hr IVPB Q8 [facility] PRN Reason: Protocol Last Admin: 07/18/17 15:00 Dose: 100 mls/hr Vancomycin HCl (Vancomycin 1gm) 1 gm in 250 mls @ 167 mls/hr IVPB Q12H [facility] PRN Reason: Protocol Last Admin: 07/18/17 16:12 Dose: 167 mls/hr Dextrose/Sodium Chloride (Dextrose 5%/0.9% Ns 1000 Ml) 1,000 mls @ 40 mls/hr IV .Q24H [facility] Last Admin: 07/18/17 08:31 Dose: 40 mls/hr Valproate Sodium 250 mg/ (Sodium Chloride) 102.5 mls @ 100 mls/hr IVPB Q12 [facility] Last Admin: 07/18/17 11:35 Dose: 100 mls/hr Insulin Human Lispro (Humalog Low) 0 units SC Q6H [facility] PRN Reason: Protocol Last Admin: 07/18/17 16:22 Dose: 2 units Metoprolol Tartrate (Lopressor) 5 mg IVP Q6H [facility] Last Admin: 07/18/17 15:00 Dose: 5 mg Ondansetron HCl (Zofran Inj) 4 mg IVP Q6 PRN PRN Reason: Nausea/Vomiting Last Admin: 07/16/17 00:26 Dose: 4 mg Pantoprazole Sodium (Protonix Inj) 40 mg IVP DAILY [facility] Last Admin: 07/18/17 10:32 Dose: 40 mg - Labs Labs: 07/18/17 05:30 07/18/17 05:30 PT 13.5 SECONDS (9.4-12.5) H 07/17/17 09:00 INR 1.17 (0.93-1.08) H 07/17/17 09:00 APTT 30.9 Seconds (25.1-36.5) 07/15/17 18:08 Assessment and Plan - Assessment and Plan (Free Text) Assessment: 66 yr old woman with bilateral subdural hematomas, who may benefit from surgical evacuation as per . I will speak to him to discuss after repeat CT scan. In addition, she is not able to tolerate high doses of depakote so I will add low dose of keppra. I am concerned that 500 mg a day of depakote is not enough to prevent seizures. PLan: 1. EEG am 2. add iv keppra 500 mg bid. 3[address] Repeat CT scan pending. 4. Surgical evacuation per dr. huston tomorrow 5. please continue off antiplatelets. Dr. Stevens
--- NOTE | 2017-07-19 11:28 | CP.PCM.PN ---
Subjective - Date & Time of Evaluation Date of Evaluation: 07/19/17 Time of Evaluation: 09:30 - Subjective Subjective: Patient is more awake and alert today, no fevers, not in distress, no nausea, no diarrhea. Objective - Vital Signs/Intake and Output Vital Signs (last 24 hours): Temp Pulse Resp BP Pulse Ox 98.4 F 78 11 L 164/77 H 99 07/19/17 06:30 07/19/17 06:30 07/19/17 06:30 07/19/17 06:00 07/19/17 06:30 Intake and Output: 07/19/17 07/19/17 06:59 18:59 Intake Total 1624 Output Total 1050 Balance 574 - Medications Medications: Current Medications Hydralazine HCl (Apresoline) 10 mg IVP Q6 PRN PRN Reason: Systolic Blood Pressure Last Admin: 07/18/17 07:18 Dose: 10 mg Hydralazine HCl (Apresoline) 20 mg IVP Q6 PRN PRN Reason: Systolic Blood Pressure Cefepime HCl (Maxipime 1gm) 1 gm in 100 mls @ 100 mls/hr IVPB Q8 [facility] PRN Reason: Protocol Last Admin: 07/19/17 05:12 Dose: 100 mls/hr Vancomycin HCl (Vancomycin 1gm) 1 gm in 250 mls @ 167 mls/hr IVPB Q12H [facility] PRN Reason: Protocol Last Admin: 07/19/17 03:47 Dose: 167 mls/hr Dextrose/Sodium Chloride (Dextrose 5%/0.9% Ns 1000 Ml) 1,000 mls @ 40 mls/hr IV .Q24H [facility] Last Admin: 07/18/17 08:31 Dose: 40 mls/hr Valproate Sodium 250 mg/ (Sodium Chloride) 102.5 mls @ 100 mls/hr IVPB Q12 [facility] Last Admin: 07/18/17 21:14 Dose: 100 mls/hr Insulin Human Lispro (Humalog Low) 0 units SC Q6H [facility] PRN Reason: Protocol Last Admin: 07/19/17 04:42 Dose: Not Given Metoprolol Tartrate (Lopressor) 5 mg IVP Q6H [facility] Last Admin: 07/19/17 02:45 Dose: 5 mg Ondansetron HCl (Zofran Inj) 4 mg IVP Q6 PRN PRN Reason: Nausea/Vomiting Last Admin: 07/16/17 00:26 Dose: 4 mg Pantoprazole Sodium (Protonix Inj) 40 mg IVP DAILY [facility] Last Admin: 07/18/17 10:32 Dose: 40 mg - Labs Labs: 07/18/17 05:30 07/18/17 23:05 PT 13.5 SECONDS (9.4-12.5) H 07/17/17 09:00 INR 1.17 (0.93-1.08) H 07/17/17 09:00 APTT 30.9 Seconds (25.1-36.5) 07/15/17 18:08 - Constitutional Appears: Chronically Ill, Other (more awake and alert today) - ENT Exam ENT Exam: Mucous Membranes Moist - Neck Exam Neck Exam: absent: Meningismus - Respiratory Exam Respiratory Exam: Decreased Breath Sounds - Cardiovascular Exam Cardiovascular Exam: +S1, +S2 - GI/Abdominal Exam GI & Abdominal Exam: Soft. absent: Tenderness Assessment and Plan - Assessment and Plan (Free Text) Plan: Assessment systemic inflammatory response syndrome, probably from subdural hematomas, with no source of infection or sepsis identified HTN DM history of CVA dementia hypothyroidism history of urinary incontinence Plan will d/c Vancomycin and Cefepime (day 3); repeat blood cx are negative, PCT is only 0.06 follow up plan for Surgery by Neurosurgery will monitor clinically off antibiotics overall prognosis is poor
[2017-07-19 11:53] LABS: ALBUMIN 3.2 g/dL (3.0-4.8); ALT/SGPT 28 U/L (7-56); AST/SGOT 27 U/L (14-36); BLOOD UREA NITROGEN 11 mg/dL (7-21); CALCIUM 9.2 mg/dL (8.4-10.5); GFR AFRICAN-AMERICAN > 60; GFR NON-AFRICAN AMERICAN > 60
--- NOTE | 2017-07-19 14:42 | CP.PCM.PN ---
<Joceline Gauthier - Last Filed: 07/19/17 16:01> Subjective - Date & Time of Evaluation Date of Evaluation: 07/19/17 Time of Evaluation: 14:41 - Subjective Subjective: Patient seen and examined at bedside. Patient is awake, alert, and is able to verbalize certain phrases, such as, "how are you." Patient can follow commands such as lift your right hand and touch your face. She is able to track midline and move all extremities. Her son was present at the bedside on one occasion and he is aware of the plan going forward. Nurse reports no events overnight. Objective - Vital Signs/Intake and Output Vital Signs (last 24 hours): Temp Pulse Resp BP Pulse Ox 98.4 F 77 11 L 169/88 H 99 07/19/17 06:30 07/19/17 12:44 07/19/17 06:30 07/19/17 12:44 07/19/17 06:30 Intake and Output: 07/19/17 07/19/17 06:59 18:59 Intake Total 1624 Output Total 1050 Balance 574 - Medications Medications: Current Medications Atenolol (Tenormin) 50 mg PO DAILY [facility] Last Admin: 07/19/17 09:33 Dose: 50 mg Atorvastatin Calcium (Lipitor) 10 mg PO HS [facility] Chlorthalidone (Hygroton) 25 mg PO DAILY [facility] Last Admin: 07/19/17 09:31 Dose: 25 mg Hydralazine HCl (Apresoline) 10 mg IVP Q6 PRN PRN Reason: Systolic Blood Pressure Last Admin: 07/19/17 12:44 Dose: 10 mg Hydralazine HCl (Apresoline) 20 mg IVP Q6 PRN PRN Reason: Systolic Blood Pressure Cefepime HCl (Maxipime 1gm) 1 gm in 100 mls @ 100 mls/hr IVPB Q8 [facility] PRN Reason: Protocol Last Admin: 07/19/17 05:12 Dose: 100 mls/hr Dextrose/Sodium Chloride (Dextrose 5%/0.9% Ns 1000 Ml) 1,000 mls @ 40 mls/hr IV .Q24H [facility] Last Admin: 07/19/17 09:33 Dose: 40 mls/hr Levetiracetam 1,000 mg/ Sodium (Chloride) 110 mls @ 460 mls/hr IV Q12 [facility] Last Admin: 07/19/17 12:37 Dose: 460 mls/hr Valproate Sodium 250 mg/ (Sodium Chloride) 102.5 mls @ 100 mls/hr IVPB Q12 [facility] Insulin Human Lispro (Humalog Low) 0 units SC Q6H [facility] PRN Reason: Protocol Last Admin: 07/19/17 12:35 Dose: 3 units Losartan Potassium (Cozaar) 50 mg PO DAILY [facility] Last Admin: 07/19/17 09:32 Dose: 50 mg Ondansetron HCl (Zofran Inj) 4 mg IVP Q6 PRN PRN Reason: Nausea/Vomiting Last Admin: 07/16/17 00:26 Dose: 4 mg Pantoprazole Sodium (Protonix Inj) 40 mg IVP DAILY [facility] Last Admin: 07/19/17 09:31 Dose: 40 mg Potassium Phos/Sodium Phos (Neutra-Phos) 1 pkt PO TID [facility] Stop: 07/22/17 10:01 Last Admin: 07/19/17 13:33 Dose: 1 pkt - Labs Labs: 07/19/17 06:20 07/19/17 06:20 PT 13.5 SECONDS (9.4-12.5) H 07/17/17 09:00 INR 1.17 (0.93-1.08) H 07/17/17 09:00 APTT 30.9 Seconds (25.1-36.5) 07/15/17 18:08 - Constitutional Appears: Well, Non-toxic - Head Exam Head Exam: ATRAUMATIC, NORMOCEPHALIC - Eye Exam Eye Exam: EOMI, Normal appearance - ENT Exam ENT Exam: Mucous Membranes Moist - Neck Exam Neck Exam: Normal Inspection - Respiratory Exam Respiratory Exam: Clear to Ausculation Bilateral, NORMAL BREATHING PATTERN. absent: Accessory Muscle Use - Cardiovascular Exam Cardiovascular Exam: RRR, +S1, +S2 - GI/Abdominal Exam GI & Abdominal Exam: Soft, Normal Bowel Sounds - Extremities Exam Extremities Exam: Normal Inspection. absent: Calf Tenderness - Neurological Exam Neurological Exam: Alert, Awake - Psychiatric Exam Psychiatric exam: Normal Affect, Normal Mood - Skin Skin Exam: Dry, Intact, Normal Color, Warm Assessment and Plan - Assessment and Plan (Free Text) Assessment: 66 year old female with a past medical history of stroke, hypertension, DM II who presented with altered mental status and was found to have bilateral Subdural Hematomas. Plan: 1) Altered mental status, non-verbalin a patient with bilateral subdural hematomas - Valproate 250 mg q12h IV - Keppra 1 gm q12h IVP - Fall and seizure precautions - Evacuation of Subdural hematomas planned for Thursday - NPO after midnight - D5 NS at 40 ml/hr 2) Hypertension - Atenolol 50 mg - Losartan 100 mg daily - Chlorthalidone 25 mg daily 3) DM II - Insulin lispro low 4) Dyslipidemia - Atorvastatin 10 mg 5) Infection - Leukocytosis has resolved - Infectious disease is following - Meropenem DVT/GI prophylaxis - SCD -Protonix 40 mg Case seen and discussed with attending physician, Dr. Downing <Avinash Downing - Last Filed: 07/19/17 16:13> Objective - Vital Signs/Intake and Output Vital Signs (last 24 hours): Temp Pulse Resp BP Pulse Ox 98.4 F 77 11 L 169/88 H 99 07/19/17 06:30 07/19/17 12:44 07/19/17 06:30 07/19/17 12:44 07/19/17 06:30 Intake and Output: 07/19/17 07/19/17 06:59 18:59 Intake Total 1624 Output Total 1050 Balance 574 - Medications Medications: Current Medications Atenolol (Tenormin) 50 mg PO DAILY [facility] Last Admin: 07/19/17 09:33 Dose: 50 mg Atorvastatin Calcium (Lipitor) 10 mg PO HS [facility] Hydralazine HCl (Apresoline) 10 mg IVP Q6 PRN PRN Reason: Systolic Blood Pressure Last Admin: 07/19/17 12:44 Dose: 10 mg Hydralazine HCl (Apresoline) 20 mg IVP Q6 PRN PRN Reason: Systolic Blood Pressure Cefepime HCl (Maxipime 1gm) 1 gm in 100 mls @ 100 mls/hr IVPB Q8 [facility] PRN Reason: Protocol Last Admin: 07/19/17 14:51 Dose: 100 mls/hr Dextrose/Sodium Chloride (Dextrose 5%/0.9% Ns 1000 Ml) 1,000 mls @ 40 mls/hr IV .Q24H [facility] Last Admin: 07/19/17 09:33 Dose: 40 mls/hr Valproate Sodium 250 mg/ (Sodium Chloride) 102.5 mls @ 100 mls/hr IVPB Q12 [facility] Insulin Human Lispro (Humalog Low) 0 units SC Q6H [facility] PRN Reason: Protocol Last Admin: 07/19/17 12:35 Dose: 3 units Losartan Potassium (Cozaar) 50 mg PO DAILY [facility] Last Admin: 07/19/17 09:32 Dose: 50 mg Ondansetron HCl (Zofran Inj) 4 mg IVP Q6 PRN PRN Reason: Nausea/Vomiting Last Admin: 07/16/17 00:26 Dose: 4 mg Pantoprazole Sodium (Protonix Inj) 40 mg IVP DAILY [facility] Last Admin: 07/19/17 09:31 Dose: 40 mg Potassium Phos/Sodium Phos (Neutra-Phos) 1 pkt PO TID [facility] Stop: 07/22/17 10:01 Last Admin: 07/19/17 13:33 Dose: 1 pkt - Labs Labs: 07/19/17 06:20 07/19/17 06:20 PT 13.5 SECONDS (9.4-12.5) H 07/17/17 09:00 INR 1.17 (0.93-1.08) H 07/17/17 09:00 APTT 30.9 Seconds (25.1-36.5) 07/15/17 18:08 Attending/Attestation - Attestation I have personally seen and examined this patient.: Yes I have fully participated in the care of the patient.: Yes I have reviewed all pertinent clinical information, including history, physical exam and plan: Yes Notes (Text): 07/19/17 16:11 Medical record note made by the resident after discussion with my direction and input after the patient was personally seen and examined by me. I have reviewed the chart and agree that the record accurately reflects by personal performance of the history, physical exam, data review, and medical decision-making, in the course for the patient. I have also personally directed the plan of care. 66 year old female with PMH of CVA, dementia, DM, hypertension, and urinary incontinence is admitted with change of mental status, She is found to have bilateral subdural hematomas..Patient is non communicative.There is focal weakness in both upper and lower extremities.Repeat CT head is showing decrease in the size of hematoma.There is no midline shift.She is on Valporic acid for seizure prophylaxis.MRI of Brain is negative for any infarct,.Mental status is improved.Patient is talking and answering question. The etiology was due to medication.Blood cultures are negative.Procalcitonin level is normal.Antibiotics has been discontinued by ID. Family was refusing surgery earlier , now agreeable for surgery,.Patient is scheduled for surgery on Thursday. Management plan was discussed in detail with patient family. Education was provided.
[2017-07-19 17:41] LABS: BASO # 0.03 K/mm3 (0.0-2.0); BASO % 0.3 % (0.0-3.0); EOS % 0.4 % (1.5-5.0); GRAN # 8.26 (1.4-6.5); GRAN % 77.1 % (50.0-68.0); LYMPH # 1.6 (1.2-3.4); LYMPH % 14.6 % (22.0-35.0); MEAN CELL VOLUME 77.3 fl (80.0-105.0); MEAN CORPUSCULAR HEMOGLOBIN 25.8 pg (25.0-35.0); MEAN CORPUSCULAR HGB CONC 33.4 g/dl (31.0-37.0); MEAN PLATELET VOLUME 10.4 fl (7.0-11.0); MONO # 0.8 (0.1-0.6); MONO % 7.6 % (1.0-6.0); RBC 3.87 10^6/uL (3.5-6.1); RED CELL DISTRIBUTION WIDTH 15.3 % (11.5-14.5); WHITE BLOOD COUNT 10.7 10^3/ul (4.5-11.0)
[2017-07-19] MEDS ORDERED: Valproate 500 MG in Sodium Chloride 0.9% 100 ML IVPB SCH (22:00)
[2017-07-20] MEDS: Cefepime 1gm in NS 100ml 1 GM/100 ML BAG IVPB SCH ×3 (06:17→21:48)
[2017-07-20 06:54] LABS: BASO # 0.02 K/mm3 (0.0-2.0); BASO % 0.3 % (0.0-3.0); EOS # 0.1 (0.0-0.7); EOS % 0.9 % (1.5-5.0); GRAN # 5.64 (1.4-6.5); GRAN % 73.9 % (50.0-68.0); HEMOGLOBIN 8.7 g/dL (12.0-16.0); LYMPH # 1.5 (1.2-3.4); LYMPH % 20.2 % (22.0-35.0); MEAN PLATELET VOLUME 10.4 fl (7.0-11.0); MONO # 0.4 (0.1-0.6); MONO % 4.7 % (1.0-6.0); RBC 3.34 10^6/uL (3.5-6.1); RED CELL DISTRIBUTION WIDTH 15.7 % (11.5-14.5); WHITE BLOOD COUNT 7.6 10^3/ul (4.5-11.0)
[2017-07-20] MEDS: Insulin Lispro (humaLOG) LOW Coverage SC SCH ×5 (07:06→22:20)
[2017-07-20] MEDS: Dextrose 5%/0.9% NS 1,000 ML IV SCH (08:25)
[2017-07-20 09:24] LABS: ALB/GLOB RATIO 1.1 (1.1-1.8); ALBUMIN 3.5 g/dL (3.0-4.8); ALT/SGPT 32 U/L (7-56); AST/SGOT 28 U/L (14-36); BLOOD UREA NITROGEN 8 mg/dL (7-21); GFR AFRICAN-AMERICAN > 60; GFR NON-AFRICAN AMERICAN > 60
[2017-07-20] MEDS: Valproate 250 MG in Sodium Chloride 0.9% 100 ML IVPB SCH ×2 (09:25→21:49)
[2017-07-20] MEDS: Potassium & Sodium Phosphate PO SCH ×3 (09:27→17:56)
--- NOTE | 2017-07-20 10:37 | CP.PCM.PN ---
Subjective - Date & Time of Evaluation Date of Evaluation: 07/20/17 Time of Evaluation: 08:10 - Subjective Subjective: Comfortable in bed, no fevers, not in distress, no diarrhea, no vomiting. Objective - Vital Signs/Intake and Output Vital Signs (last 24 hours): Temp Pulse Resp BP Pulse Ox 98.4 F 70 13 130/75 100 07/20/17 04:00 07/20/17 04:00 07/20/17 04:00 07/20/17 04:00 07/20/17 04:00 Intake and Output: 07/19/17 07/20/17 18:59 06:59 Intake Total 1120 Output Total 1750 Balance -630 - Medications Medications: Current Medications Atenolol (Tenormin) 50 mg PO DAILY [facility] Last Admin: 07/19/17 09:33 Dose: 50 mg Atorvastatin Calcium (Lipitor) 10 mg PO HS [facility] Last Admin: 07/19/17 21:40 Dose: 10 mg Hydralazine HCl (Apresoline) 10 mg IVP Q6 PRN PRN Reason: Systolic Blood Pressure Last Admin: 07/19/17 12:44 Dose: 10 mg Hydralazine HCl (Apresoline) 20 mg IVP Q6 PRN PRN Reason: Systolic Blood Pressure Cefepime HCl (Maxipime 1gm) 1 gm in 100 mls @ 100 mls/hr IVPB Q8 [facility] PRN Reason: Protocol Last Admin: 07/20/17 06:17 Dose: 100 mls/hr Dextrose/Sodium Chloride (Dextrose 5%/0.9% Ns 1000 Ml) 1,000 mls @ 40 mls/hr IV .Q24H [facility] Last Admin: 07/19/17 09:33 Dose: 40 mls/hr Valproate Sodium 250 mg/ (Sodium Chloride) 102.5 mls @ 100 mls/hr IVPB Q12 [facility] Last Admin: 07/19/17 21:40 Dose: 100 mls/hr Levetiracetam 250 mg/ Sodium (Chloride) 102.5 mls @ 460 mls/hr IV Q12 [facility] Last Admin: 07/19/17 21:41 Dose: 460 mls/hr Insulin Human Lispro (Humalog Low) 0 units SC Q6H [facility] PRN Reason: Protocol Last Admin: 07/20/17 00:00 Dose: Not Given Losartan Potassium (Cozaar) 50 mg PO DAILY [facility] Last Admin: 07/19/17 09:32 Dose: 50 mg Ondansetron HCl (Zofran Inj) 4 mg IVP Q6 PRN PRN Reason: Nausea/Vomiting Last Admin: 07/16/17 00:26 Dose: 4 mg Pantoprazole Sodium (Protonix Inj) 40 mg IVP DAILY [facility] Last Admin: 07/19/17 09:31 Dose: 40 mg Potassium Phos/Sodium Phos (Neutra-Phos) 1 pkt PO TID [facility] Stop: 07/22/17 10:01 Last Admin: 07/19/17 18:22 Dose: 1 pkt - Labs Labs: 07/19/17 17:00 07/19/17 06:20 PT 13.5 SECONDS (9.4-12.5) H 07/17/17 09:00 INR 1.17 (0.93-1.08) H 07/17/17 09:00 APTT 30.9 Seconds (25.1-36.5) 07/15/17 18:08 - Constitutional Appears: Chronically Ill - Head Exam Head Exam: NORMAL INSPECTION - ENT Exam ENT Exam: Mucous Membranes Moist - Neck Exam Neck Exam: absent: Lymphadenopathy, Meningismus - Respiratory Exam Respiratory Exam: Decreased Breath Sounds - Cardiovascular Exam Cardiovascular Exam: +S1, +S2 - GI/Abdominal Exam GI & Abdominal Exam: Soft. absent: Tenderness Assessment and Plan - Assessment and Plan (Free Text) Plan: Assessment systemic inflammatory response syndrome, probably from subdural hematomas, with no source of infection or sepsis identified HTN DM history of CVA dementia hypothyroidism history of urinary incontinence Plan repeat blood cx are negative, PCT is only 0.06 follow up plan for Surgery by Neurosurgery will monitor clinically off antibiotics since she is at risk for nosocomial infections discussed with family that we do not need antibiotics currently overall prognosis is poor
--- NOTE | 2017-07-20 11:17 | CP.CCUPN ---
<Sd Corea - Last Filed: 07/20/17 12:03> CCU Subjective - Physician Review Subjective (Free Text): Critical care progress note: Pt seen and examined at bedside. No acute events overnight. Pt is AAO x 1. Son at bedside states that the patient is doing much better and almost back to baseline. patient following simple commands. Moves all extremities. No other complaints. 12 Point ROS performed but limited to baseline dementia Critical Care Time Spent (in minutes): 40 CCU Objective - Vital Signs / Intake & Output Vital Signs (Last 4 hours): Vital Signs Temp Pulse Resp BP Pulse Ox 07/20/17 09:30 97 H 174/92 H 07/20/17 08:34 98.2 F 85 21 170/88 H 100 07/20/17 08:01 98.1 F 106 H 15 97 07/20/17 08:00 98.1 F 94 H 16 99 Intake and Output (Last 8hrs): Intake & Output 07/19/17 07/20/17 07/20/17 22:59 06:59 14:59 Intake Total 1120 780 Output Total 1750 800 Balance -630 -20 Weight 131 lb Intake: IV 780 phos 780 Oral 300 Other 820 Output: Urine 1750 800 Urine, Voided 1750 800 Other: # Bowel Movements 1 1 - Physical Exam Head: Positive for: Atraumatic, Normocephalic Pupils: Positive for: PERRL Extroacular Muscles: Positive for: EOMI Conjunctiva: Positive for: Normal Mouth: Positive for: Moist Mucous Membranes Neck: Positive for: Normal Range of Motion Respiratory/Chest: Positive for: Clear to Auscultation, Good Air Exchange. Negative for: Respiratory Distress, Accessory Muscle Use Cardiovascular: Positive for: Regular Rate and Rhythm, Normal S1, S2. Negative for: Murmurs Abdomen: Positive for: Normal Bowel Sounds. Negative for: Tenderness, Distention, Peritoneal Signs Upper Extremity: Positive for: Normal Inspection. Negative for: Cyanosis, Edema Lower Extremity: Positive for: Normal Inspection. Negative for: Edema Neurological: Negative for: GCS=15 Skin: Positive for: Warm, Dry, Normal Color. Negative for: Rashes Lymphatic: Positive for: Cervical Adenopathy Psychiatric: Positive for: Alert, Other (slight confusion). Negative for: Oriented x 3 - Medications Active Medications: Active Medications Generic Name Dose Route Start Last Admin Trade Name Freq PRN Reason Stop Dose Admin Atenolol 50 mg 07/19/17 10:00 07/20/17 09:28 Tenormin PO Not Given DAILY [facility] Atorvastatin Calcium 10 mg 07/19/17 22:00 07/19/17 21:40 Lipitor PO 10 mg HS [facility] Administration Hydralazine HCl 10 mg 07/15/17 20:31 07/20/17 09:30 Apresoline IVP 10 mg Q6 PRN Administration Systolic Blood Pressure Hydralazine HCl 20 mg 07/15/17 20:33 Apresoline IVP Q6 PRN Systolic Blood Pressure Cefepime HCl 1 gm in 100 mls @ 100 mls/hr 07/16/17 15:30 07/20/17 06:17 Maxipime 1gm IVPB 100 mls/hr Q8 [facility] Administration Protocol Dextrose/Sodium Chloride 1,000 mls @ 40 mls/hr 07/18/17 07:45 07/20/17 08:25 Dextrose 5%/0.9% Ns 1000 Ml IV 40 mls/hr .Q24H [facility] Administration Valproate Sodium 250 mg/ 102.5 mls @ 100 mls/hr 07/19/17 22:00 07/20/17 09:25 Sodium Chloride IVPB 100 mls/hr Q12 [facility] Administration Levetiracetam 250 mg/ Sodium 102.5 mls @ 460 mls/hr 07/19/17 22:00 07/20/17 09:26 Chloride IV 460 mls/hr Q12 [facility] Administration Insulin Human Lispro 0 units 07/19/17 12:00 07/20/17 07:06 Humalog Low SC Not Given Q6H [facility] Protocol Losartan Potassium 50 mg 07/19/17 10:00 07/20/17 09:27 Cozaar PO Not Given DAILY [facility] Ondansetron HCl 4 mg 07/15/17 20:35 07/16/17 00:26 Zofran Inj IVP 4 mg Q6 PRN Administration Nausea/Vomiting Pantoprazole Sodium 40 mg 07/16/17 10:00 07/20/17 09:30 Protonix Inj IVP 40 mg DAILY [facility] Administration Potassium Phos/Sodium Phos 1 pkt 07/19/17 10:00 07/20/17 09:27 Neutra-Phos PO 07/22/17 10:01 Not Given TID [facility] - Patient Studies Lab Studies: Microbiology Studies 07/18/17 16:00 Urine Culture - Final Urine Yeast Species 07/17/17 09:00 Blood Culture - Preliminary Blood-Venous NO GROWTH AFTER 3 DAYS 07/17/17 09:00 Blood Culture - Preliminary Blood-Venous NO GROWTH AFTER 3 DAYS 07/18/17 08:30 Blood Culture - Preliminary Blood-Venous NO GROWTH AFTER 48 HOURS 07/18/17 08:00 Blood Culture - Preliminary Blood-Venous NO GROWTH AFTER 48 HOURS 07/15/17 22:44 Blood Culture - Preliminary Blood NO GROWTH AFTER 4 DAYS 07/15/17 22:44 Blood Culture - Preliminary Blood NO GROWTH AFTER 4 DAYS Lab Studies 07/20/17 07/20/17 07/20/17 Range/Units 06:40 06:40 06:15 WBC 7.6 D (4.5-11.0) 10^3/ul RBC 3.34 L (3.5-6.1) 10^6/uL Hgb 8.7 L (12.0-16.0) g/dL Hct 26.4 L (36.0-48.0) % MCV 79.0 L (80.0-105.0) fl MCH 26.0 (25.0-35.0) pg MCHC 33.0 (31.0-37.0) g/dl RDW 15.7 H (11.5-14.5) % Plt Count 189 (120.0-450.0) 10^3/uL MPV 10.4 (7.0-11.0) fl Gran % 73.9 H (50.0-68.0) % Lymph % (Auto) 20.2 L (22.0-35.0) % [place] % (Auto) 4.7 (1.0-6.0) % Eos % (Auto) 0.9 L (1.5-5.0) % Baso % (Auto) 0.3 (0.0-3.0) % Gran # 5.64 (1.4-6.5) Lymph # (Auto) 1.5 (1.2-3.4) [place] # (Auto) 0.4 (0.1-0.6) Eos # (Auto) 0.1 (0.0-0.7) Baso # (Auto) 0.02 (0.0-2.0) K/mm3 Sodium 136 (132-148) mmol/L Potassium 3.7 (3.6-5.0) mmol/L Chloride 98 (98-107) mmol/L Carbon Dioxide 27 (21-33) mmol/L Anion Gap 15 (10-20) BUN 8 (7-21) mg/dL Creatinine 0.6 L (0.7-1.2) mg/dl Est GFR ( Amer) > 60 Est GFR (Non-Af Amer) > 60 POC Glucose (mg/dL) 230 H (65-110) mg/dL Random Glucose 256 H (70-110) mg/dL Serum Osmolality (272-300) mosm/kg Calcium 10.0 (8.4-10.5) mg/dL Total Bilirubin 0.6 (0.2-1.3) mg/dL AST 28 (14-36) U/L ALT 32 (7-56) U/L Alkaline Phosphatase 56 (38-126) U/L Total Protein 6.6 (5.8-8.3) g/dL Albumin 3.5 (3.0-4.8) g/dL Globulin 3.2 gm/dL Albumin/Globulin Ratio 1.1 (1.1-1.8) Blood Type Antibody Screen Crossmatch BBK History Checked 07/19/17 07/19/17 07/19/17 Range/Units 23:54 18:10 18:00 WBC (4.5-11.0) 10^3/ul RBC (3.5-6.1) 10^6/uL Hgb (12.0-16.0) g/dL Hct (36.0-48.0) % MCV (80.0-105.0) fl MCH (25.0-35.0) pg MCHC (31.0-37.0) g/dl RDW (11.5-14.5) % Plt Count (120.0-450.0) 10^3/uL MPV (7.0-11.0) fl Gran % (50.0-68.0) % Lymph % (Auto) (22.0-35.0) % [place] % (Auto) (1.0-6.0) % Eos % (Auto) (1.5-5.0) % Baso % (Auto) (0.0-3.0) % Gran # (1.4-6.5) Lymph # (Auto) (1.2-3.4) [place] # (Auto) (0.1-0.6) Eos # (Auto) (0.0-0.7) Baso # (Auto) (0.0-2.0) K/mm3 Sodium (132-148) mmol/L Potassium (3.6-5.0) mmol/L Chloride (98-107) mmol/L Carbon Dioxide (21-33) mmol/L Anion Gap (10-20) BUN (7-21) mg/dL Creatinine (0.7-1.2) mg/dl Est GFR ( Amer) Est GFR (Non-Af Amer) POC Glucose (mg/dL) 195 H 245 H (65-110) mg/dL Random Glucose (70-110) mg/dL Serum Osmolality (272-300) mosm/kg Calcium (8.4-10.5) mg/dL Total Bilirubin (0.2-1.3) mg/dL AST (14-36) U/L ALT (7-56) U/L Alkaline Phosphatase (38-126) U/L Total Protein (5.8-8.3) g/dL Albumin (3.0-4.8) g/dL Globulin gm/dL Albumin/Globulin Ratio (1.1-1.8) Blood Type B POSITIVE Antibody Screen Negative Crossmatch See Detail BBK History Checked Patient has bt 07/19/17 07/19/17 07/19/17 Range/Units 17:00 12:30 06:20 WBC 10.7 D (4.5-11.0) 10^3/ul RBC 3.87 (3.5-6.1) 10^6/uL Hgb 10.0 L (12.0-16.0) g/dL Hct 29.9 L (36.0-48.0) % MCV 77.3 L (80.0-105.0) fl MCH 25.8 (25.0-35.0) pg MCHC 33.4 (31.0-37.0) g/dl RDW 15.3 H (11.5-14.5) % Plt Count 220 (120.0-450.0) 10^3/uL MPV 10.4 (7.0-11.0) fl Gran % 77.1 H (50.0-68.0) % Lymph % (Auto) 14.6 L (22.0-35.0) % [place] % (Auto) 7.6 H (1.0-6.0) % Eos % (Auto) 0.4 L (1.5-5.0) % Baso % (Auto) 0.3 (0.0-3.0) % Gran # 8.26 H (1.4-6.5) Lymph # (Auto) 1.6 (1.2-3.4) [place] # (Auto) 0.8 H (0.1-0.6) Eos # (Auto) 0.0 (0.0-0.7) Baso # (Auto) 0.03 (0.0-2.0) K/mm3 Sodium (132-148) mmol/L Potassium (3.6-5.0) mmol/L Chloride (98-107) mmol/L Carbon Dioxide (21-33) mmol/L Anion Gap (10-20) BUN (7-21) mg/dL Creatinine (0.7-1.2) mg/dl Est GFR ( Amer) Est GFR (Non-Af Amer) POC Glucose (mg/dL) 288 H (65-110) mg/dL Random Glucose (70-110) mg/dL Serum Osmolality 300 (272-300) mosm/kg Calcium (8.4-10.5) mg/dL Total Bilirubin (0.2-1.3) mg/dL AST (14-36) U/L ALT (7-56) U/L Alkaline Phosphatase (38-126) U/L Total Protein (5.8-8.3) g/dL Albumin (3.0-4.8) g/dL Globulin gm/dL Albumin/Globulin Ratio (1.1-1.8) Blood Type Antibody Screen Crossmatch BBK History Checked 07/19/17 Range/Units 06:20 WBC (4.5-11.0) 10^3/ul RBC (3.5-6.1) 10^6/uL Hgb (12.0-16.0) g/dL Hct (36.0-48.0) % MCV (80.0-105.0) fl MCH (25.0-35.0) pg MCHC (31.0-37.0) g/dl RDW (11.5-14.5) % Plt Count (120.0-450.0) 10^3/uL MPV (7.0-11.0) fl Gran % (50.0-68.0) % Lymph % (Auto) (22.0-35.0) % [place] % (Auto) (1.0-6.0) % Eos % (Auto) (1.5-5.0) % Baso % (Auto) (0.0-3.0) % Gran # (1.4-6.5) Lymph # (Auto) (1.2-3.4) [place] # (Auto) (0.1-0.6) Eos # (Auto) (0.0-0.7) Baso # (Auto) (0.0-2.0) K/mm3 Sodium 136 (132-148) mmol/L Potassium 3.6 (3.6-5.0) mmol/L Chloride 101 (98-107) mmol/L Carbon Dioxide 25 (21-33) mmol/L Anion Gap 14 (10-20) BUN 11 (7-21) mg/dL Creatinine 0.5 L (0.7-1.2) mg/dl Est GFR ( Amer) > 60 Est GFR (Non-Af Amer) > 60 POC Glucose (mg/dL) (65-110) mg/dL Random Glucose 221 H (70-110) mg/dL Serum Osmolality (272-300) mosm/kg Calcium 9.2 (8.4-10.5) mg/dL Total Bilirubin 0.6 (0.2-1.3) mg/dL AST 27 (14-36) U/L ALT 28 (7-56) U/L Alkaline Phosphatase 51 (38-126) U/L Total Protein 6.3 (5.8-8.3) g/dL Albumin 3.2 (3.0-4.8) g/dL Globulin 3.1 gm/dL Albumin/Globulin Ratio 1.0 L (1.1-1.8) Blood Type Antibody Screen Crossmatch BBK History Checked Laboratory Results - last 24 hr 07/19/17 07/19/17 07/19/17 06:20 06:20 12:30 WBC RBC Hgb Hct MCV MCH MCHC RDW Plt Count MPV Gran % Lymph % (Auto) [place] % (Auto) Eos % (Auto) Baso % (Auto) Gran # Lymph # (Auto) [place] # (Auto) Eos # (Auto) Baso # (Auto) Sodium 136 Potassium 3.6 Chloride 101 Carbon Dioxide 25 Anion Gap 14 BUN 11 Creatinine 0.5 L Est GFR ( Amer) > 60 Est GFR (Non-Af Amer) > 60 POC Glucose (mg/dL) 288 H Random Glucose 221 H Serum Osmolality 300 Calcium 9.2 Total Bilirubin 0.6 AST 27 ALT 28 Alkaline Phosphatase 51 Total Protein 6.3 Albumin 3.2 Globulin 3.1 Albumin/Globulin Ratio 1.0 L Blood Type Antibody Screen Crossmatch BBK History Checked 07/19/17 07/19/17 07/19/17 17:00 18:00 18:10 WBC 10.7 D RBC 3.87 Hgb 10.0 L Hct 29.9 L MCV 77.3 L MCH 25.8 MCHC 33.4 RDW 15.3 H Plt Count 220 MPV 10.4 Gran % 77.1 H Lymph % (Auto) 14.6 L [place] % (Auto) 7.6 H Eos % (Auto) 0.4 L Baso % (Auto) 0.3 Gran # 8.26 H Lymph # (Auto) 1.6 [place] # (Auto) 0.8 H Eos # (Auto) 0.0 Baso # (Auto) 0.03 Sodium Potassium Chloride Carbon Dioxide Anion Gap BUN Creatinine Est GFR ( Amer) Est GFR (Non-Af Amer) POC Glucose (mg/dL) 245 H Random Glucose Serum Osmolality Calcium Total Bilirubin AST ALT Alkaline Phosphatase Total Protein Albumin Globulin Albumin/Globulin Ratio Blood Type B POSITIVE Antibody Screen Negative Crossmatch See Detail BBK History Checked Patient has bt 07/19/17 07/20/17 07/20/17 23:54 06:15 06:40 WBC 7.6 D RBC 3.34 L Hgb 8.7 L Hct 26.4 L MCV 79.0 L MCH 26.0 MCHC 33.0 RDW 15.7 H Plt Count 189 MPV 10.4 Gran % 73.9 H Lymph % (Auto) 20.2 L [place] % (Auto) 4.7 Eos % (Auto) 0.9 L Baso % (Auto) 0.3 Gran # 5.64 Lymph # (Auto) 1.5 [place] # (Auto) 0.4 Eos # (Auto) 0.1 Baso # (Auto) 0.02 Sodium Potassium Chloride Carbon Dioxide Anion Gap BUN Creatinine Est GFR ( Amer) Est GFR (Non-Af Amer) POC Glucose (mg/dL) 195 H 230 H Random Glucose Serum Osmolality Calcium Total Bilirubin AST ALT Alkaline Phosphatase Total Protein Albumin Globulin Albumin/Globulin Ratio Blood Type Antibody Screen Crossmatch BBK History Checked 07/20/17 06:40 WBC RBC Hgb Hct MCV MCH MCHC RDW Plt Count MPV Gran % Lymph % (Auto) [place] % (Auto) Eos % (Auto) Baso % (Auto) Gran # Lymph # (Auto) [place] # (Auto) Eos # (Auto) Baso # (Auto) Sodium 136 Potassium 3.7 Chloride 98 Carbon Dioxide 27 Anion Gap 15 BUN 8 Creatinine 0.6 L Est GFR ( Amer) > 60 Est GFR (Non-Af Amer) > 60 POC Glucose (mg/dL) Random Glucose 256 H Serum Osmolality Calcium 10.0 Total Bilirubin 0.6 AST 28 ALT 32 Alkaline Phosphatase 56 Total Protein 6.6 Albumin 3.5 Globulin 3.2 Albumin/Globulin Ratio 1.1 Blood Type Antibody Screen Crossmatch BBK History Checked Fingerstick Blood Sugar Results: 226 Review of Systems - Review of Systems Systems not reviewed;Unavailable: Dementia Critical Care Progress Note - Nutrition Nutrition: Nutrition Category Date Time Status Dysphagia/Modified Consistency Diet [DIET] Diets 07/18/17 Dinner Ordered Assessment/Plan - Assessment and Plan (Free Text) Assessment: 66 F with PMHx of HTN, DM, CVA on plavix, dementia, diabetes, hypertention was admitted to ICU for b/l subdural hematoma. Neuro - Neuro consult - cont Keppra and Depakote - Neuro sx consult and recs - initial CT-Head: Acute subdural hematoma, bilateral concave, 1.4cm to L, 7 mm to R, no midline shift or herniation. 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 - Avoid sedative medications - Seizure precautions - Neuro checks q1 - HOB 35 degrees Pulm - Aspiration precautions - O2 prn to maintain SaO2 > 95% Cardio - Hemodynamically stable - Cont Lipitpor, Atenolol, Losartan - Goal SBP 120 - 140 - For SBP > 165, Hydralazine 10mg IV PRN - For SBP > 190, Hydralazine 20mg IV PRN GI - Zofran PRN - Protonix IV Renal - Monitor I/O - Avoid nephrotoxic medications Endo - ISS-low dose - Maintain euglycemia with blood sugars 140-180 ID -Abx - currently on Cefepime -ID consulted for recs Heme - Monitor H/H Musculoskeletal - obliquely oriented minimally displaced fracture of the distal ulna - Pt will follow up with Dr. Mckinney, orthopedic doctor, next week Case and plan was reviewed and discussed in detail with Dr Braun. <Pravin Braun - Last Filed: 07/20/17 15:33> CCU Objective - Vital Signs / Intake & Output Vital Signs (Last 4 hours): Vital Signs Temp Pulse Resp BP Pulse Ox 07/20/17 15:01 116 H 34 H 164/73 H 100 07/20/17 15:00 101 H 14 98 07/20/17 14:00 98.6 F 103 H 19 144/86 99 07/20/17 13:00 104 H 11 L 133/80 98 07/20/17 12:00 98.1 F 103 H 17 155/74 H 100 Intake and Output (Last 8hrs): Intake & Output 07/20/17 07/20/17 07/20/17 06:59 14:59 22:59 Intake Total 780 Output Total 800 Balance -20 Weight 131 lb Intake: IV 780 phos 780 Output: Urine 800 Urine, Voided 800 Other: # Bowel Movements 1 - Medications Active Medications: Active Medications Generic Name Dose Route Start Last Admin Trade Name Freq PRN Reason Stop Dose Admin Atenolol 50 mg 07/19/17 10:00 07/20/17 09:28 Tenormin PO Not Given DAILY [facility] Atorvastatin Calcium 10 mg 07/19/17 22:00 07/19/17 21:40 Lipitor PO 10 mg HS [facility]ERITA Administration Hydralazine HCl 10 mg 07/15/17 20:31 07/20/17 09:30 Apresoline IVP 10 mg Q6 PRN Administration Systolic Blood Pressure Hydralazine HCl 20 mg 07/15/17 20:33 Apresoline IVP Q6 PRN Systolic Blood Pressure Cefepime HCl 1 gm in 100 mls @ 100 mls/hr 07/16/17 15:30 07/20/17 14:31 Maxipime 1gm IVPB 100 mls/hr Q8 [facility] Administration Protocol Dextrose/Sodium Chloride 1,000 mls @ 40 mls/hr 07/18/17 07:45 07/20/17 08:25 Dextrose 5%/0.9% Ns 1000 Ml IV 40 mls/hr .Q24H [facility] Administration Valproate Sodium 250 mg/ 102.5 mls @ 100 mls/hr 07/19/17 22:00 07/20/17 09:25 Sodium Chloride IVPB 100 mls/hr Q12 [facility] Administration Levetiracetam 250 mg/ Sodium 102.5 mls @ 460 mls/hr 07/19/17 22:00 07/20/17 09:26 Chloride IV 460 mls/hr Q12 [facility] Administration Insulin Human Lispro 0 units 07/19/17 12:00 07/20/17 11:42 Humalog Low SC Not Given Q6H [facility] Protocol Losartan Potassium 50 mg 07/19/17 10:00 07/20/17 09:27 Cozaar PO Not Given DAILY [facility] Ondansetron HCl 4 mg 07/15/17 20:35 07/16/17 00:26 Zofran Inj IVP 4 mg Q6 PRN Administration Nausea/Vomiting Pantoprazole Sodium 40 mg 07/16/17 10:00 07/20/17 09:30 Protonix Inj IVP 40 mg DAILY [facility] Administration Potassium Phos/Sodium Phos 1 pkt 07/19/17 10:00 07/20/17 14:31 Neutra-Phos PO 07/22/17 10:01 1 pkt TID [facility] Administration - Patient Studies Lab Studies: Microbiology Studies 07/18/17 16:00 Urine Culture - Final Urine Yeast Species 07/17/17 09:00 Blood Culture - Preliminary Blood-Venous NO GROWTH AFTER 3 DAYS 07/17/17 09:00 Blood Culture - Preliminary Blood-Venous NO GROWTH AFTER 3 DAYS 07/18/17 08:30 Blood Culture - Preliminary Blood-Venous NO GROWTH AFTER 48 HOURS 07/18/17 08:00 Blood Culture - Preliminary Blood-Venous NO GROWTH AFTER 48 HOURS 07/15/17 22:44 Blood Culture - Preliminary Blood NO GROWTH AFTER 4 DAYS 07/15/17 22:44 Blood Culture - Preliminary Blood NO GROWTH AFTER 4 DAYS Lab Studies 07/20/17 07/20/17 07/20/17 Range/Units 06:40 06:40 06:40 WBC 7.6 D (4.5-11.0) 10^3/ul RBC 3.34 L (3.5-6.1) 10^6/uL Hgb 8.7 L (12.0-16.0) g/dL Hct 26.4 L (36.0-48.0) % MCV 79.0 L (80.0-105.0) fl MCH 26.0 (25.0-35.0) pg MCHC 33.0 (31.0-37.0) g/dl RDW 15.7 H (11.5-14.5) % Plt Count 189 (120.0-450.0) 10^3/uL MPV 10.4 (7.0-11.0) fl Gran % 73.9 H (50.0-68.0) % Lymph % (Auto) 20.2 L (22.0-35.0) % [place] % (Auto) 4.7 (1.0-6.0) % Eos % (Auto) 0.9 L (1.5-5.0) % Baso % (Auto) 0.3 (0.0-3.0) % Gran # 5.64 (1.4-6.5) Lymph # (Auto) 1.5 (1.2-3.4) [place] # (Auto) 0.4 (0.1-0.6) Eos # (Auto) 0.1 (0.0-0.7) Baso # (Auto) 0.02 (0.0-2.0) K/mm3 Sodium 136 (132-148) mmol/L Potassium 3.7 (3.6-5.0) mmol/L Chloride 98 (98-107) mmol/L Carbon Dioxide 27 (21-33) mmol/L Anion Gap 15 (10-20) BUN 8 (7-21) mg/dL Creatinine 0.6 L (0.7-1.2) mg/dl Est GFR ( Amer) > 60 Est GFR (Non-Af Amer) > 60 POC Glucose (mg/dL) (65-110) mg/dL Random Glucose 256 H (70-110) mg/dL Serum Osmolality 284 (272-300) mosm/kg Calcium 10.0 (8.4-10.5) mg/dL Total Bilirubin 0.6 (0.2-1.3) mg/dL AST 28 (14-36) U/L ALT 32 (7-56) U/L Alkaline Phosphatase 56 (38-126) U/L Total Protein 6.6 (5.8-8.3) g/dL Albumin 3.5 (3.0-4.8) g/dL Globulin 3.2 gm/dL Albumin/Globulin Ratio 1.1 (1.1-1.8) Blood Type Antibody Screen Crossmatch BBK History Checked 07/20/17 07/19/17 07/19/17 Range/Units 06:15 23:54 18:10 WBC (4.5-11.0) 10^3/ul RBC (3.5-6.1) 10^6/uL Hgb (12.0-16.0) g/dL Hct (36.0-48.0) % MCV (80.0-105.0) fl MCH (25.0-35.0) pg MCHC (31.0-37.0) g/dl RDW (11.5-14.5) % Plt Count (120.0-450.0) 10^3/uL MPV (7.0-11.0) fl Gran % (50.0-68.0) % Lymph % (Auto) (22.0-35.0) % [place] % (Auto) (1.0-6.0) % Eos % (Auto) (1.5-5.0) % Baso % (Auto) (0.0-3.0) % Gran # (1.4-6.5) Lymph # (Auto) (1.2-3.4) [place] # (Auto) (0.1-0.6) Eos # (Auto) (0.0-0.7) Baso # (Auto) (0.0-2.0) K/mm3 Sodium (132-148) mmol/L Potassium (3.6-5.0) mmol/L Chloride (98-107) mmol/L Carbon Dioxide (21-33) mmol/L Anion Gap (10-20) BUN (7-21) mg/dL Creatinine (0.7-1.2) mg/dl Est GFR ( Amer) Est GFR (Non-Af Amer) POC Glucose (mg/dL) 230 H 195 H (65-110) mg/dL Random Glucose (70-110) mg/dL Serum Osmolality (272-300) mosm/kg Calcium (8.4-10.5) mg/dL Total Bilirubin (0.2-1.3) mg/dL AST (14-36) U/L ALT (7-56) U/L Alkaline Phosphatase (38-126) U/L Total Protein (5.8-8.3) g/dL Albumin (3.0-4.8) g/dL Globulin gm/dL Albumin/Globulin Ratio (1.1-1.8) Blood Type B POSITIVE Antibody Screen Negative Crossmatch See Detail BBK History Checked Patient has bt 07/19/17 07/19/17 07/19/17 Range/Units 18:00 17:00 12:30 WBC 10.7 D (4.5-11.0) 10^3/ul RBC 3.87 (3.5-6.1) 10^6/uL Hgb 10.0 L (12.0-16.0) g/dL Hct 29.9 L (36.0-48.0) % MCV 77.3 L (80.0-105.0) fl MCH 25.8 (25.0-35.0) pg MCHC 33.4 (31.0-37.0) g/dl RDW 15.3 H (11.5-14.5) % Plt Count 220 (120.0-450.0) 10^3/uL MPV 10.4 (7.0-11.0) fl Gran % 77.1 H (50.0-68.0) % Lymph % (Auto) 14.6 L (22.0-35.0) % [place] % (Auto) 7.6 H (1.0-6.0) % Eos % (Auto) 0.4 L (1.5-5.0) % Baso % (Auto) 0.3 (0.0-3.0) % Gran # 8.26 H (1.4-6.5) Lymph # (Auto) 1.6 (1.2-3.4) [place] # (Auto) 0.8 H (0.1-0.6) Eos # (Auto) 0.0 (0.0-0.7) Baso # (Auto) 0.03 (0.0-2.0) K/mm3 Sodium (132-148) mmol/L Potassium (3.6-5.0) mmol/L Chloride (98-107) mmol/L Carbon Dioxide (21-33) mmol/L Anion Gap (10-20) BUN (7-21) mg/dL Creatinine (0.7-1.2) mg/dl Est GFR ( Amer) Est GFR (Non-Af Amer) POC Glucose (mg/dL) 245 H 288 H (65-110) mg/dL Random Glucose (70-110) mg/dL Serum Osmolality (272-300) mosm/kg Calcium (8.4-10.5) mg/dL Total Bilirubin (0.2-1.3) mg/dL AST (14-36) U/L ALT (7-56) U/L Alkaline Phosphatase (38-126) U/L Total Protein (5.8-8.3) g/dL Albumin (3.0-4.8) g/dL Globulin gm/dL Albumin/Globulin Ratio (1.1-1.8) Blood Type Antibody Screen Crossmatch BBK History Checked Laboratory Results - last 24 hr 07/19/17 07/19/17 07/19/17 12:30 17:00 18:00 WBC 10.7 D RBC 3.87 Hgb 10.0 L Hct 29.9 L MCV 77.3 L MCH 25.8 MCHC 33.4 RDW 15.3 H Plt Count 220 MPV 10.4 Gran % 77.1 H Lymph % (Auto) 14.6 L [place] % (Auto) 7.6 H Eos % (Auto) 0.4 L Baso % (Auto) 0.3 Gran # 8.26 H Lymph # (Auto) 1.6 [place] # (Auto) 0.8 H Eos # (Auto) 0.0 Baso # (Auto) 0.03 Sodium Potassium Chloride Carbon Dioxide Anion Gap BUN Creatinine Est GFR ( Amer) Est GFR (Non-Af Amer) POC Glucose (mg/dL) 288 H 245 H Random Glucose Serum Osmolality Calcium Total Bilirubin AST ALT Alkaline Phosphatase Total Protein Albumin Globulin Albumin/Globulin Ratio Blood Type Antibody Screen Crossmatch BBK History Checked 07/19/17 07/19/17 07/20/17 18:10 23:54 06:15 WBC RBC Hgb Hct MCV MCH MCHC RDW Plt Count MPV Gran % Lymph % (Auto) [place] % (Auto) Eos % (Auto) Baso % (Auto) Gran # Lymph # (Auto) [place] # (Auto) Eos # (Auto) Baso # (Auto) Sodium Potassium Chloride Carbon Dioxide Anion Gap BUN Creatinine Est GFR ( Amer) Est GFR (Non-Af Amer) POC Glucose (mg/dL) 195 H 230 H Random Glucose Serum Osmolality Calcium Total Bilirubin AST ALT Alkaline Phosphatase Total Protein Albumin Globulin Albumin/Globulin Ratio Blood Type B POSITIVE Antibody Screen Negative Crossmatch See Detail BBK History Checked Patient has bt 07/20/17 07/20/17 07/20/17 06:40 06:40 06:40 WBC 7.6 D RBC 3.34 L Hgb 8.7 L Hct 26.4 L MCV 79.0 L MCH 26.0 MCHC 33.0 RDW 15.7 H Plt Count 189 MPV 10.4 Gran % 73.9 H Lymph % (Auto) 20.2 L [place] % (Auto) 4.7 Eos % (Auto) 0.9 L Baso % (Auto) 0.3 Gran # 5.64 Lymph # (Auto) 1.5 [place] # (Auto) 0.4 Eos # (Auto) 0.1 Baso # (Auto) 0.02 Sodium 136 Potassium 3.7 Chloride 98 Carbon Dioxide 27 Anion Gap 15 BUN 8 Creatinine 0.6 L Est GFR ( Amer) > 60 Est GFR (Non-Af Amer) > 60 POC Glucose (mg/dL) Random Glucose 256 H Serum Osmolality 284 Calcium 10.0 Total Bilirubin 0.6 AST 28 ALT 32 Alkaline Phosphatase 56 Total Protein 6.6 Albumin 3.5 Globulin 3.2 Albumin/Globulin Ratio 1.1 Blood Type Antibody Screen Crossmatch BBK History Checked Critical Care Progress Note - Nutrition Nutrition: Nutrition Category Date Time Status Dysphagia/Modified Consistency Diet [DIET] Diets 07/18/17 Dinner Ordered Attending/Attestation - Attestation I have personally seen and examined this patient.: Yes I have fully participated in the care of the patient.: Yes I have reviewed all pertinent clinical information: Yes Notes (Text): 07/20/17 15:31 66 yo female with transient and fluctuating AMS, to which SDH thought to have played a role, now back to her mental status baseline. No Nsx intervention at present time as family refused and nsx concurred. Ok to downgrade to tele ccm time 40 min
--- NOTE | 2017-07-20 12:36 | CP.PCM.PN ---
Subjective - Date & Time of Evaluation Date of Evaluation: 07/20/17 Time of Evaluation: 12:33 - Subjective Subjective: pt appears much more awake and alert she is following commands and talking appears acording to son to be at baseline At this point we had anotherdiscussion about surgery Because of her return to baseline and the fact that the SDH has remained stable they wish to derfer again I don't think surgy will improve her to any great degree I explained that she would have both good and bad days and should not take a bad day as an indication for immediate concern and need for surgery They understand and agree with the plan Will cancel the OR for today Objective - Vital Signs/Intake and Output Vital Signs (last 24 hours): Temp Pulse Resp BP Pulse Ox 98.2 F 97 H 21 174/92 H 100 07/20/17 08:34 07/20/17 09:30 07/20/17 08:34 07/20/17 09:30 07/20/17 08:34 Intake and Output: 07/20/17 07/20/17 06:59 18:59 Intake Total 780 Output Total 800 Balance -20 - Medications Medications: Current Medications Atenolol (Tenormin) 50 mg PO DAILY [facility] Last Admin: 07/20/17 09:28 Dose: Not Given Atorvastatin Calcium (Lipitor) 10 mg PO HS [facility] Last Admin: 07/19/17 21:40 Dose: 10 mg Hydralazine HCl (Apresoline) 10 mg IVP Q6 PRN PRN Reason: Systolic Blood Pressure Last Admin: 07/20/17 09:30 Dose: 10 mg Hydralazine HCl (Apresoline) 20 mg IVP Q6 PRN PRN Reason: Systolic Blood Pressure Cefepime HCl (Maxipime 1gm) 1 gm in 100 mls @ 100 mls/hr IVPB Q8 [facility] PRN Reason: Protocol Last Admin: 07/20/17 06:17 Dose: 100 mls/hr Dextrose/Sodium Chloride (Dextrose 5%/0.9% Ns 1000 Ml) 1,000 mls @ 40 mls/hr IV .Q24H [facility] Last Admin: 07/20/17 08:25 Dose: 40 mls/hr Valproate Sodium 250 mg/ (Sodium Chloride) 102.5 mls @ 100 mls/hr IVPB Q12 [facility] Last Admin: 07/20/17 09:25 Dose: 100 mls/hr Levetiracetam 250 mg/ Sodium (Chloride) 102.5 mls @ 460 mls/hr IV Q12 [facility] Last Admin: 07/20/17 09:26 Dose: 460 mls/hr Insulin Human Lispro (Humalog Low) 0 units SC Q6H [facility] PRN Reason: Protocol Last Admin: 07/20/17 11:42 Dose: Not Given Losartan Potassium (Cozaar) 50 mg PO DAILY [facility] Last Admin: 07/20/17 09:27 Dose: Not Given Ondansetron HCl (Zofran Inj) 4 mg IVP Q6 PRN PRN Reason: Nausea/Vomiting Last Admin: 07/16/17 00:26 Dose: 4 mg Pantoprazole Sodium (Protonix Inj) 40 mg IVP DAILY [facility] Last Admin: 07/20/17 09:30 Dose: 40 mg Potassium Phos/Sodium Phos (Neutra-Phos) 1 pkt PO TID [facility] Stop: 07/22/17 10:01 Last Admin: 07/20/17 09:27 Dose: Not Given - Labs Labs: 07/20/17 06:40 07/20/17 06:40 PT 13.5 SECONDS (9.4-12.5) H 07/17/17 09:00 INR 1.17 (0.93-1.08) H 07/17/17 09:00 APTT 30.9 Seconds (25.1-36.5) 07/15/17 18:08
--- NOTE | 2017-07-20 13:16 | CP.PCM.PN ---
<Noman Simpson - Last Filed: 07/20/17 13:13> Subjective - Date & Time of Evaluation Date of Evaluation: 07/20/17 Time of Evaluation: 13:13 - Subjective Subjective: Patient seen and evaluated at bedside. Patient appears to be at baseline according to family present. Patient is verbal, able to follow simple commands showing some demenita and AAOx2. Patient is showing clinical improvement from chart review. Objective - Vital Signs/Intake and Output Vital Signs (last 24 hours): Temp Pulse Resp BP Pulse Ox 98.2 F 94 H 21 174/92 H 100 07/20/17 08:34 07/20/17 10:00 07/20/17 08:34 07/20/17 09:30 07/20/17 08:34 Intake and Output: 07/20/17 07/20/17 06:59 18:59 Intake Total 780 Output Total 800 Balance -20 - Medications Medications: Current Medications Atenolol (Tenormin) 50 mg PO DAILY [facility] Last Admin: 07/20/17 09:28 Dose: Not Given Atorvastatin Calcium (Lipitor) 10 mg PO HS [facility] Last Admin: 07/19/17 21:40 Dose: 10 mg Hydralazine HCl (Apresoline) 10 mg IVP Q6 PRN PRN Reason: Systolic Blood Pressure Last Admin: 07/20/17 09:30 Dose: 10 mg Hydralazine HCl (Apresoline) 20 mg IVP Q6 PRN PRN Reason: Systolic Blood Pressure Cefepime HCl (Maxipime 1gm) 1 gm in 100 mls @ 100 mls/hr IVPB Q8 [facility] PRN Reason: Protocol Last Admin: 07/20/17 06:17 Dose: 100 mls/hr Dextrose/Sodium Chloride (Dextrose 5%/0.9% Ns 1000 Ml) 1,000 mls @ 40 mls/hr IV .Q24H [facility] Last Admin: 07/20/17 08:25 Dose: 40 mls/hr Valproate Sodium 250 mg/ (Sodium Chloride) 102.5 mls @ 100 mls/hr IVPB Q12 [facility] Last Admin: 07/20/17 09:25 Dose: 100 mls/hr Levetiracetam 250 mg/ Sodium (Chloride) 102.5 mls @ 460 mls/hr IV Q12 [facility] Last Admin: 07/20/17 09:26 Dose: 460 mls/hr Insulin Human Lispro (Humalog Low) 0 units SC Q6H [facility] PRN Reason: Protocol Last Admin: 07/20/17 11:42 Dose: Not Given Losartan Potassium (Cozaar) 50 mg PO DAILY [facility] Last Admin: 07/20/17 09:27 Dose: Not Given Ondansetron HCl (Zofran Inj) 4 mg IVP Q6 PRN PRN Reason: Nausea/Vomiting Last Admin: 07/16/17 00:26 Dose: 4 mg Pantoprazole Sodium (Protonix Inj) 40 mg IVP DAILY [facility] Last Admin: 07/20/17 09:30 Dose: 40 mg Potassium Phos/Sodium Phos (Neutra-Phos) 1 pkt PO TID [facility] Stop: 07/22/17 10:01 Last Admin: 07/20/17 09:27 Dose: Not Given - Labs Labs: 07/20/17 06:40 07/20/17 06:40 PT 13.5 SECONDS (9.4-12.5) H 07/17/17 09:00 INR 1.17 (0.93-1.08) H 07/17/17 09:00 APTT 30.9 Seconds (25.1-36.5) 07/15/17 18:08 - Constitutional Appears: Non-toxic - Head Exam Head Exam: ATRAUMATIC, NORMAL INSPECTION, NORMOCEPHALIC - Eye Exam Eye Exam: EOMI, PERRL - ENT Exam ENT Exam: Mucous Membranes Moist - Respiratory Exam Respiratory Exam: Clear to Ausculation Bilateral, NORMAL BREATHING PATTERN. absent: Rhonchi, Wheezes - Cardiovascular Exam Cardiovascular Exam: REGULAR RHYTHM, +S1, +S2. absent: Murmur - GI/Abdominal Exam GI & Abdominal Exam: Soft, Normal Bowel Sounds. absent: Distended, Firm, Guarding, Tenderness - Extremities Exam Extremities Exam: Normal Inspection. absent: Calf Tenderness, Pedal Edema - Neurological Exam Neurological Exam: Alert, Awake Additional comments: Patient able to move all four extremities, follows simple commands, motor and sensory grossly intact - Psychiatric Exam Psychiatric exam: Normal Affect, Normal Mood - Skin Skin Exam: Dry, Intact, Warm Assessment and Plan - Assessment and Plan (Free Text) Assessment: Patient is a 66 year old female with past medical history that include HTN, DM2 , CVA, prior TIAs, dementia, hypothyroidism who presented with AMS secondary to bilateral subdural hematoma. Patient admitted to ICU, neurology and neurosurgery consulted. Patient has shown clinical improvement of symptoms and with discussion with family have decided to not to pursue neurosurgical intervention. Plan: AMS - resolved - b/l subdural hematoma, CT HEAD: Acute subdural hematoma, bilateral concave, 1.4cm to L, 7 mm to R, no midline shift or herniation. 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 Mckinney, orthopedic physician outpatient DVT/GI ppx - SCD - Protonix Case and plan discussed with attending Abby Simpson PGY-1 <Kartik Suarez - Last Filed: 07/20/17 15:55> Objective - Vital Signs/Intake and Output Vital Signs (last 24 hours): Temp Pulse Resp BP Pulse Ox 98.6 F 116 H 34 H 164/73 H 100 07/20/17 14:00 07/20/17 15:01 07/20/17 15:01 07/20/17 15:01 07/20/17 15:01 Intake and Output: 07/20/17 07/20/17 06:59 18:59 Intake Total 780 Output Total 800 Balance -20 - Medications Medications: Current Medications Atenolol (Tenormin) 50 mg PO DAILY [facility] Last Admin: 07/20/17 09:28 Dose: Not Given Atorvastatin Calcium (Lipitor) 10 mg PO HS [facility] Last Admin: 07/19/17 21:40 Dose: 10 mg Hydralazine HCl (Apresoline) 10 mg IVP Q6 PRN PRN Reason: Systolic Blood Pressure Last Admin: 07/20/17 09:30 Dose: 10 mg Hydralazine HCl (Apresoline) 20 mg IVP Q6 PRN PRN Reason: Systolic Blood Pressure Cefepime HCl (Maxipime 1gm) 1 gm in 100 mls @ 100 mls/hr IVPB Q8 [facility] PRN Reason: Protocol Last Admin: 07/20/17 14:31 Dose: 100 mls/hr Dextrose/Sodium Chloride (Dextrose 5%/0.9% Ns 1000 Ml) 1,000 mls @ 40 mls/hr IV .Q24H [facility] Last Admin: 07/20/17 08:25 Dose: 40 mls/hr Valproate Sodium 250 mg/ (Sodium Chloride) 102.5 mls @ 100 mls/hr IVPB Q12 [facility] Last Admin: 07/20/17 09:25 Dose: 100 mls/hr Levetiracetam 250 mg/ Sodium (Chloride) 102.5 mls @ 460 mls/hr IV Q12 [facility] Last Admin: 07/20/17 09:26 Dose: 460 mls/hr Insulin Human Lispro (Humalog Low) 0 units SC Q6H [facility] PRN Reason: Protocol Last Admin: 07/20/17 11:42 Dose: Not Given Losartan Potassium (Cozaar) 50 mg PO DAILY [facility] Last Admin: 07/20/17 09:27 Dose: Not Given Ondansetron HCl (Zofran Inj) 4 mg IVP Q6 PRN PRN Reason: Nausea/Vomiting Last Admin: 07/16/17 00:26 Dose: 4 mg Pantoprazole Sodium (Protonix Inj) 40 mg IVP DAILY [facility] Last Admin: 07/20/17 09:30 Dose: 40 mg Potassium Phos/Sodium Phos (Neutra-Phos) 1 pkt PO TID [facility] Stop: 07/22/17 10:01 Last Admin: 07/20/17 14:31 Dose: 1 pkt - Labs Labs: 07/20/17 06:40 07/20/17 06:40 PT 13.5 SECONDS (9.4-12.5) H 07/17/17 09:00 INR 1.17 (0.93-1.08) H 07/17/17 09:00 APTT 30.9 Seconds (25.1-36.5) 07/15/17 18:08 Attending/Attestation - Attestation I have personally seen and examined this patient.: Yes I have fully participated in the care of the patient.: Yes I have reviewed all pertinent clinical information, including history, physical exam and plan: Yes Notes (Text): 07/20/17 15:52 66 year old female with past medical history of CVA, dementia, hypertension and diabetes who presented with altered mental status. She was found to have bilateral subdural hematomas. She is being followed by neurology and neurosurgery. Her mental status has improved over past few days. No plan for intervention as per family and neurosurgery. She is on keppra and valproic acid. Will request for PT and SpSw follow up. Son is at bedside and questions were answered. Kartik Suarez MD Hospitalist.
[2017-07-20] MEDS ORDERED: Insulin Reg-LOW-Coverage SC SCH (16:30)
--- NOTE | 2017-07-20 19:52 | CT ---
PROCEDURE: CT HEAD WITHOUT CONTRAST. HISTORY: follow up SDH COMPARISON: CT 07/18/2017 TECHNIQUE: Axial computed tomography images were obtained through the head/brain without intravenous contrast. Radiation dose: Total exam DLP = mGy-cm. This CT exam was performed using one or more of the following dose reduction techniques: Automated exposure control, adjustment of the mA and/or kV according to patient size, and/or use of iterative reconstruction technique. FINDINGS: HEMORRHAGE: There is no change in the appearance of the subdural hematomas left greater than right. Maximum thickness 6 mm. BRAIN: No mass effect or edema. Chronic microvascular changes are again noted. There are no acute intraparenchymal findings. VENTRICLES: Unremarkable. No hydrocephalus. CALVARIUM: Unremarkable. PARANASAL SINUSES: Unremarkable as visualized. No significant inflammatory changes. MASTOID AIR CELLS: Unremarkable as visualized. No inflammatory changes. OTHER FINDINGS: None. IMPRESSION: There is no change in the appearance of the subdural hematomas left greater than right. Maximum thickness 6 mm.
[2017-07-21] MEDS: Cefepime 1gm in NS 100ml 1 GM/100 ML BAG IVPB SCH (06:07)
[2017-07-21 06:53] LABS: HEMOGLOBIN 9.4 g/dL (12.0-16.0); MEAN CELL VOLUME 77.9 fl (80.0-105.0); MEAN CORPUSCULAR HGB CONC 33.3 g/dl (31.0-37.0); MEAN PLATELET VOLUME 10.4 fl (7.0-11.0); RBC 3.62 10^6/uL (3.5-6.1); RED CELL DISTRIBUTION WIDTH 15.4 % (11.5-14.5); WHITE BLOOD COUNT 8.4 10^3/ul (4.5-11.0)
[2017-07-21 07:39] LABS: BLOOD UREA NITROGEN 9 mg/dL (7-21); CALCIUM 9.8 mg/dL (8.4-10.5); GFR AFRICAN-AMERICAN > 60; GFR NON-AFRICAN AMERICAN > 60
[2017-07-21] MEDS: Insulin Lispro (humaLOG) LOW Coverage SC SCH ×3 (08:13→16:35)
[2017-07-21] MEDS: Valproate 250 MG in Sodium Chloride 0.9% 100 ML IVPB SCH (09:37)
[2017-07-21] MEDS: Potassium & Sodium Phosphate PO SCH ×2 (09:45→13:42)
--- NOTE | 2017-07-21 09:59 | CP.PCM.PN ---
Subjective - Date & Time of Evaluation Date of Evaluation: 07/21/17 Time of Evaluation: 09:40 - Subjective Subjective: Comfortable, awake and alert, no fevers, no diarrhea. Objective - Vital Signs/Intake and Output Vital Signs (last 24 hours): Temp Pulse Resp BP Pulse Ox 98.9 F 81 18 152/77 H 100 07/21/17 04:00 07/21/17 02:00 07/20/17 22:24 07/20/17 22:24 07/20/17 22:24 Intake and Output: 07/20/17 07/21/17 18:59 06:59 Intake Total 2570 Output Total 1800 Balance 770 - Medications Medications: Current Medications Atenolol (Tenormin) 50 mg PO DAILY [facility] Last Admin: 07/20/17 09:28 Dose: Not Given Atorvastatin Calcium (Lipitor) 10 mg PO HS [facility] Last Admin: 07/20/17 21:48 Dose: 10 mg Hydralazine HCl (Apresoline) 10 mg IVP Q6 PRN PRN Reason: Systolic Blood Pressure Last Admin: 07/20/17 09:30 Dose: 10 mg Hydralazine HCl (Apresoline) 20 mg IVP Q6 PRN PRN Reason: Systolic Blood Pressure Cefepime HCl (Maxipime 1gm) 1 gm in 100 mls @ 100 mls/hr IVPB Q8 [facility] PRN Reason: Protocol Last Admin: 07/21/17 06:07 Dose: 100 mls/hr Dextrose/Sodium Chloride (Dextrose 5%/0.9% Ns 1000 Ml) 1,000 mls @ 40 mls/hr IV .Q24H [facility] Last Admin: 07/20/17 08:25 Dose: 40 mls/hr Valproate Sodium 250 mg/ (Sodium Chloride) 102.5 mls @ 100 mls/hr IVPB Q12 [facility] Last Admin: 07/20/17 21:49 Dose: 100 mls/hr Levetiracetam 250 mg/ Sodium (Chloride) 102.5 mls @ 460 mls/hr IV Q12 [facility] Last Admin: 07/20/17 21:48 Dose: 460 mls/hr Insulin Human Lispro (Humalog Low) 0 units SC ACHS [facility] PRN Reason: Protocol Last Admin: 07/20/17 22:20 Dose: Not Given Losartan Potassium (Cozaar) 50 mg PO DAILY [facility] Last Admin: 07/20/17 09:27 Dose: Not Given Ondansetron HCl (Zofran Inj) 4 mg IVP Q6 PRN PRN Reason: Nausea/Vomiting Last Admin: 07/16/17 00:26 Dose: 4 mg Pantoprazole Sodium (Protonix Inj) 40 mg IVP DAILY [facility] Last Admin: 07/20/17 09:30 Dose: 40 mg Potassium Phos/Sodium Phos (Neutra-Phos) 1 pkt PO TID [facility] Stop: 07/22/17 10:01 Last Admin: 07/20/17 17:56 Dose: 1 pkt - Labs Labs: 07/20/17 06:40 07/20/17 06:40 PT 13.5 SECONDS (9.4-12.5) H 07/17/17 09:00 INR 1.17 (0.93-1.08) H 07/17/17 09:00 APTT 30.9 Seconds (25.1-36.5) 07/15/17 18:08 - Constitutional Appears: Non-toxic, Chronically Ill - Head Exam Head Exam: NORMAL INSPECTION - ENT Exam ENT Exam: Mucous Membranes Moist - Neck Exam Neck Exam: absent: Meningismus - Respiratory Exam Respiratory Exam: Decreased Breath Sounds. absent: Rales - Cardiovascular Exam Cardiovascular Exam: +S1, +S2 - GI/Abdominal Exam GI & Abdominal Exam: Soft. absent: Tenderness - Extremities Exam Additional comments: left arm with splint in place Assessment and Plan - Assessment and Plan (Free Text) Plan: Assessment systemic inflammatory response syndrome, probably from subdural hematomas, with no source of infection or sepsis identified HTN DM history of CVA dementia hypothyroidism history of urinary incontinence Plan repeat blood cx are negative, PCT is only 0.06 Surgery not planned currently as per Neurosurgery will monitor clinically off antibiotics since she is at risk for hospital- acquired infections discussed with family that we do not need antibiotics currently overall prognosis is poor
--- NOTE | 2017-07-21 11:04 | CP.PCM.PN ---
Subjective - Date & Time of Evaluation Date of Evaluation: 07/21/17 Time of Evaluation: 11:00 - Subjective Subjective: Alert, able to follow simple commands Objective - Vital Signs/Intake and Output Vital Signs (last 24 hours): Temp Pulse Resp BP Pulse Ox 98.9 F 117 H 18 147/70 100 07/21/17 04:00 07/21/17 09:46 07/20/17 22:24 07/21/17 09:46 07/20/17 22:24 Intake and Output: 07/21/17 07/21/17 06:59 18:59 Intake Total 1250 Output Total 1000 Balance 250 - Medications Medications: Current Medications Atenolol (Tenormin) 50 mg PO DAILY [facility] Last Admin: 07/21/17 09:46 Dose: 50 mg Atorvastatin Calcium (Lipitor) 10 mg PO HS [facility] Last Admin: 07/20/17 21:48 Dose: 10 mg Hydralazine HCl (Apresoline) 10 mg IVP Q6 PRN PRN Reason: Systolic Blood Pressure Last Admin: 07/21/17 08:12 Dose: 10 mg Hydralazine HCl (Apresoline) 20 mg IVP Q6 PRN PRN Reason: Systolic Blood Pressure Dextrose/Sodium Chloride (Dextrose 5%/0.9% Ns 1000 Ml) 1,000 mls @ 40 mls/hr IV .Q24H [facility] Last Admin: 07/20/17 08:25 Dose: 40 mls/hr Valproate Sodium 250 mg/ (Sodium Chloride) 102.5 mls @ 100 mls/hr IVPB Q12 [facility] Last Admin: 07/21/17 09:37 Dose: 100 mls/hr Levetiracetam 250 mg/ Sodium (Chloride) 102.5 mls @ 460 mls/hr IV Q12 [facility] Last Admin: 07/20/17 21:48 Dose: 460 mls/hr Insulin Human Lispro (Humalog Low) 0 units SC ACHS [facility] PRN Reason: Protocol Last Admin: 07/21/17 08:13 Dose: 2 units Losartan Potassium (Cozaar) 50 mg PO DAILY [facility] Last Admin: 07/21/17 09:46 Dose: 50 mg Ondansetron HCl (Zofran Inj) 4 mg IVP Q6 PRN PRN Reason: Nausea/Vomiting Last Admin: 04/05/18 00:26 Dose: 4 mg Pantoprazole Sodium (Protonix Inj) 40 mg IVP DAILY [facility] Last Admin: 07/21/17 09:46 Dose: 40 mg Potassium Phos/Sodium Phos (Neutra-Phos) 1 pkt PO TID [facility] Stop: 07/22/17 10:01 Last Admin: 07/21/17 09:45 Dose: 1 pkt - Labs Labs: 07/21/17 06:00 07/21/17 06:00 PT 13.5 SECONDS (9.4-12.5) H 07/17/17 09:00 INR 1.17 (0.93-1.08) H 07/17/17 09:00 APTT 28.8 Seconds (25.1-36.5) 07/21/17 06:00 - Constitutional Appears: Chronically Ill - Head Exam Head Exam: NORMAL INSPECTION - Eye Exam Eye Exam: Normal appearance, PERRL - ENT Exam ENT Exam: Mucous Membranes Moist, Normal Oropharynx - Respiratory Exam Respiratory Exam: Decreased Breath Sounds, NORMAL BREATHING PATTERN - Cardiovascular Exam Cardiovascular Exam: REGULAR RHYTHM, +S1, +S2 - GI/Abdominal Exam GI & Abdominal Exam: Soft, Normal Bowel Sounds Additional comments: no tenderness - Extremities Exam Extremities Exam: Normal Capillary Refill Additional comments: L arm dressing intact - Back Exam Back Exam: NORMAL INSPECTION - Neurological Exam Neurological Exam: Alert - Skin Skin Exam: Dry, Warm Assessment and Plan - Assessment and Plan (Free Text) Assessment: 66 year old female with history of dementia who was admitted with altered mental status, found to have bilateral subdural hematomas. Mentation has improved,she is more awake and able to follow simple commands I left for patient's son Nayan. Family had decided on NH placement upon discharge. If patients condition worsens family will consider transition to hospice. Son indicated during previous conversation that he did not want his mother intubated, nor did he want feeding tube.Encouraged to consider advance care planning. Plan: Discharge to NH Monitor for changes in mental status. Continue dysphagia diet. Continue BP medications as ordered. Advance care planning
--- NOTE | 2017-07-21 12:57 | CP.PCM.DIS ---
<Noman Simpson - Last Filed: 07/21/17 12:53> Provider - Provider Date of Admission: 07/15/17 18:43 Attending physician: Kartik Suarez MD Primary care physician: Malaika Cm MD Consults: ID: Dr. Francisco Neurology: Dr. Boone Neurosurgery: Dr. Last Time Spent in preparation of Discharge (in minutes): 45 Diagnosis - Discharge Diagnosis (1) Altered mental status Status: Acute (2) Subdural hematoma Status: Acute (3) DM2 (diabetes mellitus, type 2) Status: Chronic (4) Dementia Status: Chronic (5) HTN (hypertension) Status: Chronic Priority: Low (6) Weakness Status: Resolved Priority: Medium Hospital Course - Lab Results Lab Results: Micro Results 07/17/17 09:00 Blood-Venous Blood Culture - Preliminary NO GROWTH AFTER 4 DAYS 07/17/17 09:00 Blood-Venous Blood Culture - Preliminary NO GROWTH AFTER 4 DAYS 07/18/17 08:30 Blood-Venous Blood Culture - Preliminary NO GROWTH AFTER 3 DAYS 07/18/17 08:00 Blood-Venous Blood Culture - Preliminary NO GROWTH AFTER 3 DAYS 07/15/17 22:44 Blood Blood Culture - Final NO GROWTH AFTER 5 DAYS 07/15/17 22:44 Blood Gram Stain - Final TEST NOT PERFORMED 07/15/17 22:44 Blood Blood Culture - Final NO GROWTH AFTER 5 DAYS 07/15/17 22:44 Blood Gram Stain - Final TEST NOT PERFORMED 07/18/17 16:00 Urine Urine Culture - Final Yeast Species 07/15/17 22:00 Naris MRSA Culture (Admit) - Final MRSA NOT DETECTED 07/16/17 01:00 Urine Urine Culture - Final No Growth (<1,000 CFU/ML) Most Recent Lab Values WBC 8.4 10^3/ul (4.5-11.0) 07/21/17 06:00 RBC 3.62 10^6/uL (3.5-6.1) 07/21/17 06:00 Hgb 9.4 g/dL (12.0-16.0) L 07/21/17 06:00 Hct 28.2 % (36.0-48.0) L 07/21/17 06:00 MCV 77.9 fl (80.0-105.0) L 07/21/17 06:00 MCH 26.0 pg (25.0-35.0) 07/21/17 06:00 MCHC 33.3 g/dl (31.0-37.0) 07/21/17 06:00 RDW 15.4 % (11.5-14.5) H 07/21/17 06:00 Plt Count 232 10^3/uL (120.0-450.0) 07/21/17 06:00 MPV 10.4 fl (7.0-11.0) 07/21/17 06:00 Gran % 73.9 % (50.0-68.0) H 07/20/17 06:40 Lymph % (Auto) 20.2 % (22.0-35.0) L 07/20/17 06:40 [place] % (Auto) 4.7 % (1.0-6.0) 07/20/17 06:40 Eos % (Auto) 0.9 % (1.5-5.0) L 07/20/17 06:40 Baso % (Auto) 0.3 % (0.0-3.0) 07/20/17 06:40 Gran # 5.64 (1.4-6.5) 07/20/17 06:40 Lymph # (Auto) 1.5 (1.2-3.4) 07/20/17 06:40 [place] # (Auto) 0.4 (0.1-0.6) 07/20/17 06:40 Eos # (Auto) 0.1 (0.0-0.7) 07/20/17 06:40 Baso # (Auto) 0.02 K/mm3 (0.0-2.0) 07/20/17 06:40 PT 13.5 SECONDS (9.4-12.5) H 07/17/17 09:00 INR 1.17 (0.93-1.08) H 07/17/17 09:00 APTT 28.8 Seconds (25.1-36.5) 07/21/17 06:00 Plt P2Y12 React Units 290 PRU (194-418) 07/16/17 15:45 pCO2 30 mm/Hg (35-45) L 07/17/17 08:30 pO2 49 mm/Hg (30-55) 07/17/17 15:45 HCO3 24.5 mmol/L (21-28) 07/17/17 08:30 ABG pH 7.52 (7.35-7.45) H 07/17/17 08:30 ABG Total CO2 25.4 mmol.L (22-28) 07/17/17 08:30 ABG O2 Saturation 99.1 % (95-98) H 07/17/17 08:30 ABG Base Excess 2.4 mmol/L (-2.0-3.0) 07/17/17 08:30 ABG Potassium 2.7 mmol/L (3.6-5.2) L 07/17/17 08:30 VBG pH 7.46 (7.32-7.43) H 07/17/17 15:45 VBG pCO2 36.0 (40-60) L 07/17/17 15:45 VBG HCO3 25.6 mmol/l (21-28) 07/17/17 15:45 VBG Total CO2 26.7 mmol.L (22-28) 07/17/17 15:45 VBG O2 Sat (Calc) 89.3 % (40-65) H 07/17/17 15:45 VBG Base Excess 2.0 mmol/L (0.0-2.0) 07/17/17 15:45 VBG Potassium 2.6 mmol/L (3.6-5.2) L 07/17/17 15:45 Sodium 130.0 mmol/L (132-148) L 07/17/17 15:45 Chloride 96.0 mmol/L (98-107) L 07/17/17 15:45 Glucose 300 mg/dl (65-105) H 07/17/17 15:45 Lactate 1.3 mmol/L (0.7-2.1) 07/17/17 15:45 FiO2 21.0 % 07/17/17 15:45 Sodium 134 mmol/L (132-148) 07/21/17 06:00 Potassium 3.4 mmol/L (3.6-5.0) L 07/21/17 06:00 Chloride 95 mmol/L (98-107) L 07/21/17 06:00 Carbon Dioxide 30 mmol/L (21-33) 07/21/17 06:00 Anion Gap 12 (10-20) 07/21/17 06:00 BUN 9 mg/dL (7-21) 07/21/17 06:00 Creatinine 0.6 mg/dl (0.7-1.2) L 07/21/17 06:00 Est GFR ( Amer) > 60 07/21/17 06:00 Est GFR (Non-Af Amer) > 60 07/21/17 06:00 POC Glucose (mg/dL) 240 mg/dL (65-110) H 07/21/17 11:19 Random Glucose 239 mg/dL (70-110) H 07/21/17 06:00 Hemoglobin A1c 9.2 % (4.2-6.5) H 07/15/17 18:08 Serum Osmolality 285 mosm/kg (272-300) 07/21/17 06:00 Calcium 9.8 mg/dL (8.4-10.5) 07/21/17 06:00 Phosphorus 2.1 mg/dL (2.5-4.5) L 07/18/17 23:05 Magnesium 1.8 mg/dL (1.7-2.2) 07/18/17 23:05 Total Bilirubin 0.6 mg/dL (0.2-1.3) 07/20/17 06:40 AST 28 U/L (14-36) 07/20/17 06:40 ALT 32 U/L (7-56) 07/20/17 06:40 Alkaline Phosphatase 56 U/L (38-126) 07/20/17 06:40 Ammonia < 9 umol/L (9-33) L 07/17/17 10:15 Total Creatine Kinase 39 U/L (35-230) 07/16/17 06:00 Troponin I < 0.01 ng/mL 07/17/17 06:30 Total Protein 6.6 g/dL (5.8-8.3) 07/20/17 06:40 Albumin 3.5 g/dL (3.0-4.8) 07/20/17 06:40 Globulin 3.2 gm/dL 07/20/17 06:40 Albumin/Globulin Ratio 1.1 (1.1-1.8) 07/20/17 06:40 Triglycerides 283 mg/dL (35-160) H 07/15/17 18:08 Cholesterol 249 mg/dL (130-200) H 07/15/17 18:08 LDL Cholesterol Direct 135 mg/dL (0-129) H 07/15/17 18:08 HDL Cholesterol 57 mg/dL (29-60) 07/15/17 18:08 Procalcitonin 0.06 NG/ML (0.19-0.49) L 07/18/17 08:00 Free T4 2.52 ng/dL (0.78-2.19) H 07/16/17 06:00 Total T3 1.04 ng/mL (0.97-1.69) 07/16/17 05:00 TSH 3rd Generation 0.13 mIU/mL (0.46-4.68) L 07/16/17 06:00 Arterial Blood Potassium 2.7 mmol/L (3.6-5.2) L 07/17/17 08:30 Venous Blood Potassium 2.6 mmol/L (3.6-5.2) L 07/17/17 15:45 Urine Color Straw (YELLOW) 07/16/17 01:00 Urine Appearance Clear (CLEAR) 07/16/17 01:00 Urine pH 7.5 (4.7-8.0) 07/16/17 01:00 Ur Specific [place] 1.010 (1.005-1.035) 07/16/17 01:00 Urine Protein Negative mg/dL (<30 mg/dL) 07/16/17 01:00 Urine Glucose (UA) >=1000 mg/dL (NEGATIVE) 07/16/17 01:00 Urine Ketones 15 mg/dL (NEGATIVE) H 07/16/17 01:00 Urine Blood Trace-intact (NEGATIVE) H 07/16/17 01:00 Urine Nitrate Negative (NEGATIVE) 07/16/17 01:00 Urine Bilirubin Negative (NEGATIVE) 07/16/17 01:00 Urine Urobilinogen 0.2 E.U./dL (<1 E.U./dL) 07/16/17 01:00 Ur Leukocyte Esterase Negative Gisell/uL (NEGATIVE) 07/16/17 01:00 Urine RBC 0 - 2 /hpf (0-2) 07/16/17 01:00 Urine WBC 0 - 2 /hpf (0-6) 07/16/17 01:00 Ur Epithelial Cells 0 - 2 /hpf (0-5) 07/16/17 01:00 Valproic Acid 46 ug/mL (50.0-100.0) L 07/19/17 06:20 Blood Type B POSITIVE 07/19/17 18:10 Antibody Screen Negative 07/19/17 18:10 Crossmatch See Detail 07/19/17 18:10 BBK History Checked Patient has bt 07/19/17 18:10 - Hospital Course Hospital Course: Patient is a 66 year old female with past medical history that includes HTN, DM2 , CVA, TIAs on plavix, baseline dementia who presented to [facility] ED with family via EMS for altered mental status Patient received CTA of head and neck as well as CT head showing acute vs. subactue subdural hematomas, bilateral concave, 1.4cm to L, 7 mm to R without midline shift or herniation. Patient was admitted to ICU and neurology, ID, and neurosurgery was consulted. Neurology evaluated the patient and recommended anti-seizure medication, discontinuation of anticoagulation/anti-platelet therapy as well as serial CT imaging for assessment of progression of subdural bleed. Patient continued to show clinical improvement and was eventually placed on anti-seizure regiment. Neurosurgery evaluated the patient with recommendations for possible neurosurgical intervention in the form of a isidro hole. Patient continued to show clinical improvement in mentation with eventual return to baseline. Neurosurgical intervention was deferred after discussion with family and Neurosurgery. Infectious disease evaluated the patient with recommendations for continued vancomycin and cefepime antibiotics per ICU team. Patient blood cultures were negative, afebrile, without leukocytosis and antibiotics were discontinued and patient was monitored clinically. Palliative care was consulted and evaluated the patient and after discussions with family patient remained full code and with eventual improvement in her clinical picture the family decided for subacute to potential termite helper rehab placement. Patient was noted to be hypertensive during her stay and her BP medications were titrated appropriately. Patient was hemodynamically stable, medications reconciled, and plan for discharge were discussed with primary medical team. Patient was discharged to outpatient subacute rehab. - Date & Time of H&P Date of H&P: 07/15/17 Time of H&P: 18:52 Discharge Exam - Head Exam Head Exam: NORMAL INSPECTION - Eye Exam Eye Exam: EOMI, PERRL - Respiratory Exam Respiratory Exam: Clear to PA & Lateral, NORMAL BREATHING PATTERN. absent: Rales, Rhonchi, Wheezes - Cardiovascular Exam Cardiovascular Exam: REGULAR RHYTHM, +S1, +S2 - GI/Abdominal Exam GI & Abdominal Exam: Normal Bowel Sounds, Soft. absent: Tenderness - Extremities Exam Extremities exam: full ROM, normal inspection, pedal pulses present - Neurological Exam Neurological exam: Alert Additional comments: Patient able to move all four extremities past midline, follow simple commands. Patient motor and sensory grossly intact - Psychiatric Exam Additional comments: AAOx2, baseline dementia - Skin Skin Exam: Dry, Normal Color, Warm Discharge Plan - Follow Up Plan Condition: FAIR Disposition: REHAB FACILITY/REHAB UNIT Instructions: Altered Mental Status (GEN) Additional Instructions: -Take medications as prescribed -Monitor BP and titrate BP medications as necessary -Continue with dysphagia diet -If symptoms worsen or return go to ED Referrals: Malaika Cm MD [Primary Care Provider] - <Kartik Suarez - Last Filed: 07/21/17 14:02> Provider - Provider Date of Admission: 07/15/17 18:43 Attending physician: Kartik Suarez MD Primary care physician: Malaika Cm MD Hospital Course - Lab Results Lab Results: Micro Results 07/17/17 09:00 Blood-Venous Blood Culture - Preliminary NO GROWTH AFTER 4 DAYS 07/17/17 09:00 Blood-Venous Blood Culture - Preliminary NO GROWTH AFTER 4 DAYS 07/18/17 08:30 Blood-Venous Blood Culture - Preliminary NO GROWTH AFTER 3 DAYS 07/18/17 08:00 Blood-Venous Blood Culture - Preliminary NO GROWTH AFTER 3 DAYS 07/15/17 22:44 Blood Blood Culture - Final NO GROWTH AFTER 5 DAYS 07/15/17 22:44 Blood Gram Stain - Final TEST NOT PERFORMED 07/15/17 22:44 Blood Blood Culture - Final NO GROWTH AFTER 5 DAYS 07/15/17 22:44 Blood Gram Stain - Final TEST NOT PERFORMED 07/18/17 16:00 Urine Urine Culture - Final Yeast Species 07/15/17 22:00 Naris MRSA Culture (Admit) - Final MRSA NOT DETECTED 07/16/17 01:00 Urine Urine Culture - Final No Growth (<1,000 CFU/ML) Most Recent Lab Values WBC 8.4 10^3/ul (4.5-11.0) 07/21/17 06:00 RBC 3.62 10^6/uL (3.5-6.1) 07/21/17 06:00 Hgb 9.4 g/dL (12.0-16.0) L 07/21/17 06:00 Hct 28.2 % (36.0-48.0) L 07/21/17 06:00 MCV 77.9 fl (80.0-105.0) L 07/21/17 06:00 MCH 26.0 pg (25.0-35.0) 07/21/17 06:00 MCHC 33.3 g/dl (31.0-37.0) 07/21/17 06:00 RDW 15.4 % (11.5-14.5) H 07/21/17 06:00 Plt Count 232 10^3/uL (120.0-450.0) 07/21/17 06:00 MPV 10.4 fl (7.0-11.0) 07/21/17 06:00 Gran % 73.9 % (50.0-68.0) H 07/20/17 06:40 Lymph % (Auto) 20.2 % (22.0-35.0) L 07/20/17 06:40 [place] % (Auto) 4.7 % (1.0-6.0) 07/20/17 06:40 Eos % (Auto) 0.9 % (1.5-5.0) L 07/20/17 06:40 Baso % (Auto) 0.3 % (0.0-3.0) 07/20/17 06:40 Gran # 5.64 (1.4-6.5) 07/20/17 06:40 Lymph # (Auto) 1.5 (1.2-3.4) 07/20/17 06:40 [place] # (Auto) 0.4 (0.1-0.6) 07/20/17 06:40 Eos # (Auto) 0.1 (0.0-0.7) 07/20/17 06:40 Baso # (Auto) 0.02 K/mm3 (0.0-2.0) 07/20/17 06:40 PT 13.5 SECONDS (9.4-12.5) H 07/17/17 09:00 INR 1.17 (0.93-1.08) H 07/17/17 09:00 APTT 28.8 Seconds (25.1-36.5) 07/21/17 06:00 Plt P2Y12 React Units 290 PRU (194-418) 07/16/17 15:45 pCO2 30 mm/Hg (35-45) L 07/17/17 08:30 pO2 49 mm/Hg (30-55) 07/17/17 15:45 HCO3 24.5 mmol/L (21-28) 07/17/17 08:30 ABG pH 7.52 (7.35-7.45) H 07/17/17 08:30 ABG Total CO2 25.4 mmol.L (22-28) 07/17/17 08:30 ABG O2 Saturation 99.1 % (95-98) H 07/17/17 08:30 ABG Base Excess 2.4 mmol/L (-2.0-3.0) 07/17/17 08:30 ABG Potassium 2.7 mmol/L (3.6-5.2) L 07/17/17 08:30 VBG pH 7.46 (7.32-7.43) H 07/17/17 15:45 VBG pCO2 36.0 (40-60) L 07/17/17 15:45 VBG HCO3 25.6 mmol/l (21-28) 07/17/17 15:45 VBG Total CO2 26.7 mmol.L (22-28) 07/17/17 15:45 VBG O2 Sat (Calc) 89.3 % (40-65) H 07/17/17 15:45 VBG Base Excess 2.0 mmol/L (0.0-2.0) 07/17/17 15:45 VBG Potassium 2.6 mmol/L (3.6-5.2) L 07/17/17 15:45 Sodium 130.0 mmol/L (132-148) L 07/17/17 15:45 Chloride 96.0 mmol/L (98-107) L 07/17/17 15:45 Glucose 300 mg/dl (65-105) H 07/17/17 15:45 Lactate 1.3 mmol/L (0.7-2.1) 07/17/17 15:45 FiO2 21.0 % 07/17/17 15:45 Sodium 134 mmol/L (132-148) 07/21/17 06:00 Potassium 3.4 mmol/L (3.6-5.0) L 07/21/17 06:00 Chloride 95 mmol/L (98-107) L 07/21/17 06:00 Carbon Dioxide 30 mmol/L (21-33) 07/21/17 06:00 Anion Gap 12 (10-20) 07/21/17 06:00 BUN 9 mg/dL (7-21) 07/21/17 06:00 Creatinine 0.6 mg/dl (0.7-1.2) L 07/21/17 06:00 Est GFR ( Amer) > 60 07/21/17 06:00 Est GFR (Non-Af Amer) > 60 07/21/17 06:00 POC Glucose (mg/dL) 240 mg/dL (65-110) H 07/21/17 11:19 Random Glucose 239 mg/dL (70-110) H 07/21/17 06:00 Hemoglobin A1c 9.2 % (4.2-6.5) H 07/15/17 18:08 Serum Osmolality 285 mosm/kg (272-300) 07/21/17 06:00 Calcium 9.8 mg/dL (8.4-10.5) 07/21/17 06:00 Phosphorus 2.1 mg/dL (2.5-4.5) L 07/18/17 23:05 Magnesium 1.8 mg/dL (1.7-2.2) 07/18/17 23:05 Total Bilirubin 0.6 mg/dL (0.2-1.3) 07/20/17 06:40 AST 28 U/L (14-36) 07/20/17 06:40 ALT 32 U/L (7-56) 07/20/17 06:40 Alkaline Phosphatase 56 U/L (38-126) 07/20/17 06:40 Ammonia < 9 umol/L (9-33) L 07/17/17 10:15 Total Creatine Kinase 39 U/L (35-230) 07/16/17 06:00 Troponin I < 0.01 ng/mL 07/17/17 06:30 Total Protein 6.6 g/dL (5.8-8.3) 07/20/17 06:40 Albumin 3.5 g/dL (3.0-4.8) 07/20/17 06:40 Globulin 3.2 gm/dL 07/20/17 06:40 Albumin/Globulin Ratio 1.1 (1.1-1.8) 07/20/17 06:40 Triglycerides 283 mg/dL (35-160) H 07/15/17 18:08 Cholesterol 249 mg/dL (130-200) H 07/15/17 18:08 LDL Cholesterol Direct 135 mg/dL (0-129) H 07/15/17 18:08 HDL Cholesterol 57 mg/dL (29-60) 07/15/17 18:08 Procalcitonin 0.06 NG/ML (0.19-0.49) L 07/18/17 08:00 Free T4 2.52 ng/dL (0.78-2.19) H 07/16/17 06:00 Total T3 1.04 ng/mL (0.97-1.69) 07/16/17 05:00 TSH 3rd Generation 0.13 mIU/mL (0.46-4.68) L 07/16/17 06:00 Arterial Blood Potassium 2.7 mmol/L (3.6-5.2) L 07/17/17 08:30 Venous Blood Potassium 2.6 mmol/L (3.6-5.2) L 07/17/17 15:45 Urine Color Straw (YELLOW) 07/16/17 01:00 Urine Appearance Clear (CLEAR) 07/16/17 01:00 Urine pH 7.5 (4.7-8.0) 07/16/17 01:00 Ur Specific [place] 1.010 (1.005-1.035) 07/16/17 01:00 Urine Protein Negative mg/dL (<30 mg/dL) 07/16/17 01:00 Urine Glucose (UA) >=1000 mg/dL (NEGATIVE) 07/16/17 01:00 Urine Ketones 15 mg/dL (NEGATIVE) H 07/16/17 01:00 Urine Blood Trace-intact (NEGATIVE) H 07/16/17 01:00 Urine Nitrate Negative (NEGATIVE) 07/16/17 01:00 Urine Bilirubin Negative (NEGATIVE) 07/16/17 01:00 Urine Urobilinogen 0.2 E.U./dL (<1 E.U./dL) 07/16/17 01:00 Ur Leukocyte Esterase Negative Gisell/uL (NEGATIVE) 07/16/17 01:00 Urine RBC 0 - 2 /hpf (0-2) 07/16/17 01:00 Urine WBC 0 - 2 /hpf (0-6) 07/16/17 01:00 Ur Epithelial Cells 0 - 2 /hpf (0-5) 07/16/17 01:00 Valproic Acid 46 ug/mL (50.0-100.0) L 07/19/17 06:20 Blood Type B POSITIVE 07/19/17 18:10 Antibody Screen Negative 07/19/17 18:10 Crossmatch See Detail 07/19/17 18:10 BBK History Checked Patient has bt 07/19/17 18:10 Attending/Attestation - Attestation I have personally seen and examined this patient.: Yes I have fully participated in the care of the patient.: Yes I have reviewed all pertinent clinical information, including history, physical exam and plan: Yes Notes (Text): 07/21/17 14:01 66 year old female with past medical history of CVA, dementia, hypertension and diabetes who presented with altered mental status. She was found to have bilateral subdural hematomas. She was being followed by neurology and neurosurgery and started on keppra and valproic acid. Her mental status has improved over past few days. No plan for intervention as per family and neurosurgery. Palliative care evaluation today was appreciated. Patient will be discharged to [facility]. Follow up with pmd. Kartik Suarez MD Hospitalist.
[2017-07-21 16:38] VITALS: BP 186/87
[2017-07-21 17:01] VITALS: RESP 21; TEMP 98.5; O2SAT 99
[2017-07-21 17:02] VITALS: PULSE 78
[2017-07-22] MEDS ORDERED: Pantoprazole 40 mg EC Tab PO SCH (07:30)
== END 2017-07-21 17:07 | DRG 64 ==
LOC: ED 17:08 → ERH 18:43 → ICU 21:33
PROVIDERS: ADMIT Internal Medicine; ATTEND Internal Medicine
PROC: 30233K1 Transfusion of Nonautologous Frozen Plasma into Peripheral Vein, Percutaneous Approach (ICD-10-PCS; principal; 2017-07-16)
DX: I62.01 Nontraumatic acute subdural hemorrhage (principal); G93.40 Encephalopathy, unspecified; R41.4 Neurologic neglect syndrome; E87.1 Hypo-osmolality and hyponatremia; R65.10 Systemic inflammatory response syndrome (SIRS) of non-infectious origin without acute organ dysfunction; E86.0 Dehydration; R29.714 NIHSS score 14; R13.12 Dysphagia, oropharyngeal phase; R47.01 Aphasia; R29.810 Facial weakness; F01.50 Vascular dementia, unspecified severity, without behavioral disturbance, psychotic disturbance, mood disturbance, and anxiety; I11.9 Hypertensive heart disease without heart failure; E89.0 Postprocedural hypothyroidism; E87.6 Hypokalemia; R32 Unspecified urinary incontinence; E87.8 Other disorders of electrolyte and fluid balance, not elsewhere classified; I49.3 Ventricular premature depolarization; E11.9 Type 2 diabetes mellitus without complications; D64.9 Anemia, unspecified; E78.5 Hyperlipidemia, unspecified; S52.602D Unspecified fracture of lower end of left ulna, subsequent encounter for closed fracture with routine healing; X58.XXXD Exposure to other specified factors, subsequent encounter; Z79.4 Long term (current) use of insulin; Z79.02 Long term (current) use of antithrombotics/antiplatelets